=== PATIENT | male | born 1960 ===

== ENCOUNTER 2019-07-14 12:00 | Outpatient (CLI) | payer SELFPAY | END 2019-07-14 12:01 | disposition home or self-care (01) | LOC: SLEEP 07-15 12:04 | PROVIDERS: Family Provider Family Medicine; PCP Family Medicine; Visit Provider Internal Medicine | DX: G47.33 Obstructive sleep apnea (adult) (pediatric) (principal) | CPT/HCPCS: G0399 ==

== ENCOUNTER 2019-12-12 08:04 | Outpatient (CLI) | payer SELFPAY ==
--- NOTE | 2019-12-12 08:12 | CT_ITS ---
WS: [id number] CTA THORACIC TECHNIQUE: Contrast enhanced CTA of the thoracic aorta with coronal and sagittal reformatted images a nd maximum intensity projection (MIP) images. CLINICAL INFORMATION: THORACIC AORTIC ANEURYSM COMPARISON: CTA June 10, 2019 DLP: 2420.[address] scans at [facility] use at least one of these dose optimization techniques: automat ed exposure control; mA and/or kV adjustment per patient size (includes targeted exams where dose is matched to clinical indication); or iterative reconstruction. FINDINGS: Stable slightly ectatic ascending thoracic aorta measuring 4.3 x 4.0 CM unchanged. Normal aortic arch . Descending thoracic aorta is normal. Celiac and SMA origins are normal. Lungs are well aerated. No acute pulmonary infiltrates. No suspicious pulmonary parenchymal abnormali ties. No mediastinal or hilar lymphadenopathy. Coronary calcification. Fatty atrophy of the pancreas. No axillary lymphadenopathy. No mediastinal or hilar lymphadenopathy. Adrenal glands are normal. Fatty atrophy of the pancreas. Partially visualized left renal cyst. Small esophageal hiatal hernia. Schmorl's nodes in the mid thoracic spine. CT/CT angio chest [id number] IMPRESSION: 1. Ascending thoracic aorta is unchanged with mild ectasia measuring 4.3 x 3.9 CM. 2. Aortic arch and descending thoracic aorta are normal. 3. Lungs are well aerated. 4. No mediastinal or hilar lymphadenopathy. No axillary lymphadenopathy.
[2019-12-12] MEDS: iohexol 350 mg/mL 100 mL Btl IV (08:37)
== END 2019-12-12 08:05 | disposition home or self-care (01) ==
LOC: RAD 08:08
PROVIDERS: Family Provider Family Medicine; PCP Family Medicine; Visit Provider Internal Medicine
DX: I71.2 Thoracic aortic aneurysm, without rupture (principal)
CPT/HCPCS: 71275

== ENCOUNTER 2020-09-17 15:54 | Outpatient (CLI) | payer MEDICAID, SELFPAY ==
--- NOTE | 2020-09-17 16:01 | MR_ITS ---
WS: [id number] MRI LUMBAR SPINE NONCONTRAST TECHNIQUE: Sagittal T1, T2 and STIR imaging. Axial T1 and T2 imaging. CLINICAL INFORMATION: BACK PAIN WITH RADICULOPATHY COMPARISON: None. FINDINGS: Mild lumbar curve. No acute compression. Left subarticular disc extrusion L4-5 with slight inferior m igration of disc material. L1-L2: Normal. L2-L3: Mild annular bulging. Mild facet arthropathy. Mild right and no significant left foraminal campbell rowing. Spinal canal is patent. L3-L4: Mild annular bulging. Small left foraminal protrusion with mild left foraminal narrowing. Slig ht contact of the exiting left L3 nerve root. Mild facet arthropathy. L4-L5: Small left pericentral disc extrusion with slight inferior migration of disc material. Impinge ment on the traversing left L5 nerve root in the subarticular recess. Moderate facet arthropathy. Mil d central canal stenosis. Moderate right and mild left foraminal narrowing. L5-S1: Disc osteophyte complex with endplate ridging. Moderate facet arthropathy. Moderate left and m ild right foraminal narrowing. Moderate facet arthropathy. Mild thoracic kyphosis on the body shop technician imaging. Schmorl's nodes in the mid thoracic spine. MR/MR lumbar spine wo con* [id number] IMPRESSION: 1. Mild lumbar curve. No acute compression. 2. Slight anterolisthesis L5 on S1 with chronic bilateral pars defects. 3. Left pericentral disc extrusion L4-5 with slight inferior migration of disc material. This impinges the traversing left L5 nerve root in the subarticular recess. Recommend correlation with left L5 nerve root symptoms. Mild central ca nal stenosis at this level. 4. Moderate right L4-5 and left L5-S1 foraminal narrowing. 5. Small left foraminal protrusion L3-4 with mild left foraminal narrowing and slight contact of the exiting left L3 nerve root. 6. Moderate facet arthropathy L4-L5 and L5-S1.
== END 2020-09-17 15:55 | disposition home or self-care (01) ==
LOC: RADWPI 15:59
PROVIDERS: PCP Family Medicine; Visit Provider Family Medicine
DX: M54.16 Radiculopathy, lumbar region (principal); M47.816 Spondylosis without myelopathy or radiculopathy, lumbar region; M47.817 Spondylosis without myelopathy or radiculopathy, lumbosacral region; M51.26 Other intervertebral disc displacement, lumbar region
CPT/HCPCS: 72148

== ENCOUNTER 2020-10-18 14:34 | Outpatient (RCR) | payer MEDICAID, SELFPAY | END 2020-11-02 23:59 | disposition home or self-care (01) | LOC: SPT 14:34 | PROVIDERS: PCP Family Medicine; Referring Provider Family Medicine; Visit Provider Family Medicine | DX: M54.16 Radiculopathy, lumbar region (principal); M54.9 Dorsalgia, unspecified; G89.29 Other chronic pain | CPT/HCPCS: 97110; 97161 ==

== ENCOUNTER 2020-11-03 06:00 | Outpatient (RCR) | payer MEDICAID, SELFPAY | END 2020-12-03 23:59 | disposition home or self-care (01) | LOC: SPT 06:00 | PROVIDERS: PCP Family Medicine; Referring Provider Family Medicine; Visit Provider Family Medicine | DX: M54.16 Radiculopathy, lumbar region (principal); M54.9 Dorsalgia, unspecified; G89.29 Other chronic pain | CPT/HCPCS: 97110 ==

== ENCOUNTER 2020-12-04 06:00 | Outpatient (RCR) | payer MEDICAID, SELFPAY | END 2021-01-02 23:59 | disposition home or self-care (01) | LOC: SPT 06:00 | PROVIDERS: PCP Family Medicine; Referring Provider Family Medicine; Visit Provider Family Medicine | DX: M54.16 Radiculopathy, lumbar region (principal); M54.9 Dorsalgia, unspecified; G89.29 Other chronic pain | CPT/HCPCS: 97110 ==

== ENCOUNTER 2021-01-03 06:00 | Outpatient (RCR) | payer MEDICAID, SELFPAY | END 2021-02-02 23:59 | disposition home or self-care (01) | LOC: SPT 06:00 | PROVIDERS: PCP Family Medicine; Referring Provider Family Medicine; Visit Provider Family Medicine | DX: M54.16 Radiculopathy, lumbar region (principal); M54.5 Low back pain; G89.29 Other chronic pain | CPT/HCPCS: 97110 ==

== ENCOUNTER 2021-02-10 08:49 | Emergency (ER) | payer MEDICAID, SELFPAY ==
--- NOTE | 2021-02-10 08:52 | ED_ITS ---
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 Patient tells me he initially began having symptoms 6 days ago. He is complaining of weakness, headache, shortness of breath, decreased appetite, and body aches. He tested positive for COVID on 02/05 at [facility]. His here with similar symptoms. Son states he has a history of HTN. MD complaint: known COVID positive Prior covid testing: yes, results known Prior testing date: 02/05/21 COVID 19 common symptoms: positive fever(s) (had on first few days but none since), non-productive cough, dyspnea, fatigue, body aches and headache(s); negative chills, throat pain, nasal congestion, nausea, vomiting or diarrhea COVID 19 other sytmptoms: negative chest pain Onset (ago): day(s) Severity: moderate Pertinent comorbid conditions: hypertension Treatment prior to arrival: none COVID Results: No Data to Display Review of Systems Const: Reports: fever(s) (had on first few days but none since), body aches and fatigue; Denies: chills ENMT: Denies: throat pain, odynophagia, nasal discharge, nasal congestion or s inus pain Card: Denies: chest pain, palpitations, irregular heart rhythm, edema, lightheadedness, syncope or pre-syncope Resp: Reports: dyspnea and non-productive cough; Denies: wheezing, hemoptysis or chest congestion GI: Denies: abdominal pain, nausea, vomiting or diarrhea Musc: Reports: other (diffuse body aches); Denies: neck pain, back pain, extremity pain or joint pain Skin/Breast: Denies: rash Neuro: Reports: headache(s) and other (generalized weakness/malaise); Denies: numbness in extremities, sensory changes or difficulty walking PFS ED PFS: Family History (Updated 07/13/19 @ 13:44 by Alissa Kaufman LPN) Other CAD (coronary artery disease) Physical Exam Const: COMMON NORMALS: no acute distress, patient oriented x3, no limitations and alert GENERAL APPEARANCE: cooperative NUTRITIONAL APPEARANCE: overweight ORIENTATION/CONSCIOUSNESS: Yes awake, Yes oriented to person, Yes oriented to place and Yes oriented to time HENMT: COMMON NORMALS: normocephalic and atraumatic HEAD & SCALP: normocephalic and atraumatic Resp: COMMON NORMALS: normal respiratory effort and clear to auscultation bilaterally AUSCULTATION: clear to auscultation bilaterally Cardio: COMMON NORMALS: regular rate and regular rhythm RATE: regular rate RHYTHM: regular rhythm Neuro: HAL COMA SCALE: document GCS findings Hersey coma scale eye opening: Spontaneous Hersey coma scale verbal response: Orientated Hal coma scale motor response: Obey commands Hersey coma scale total score: 15 COMMON NORMALS: patient oriented x3 SENSORIUM/ORIENTATION: Yes alert, Yes oriented to person, Yes oriented to place and Yes oriented to time Skin: COMMON NORMALS: no rashes or lesions noted GENERAL SKIN EXAM: no rashes or lesions noted Course Vital Signs: Vital signs: Vital Signs Temperature 99 F 02/10/21 09:46 Pulse Rate 84 02/10/21 09:09 Respiratory Rate 24 H 02/10/21 09:46 Blood Pressure 135/90 02/10/21 09:09 Pulse Oximetry 88 L 02/10/21 09:48 MDM - COVID MDM Narrative: Medical decision making narrative: Patient is a very nice gentleman here with symptoms related to his COVID-19 infection. He tested positive at [facility] on 02/05. He is on day 7 of symptoms. Patient upon arrival is in no acute distress. He does appear, however, like he doesn't feel well. He is not tachycardic or febrile. Patient was initially triaged by RN/myself. Patient was satting at 94% at rest on RA. During his home O2 evaluation by RT howrever he was satting at 88%. He quickly suresh to 94% with 2L qualifying him for home O2. CXR does show bilateral pneumonia. He certainly has risk factors for disease progression but does not qualify for [facility] based on oxygen requirement. At this time patient does not warrant emergent hospitalization. He was given strict instructions to return to ED if symptoms worsen. We will have CM set him up with a telehealth COVID re-check visit so someone can re-assess in 24-48 hours. Imaging Data: CXR: Radiologist's impression: [address] [address] XRay Report Signed Patient: Federico Hua Unit #: [id number] : 1960 Age/Sex: 60 / M ADM Date: 02/10/21 Loc: ER Room/Bed: Attending Dr: Ordering Provider/Ordering MD: Christine Still Date of Service: 02/10/21 Procedure(s): XR chest 1V portable [id number] Accession Number(s): [id number] Report Number: [id number] PROCEDURE INFORMATION: Exam: XR Chest Exam date and time: 02/10/2021 9:09 AM Age: 60 years old Clinical indication: Shortness of breath; Additional info: Covid TECHNIQUE: Imaging protocol: XR of the chest. Views: 1 view. COMPARISON: CR Chest 1 [place] [id number] 06/09/2019 8:14 PM FINDINGS: Lungs: There are ill-defined scattered bilateral pulmonary hazy opacities. Pleural spaces: Unremarkable. No pleural effusion. No pneumothorax. Heart/Mediastinum: Unremarkable. No cardiomegaly. Bones/joints: Unremarkable. XR/XR chest 1V portable [id number] IMPRESSION: Ill-defined bilateral pulmonary hazy opacities. Findings raise concern for pneumonia. Consider CT scan of the thorax for further evaluation as clinically warranted. Dictated By: Taya Doe MD Signed By: Taya Doe MD Signed Date/Time: 02/10/21 1206 DD/ 1204 COVID Results: No Data to Display Monoclonal Antibody - ED Inclusion/Exclusion Criteria age >/= 12 years, weight >/= 40kg /88lbs, symptom onset less than 10 days ago and + direct Sars-Cov-2 test less than 7-10 days ago obesity (BMI >25 or 85%til for age) and cardiovascular disease or htn not requiring hospitalization and no increase oxygen requirement (if chronically on oxygen) Plan for treatment Does not meet criteria (DO NOT GIVE) Discharge Plan Discharge Patient Disposition: Home Clinical Impression: Pneumonia due to COVID-19 virus Condition: Stable Prescriptions: New dexamethasone 6 mg tablet 6 mg PO DAILY Qty: 6 RF: 0 No Action ibuprofen 600 mg tablet 600 mg PO Q6H PRNRF: 0 aspirin 81 mg tablet,delayed release (DR/EC) 81 mg PO DAILY RF: 0 rosuvastatin [Crestor] 40 mg tablet 40 mg PO DAILY RF: 0 lisinopril-hydrochlorothiazide 20-12.5 mg tablet 1 tab PO BID RF: 0 clonidine HCl [Catapres] 0.1 mg tablet 0.1 mg PO BID RF: 0 carvedilol 6.25 mg tablet 6.25 mg PO BID RF: 0 isosorbide mononitrate 30 mg tablet extended release 24 hr 30 mg PO QAM RF: 0 pantoprazole 40 mg tablet,delayed release (DR/EC) 40 mg PO QAM RF: 0 Discharge Orders: Discharge ED (Routine); Ordered 02/10/21 Ordered By: Christine Still Other Ambulatory Orders: DME: Oxygen (Order) Location: None Selected Ordered By: Christine Still Referrals: Juan Diego Gaona MD [Primary Care Provider] - Activity Restrictions/Additional Instructions: As we discussed you did not qualify for the monoclonal antibody infusion given the fact that you were requiring oxygen. Your vital signs are stable at this time. Your chest x-ray does show pneumonia. This is secondary to the COVID-19 virus. Antibiotics are not indicated at this time. You need to continue to watch symptoms closely and return to the emergency department for severe shortness of breath or difficulty breathing. I will try to have case management set you up with a telehealth visit in the next 1 to 2 days so somebody can reevaluate you. Coding Level of Care Code ED [employer] F[employer] for [place] Exam Detailed
[2021-02-10 09:09] VITALS: BP 135/90; PULSE 84; RESP 18; TEMP 37.2; O2SAT 95; BMI 36.9
--- NOTE | 2021-02-10 09:09 | XRR_ITS ---
PROCEDURE INFORMATION: Exam: XR Chest Exam date and time: 02/10/2021 9:09 AM Age: 60 years old Clinical indication: Shortness of breath; Additional info: Covid TECHNIQUE: Imaging protocol: XR of the chest. Views: 1 view. COMPARISON: CR Chest 1 [place] [id number] 06/09/2019 8:14 PM FINDINGS: Lungs: There are ill-defined scattered bilateral pulmonary hazy opacities. Pleural spaces: Unremarkable. No pleural effusion. No pneumothorax. Heart/Mediastinum: Unremarkable. No cardiomegaly. Bones/joints: Unremarkable. XR/XR chest 1V portable [id number] IMPRESSION: Ill-defined bilateral pulmonary hazy opacities. Findings raise concern for pneumonia. Consider CT scan of the thorax for further evaluation as clinically warranted.
[2021-02-10 09:44] VITALS: O2SAT 88; O2SAT 94
[2021-02-10 09:46] VITALS: RESP 24; TEMP 37.2; O2SAT 88
[2021-02-10 09:48] VITALS: O2SAT 88
--- NOTE | 2021-02-11 14:21 | DCPLANNER ---
HOME called housing case manager asking housing case manager to pre certify patients oxygen for patient with medicaid. scientific affairs manager called Medicaid, spoke with Latanya, gave patients information, and it was approved with medicaid for patient to have oxygen. scientific affairs manager called HOME and let them know that they could print off the approval for patients oxygen. scientific affairs manager also had message to schedule a tele health visit for patient with primary care physician. scientific affairs manager called [facility], where patient sees Dr. Gaona. scientific affairs manager gave clinic patients information, a follow up appointment was scheduled for Friday, February 12, 2021 at 1:[address] Gaona. scientific affairs manager called patients daughter and gave the daughter the appointment information.
--- NOTE | 2021-02-22 14:30 | DCPLANNER ---
Patient had a follow up appointment scheduled for 02.12.21 with [facility] - patient did attend appointment.
== END 2021-02-10 11:21 | disposition home or self-care (01) ==
PROVIDERS: Emergency Provider Physician Assistant; PCP Family Medicine
DX: U07.1 COVID-19 (principal); J12.82 Pneumonia due to coronavirus disease 2019; Z79.82 Long term (current) use of aspirin
CPT/HCPCS: 71045; 99283

== ENCOUNTER 2021-02-14 10:50 | Inpatient (IN) | payer MEDICAID, SELFPAY ==
[2021-02-14] VITALS (25 sets, daily range): BP systolic 92–151; BP diastolic 60–92; PULSE 86–101; RESP 18–23; TEMP 37.3; O2SAT 68–91; BMI 33.2
--- NOTE | 2021-02-14 | XRR_ITS ---
PROCEDURE INFORMATION: Exam: XR Chest Exam date and time: 02/14/2021 12:00 AM Age: 60 years old Clinical indication: Shortness of breath; Additional info: Hypoxia, intubated TECHNIQUE: Imaging protocol: XR of the chest. Views: 1 view. COMPARISON: CR XR chest 1V portable [id number] 02/14/2021 12:44 PM FINDINGS: Tubes, catheters and devices: Intubation with tip 5.7 cm above the riley. Right IJ central line with tip over the mid SVC. Gastric tube with tip in the mid stomach. Lungs: Dense consolidation in the peripheral inferior right upper lobe. Patchy dense ground-glass and airspace opacities in both lung bases. These findings are not significantly changed, allowing for positioning differences. Pleural spaces: Unremarkable. No pleural effusion. No pneumothorax. Heart/Mediastinum: Unremarkable. No cardiomegaly. Bones/joints: Unremarkable. XR/XR chest 1V portable [id number] IMPRESSION: 1. Stable multilobar pneumonia and/or ARDS.
[2021-02-14] MEDS: succinylcholine 20 mg/mL SDV 10mL 100 MG IVP (10:53)
[2021-02-14] MEDS: vecuronium 10 mg SDV IVP ×2 (11:00→11:43)
[2021-02-14] MEDS: propofol 10 mg/mL SDV 20 mL 100 MG IVP ×3 (11:01→11:47)
--- NOTE | 2021-02-14 11:08 | ECG_ITS ---
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1960 Requested By: Lexa Mart Order Number: [id number] Reading MD: SERGIO MAYES Measurements Intervals Lamar Rate: 107 P: 5 CA: 156 QRS: 55 QRSD: 96 T: -75 QT: 350 QTc: 468 Interpretive Statements SINUS TACHYCARDIA ST DEVIATION AND MODERATE T-WAVE ABNORMALITY, CONSIDER ANTEROLATERAL ISCHEMIA [-0.1+ mV T WAVE IN V3-V6] ST DEVIATION AND MODERATE T-WAVE ABNORMALITY, CONSIDER INFERIOR ISCHEMIA [-0.1+ mV T WAVE IN II/aVF] Compared to ECG 06/10/2019 02:13:34 Sinus rhythm no longer present T-wave abnormality still present Possible ischemia still present Electronically Signed On 02-14-2021 21:22:55 CDT by SERGIO MAYES [id number] f
--- NOTE | 2021-02-14 11:08 | XR_ITS ---
WS: [id number] Portable AP upright chest, 02/14/2021 Clinical Data: dyspnea/cough Comparison: Portable chest, 02/10/2021. Findings: There are diffuse bilateral pulmonary opacities which have increased compared to the prior x-ray. The heart remains at the upper limits of normal. There is an endotracheal tube above the melvin a and a nasogastric tube which probably ends in the stomach. Monitor leads are on the chest wall. XR/XR chest 1V portable [id number] Impression: 1. Increase in diffuse bilateral pulmonary opacities consistent with pneumonia. 2. Satisfactory position of endotracheal tube and nasogastric tube.
--- NOTE | 2021-02-14 11:29 | W.ED.COVID ---
HPI - COVID General: Chief Complaint: ER Hold Stated Complaint: respiratory distress/covid + Time Seen by Provider: 02/14/21 11:02 History of Present Illness: HPI Narrative: 60-year-old male with known positive for Covid.His was admitted yesterday. He was seen on February 10. He had tested positive at [facility] on 3. According to the records today would be day 10 of symptoms. Was evaluated on February 10 for possible monoclonal antibody infusion but did not qualify due to his oxygen need. EMS contacted us for med control prior to arrival he was in acute respiratory distress and rapidly decompensating. Upon arrival here he was emergently intubated. History is entirely from his previous records. MD complaint: known COVID positive Prior testing date: 02/05/21 COVID 19 common symptoms: positive fever(s), chills, cough, non-productive cough, dyspnea, fatigue and body aches COVID 19 other sytmptoms: positive requiring more oxygen, respiratory distress, cyanosis, lethargy and confusion Onset (ago): day(s) (10) Severity: severe Pertinent comorbid conditions: obesity Treatment prior to arrival: steroids and oxygen COVID Results: No Data to Display Review of Systems Const: Reports: fever(s), chills, body aches and fatigue Resp: Reports: dyspnea and non-productive cough Neuro: Reports: confusion [facility] ED PFSH: Medical History (Updated 02/18/21 @ 06:32 by Lexa Roman DO) Acute renal failure CAD (coronary artery disease) Nonobstructive per angiogram June 2019 Chronic headaches Diabetes mellitus Dyslipidemia Hypertension Family History Other CAD (coronary artery disease) Social History Smoking and tobacco status: never smoked Alcohol intake: never Physical Exam HENMT: COMMON NORMALS: normocephalic and atraumatic HEAD & SCALP: normocephalic and atraumatic Resp: EFFORT & INSPECTION: Yes abnormal respiratory pattern, Yes respiratory distress, Yes decreased respiratory effort, Yes labored, Yes grunting and Yes audible wheezes AUSCULTATION: crackles, rhonchi and wheezes Cardio: COMMON NORMALS: regular rhythm and No murmurs present (Cardio) RATE: tachycardic RHYTHM: regular rhythm GI: COMMON NORMALS: Soft to palpation and No hepatosplenomegaly present AUSCULTATION: Yes normoactive bowel sounds PALPATION: Yes Soft to palpation, No Tenderness to palpation present (GI), No Guarding due to palpation present (GI) and Yes No hepatosplenomegaly present Extremity: COMMON NORMALS: normal to inspection, capillary refill normal, no clubbing, cyanosis or edema, no calf tenderness and no pedal edema Skin: COMMON NORMALS: no rashes or lesions noted GENERAL SKIN EXAM: no rashes or lesions noted Procedures Intubation Time out performed: Yes sedative: Etomidate paralytic: Succinylcholine Laryngoscope: fiber optic video scope Assist Device Used: fiber optic device ET Tube Size: 8.5 Tube Secured Depth (cm): 22 Tube Secured Location: teeth Tube Placement Confirmation: visualized tube passing through cords, equal breath sounds bilaterally, no breath sounds over epigastrium and confirmation by capnometry Patient Tolerated Procedure: well Intubation Complications: none Course Vital Signs: Vital signs: Vital Signs Temperature 98.6 F 02/18/21 04:00 Pulse Rate 87 02/18/21 06:00 Respiratory Rate 24 H 02/18/21 06:16 Blood Pressure 143/75 02/18/21 06:00 Pulse Oximetry 95 02/18/21 06:16 MDM - COVID MDM Narrative: Medical decision making narrative: Patient presented in acute respiratory failure and was intubated by RSI on arrival. Reviewed labs and chest x-ray which shows extensive Covid pneumonitis. His first positive test was February 05. Discussed with hospitalist orders written patient admitted to the ICU he is currently stable on the ventilator. Lab Data: Labs: Lab Results 02/14/21 02/14/21 02/14/21 Range/Units 10:55 10:55 10:55 WBC (4.0-10.0) 10^3/ uL RBC (4.1-5.3) 10^6/u L Hgb (11.7-16.6) g/dL Hct (42.0-52.0) % MCV (80-94) fL MCH (28.0-34.0) pg MCHC (30.0-36.0) g/dL RDW (12.1-15.1) % Plt Count (130-400) 10^3/c mm MPV (7.4-10.4) fL Neut % (Auto) % Lymph % (Auto) % [place] % (Auto) % Eos % (Auto) % Baso % (Auto) % Neut # (Auto) (1.8-7.7) 10^3/u L Lymph # (Auto) (0.8-4.8) 10^3/u L [place] # (Auto) (0.2-0.9) 10^3/u L Eos # (Auto) (0.0-0.8) 10^3/u L Baso # (Auto) (0.0-0.1) 10^3/u L Nucleated RBC % (a uto) % Nucleated RBCs # /100WBC D-Dimer 1.64 H (0-0.59) ug/mIFE U Specimen Type Sample Site ABG pH (7.35-7.45) ABG pCO2 (35-45) mmHg ABG pO2 (80.0-100.0) mmH g ABG HCO3 (22-26) mmol/L ABG O2 Saturation ABG Base Excess (-2.0-2.0) mmol/ L Artemio Test A-a O2 Gradient (5-10) mmHg Hematocrit (42-52) % Hgb O2 Saturation (95-100) % Carboxyhemoglobin (0.4-20.1) %THgb Methemoglobin (0.4-1.5) % Total Hemoglobin (14-18) g/dL Ionized Calcium (1.1-1.4) mmol/L O2 Delivery Device FiO2 % Tidal Volume PEEP cmH20 Disbursement Clerk ID Sodium 130 L (136-145) mmol/L Potassium 4.2 (3.5-5.1) mmol/L Chloride 94 L (98-107) mmol/L Carbon Dioxide 22 (22-29) mmol/L Anion Gap 18.2 (5-19) BUN 20 (6-20) mg/dL Creatinine 0.9 (0.7-1.2) mg/dL GFR Calculation 86.7 L (90-130) mL/min Glucose 282 H (65-115) mg/dL Calculated Osmolal ity 283 L (285-295) mOsm/k g Lactic Acid (0.5-2.2) mmol/L Calcium 7.7 L (8.5-10.5) mg/dL Total Bilirubin 0.6 (0.15-1.2) mg/dL AST 88 H (0-40) U/L ALT 58 H (0-41) U/L Alkaline Phosphata se 68 (40-130) IU/L Troponin T Baselin e (0-15) ng/L Troponin T 120 Min [place] (0-15) ng/L Delta Troponin T (0-10) ABS# C-Reactive Protein 80.3 H (0.0-4.9) mg/L NT-Pro-B Natriuret Pep (0-125) pg/mL Total Protein 6.5 L (6.6-8.7) g/dL Albumin 3.6 (3.5-5.2) g/dL Globulin 2.9 (1.3-4.6) g/dL Interleukin 6 2895.00 H (<5.00) pg/mL Procalcitonin 1.02 H (0-0.5) ng/mL 02/14/21 02/14/21 02/14/21 Range/Units 10:55 10:55 10:55 WBC 13.4 H (4.0-10.0) 10^3/ uL RBC 6.04 H (4.1-5.3) 10^6/u L Hgb 17.3 H (11.7-16.6) g/dL Hct 52.4 H (42.0-52.0) % MCV 86.8 (80-94) fL MCH 28.6 (28.0-34.0) pg MCHC 33.0 (30.0-36.0) g/dL RDW 13.2 (12.1-15.1) % Plt Count 165 (130-400) 10^3/c mm MPV 10.3 (7.4-10.4) fL Neut % (Auto) 91.2 % Lymph % (Auto) 4.8 % [place] % (Auto) 3.2 % Eos % (Auto) 0.0 % Baso % (Auto) 0.1 % Neut # (Auto) 12.18 H (1.8-7.7) 10^3/u L Lymph # (Auto) 0.6 L (0.8-4.8) 10^3/u L [place] # (Auto) 0.4 (0.2-0.9) 10^3/u L Eos # (Auto) 0.0 (0.0-0.8) 10^3/u L Baso # (Auto) 0.0 (0.0-0.1) 10^3/u L Nucleated RBC % (a uto) 0 % Nucleated RBCs # 0.0 /100WBC D-Dimer (0-0.59) ug/mIFE U Specimen Type Sample Site ABG pH (7.35-7.45) ABG pCO2 (35-45) mmHg ABG pO2 (80.0-100.0) mmH g ABG HCO3 (22-26) mmol/L ABG O2 Saturation ABG Base Excess (-2.0-2.0) mmol/ L Artemio Test A-a O2 Gradient (5-10) mmHg Hematocrit (42-52) % Hgb O2 Saturation (95-100) % Carboxyhemoglobin (0.4-20.1) %THgb Methemoglobin (0.4-1.5) % Total Hemoglobin (14-18) g/dL Ionized Calcium (1.1-1.4) mmol/L O2 Delivery Device FiO2 % Tidal Volume PEEP cmH20 Disbursement Clerk ID Sodium (136-145) mmol/L Potassium (3.5-5.1) mmol/L Chloride (98-107) mmol/L Carbon Dioxide (22-29) mmol/L Anion Gap (5-19) BUN (6-20) mg/dL Creatinine (0.7-1.2) mg/dL GFR Calculation (90-130) mL/min Glucose (65-115) mg/dL Calculated Osmolal ity (285-295) mOsm/k g Lactic Acid 3.8 H (0.5-2.2) mmol/L Calcium (8.5-10.5) mg/dL Total Bilirubin (0.15-1.2) mg/dL AST (0-40) U/L ALT (0-41) U/L Alkaline Phosphata se (40-130) IU/L Troponin T Baselin e 18 H (0-15) ng/L Troponin T 120 Min [place] (0-15) ng/L Delta Troponin T (0-10) ABS# C-Reactive Protein (0.0-4.9) mg/L NT-Pro-B Natriuret Pep (0-125) pg/mL Total Protein (6.6-8.7) g/dL Albumin (3.5-5.2) g/dL Globulin (1.3-4.6) g/dL Interleukin 6 (<5.00) pg/mL Procalcitonin (0-0.5) ng/mL 02/14/21 02/14/21 02/14/21 Range/Units 11:49 12:55 12:55 WBC (4.0-10.0) 10^3/ uL RBC (4.1-5.3) 10^6/u L Hgb (11.7-16.6) g/dL Hct (42.0-52.0) % MCV (80-94) fL MCH (28.0-34.0) pg MCHC (30.0-36.0) g/dL RDW (12.1-15.1) % Plt Count (130-400) 10^3/c mm MPV (7.4-10.4) fL Neut % (Auto) % Lymph % (Auto) % [place] % (Auto) % Eos % (Auto) % Baso % (Auto) % Neut # (Auto) (1.8-7.7) 10^3/u L Lymph # (Auto) (0.8-4.8) 10^3/u L [place] # (Auto) (0.2-0.9) 10^3/u L Eos # (Auto) (0.0-0.8) 10^3/u L Baso # (Auto) (0.0-0.1) 10^3/u L Nucleated RBC % (a uto) % Nucleated RBCs # /100WBC D-Dimer (0-0.59) ug/mIFE U Specimen Type Arterial Sample Site Brachial, right ABG pH 7.32 L (7.35-7.45) ABG pCO2 44.8 (35-45) mmHg ABG pO2 46.0 L (80.0-100.0) mmH g ABG HCO3 22.9 (22-26) mmol/L ABG O2 Saturation 78.6 ABG Base Excess -3.5 L (-2.0-2.0) mmol/ L Artemio Test N/a A-a O2 Gradient 79.7 H (5-10) mmHg Hematocrit 52.7 H (42-52) % Hgb O2 Saturation 77.7 L (95-100) % Carboxyhemoglobin 0.7 (0.4-20.1) %THgb Methemoglobin 0.4 (0.4-1.5) % Total Hemoglobin 17.2 (14-18) g/dL Ionized Calcium 1.1 (1.1-1.4) mmol/L O2 Delivery Device Vent FiO2 100.0 % Tidal Volume 0.50 PEEP 12.0 cmH20 Disbursement Clerk ID Ed Sodium 131.0 (136-145) mmol/L Potassium 3.8 (3.5-5.1) mmol/L Chloride (98-107) mmol/L Carbon Dioxide (22-29) mmol/L Anion Gap (5-19) BUN (6-20) mg/dL Creatinine (0.7-1.2) mg/dL GFR Calculation (90-130) mL/min Glucose 294.0 H (65-115) mg/dL Calculated Osmolal ity (285-295) mOsm/k g Lactic Acid (0.5-2.2) mmol/L Calcium (8.5-10.5) mg/dL Total Bilirubin (0.15-1.2) mg/dL AST (0-40) U/L ALT (0-41) U/L Alkaline Phosphata se (40-130) IU/L Troponin T Baselin e (0-15) ng/L Troponin T 120 Min [place] 27.90 H (0-15) ng/L Delta Troponin T 9.90 (0-10) ABS# C-Reactive Protein (0.0-4.9) mg/L NT-Pro-B Natriuret Pep 1942 H (0-125) pg/mL Total Protein (6.6-8.7) g/dL Albumin (3.5-5.2) g/dL Globulin (1.3-4.6) g/dL Interleukin 6 (<5.00) pg/mL Procalcitonin (0-0.5) ng/mL 02/14/21 Range/Units 12:55 WBC (4.0-10.0) 10^3/ uL RBC (4.1-5.3) 10^6/u L Hgb (11.7-16.6) g/dL Hct (42.0-52.0) % MCV (80-94) fL MCH (28.0-34.0) pg MCHC (30.0-36.0) g/dL RDW (12.1-15.1) % Plt Count 181 (130-400) 10^3/c mm MPV (7.4-10.4) fL Neut % (Auto) % Lymph % (Auto) % [place] % (Auto) % Eos % (Auto) % Baso % (Auto) % Neut # (Auto) (1.8-7.7) 10^3/u L Lymph # (Auto) (0.8-4.8) 10^3/u L [place] # (Auto) (0.2-0.9) 10^3/u L Eos # (Auto) (0.0-0.8) 10^3/u L Baso # (Auto) (0.0-0.1) 10^3/u L Nucleated RBC % (a uto) % Nucleated RBCs # /100WBC D-Dimer (0-0.59) ug/mIFE U Specimen Type Sample Site ABG pH (7.35-7.45) ABG pCO2 (35-45) mmHg ABG pO2 (80.0-100.0) mmH g ABG HCO3 (22-26) mmol/L ABG O2 Saturation ABG Base Excess (-2.0-2.0) mmol/ L Artemio Test A-a O2 Gradient (5-10) mmHg Hematocrit (42-52) % Hgb O2 Saturation (95-100) % Carboxyhemoglobin (0.4-20.1) %THgb Methemoglobin (0.4-1.5) % Total Hemoglobin (14-18) g/dL Ionized Calcium (1.1-1.4) mmol/L O2 Delivery Device FiO2 % Tidal Volume PEEP cmH20 Disbursement Clerk ID Sodium (136-145) mmol/L Potassium (3.5-5.1) mmol/L Chloride (98-107) mmol/L Carbon Dioxide (22-29) mmol/L Anion Gap (5-19) BUN (6-20) mg/dL Creatinine (0.7-1.2) mg/dL GFR Calculation (90-130) mL/min Glucose (65-115) mg/dL Calculated Osmolal ity (285-295) mOsm/k g Lactic Acid (0.5-2.2) mmol/L Calcium (8.5-10.5) mg/dL Total Bilirubin (0.15-1.2) mg/dL AST (0-40) U/L ALT (0-41) U/L Alkaline Phosphata se (40-130) IU/L Troponin T Baselin e (0-15) ng/L Troponin T 120 Min [place] (0-15) ng/L Delta Troponin T (0-10) ABS# C-Reactive Protein (0.0-4.9) mg/L NT-Pro-B Natriuret Pep (0-125) pg/mL Total Protein (6.6-8.7) g/dL Albumin (3.5-5.2) g/dL Globulin (1.3-4.6) g/dL Interleukin 6 (<5.00) pg/mL Procalcitonin (0-0.5) ng/mL COVID Results: No Data to Display Critical Care Time Critical Care Time: Critical Care Time: Yes Total Critical Care Time: 20 Attestation: This case had a high probability of a clinically significant, sudden, or life threatening deterioration of this patient's condition which required my full and direct attention, intervention and personal management. Discharge Plan Discharge Patient Disposition: Admitted As Inpatient Admit Provider: Talib Olvera Clinical Impression: Pneumonia due to COVID-19 virus, Hypotension, CAD (coronary artery disease), Acute and chronic respiratory failure with hypoxia, ARDS (adult respiratory distress syndrome), Diabetes mellitus Condition: Stable Coding Level of Care Code ED Bending Roll Hand for g Fwd Exam Detailed
[2021-02-14 11:36] LABS: Basophils % 0.1 %; Hematocrit 52.4 % (42.0-52.0); Hemoglobin 17.3 g/dL (11.7-16.6); Lymphocytes # 0.6 10^3/uL (0.8-4.8); Lymphocytes % 4.8 %; Mean Corpuscular Hemoglobin 28.6 pg (28.0-34.0); Mean Corpuscular Volume 86.8 fL (80-94); Mean Platelet Volume 10.3 fL (7.4-10.4); Monocytes # 0.4 10^3/uL (0.2-0.9); Monocytes % 3.2 %; Neutrophils # 12.18 10^3/uL (1.8-7.7); Neutrophils % 91.2 %; Nucleated Red Blood Cells % 0 %; Platelet Count 165 10^3/cmm (130-400); Red Blood Count 6.04 10^6/uL (4.1-5.3); Red Cell Distribution Width 13.2 % (12.1-15.1); White Blood Count 13.4 10^3/uL (4.0-10.0)
[2021-02-14 11:43] LABS: D Dimer 1.64 ug/mIFEU (0-0.59)
[2021-02-14 11:49] LABS: Troponin(5th) Baseline 18 ng/L (0-15)
[2021-02-14 11:52] LABS: Alanine Aminotransferase 58 U/L (0-41); Albumin Level 3.6 g/dL (3.5-5.2); Alkaline Phosphatase 68 IU/L (40-130); Blood Urea Nitrogen 20 mg/dL (6-20); C Reactive Protein 80.3 mg/L (0.0-4.9); Calcium 7.7 mg/dL (8.5-10.5); Carbon Dioxide 22 mmol/L (22-29); Chloride 94 mmol/L (98-107); Globulin 2.9 g/dL (1.3-4.6); Glomerular Filtration Rate 86.7 mL/min (90-130); Glucose 282 mg/dL (65-115); Osmolality Calculated 283 mOsm/kg (285-295); Sodium 130 mmol/L (136-145); Total Bilirubin 0.6 mg/dL (0.15-1.2); Total Protein 6.5 g/dL (6.6-8.7)
[2021-02-14 11:55] LABS: Lactic Sepsis W/Reflex 3.8 mmol/L (0.5-2.2)
[2021-02-14 11:57] LABS: Procalcitonin 1.02 ng/mL (0-0.5)
[2021-02-14 12:04] LABS: Anion Gap 18.2 (5-19); Aspartate Amino Transferase 88 U/L (0-40); Potassium 4.2 mmol/L (3.5-5.1)
[2021-02-14] MEDS: remdesivir 200 MG in sodium chloride 0.9% (100 ml) 100 ML 100 MG IV (12:10)
--- NOTE | 2021-02-14 12:41 | XR_ITS ---
WS: [id number] Portable AP supine chest, 02/14/2021, 1244 hours Clinical Data: central line Comparison: Portable chest, 02/14/2021, 1126 hours Findings: A right internal jugular venous catheter has been inserted and it ends in the superior vena cava. No pneumothorax is seen. The patchy bilateral pulmonary opacities and the endotracheal tube an d nasogastric tube remain unchanged XR/XR chest 1V portable 50011 Impression: Insertion of right internal jugular venous catheter.
--- NOTE | 2021-02-14 12:48 | PM.HP ---
Providers/Chief Complaint Primary Care Provider: Juan Diego Gaona MD Chief Complaint: RESPIRATORY DISTRESS History of Present Illness Federico Hua is a 60 year old male presenting to the emergency department with shortness of breath. Symptoms were so severe he was intubated upon arrival. He was seen in the emergency department February 10. He tested positive on February 05. is ill with Covid symptoms as well. From what I understand he had fever. He did not qualify for monoclonal antibody. I have seen him shortly after the emergency department physician did. He is currently sedated on Versed and fentanyl. His oxygen saturation is 84% on 100% FiO2 with a tidal volume of 500 and PEEP of 12. I have ordered paralysis, and proning. I have written for 40 mg of Lasix. Dexamethasone 6 mg IV. IV antibiotics consisting of vancomycin and Zosyn. Multiple other orders and evaluations undergoing. Review of Systems General: Reports: ROS unobtainable due to endotracheal tube Medications/Allergies Home Medications Medication Instructions Recorded Confirmed Last Taken Type aspirin 81 mg tablet,delayed 81 mg PO DAILY tab 07/13/19 02/14/21 Unknown History release clonidine HCl 0.1 mg tablet 0.1 mg PO BID 07/13/19 02/14/21 Unknown History ibuprofen 600 mg tablet 600 mg PO Q6H PRN 07/13/19 02/14/21 Unknown History isosorbide mononitrate 30 mg 30 mg PO QAM 07/13/19 02/14/21 Unknown History tablet,extended release 24 hr lisinopril 20 1 tab PO BID 07/13/19 02/14/21 Unknown History mg-hydrochlorothiazide 12.5 mg tablet pantoprazole 40 mg tablet,delayed 40 mg PO QAM 07/13/19 02/14/21 Unknown History release dexamethasone 6 mg PO DAILY #6 tab 02/10/21 02/14/21 Unknown Rx diltiazem HCl [Diltia XT] 180 mg PO DAILY 02/14/21 02/14/21 02/13/21 History fluoxetine 20 mg PO DAILY 02/14/21 02/14/21 02/13/21 History metformin See Rx Instructions .ROUTE .COMPLEX 02/14/21 02/14/21 Unknown History Allergies Allergy/AdvReac Type Severity Reaction Status Date / Time No Known Allergies Allergy Unverified 07/13/19 13:31 PFSH Acute PFSH: Medical History (Updated 02/14/21 @ 17:34 by Talib Olvera MD) CAD (coronary artery disease) Nonobstructive per angiogram June 2019 Chronic headaches Diabetes mellitus Dyslipidemia Hypertension Family History Other CAD (coronary artery disease) Social History (Updated 02/14/21 @ 12:59 by Talib Olvera MD) Smoking and tobacco status: never smoked Alcohol intake: never Supplemental PFS Information: No significant surgical history Vitals/I&O/Wt Last Vital Signs Pulse 101 H 02/14/21 11:00 Resp 23 H 02/14/21 11:17 BP 151/79 02/14/21 11:00 Pulse Ox 68 L 02/14/21 11:00 Weight last 48 hrs Weight 102.058 kg Physical Exam Narrative: EXAM NARRATIVE: General exam Pleasant male, sedated on the ventilator HEENT: Atraumatic and normocephalic. Pupils equally round. Oropharynx demonstrates endotracheal tube and orogastric tube Neck is supple no lymphadenopathy or thyromegaly Cardiovascular regular rate and rhythm without murmur Lungs coarse breath sounds bilaterally Abdomen is soft obese positive bowel sounds. No obvious organomegaly demonstrates [place] Extremities no cyanosis clubbing or edema, cap refill brisk Skin no rash Data : 02/14/21 12:55 02/14/21 10:55 Micro: Microbiology 02/14/21 10:55 Blood Culture - Preliminary Blood SPECIMEN COLLECTED Other data: ABG after patient was intubated demonstrates a pH of 7.317, PCO2 45, PO2 46 on 100% FiO2. I believe the PEEP was 10 at this time with a tidal volume of 500. Chest x-ray demonstrates severe bilateral infiltrates, to position okay per my read. EKG demonstrates sinus tachycardia, normal axis, flipped T waves V3 through 6 as well as inferiorly. Procalcitonin is 1.02 Initial troponin XVIII with repeat pending CRP eighty Lactic acid 3.8 Calcium 7.7 AST and ALT eighty-eight and fifty-eight Total bili 0.6 Alk phos sixty-eight A&P Assessment and plan (1) Pneumonia due to COVID-19 virus: Severe COVID-19 pneumonia, first testing + February 05 Intubated in the emergency department, requiring a significant amount of PEEP and an FiO2 of 100%. We will sedate with fentanyl and propofol Continuous neuromuscular blockade with Nimbex, and will try to prone Critical care consultation Remdesivir given in the emergency department Dexamethasone initiated Empiric vancomycin and Zosyn secondary to possibility of bacterial pneumonia. Procalcitonin was high. Check MRSA PCR as well as bacterial antigen panel. Check Legionella as well. Dimer is significantly elevated and with elevated troponin I have placed on a heparin drip. Status: Acute (2) Acute and chronic respiratory failure with hypoxia: See above Status: Acute (3) ARDS (adult respiratory distress syndrome): Status: Acute (4) CAD (coronary artery disease): Continue aspirin Heparin drip Elevation in troponin noted may be type II elevation but positive delta is noted. Check echocardiogram Status: Acute (5) Hypertension: May have hypotension on medication for sedation. Hold antihypertensives. Norepinephrine as needed. Status: Acute (6) Diabetes mellitus: Sliding scale insulin Status: Acute Additional A&P Information Full code Lovenox for DVT prophylaxis Attestations Medical Necessity Statement*: Will need greater than 2 midnights secondary to respiratory failure requiring mechanical ventilation. Critical Care Time: The high probability of a clinically significant, sudden or life threatening deterioration of the patient's [pulm] system(s) required my full and direct attention, intervention and personal management. The critical care time is as shown. This time is in addition to time spent performing any reported procedures but includes the following: [x] Data and vital sign review and interpretation [x] Patient assessment, examination and intervention [x] Documentation [x] Medication orders and management Critical Care Time (min): 65 Coding Level of Care Code Acute Clinical Trials Data Coordinator for [facility]in Tse Diagnoses Pneumonia due to COVID-19 virus U07.1; J12.82 Acute and chronic respiratory failure with hypoxia J96.21 ARDS (adult respiratory distress syndrome) J80 CAD (coronary artery disease) I25.10 Hypertension I10 Diabetes mellitus E11.9
[2021-02-14] MEDS: propofol 1,000 MG/100 ML INJ 3.06 MG IV (12:50)
--- NOTE | 2021-02-14 12:55 | W.ED.SOB ---
HPI - SOB/Dyspnea General: Chief Complaint: ER Hold Stated Complaint: respiratory distress/covid + Time Seen by Provider: 02/14/21 11:02 PFSH ED PFSH: Family History Other CAD (coronary artery disease) Procedures Central Line Placement Right IJ: Time Out Performed: Yes Patient Placed on Monitor/Pulse Ox: Yes MD Prep: mask, gown and gloves Central Line Prep: Chlorhexidine scrub Local Anesthetic: lidocaine 1% Ultrasound Used for Placement: Yes Central Line Lumen Inserted: triple Post Procedure: sutured in place, good blood return and all ports aspirated, flushed, capped Post Procedure X-Ray: tip of catheter in good position and no pneumothorax seen Patient Tolerated Procedure: well Complications: none Course Vital Signs: Vital signs: Vital Signs Pulse Rate 101 H 02/14/21 11:00 Respiratory Rate 23 H 02/14/21 11:17 Blood Pressure 151/79 02/14/21 11:00 Pulse Oximetry 68 L 02/14/21 11:00 MDM - SOB/Dyspnea Lab Data: Labs: Lab Results 02/14/21 02/14/21 02/14/21 Range/Units 10:55 10:55 10:55 WBC 13.4 H (4.0-10.0) 10^3/ uL RBC 6.04 H (4.1-5.3) 10^6/u L Hgb 17.3 H (11.7-16.6) g/dL Hct 52.4 H (42.0-52.0) % MCV 86.8 (80-94) fL MCH 28.6 (28.0-34.0) pg MCHC 33.0 (30.0-36.0) g/dL RDW 13.2 (12.1-15.1) % Plt Count 165 (130-400) 10^3/c mm MPV 10.3 (7.4-10.4) fL Neut % (Auto) 91.2 % Lymph % (Auto) 4.8 % [place] % (Auto) 3.2 % Eos % (Auto) 0.0 % Baso % (Auto) 0.1 % Neut # (Auto) 12.18 H (1.8-7.7) 10^3/u L Lymph # (Auto) 0.6 L (0.8-4.8) 10^3/u L [place] # (Auto) 0.4 (0.2-0.9) 10^3/u L Eos # (Auto) 0.0 (0.0-0.8) 10^3/u L Baso # (Auto) 0.0 (0.0-0.1) 10^3/u L Nucleated RBC % (a uto) 0 % Nucleated RBCs # 0.0 /100WBC D-Dimer 1.64 H (0-0.59) ug/mIFE U Sodium 130 L (136-145) mmol/L Potassium 4.2 (3.5-5.1) mmol/L Chloride 94 L (98-107) mmol/L Carbon Dioxide 22 (22-29) mmol/L Anion Gap 18.2 (5-19) BUN 20 (6-20) mg/dL Creatinine 0.9 (0.7-1.2) mg/dL GFR Calculation 86.7 L (90-130) mL/min Glucose 282 H (65-115) mg/dL Calculated Osmolal ity 283 L (285-295) mOsm/k g Lactic Acid (0.5-2.2) mmol/L Calcium 7.7 L (8.5-10.5) mg/dL Total Bilirubin 0.6 (0.15-1.2) mg/dL AST 88 H (0-40) U/L ALT 58 H (0-41) U/L Alkaline Phosphata se 68 (40-130) IU/L Troponin T Baselin e (0-15) ng/L C-Reactive Protein 80.3 H (0.0-4.9) mg/L Total Protein 6.5 L (6.6-8.7) g/dL Albumin 3.6 (3.5-5.2) g/dL Globulin 2.9 (1.3-4.6) g/dL Procalcitonin 1.02 H (0-0.5) ng/mL 02/14/21 02/14/21 Range/Units 10:55 10:55 WBC (4.0-10.0) 10^3/ uL RBC (4.1-5.3) 10^6/u L Hgb (11.7-16.6) g/dL Hct (42.0-52.0) % MCV (80-94) fL MCH (28.0-34.0) pg MCHC (30.0-36.0) g/dL RDW (12.1-15.1) % Plt Count (130-400) 10^3/c mm MPV (7.4-10.4) fL Neut % (Auto) % Lymph % (Auto) % [place] % (Auto) % Eos % (Auto) % Baso % (Auto) % Neut # (Auto) (1.8-7.7) 10^3/u L Lymph # (Auto) (0.8-4.8) 10^3/u L [place] # (Auto) (0.2-0.9) 10^3/u L Eos # (Auto) (0.0-0.8) 10^3/u L Baso # (Auto) (0.0-0.1) 10^3/u L Nucleated RBC % (a uto) % Nucleated RBCs # /100WBC D-Dimer (0-0.59) ug/mIFE U Sodium (136-145) mmol/L Potassium (3.5-5.1) mmol/L Chloride (98-107) mmol/L Carbon Dioxide (22-29) mmol/L Anion Gap (5-19) BUN (6-20) mg/dL Creatinine (0.7-1.2) mg/dL GFR Calculation (90-130) mL/min Glucose (65-115) mg/dL Calculated Osmolal ity (285-295) mOsm/k g Lactic Acid 3.8 H (0.5-2.2) mmol/L Calcium (8.5-10.5) mg/dL Total Bilirubin (0.15-1.2) mg/dL AST (0-40) U/L ALT (0-41) U/L Alkaline Phosphata se (40-130) IU/L Troponin T Baselin e 18 H (0-15) ng/L C-Reactive Protein (0.0-4.9) mg/L Total Protein (6.6-8.7) g/dL Albumin (3.5-5.2) g/dL Globulin (1.3-4.6) g/dL Procalcitonin (0-0.5) ng/mL Discharge Plan Discharge Prescriptions: No Action ibuprofen 600 mg tablet 600 mg PO Q6H PRN (Reason: Pain) RF: 0 aspirin 81 mg tablet,delayed release (DR/EC) 81 mg PO DAILY RF: 0 lisinopril-hydrochlorothiazide 20-12.5 mg tablet 1 tab PO BID RF: 0 clonidine HCl [Catapres] 0.1 mg tablet 0.1 mg PO BID RF: 0 isosorbide mononitrate 30 mg tablet extended release 24 hr 30 mg PO QAM RF: 0 pantoprazole 40 mg tablet,delayed release (DR/EC) 40 mg PO QAM RF: 0 dexamethasone 6 mg tablet 6 mg PO DAILY Qty: 6 RF: 0 metformin 500 mg Tablet See Rx Instructions .ROUTE .COMPLEX RF: 0 fluoxetine 20 mg tablet 20 mg PO DAILY RF: 0 Diltia XT 180 mg Capsule,Ext.Rel 24h Degradable 180 mg PO DAILY RF: 0 Coding Level of Care Code ED Clinical Services Manager for [facility]se
--- NOTE | 2021-02-14 13:08 | ECG_ITS ---
[facility] Test Date: 2021-02-14 Pat Name: Federico Hua Department: Room: Gender: Male Knot Tier: : 1960 Requested By: Lexa Mart Order Number: [id number] Reading MD: ESRGIO MAYES Measurements Intervals Elsie Rate: 85 P: 23 MN: 122 QRS: 82 QRSD: 100 T: 238 QT: 374 QTc: 445 Interpretive Statements SINUS RHYTHM ST DEVIATION AND MARKED T-WAVE ABNORMALITY, CONSIDER ANTEROLATERAL ISCHEMIA [-0.5+ mV T WAVE IN I/aVL/V3-V6] ST DEVIATION AND MODERATE T-WAVE ABNORMALITY, CONSIDER INFERIOR ISCHEMIA [-0.1+ mV T WAVE IN II/aVF] Compared to ECG 02/14/2021 11:12:48 Sinus tachycardia no longer present T-wave abnormality still present Possible ischemia still present Electronically Signed On 02-14-2021 21:24:47 CDT by SERGIO MAYES [email or web address]
[2021-02-14 13:16] LABS: Platelet Count 181 10^3/cmm (130-400)
[2021-02-14 13:20] LABS: Reflex Lactate Order REFLEX LACTIC ORDERD
[2021-02-14] MEDS: cisatracurium 100 MG in sodium chloride 0.9% 50 ML IV (14:11)
[2021-02-14] MEDS: piperacillin-tazobactam 3.375 GM in sodium chloride 0.9% (plus) 50 ML IV ×2 (14:21→23:41)
[2021-02-14] MEDS: FUROsemide 10 mg/mL SDV 4mL 40 MG IVP ×2 (14:30→20:20)
[2021-02-14] MEDS: famotidine 20 mg/2 mL INJ IVP ×2 (14:35→23:48)
[2021-02-14] MEDS: dexamethasone 10 mg/mL INJ 6 MG IVP (14:35)
--- NOTE | 2021-02-14 14:38 | PC.NURSE ---
TOF checked at this time and still 4/4. Paralytic increased.
[2021-02-14 14:48] LABS: NT Pro B Type Natriuretic Pept 1942 pg/mL (0-125)
--- NOTE | 2021-02-14 15:25 | PC.NURSE ---
tof 10/07,
--- NOTE | 2021-02-14 15:52 | PC.NURSE ---
TOF checked at this time 10/07. Paralytic increased.
[2021-02-14] MEDS: D5-NS 0.45% + KCL 20 mEq 20 MEQ/1,000 ML BAG 100 MEQ IV (16:01)
--- NOTE | 2021-02-14 16:58 | PC.NURSE ---
verbal order to hold maitenance fluids per Dr Thakkar.
--- NOTE | 2021-02-14 17:08 | ECG_ITS ---
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 Measurements Intervals [place] Rate: 104 P: 56 HI: 140 QRS: 71 QRSD: 106 T: -14 QT: 348 QTc: 458 Interpretive Statements SINUS TACHYCARDIA ST DEVIATION AND MODERATE T-WAVE ABNORMALITY, CONSIDER ANTEROLATERAL ISCHEMIA [-0.1+ mV T WAVE IN V3-V6] Compared to ECG 02/14/2021 13:44:12 Sinus rhythm no longer present T-wave abnormality still present Possible ischemia still present Electronically Signed On 02-19-2021 16:44:19 CDT by Georgia Rojas M.D. [id number]
--- NOTE | 2021-02-14 17:17 | PC.NURSE ---
TOF tested at this time. Paralytic decreased.
[2021-02-14] MEDS: heparin 5,000 unit/mL INJ 1 mL IV (18:33)
[2021-02-14] MEDS: heparin drip 25,000 UNIT/500 ML PREMIX 28.58 UNIT IV (18:49)
[2021-02-14] MEDS: propofol 1,000 MG/100 ML INJ 15.31 MG IV (19:15)
[2021-02-14 19:45] LABS: Lactic Acid level (Lactate) 3.4 mmol/L (0.5-2.2)
[2021-02-14 20:42] LABS: Glucose Point of Care 339 mg/dL (70-110)
--- NOTE | 2021-02-14 22:24 | PC.NURSE ---
Addendum entered by Karen Ennis RN 02/15/21 06:36: TIME: BIS: TOF: 1999 30 4 2200 28 2/4 0000 28 24 0200 55 44 0400 22 3 0600 26 3 Addendum entered by Karen Ennis RN 02/15/21 01:44: Heparin documentation was not sent with patient to ICU. Original Note: Shift Note Frequent safety and comfort rounds continue. Orders and/or nursing care completed as indicated. Patient monitored for response to intervention and treatment(s). Education provided includes none at this time due to being intubated and no family present. Patient and/or medical service representative, no response at this time due to being intubated/no family present. Proned and reverse trendelenburg patient at 2215, pt tolerated well with increase in oxygen, BP required increase of vasopressor support. Will continue to monitor.
--- NOTE | 2021-02-14 22:30 | PC.NURSE ---
Transfer Note Patient transferred to ICU from ED via bed at 1915. Handoff received from ED nurse. Patient oriented to environment and equipment. Covering service notified. Orders reviewed and will continue to monitor. Family and/or key account representative notified.
--- NOTE | 2021-02-14 22:49 | PC.NURSE ---
2200: TOF: 4/4; BIS 30
[2021-02-14] MEDS: vancomycin 1,500 MG/300 ML PIGGYBACK 200 MG IV (22:57)
--- NOTE | 2021-02-14 23:50 | PM.CONSULT ---
Providers/Reason For Consult Consulting Physician/Specialty*: Andrew Roger MD/Pulmonary Critical Care Reason for Consult*: Acute hypoxic respiratory failure secondary to COVID-19 pneumonia Attending Physician: Talib Olvera MD Primary Care Provider: Juan Diego Gaona MD History of Present Illness History of Present Illness Federico Hua is a 60 year old male with past medical history of hypertension, diabetes, CAD presented to ER with shortness of breath and was intubated upon arrival and transferred to ICU. Patient tested positive for COVID-19 on 02/05/2021. is also ill with Covid symptoms as well. Critical care consulted for acute hypoxic respiratory failure secondary to ARDS due to COVID-19 pneumonia Patient was sedated and intubated on mechanical ventilator Saturating 85 to 86% on 100% FiO2 on ventilator Decision was made to paralyze and prone tonight Review of Systems General: Reports: ROS unobtainable due to endotracheal tube, ROS unobtainable due to medical condition and ROS unobtainable due to mental status Meds/Allergies Home Medications and Allergies Home Medications Medication Instructions Recorded Confirmed Last Taken Type aspirin 81 mg tablet,delayed 81 mg PO DAILY tab 07/13/19 02/14/21 Unknown History release clonidine HCl 0.1 mg tablet 0.1 mg PO BID 07/13/19 02/14/21 Unknown History ibuprofen 600 mg tablet 600 mg PO Q6H PRN 07/13/19 02/14/21 Unknown History isosorbide mononitrate 30 mg 30 mg PO QAM 07/13/19 02/14/21 Unknown History tablet,extended release 24 hr lisinopril 20 1 tab PO BID 07/13/19 02/14/21 Unknown History mg-hydrochlorothiazide 12.5 mg tablet pantoprazole 40 mg tablet,delayed 40 mg PO QAM 07/13/19 02/14/21 Unknown History release dexamethasone 6 mg PO DAILY #6 tab 02/10/21 02/14/21 Unknown Rx diltiazem HCl [Diltia XT] 180 mg PO DAILY 02/14/21 02/14/21 02/13/21 History fluoxetine 20 mg PO DAILY 02/14/21 02/14/21 02/13/21 History metformin See Rx Instructions .ROUTE .COMPLEX 02/14/21 02/14/21 Unknown History Allergies Allergy/AdvReac Type Severity Reaction Status Date / Time No Known Allergies Allergy Unverified 07/13/19 13:31 Current Medications Current Medications Generic Name Dose Route Start Last Admin Trade Name Freq PRN Reason Stop Dose Admin Famotidine 20 mg 02/14/21 12:30 02/14/21 23:48 Famotidine 20 Mg/2 Ml Inj IVP 20 mg Q12H MOSHE Administration Heparin Sodium (Beef Lung) 0 unit 02/14/21 12:24 02/14/21 18:33 Heparin 5,000 Unit/Ml Inj 1 Ml IV 5,000 unit PRN PRN Administration Heparin weight-base protocol Protocol Fentanyl 1,000 mcg/ Sodium 100 mls @ 0 mls/hr 02/14/21 11:00 02/14/21 21:50 Chloride IV 100 mcg/hr .Q0M MOSHE 10 mls/hr Administration Protocol Per Protocol Propofol 1,000 mg in 100 mls @ 0 mls/hr 02/14/21 11:45 02/14/21 19:15 Diprivan IV 25 mcg/kg/min .Q0M MOSHE 15.31 mls/hr Administration Protocol Per Protocol Cisatracurium Besylate 100 mg/ 100 mls @ 0 mls/hr 02/14/21 12:30 02/14/21 17:17 Sodium Chloride IV 1 mcg/kg/min .Q0M MOSHE 6.12 mls/hr Titration Protocol Per Protocol Heparin Sodium/Sodium Chloride 25,000 unit in 500 mls @ 0 mls/hr 02/14/21 12:30 02/14/21 18:49 Heparin Drip IV 14 unit/kg/hr .Q0M MOSHE 28.58 mls/hr Administration Protocol Per Protocol Piperacillin Sod/Tazobactam 50 mls @ 12.5 mls/hr 02/14/21 13:30 02/14/21 23:41 Sod 3.375 gm/ Sodium Chloride IV 12.5 mls/hr Q8H MOSHE Administration Vancomycin/PEG/NADA/Lysine/Water 1,500 mg in 300 mls @ 200 mls/hr 02/14/21 18:00 02/14/21 22:57 Vancocin IV 200 mls/hr Q8H MOSHE Administration Norepinephrine Bitartrate 4 mg 254 mls @ 0 mls/hr 02/14/21 15:28 02/14/21 18:32 / Dextrose IV 10 mcg/min .Q0M MOSHE 38.1 mls/hr Titration Protocol Per Protocol Insulin Aspart 0 unit 02/14/21 19:12 02/14/21 23:43 Insulin Aspart 100 Unit/1 Ml SUBCUT Not Given WM&BEDTIME MOSHE Protocol PFSH Acute PFSH: Medical History CAD (coronary artery disease) Nonobstructive per angiogram June 2019 Chronic headaches Diabetes mellitus Dyslipidemia Hypertension Family History Other CAD (coronary artery disease) Social History Smoking and tobacco status: never smoked Alcohol intake: never Vitals/I&O/Wt Last Vital Signs Temp 99.2 F 02/14/21 19:00 Pulse 96 02/14/21 22:45 Resp 18 02/14/21 22:00 BP 106/65 02/14/21 22:45 Pulse Ox 89 L 02/14/21 22:45 02/14/21 02/14/21 02/15/21 14:59 22:59 06:59 Intake Total 106.578 / 106.578 375.496 / 482.074 Balance 106.578 / 106.578 375.496 / 482.074 Weight last 48 hrs Weight 225 lb Physical Exam Narrative: EXAM NARRATIVE: PHYSICAL EXAM: General: lying in bed, sedated and intubated. HEENT:NCAT, PERRLA, EOMI Neck: Supple Lungs: Bilateral diffuse coarse crackles Heart: s1/s2, RRR Abd: Distended obese abdomen, NT, ND, BS + Normoactive Extremities: No edema PRE BILLING SPECIALIST: sedated and limited PRE BILLING SPECIALIST exam possible. SKIN: no rash LDA: # CVC: Right IJ 09/14/2020 Urinary Catheter Management^: Mckinnon: Cath Placed During This Visit: yes Urinary Catheter Date of Insertion: 02/14/21 Urinary Catheter Time of Insertion: 11:05 Data Labs: Other Labs: Laboratory Results WBC 32.4 10^3/uL (4.0 -10.0) H* 02/15/21 06:26 RBC 5.89 10^6/uL (4.1 -5.3) H 02/15/21 06:26 Hgb 17.1 g/dL (11.7-1 6.6) H 02/15/21 06:26 Hct 53.0 % (42.0-52.0 ) H 02/15/21 06:26 MCV 90.0 fL (80-94) 02/15/21 06:26 MCH 29.0 pg (28.0-34. 0) 02/15/21 06:26 MCHC 32.3 g/dL (30.0-3 6.0) 02/15/21 06:26 RDW 14.0 % (12.1-15.1 ) 02/15/21 06:26 Plt Count 204 10^3/cmm (130 -400) 02/15/21 06:26 MPV 10.7 fL (7.4-10.4 ) H 02/15/21 06:26 Neut % (Auto) 86.9 % 02/15/21 06:26 Lymph % (Auto) 2.8 % 02/15/21 06:26 [place] % (Auto) 1.5 % 02/15/21 06:26 Eos % (Auto) 0.6 % 02/15/21 06:26 Baso % (Auto) 0.1 % 02/15/21 06:26 Neut # (Auto) 28.16 10^3/uL (1. 8-7.7) H 02/15/21 06:26 Lymph # (Auto) 0.9 10^3/uL (0.8- 4.8) 02/15/21 06:26 [place] # (Auto) 0.5 10^3/uL (0.2- 0.9) 02/15/21 06:26 Eos # (Auto) 0.2 10^3/uL (0.0- 0.8) 02/15/21 06:26 Baso # (Auto) 0.0 10^3/uL (0.0- 0.1) 02/15/21 06:26 Nucleated RBC % (a uto) 0 % 02/15/21 06:26 Nucleated RBCs # 0.0 /100WBC 02/15/21 06:26 APTT Cancelled 02/15/21 21:12 D-Dimer 4.06 ug/mIFEU (0- 0.59) H 02/15/21 06:26 Specimen Type Arterial 02/15/21 13:50 Sample Site Radial, left 02/15/21 13:50 ABG pH 7.18 (7.35-7.45) L* 02/15/21 13:50 ABG pCO2 49.4 mmHg (35-45) H 02/15/21 13:50 ABG pO2 76.8 mmHg (80.0-1 00.0) L 02/15/21 13:50 ABG HCO3 18.6 mmol/L (22-2 6) L 02/15/21 13:50 ABG O2 Saturation 94.4 02/15/21 13:50 ABG Base Excess -10.0 mmol/L (-2. 0-2.0) L 02/15/21 13:50 Artemio Test Pos 02/15/21 13:50 A-a O2 Gradient 56.6 mmHg (5-10) H 02/15/21 13:50 Hematocrit 54.4 % (42-52) H 02/15/21 13:50 Hgb O2 Saturation 93.0 % (95-100) L 02/15/21 13:50 Carboxyhemoglobin 0.5 %THgb (0.4-20 .1) 02/15/21 13:50 Methemoglobin 0.9 % (0.4-1.5) 02/15/21 13:50 Total Hemoglobin 17.7 g/dL (14-18) 02/15/21 13:50 Sodium 127.0 mmol/L (131 -143) L 02/15/21 13:50 Potassium 4.9 mmol/L (3.5-5 .0) 02/15/21 13:50 Glucose 309.0 mg/dL (70-1 15) H 02/15/21 13:50 Ionized Calcium 0.9 mmol/L (1.1-1 .4) L 02/15/21 13:50 O2 Delivery Device Vent 02/15/21 13:50 FiO2 80.0 % 02/15/21 13:50 Tidal Volume 0.50 02/15/21 13:50 PEEP 14.0 cmH20 02/15/21 13:50 Automotive Electrician ID Gd 02/15/21 13:50 Sodium 125 mmol/L (136-1 45) L 02/15/21 17:00 Potassium 5.3 mmol/L (3.5-5 .1) H 02/15/21 17:00 Chloride 87 mmol/L (98-107 ) L 02/15/21 17:00 Carbon Dioxide 16 mmol/L (22-29) L 02/15/21 17:00 Anion Gap 27.3 (5-19) H 02/15/21 17:00 BUN 46 mg/dL (6-20) H 02/15/21 17:00 Creatinine 4.4 mg/dL (0.7-1. 2) H 02/15/21 17:00 GFR Calculation 13.9 mL/min (90-1 30) L 02/15/21 17:00 Glucose 257 mg/dL (65-115 ) H 02/15/21 17:00 POC Glucose 243 mg/dL (70-110 ) H 02/15/21 17:28 Calculated Osmolal ity 281 mOsm/kg (285- 295) L 02/15/21 17:00 Lactic Acid 3.8 mmol/L (0.5-2 .2) H 02/14/21 10:55 Lactic Acid (Sepsi s) 3.4 mmol/L (0.5-2 .2) H 02/14/21 18:37 Calcium 7.3 mg/dL (8.5-10 .5) L 02/15/21 17:00 Magnesium 2.2 mg/dL (1.7-2. 3) 02/15/21 06:26 Total Bilirubin 0.6 mg/dL (0.15-1 .2) 02/15/21 06:26 AST 524 U/L (0-40) H 02/15/21 06:26 ALT 212 U/L (0-41) H 02/15/21 06:26 Alkaline Phosphata se 61 IU/L (40-130) 02/15/21 06:26 Creatine Kinase 55641 U/L (39-308 ) H* 02/15/21 06:26 Troponin T Baselin e 18 ng/L (0-15) H 02/14/21 10:55 Troponin T 120 Min julien 27.90 ng/L (0-15) H 02/14/21 12:55 Delta Troponin T 9.90 ABS# (0-10) 02/14/21 12:55 Troponin T Hi Sens 6Hr 49.40 ng/L (0-15) H 02/14/21 16:30 Troponin T Hi Sens 6Hr Delta 31.40 ng/L (0-12) H* 02/14/21 16:30 C-Reactive Protein 372.9 mg/L (0.0-4 .9) H 02/15/21 06:26 NT-Pro-B Natriuret Pep 1942 pg/mL (0-125 ) H 02/14/21 12:55 Total Protein 6.6 g/dL (6.6-8.7 ) 02/15/21 06:26 Albumin 2.7 g/dL (3.5-5.2 ) L 02/15/21 06:26 Globulin 3.9 g/dL (1.3-4.6 ) 02/15/21 06:26 Procalcitonin 1.02 ng/mL (0-0.5 ) H 02/14/21 10:55 Urine Color Yellow (Yellow) 02/15/21 12:00 Urine Appearance Cloudy (CLEAR) 02/15/21 12:00 Urine pH 5 (5-7) 02/15/21 12:00 Ur Specific Gravit y 1.015 (1.005-1.0 30) 02/15/21 12:00 Urine Protein 2+ (Negative) H 02/15/21 12:00 Urine Glucose (UA) Trace (Normal) H 02/15/21 12:00 Urine Ketones Negative (Negati ve) 02/15/21 12:00 Urine Blood 3+ (Negative) H 02/15/21 12:00 Urine Nitrate Negative (Negati ve) 02/15/21 12:00 Urine Bilirubin Neg (Negative) 02/15/21 12:00 Urine Urobilinogen Norm mg/dL (Negat lambert) 02/15/21 12:00 Ur Leukocyte Kina ase Negative (Negati ve) 02/15/21 12:00 Urine RBC 10-15 /hpf (0-2) H 02/15/21 12:00 Urine WBC 5-10 /hpf (0-5) H 02/15/21 12:00 Ur Squamous Epith Cells 0-4 /hpf (0-5) H 02/15/21 12:00 Calcium Oxalate Cr ystal 0-4 /hpf H 02/15/21 12:00 Amorphous Sediment Not Reportable 02/15/21 12:00 Urine Bacteria 2+ /hpf (NONE) H 02/15/21 12:00 Urine Sperm 3+ /hpf 02/15/21 12:00 Ur Random Sodium 120 mmol/L 02/15/21 12:00 Urine Creatinine 32 mg/dL (39-259) L 02/15/21 12:00 Serum Ketones Negative (Negati ve) 02/15/21 10:45 Impressions Chest X-Ray 02/15/21 07:00 IMPRESSION: 1. Multilobar pneumonia, improved in the lung bases. ADDENDUM: 02/15/211924 Findings were discussed with Dr. Roger at 02/15/2021 7:22 PM CDT. Micro: Micro: Microbiology 02/14/21 12:55 Blood Culture - Pr eliminary Blood SPECIMEN COLLE EV 02/14/21 10:55 Blood Culture - Pr eliminary Blood SPECIMEN [facility] A&P Assessment and plan (1) Acute and chronic respiratory failure with hypoxia: Status: Acute (2) CAD (coronary artery disease): Status: Acute Qualifiers: Coronary Disease-Associated Artery/Lesion type: [place] artery [place] vs. transplanted heart: [place] heart Associated angina: unspecified whether angina present Qualified Code(s): I25.10 - Atherosclerotic heart disease of [place] coronary artery without angina pectoris (3) ARDS (adult respiratory distress syndrome): Status: Acute (4) Diabetes mellitus: Status: Acute Qualifiers: Diabetes mellitus type: type 2 Diabetes mellitus manager intermediate insulin use: unspecified manager intermediate insulin use status Diabetes mellitus complication status: with other specified complication Qualified Code(s): E11.69 - Type 2 diabetes mellitus with other specified complication (5) Hypertension: Status: Acute Qualifiers: Hypertension type: unspecified Qualified Code(s): I10 - Essential (primary) hypertension (6) Pneumonia due to COVID-19 virus: Status: Acute (7) Hypotension: Status: Acute Qualifiers: Hypotension type: hypotension due to drug Qualified Code(s): I95.2 - Hypotension due to drugs #Acute hypoxic respiratory failure secondary to ARDS due to COVID-19 pneumonia #Diabetes #ARDS #Hypertension -Tested positive on 02/05/2021 -Intubated on arrival in the ED -Sedated and connected to mechanical ventilator saturating 85% on 100% FiO2 -Plan is to paralyze in prone tonight -We'll adjust ventilator settings depending on ABG and saturations on the monitor -Chest x-ray demonstrated severe bilateral infiltrates -Procalcitonin 1.02; -CRP 80; cultures pending -Started on 5-day protocol remdesivir and dexamethasone 6 mg daily -Empiric Zosyn and vancomycin for possibility of bacterial pneumonia -MRSA PCR and bacterial antigen panel, Legionella antigen -Significantly elevated D-dimer and elevated troponin I-placed on heparin drip -Continue aspirin for underlying CAD -Currently requiring Levophed to keep maps above 65 -Insulin scale coverage for diabetes -DVT prophylaxis: Already on heparin -GI prophylaxis: PPI -Fluoxetine 20 mg daily -Full code -Prognosis: Poor -Family updated Discussed with hospitalist, RN, RT covering the case Coding Level of Care Code Acute Power System Operator for [facility] Fwd Diagnoses Acute and chronic respiratory failure with hypoxia J96.21 CAD (coronary artery disease) I25.10 Coronary Disease-Associated Artery/Lesion type: [place] artery [place] vs. transplanted heart: [place] heart Associated angina: unspecified whether angina present ARDS (adult respiratory distress syndrome) J80 Diabetes mellitus E11.69 Diabetes mellitus type: type 2 Diabetes mellitus manager intermediate insulin use: unspecified manager intermediate insulin use status Diabetes mellitus complication status: with other specified complication Hypertension I10 Hypertension type: unspecified Pneumonia due to COVID-19 virus U07.1; J12.82 Hypotension I95.2 Hypotension type: hypotension due to drug
[2021-02-15] VITALS (105 sets, daily range): BP systolic 79–128; BP diastolic 56–81; PULSE 75–108; RESP 18–42; TEMP 35–37.6; O2SAT 80–95
--- NOTE | 2021-02-15 00:54 | PC.NURSE ---
0000: TOF 2/4; BIS: 28
[2021-02-15] MEDS: cisatracurium 100 MG in sodium chloride 0.9% 50 ML 6.12 MG IV (01:09)
[2021-02-15] MEDS: propofol 1,000 MG/100 ML INJ 3.06 MG IV (02:22)
[2021-02-15 03:48] LABS: Partial Thromboplastin Time 99.6 SECONDS (23.9-36.7)
[2021-02-15] MEDS: piperacillin-tazobactam 3.375 GM in sodium chloride 0.9% (plus) 50 ML IV ×3 (05:27→22:55)
[2021-02-15 05:39] LABS: Arterial Blood Gas Hematocrit 56.2 % (42-52); Base Excess ABG -8.9 mmol/L (-2.0-2.0); Blood Gas Allen Test Pos; Blood Gas Operator Identificat JB; Blood Gas Sample Site Radial, right; Blood Gas Sample Type Arterial; HCO3 ABG 21.3 mmol/L (22-26); Oxygen Device VENT
[2021-02-15 05:42] LABS: ABG PCO2 61.6 mmHg (35-45); ABG PH Result 7.15 (7.35-7.45)
[2021-02-15 05:45] LABS: ABG PCO2 44.8 mmHg (35-45); ABG PH Result 7.32 (7.35-7.45); Alveolar-Arterial Oxygen Gradi 79.7 mmHg (5-10); Arterial Blood Gas Hematocrit 52.7 % (42-52); Base Excess ABG -3.5 mmol/L (-2.0-2.0); Blood Gas Operator Identificat ED; Blood Gas Sample Site Brachial, right; Blood Gas Sample Type Arterial; Carboxyhemoglobin 0.7 %THgb (0.4-20.1); HCO3 ABG 22.9 mmol/L (22-26); HGB O2 Sat 77.7 % (95-100); Ionized Calcium Level - ABG 1.1 mmol/L (1.1-1.4); Methemoglobin 0.4 % (0.4-1.5); Oxygen Device VENT; Oxygen Saturation ABG 78.6; Potassium Level - ABG 3.8 mmol/L (3.5-5.0); Total Hemoglobin 17.2 g/dL (14-18)
[2021-02-15] MEDS: vancomycin 1,500 MG/300 ML PIGGYBACK 200 MG IV (06:16)
[2021-02-15 06:39] LABS: Basophils % 0.1 %; Eosinophils # 0.2 10^3/uL (0.0-0.8); Eosinophils % 0.6 %; Hemoglobin 17.1 g/dL (11.7-16.6); Lymphocytes # 0.9 10^3/uL (0.8-4.8); Lymphocytes % 2.8 %; Mean Corpuscular HGB Conc 32.3 g/dL (30.0-36.0); Mean Platelet Volume 10.7 fL (7.4-10.4); Monocytes # 0.5 10^3/uL (0.2-0.9); Monocytes % 1.5 %; Neutrophils # 28.16 10^3/uL (1.8-7.7); Neutrophils % 86.9 %; Nucleated Red Blood Cells % 0 %; Platelet Count 204 10^3/cmm (130-400); Red Blood Count 5.89 10^6/uL (4.1-5.3)
--- NOTE | 2021-02-15 07:00 | XRR_ITS ---
PROCEDURE INFORMATION: Exam: XR Chest Exam date and time: 02/15/2021 7:00 AM Age: 60 years old Clinical indication: Condition or disease; Lung condition and disease; Respiratory failure; Status not specified; Additional info: Resp failure TECHNIQUE: Imaging protocol: XR of the chest. Views: 1 view. COMPARISON: CR XR chest 1V portable [id number] 02/14/2021 6:18 PM FINDINGS: Tubes, catheters and devices: Intubation with tip 6.6 cm above the riley. Right IJ central line with tip over the proximal SVC. Left IJ central line with tip over the mid SVC. Gastric tube with tip in the proximal stomach. Lungs: Stable dense consolidation in the right upper lobe. Improved ground-glass opacities in both lung bases. Pleural spaces: Unremarkable. No pleural effusion. No pneumothorax. Heart/Mediastinum: Unremarkable. No cardiomegaly. Bones/joints: Unremarkable. XR/XR chest 1V portable [id number] IMPRESSION: 1. Multilobar pneumonia, improved in the lung bases.
[2021-02-15 07:05] LABS: D Dimer 4.06 ug/mIFEU (0-0.59)
[2021-02-15 07:08] LABS: Alanine Aminotransferase 212 U/L (0-41); Albumin Level 2.7 g/dL (3.5-5.2); Alkaline Phosphatase 61 IU/L (40-130); Blood Urea Nitrogen 39 mg/dL (6-20); Calcium 6.8 mg/dL (8.5-10.5); Carbon Dioxide 18 mmol/L (22-29); Chloride 91 mmol/L (98-107); Globulin 3.9 g/dL (1.3-4.6); Glucose 355 mg/dL (65-115); Magnesium 2.2 mg/dL (1.7-2.3); Osmolality Calculated 284 mOsm/kg (285-295); Sodium 125 mmol/L (136-145); Total Bilirubin 0.6 mg/dL (0.15-1.2); Total Protein 6.6 g/dL (6.6-8.7)
[2021-02-15 07:17] LABS: Aspartate Amino Transferase 524 U/L (0-40)
[2021-02-15 07:26] LABS: Slide Review Slide Review Perform
[2021-02-15 07:28] LABS: C Reactive Protein 372.9 mg/L (0.0-4.9)
[2021-02-15 07:29] LABS: White Blood Count 32.4 10^3/uL (4.0-10.0)
[2021-02-15 07:31] LABS: Glucose Point of Care 399 mg/dL (70-110)
[2021-02-15 07:31] LABS: Glucose Point of Care 333 mg/dL (70-110)
[2021-02-15 07:48] LABS: Glucose Point of Care 364 mg/dL (70-110)
--- NOTE | 2021-02-15 07:50 | ECG_ITS ---
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: : 1960 Requested By: Talib Fernández Order Number: [id number] Reading MD: SERGIO MAYES Measurements Intervals [place] Rate: 80 P: 46 WV: 141 QRS: 66 QRSD: 96 T: -88 QT: 397 QTc: 459 Interpretive Statements SINUS RHYTHM LOW QRS VOLTAGE IN PRECORDIAL LEADS [QRS DEFLECTION < 1.0 mV IN CHEST LEADS] POSSIBLE RIGHT VENTRICULAR CONDUCTION DELAY [RSR (QR) IN V1/V2] ANTEROSEPTAL MYOCARDIAL INFARCTION [40+ ms Q WAVE IN V1-V4], PROBABLY OLD MODERATE T-WAVE ABNORMALITY, CONSIDER INFERIOR ISCHEMIA [-0.1+ mV T WAVE IN II/aVF] Compared to ECG 02/14/2021 17:21:41 Low QRS voltage now present Myocardial infarct finding now present Sinus tachycardia no longer present T-wave abnormality still present Possible ischemia still present Electronically Signed On 02-15-2021 19:28:14 CDT by SERGIO MAYES [email or web address]
[2021-02-15] MEDS: dextrose 50% syringe 50 mL IVP ×2 (08:22→11:32)
[2021-02-15] MEDS: insulin regular-human 10 UNIT in SYRINGE 1 EACH IVP ×2 (08:24→11:32)
[2021-02-15] MEDS: propofol 1,000 MG/100 ML INJ 24.49 MG IV ×2 (08:54→15:34)
--- NOTE | 2021-02-15 11:08 | PM.PN ---
Subjective Subjective: Interval history: Federico was able to be from last night, and this did drive his oxygen level up somewhat. He is currently paralyzed, and sedated on the ventilator. Medications: Reviewed: Yes Vitals/I&O/Wt Last Vital Signs Temp 98.5 F 02/15/21 08:00 Pulse 87 02/15/21 09:15 Resp 22 H 02/15/21 09:24 BP 96/67 02/15/21 09:15 Pulse Ox 92 02/15/21 09:24 02/14/21 02/15/21 02/15/21 22:59 06:59 14:59 Intake Total 405.349 / 511.927 667.239 / 1179.166 164.999 / 164.999 Balance 405.349 / 511.927 667.239 / 1179.166 164.999 / 164.999 Weight last 48 hrs Weight 120.656 kg Weight 102.058 kg Physical Exam Narrative: EXAM NARRATIVE: General exam: Proned and sedated Neck is supple no lymphadenopathy or thyromegaly Cardiovascular regular rate and rhythm without murmur Lungs coarse breath sounds bilaterally Abdomen is soft obese positive bowel sounds. No obvious organomegaly demonstrates Mckinnon Extremities no cyanosis clubbing or edema, cap refill brisk Skin no rash Urinary Catheter Management^: Mckinnon: Cath Placed During This Visit: yes Reason for Continuing Indwelling Catheter: Accurate Measurement of Urinary Output in Critically Ill Patients Urinary Catheter Date of Insertion: 02/14/21 Urinary Catheter Time of Insertion: 11:05 Data : 02/15/21 06:26 02/15/21 06:26 Micro: Microbiology 02/14/21 11:45 Gram Stain - Final Sputum - Endotracheal Tube Aspirate 02/14/21 10:55 Blood Culture - Preliminary Blood 02/14/21 12:55 Blood Culture - Preliminary Blood A&P Assessment and plan (1) Pneumonia due to COVID-19 virus: Severe COVID-19 pneumonia, first testing + February 05 Intubated in the emergency department, requiring a significant amount of PEEP and an FiO2 of 100%. Currently continuous neuromuscular blockade with Nimbex. Sedation with fentanyl and propofol Appreciate critical care consultation Continue dexamethasone. Remdesivir discontinued secondary to acute kidney injury. Will discuss with pulmonary critical care whether this should continue. Continue vancomycin and Zosyn secondary to possibility of bacterial pneumonia. Procalcitonin was high. Awaiting MRSA PCR as well as bacterial antigen panel. Check Legionella as well. Blood cultures 2/4 gram-positive cocci Dimer is significantly elevated and with elevated troponin I have placed on a heparin drip. This will be continued. Status: Acute (2) Acute and chronic respiratory failure with hypoxia: See above Status: Acute (3) ARDS (adult respiratory distress syndrome): Status: Acute (4) CAD (coronary artery disease): Continue aspirin Continue Heparin drip Elevation in troponin noted may be type II elevation but positive delta is noted. Echocardiogram to be done Status: Acute (5) Hypertension: May have hypotension on medication for sedation. Hold antihypertensives. Norepinephrine as needed. Status: Acute (6) Diabetes mellitus: Sliding scale insulin Status: Acute Additional A&P Information Acute kidney injury, oliguric. Associate with hyperkalemia. May need dialysis. Nephrology consulted. EKG demonstrates no QRS duration prolongation. Insulin and glucose x1 given. Calcium gluconate on hold as no EKG QRS duration prolongation. Rhabdomyolysis. CK markedly elevated. Nephrology consult will be obtained. Full code Heparin drip will suffice for DVT prophylaxis Pepcid for GI prophylaxis Attestations Medical Necessity Statement*: Needs continued hospital stay for respiratory failure requiring mechanical ventilation. Critical Care Time: Critical Care Time (min): 32 Other Attestations: The high probability of a clinically significant, sudden or life threatening deterioration of the patient's [pulmonary, cardiac, infectious disease] system(s) required my full and direct attention, intervention and personal management. The critical care time is as shown. 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
[2021-02-15 11:10] LABS: ABG PCO2 52.2 mmHg (35-45); Arterial Blood Gas Hematocrit 53.5 % (42-52); Base Excess ABG -9.9 mmol/L (-2.0-2.0); Blood Gas Allen Test Pos; Blood Gas Sample Type Arterial; Carboxyhemoglobin 0.4 %THgb (0.4-20.1); HCO3 ABG 19.2 mmol/L (22-26); HGB O2 Sat 90.5 % (95-100); Ionized Calcium Level - ABG 0.9 mmol/L (1.1-1.4); Methemoglobin 0.7 % (0.4-1.5); Oxygen Saturation ABG 91.5; PO2 ABG 65.1 mmHg (80.0-100.0); Potassium Level - ABG 4.9 mmol/L (3.5-5.0); Total Hemoglobin 17.5 g/dL (14-18)
[2021-02-15 11:13] LABS: Alveolar-Arterial Oxygen Gradi 57.9 mmHg (5-10); Blood Gas Operator Identificat ED; Blood Gas Sample Site Radial, left; Oxygen Device VENT
[2021-02-15 11:14] LABS: ABG PH Result 7.17 (7.35-7.45)
[2021-02-15 11:15] LABS: Partial Thromboplastin Time 120.8 SECONDS (23.9-36.7)
--- NOTE | 2021-02-15 11:15 | P.CONIM_ITS ---
Providers/Reason For Consult Consulting Physician/Specialty*: Pascale Ba DO, telenephrology Reason for Consult*: Acute kidney injury Attending Physician: Talib Olvera MD Primary Care Provider: Juan Diego Gaona MD History of Present Illness History of Present Illness Federico Hua is a 60 year old male with COVID pneumonia, VDRF, rhabdomyolysis Review of Systems General: Reports: ROS unobtainable due to endotracheal tube and ROS unobtainable due to medical condition Meds/Allergies Home Medications and Allergies Home Medications Medication Instructions Recorded Confirmed Last Taken Type aspirin 81 mg tablet,delayed 81 mg PO DAILY tab 07/13/19 02/14/21 Unknown History release clonidine HCl 0.1 mg tablet 0.1 mg PO BID 07/13/19 02/14/21 Unknown History ibuprofen 600 mg tablet 600 mg PO Q6H PRN 07/13/19 02/14/21 Unknown History isosorbide mononitrate 30 mg 30 mg PO QAM 07/13/19 02/14/21 Unknown History tablet,extended release 24 hr lisinopril 20 1 tab PO BID 07/13/19 02/14/21 Unknown History mg-hydrochlorothiazide 12.5 mg tablet pantoprazole 40 mg tablet,delayed 40 mg PO QAM 07/13/19 02/14/21 Unknown History release dexamethasone 6 mg PO DAILY #6 tab 02/10/21 02/14/21 Unknown Rx diltiazem HCl [Diltia XT] 180 mg PO DAILY 02/14/21 02/14/21 02/13/21 History fluoxetine 20 mg PO DAILY 02/14/21 02/14/21 02/13/21 History metformin See Rx Instructions .ROUTE .COMPLEX 02/14/21 02/14/21 Unknown History Allergies Allergy/AdvReac Type Severity Reaction Status Date / Time No Known Allergies Allergy Unverified 07/13/19 13:31 Current Medications Current Medications Generic Name Dose Route Start Last Admin Trade Name Freq PRN Reason Stop Dose Admin Aspirin 81 mg 02/15/21 09:00 02/15/21 07:30 Aspirin 81 Mg Ec Tablet PO Not Given DAILY MOSHE Famotidine 20 mg 02/14/21 12:30 02/14/21 23:48 Famotidine 20 Mg/2 Ml Inj IVP 20 mg Q12H MOSHE Administration Fluoxetine HCl 20 mg 02/15/21 09:00 02/15/21 07:31 Fluoxetine 20 Mg Capsule PO Not Given DAILY MOSHE Heparin Sodium (Beef Lung) 0 unit 02/14/21 12:24 02/14/21 18:33 Heparin 5,000 Unit/Ml Inj 1 Ml IV 5,000 unit PRN PRN Administration Heparin weight-base protocol Protocol Fentanyl 1,000 mcg/ Sodium 100 mls @ 0 mls/hr 02/14/21 11:00 02/15/21 08:22 Chloride IV 100 mcg/hr .Q0M MOSHE 10 mls/hr Administration Protocol Per Protocol Propofol 1,000 mg in 100 mls @ 0 mls/hr 02/14/21 11:45 02/15/21 08:54 Diprivan IV 40 mcg/kg/min .Q0M MOSHE 24.49 mls/hr Administration Protocol Per Protocol Cisatracurium Besylate 100 mg/ 100 mls @ 0 mls/hr 02/14/21 12:30 02/15/21 01:09 Sodium Chloride IV 1 mcg/kg/min .Q0M MOSHE 6.12 mls/hr Administration Protocol Per Protocol Heparin Sodium/Sodium Chloride 25,000 unit in 500 mls @ 0 mls/hr 02/14/21 12:30 02/15/21 04:30 Heparin Drip IV 10.53 unit/kg/hr .Q0M MOSHE 21.5 mls/hr Titration Protocol Per Protocol Piperacillin Sod/Tazobactam 50 mls @ 12.5 mls/hr 02/14/21 13:30 02/15/21 05:27 Sod 3.375 gm/ Sodium Chloride IV 12.5 mls/hr Q8H MOSHE Administration Norepinephrine Bitartrate 4 mg 254 mls @ 0 mls/hr 02/14/21 15:28 02/15/21 04:45 / Dextrose IV 5 mcg/min .Q0M MOSHE 19.05 mls/hr Titration Protocol Per Protocol Midazolam HCl 100 mg/ Sodium 100 mls @ 0 mls/hr 02/15/21 00:15 02/15/21 05:09 Chloride IV 4 mg/hr .Q0M MOSHE 4 mls/hr Titration Protocol Per Protocol Vancomycin/PEG/NADA/Lysine/Water 1,500 mg in 300 mls @ 200 mls/hr 02/15/21 07:00 02/15/21 06:16 Vancocin IV 200 mls/hr Q8H MOSHE Administration Insulin Aspart 0 unit 02/14/21 19:12 02/15/21 08:21 Insulin Aspart 100 Unit/1 Ml SUBCUT 12 unit WM&BEDTIME MOSHE Administration Protocol PFSH Acute PFSH: Medical History CAD (coronary artery disease) Nonobstructive per angiogram June 2019 Chronic headaches Diabetes mellitus Dyslipidemia Hypertension Family History Other CAD (coronary artery disease) Social History Smoking and tobacco status: never smoked Alcohol intake: never Vitals/I&O/Wt Last Vital Signs Temp 98.5 F 02/15/21 08:00 Pulse 87 02/15/21 09:15 Resp 22 H 02/15/21 09:24 BP 96/67 02/15/21 09:15 Pulse Ox 92 02/15/21 09:24 02/14/21 02/15/21 02/15/21 22:59 06:59 14:59 Intake Total 405.349 / 511.927 667.239 / 1179.166 164.999 / 164.999 Balance 405.349 / 511.927 667.239 / 1179.166 164.999 / 164.999 Weight last 48 hrs Weight 120.656 kg Weight 102.058 kg Physical Exam Narrative: EXAM NARRATIVE: in prone position, intubated Resp: AUSCULTATION: crackles Extremity: GENERAL: No edema Urinary Catheter Management^: Mckinnon: Cath Placed During This Visit: yes Reason for Continuing Indwelling Catheter: Accurate Measurement of Urinary Output in Critically Ill Patients Urinary Catheter Date of Insertion: 02/14/21 Urinary Catheter Time of Insertion: 11:05 Data Micro: Micro: Microbiology 02/14/21 11:45 Gram Stain - Final Sputum - Endotrac heal Tube Aspirate 02/14/21 10:55 Blood Culture - Pr eliminary Blood 02/14/21 12:55 Blood Culture - Pr eliminary Blood Imaging^: CXR: Radiologist's impression: Findings: A right internal jugular venous catheter has been inserted and it ends in the superior vena cava. No pneumothorax is seen. The patchy bilateral pulmonary opacities and the endotracheal tube and nasogastric tube remain unchanged ABG^: ABG Interpretation 1: 7.17/52/65 80% FIO2, + 14 peep A&P Additional A&P Information 1. Acute anuric kidney injury: rhabdomyolysis, ischemic ATN, COVID, was on ACEi as outpatient 2. Metabolic acidosis: lactic, metformin, JACINTO, also respiratory acidosis 3. Hyperkalemia, hyperglycemia, most recent K on ABG 4.9 4. Hyponatremia 5. Shock liver Recommend: IV insulin, urinalysis, urine Na and Cr, fluid bolus, bladder scan when turned supine. Discussed with Dr Roger. He may require dialysis. Dr Roger will place dialysis catheter if no improvement later today. Will try regular dialysis due to need for intermittent prone positioning. If does not tolerate, can change to CVVHD. Consult Attestations Medical Necessity Statement: see above Time Spent in Patient Care: Greater than 35 minutes Coding Level of Care Code Acute Solar Installation Supervisor for Chapin Tse
[2021-02-15] MEDS: famotidine 20 mg/2 mL INJ IVP (12:37)
[2021-02-15 12:52] LABS: Ketone (Acetest) Serum Negative (Negative)
[2021-02-15 12:56] LABS: Glucose Point of Care 345 mg/dL (70-110)
[2021-02-15 13:11] LABS: Creatinine Urine, Random 32 mg/dL (39-259); Urine Random Sodium 120 mmol/L
--- NOTE | 2021-02-15 13:27 | PC.NURSE ---
Nurse paused Heparin per Dr Datar order. possible dialysis port procedure in the near future.
[2021-02-15 13:32] LABS: Bilirubin Urine Neg (Negative); Blood Urine 3+ (Negative); Glucose Urine UA Trace (Normal); Ketones Urine Negative (Negative); Leukocyte Esterase Urine Negative (Negative); Nitrate Urine Negative (Negative); Protein Urine 2+ (Negative); Specific Gravity, Urine 1.015 (1.005-1.030); Urine Appearance Cloudy (CLEAR); Urine Color Yellow (Yellow); Urobilinogen Urine Norm (Negative); pH Urine 5 (5-7)
[2021-02-15 13:33] LABS: Calcium Oxalate Crystals Urine 0-4 /hpf
[2021-02-15 13:34] LABS: Bacteria Urine 2+ /hpf; Squamous Epithelial Cell Urine 0-4 /hpf (0-5)
[2021-02-15 13:35] LABS: Add Urine Culture? Yes; Sperm Urine 3+ /hpf
[2021-02-15] MEDS: sodium chloride 0.9% 500 ML 150 ML IV (13:50)
[2021-02-15 14:06] LABS: ABG PCO2 49.4 mmHg (35-45); Alveolar-Arterial Oxygen Gradi 56.6 mmHg (5-10); Arterial Blood Gas Hematocrit 54.4 % (42-52); Blood Gas Allen Test Pos; Blood Gas Operator Identificat GD; Blood Gas Sample Site Radial, left; Blood Gas Sample Type Arterial; Carboxyhemoglobin 0.5 %THgb (0.4-20.1); HCO3 ABG 18.6 mmol/L (22-26); Ionized Calcium Level - ABG 0.9 mmol/L (1.1-1.4); Methemoglobin 0.9 % (0.4-1.5); Oxygen Device VENT; Oxygen Saturation ABG 94.4; PO2 ABG 76.8 mmHg (80.0-100.0); Potassium Level - ABG 4.9 mmol/L (3.5-5.0); Total Hemoglobin 17.7 g/dL (14-18)
[2021-02-15 14:07] LABS: ABG PH Result 7.18 (7.35-7.45)
[2021-02-15] MEDS: norepinephrine 8 MG in dextrose 5 % 500 ML 30.48 MG IV (15:37)
[2021-02-15] MEDS: sodium bicarbonate 150 MEQ in dextrose 5% 1,000 ML 100 MEQ IV (15:39)
--- NOTE | 2021-02-15 17:20 | P.PN_ITS ---
Vitals/I&O/Wt Last Vital Signs Temp 98.3 F 02/15/21 12:30 Pulse 84 02/15/21 14:00 Resp 26 H 02/15/21 14:00 BP 89/65 02/15/21 14:00 Pulse Ox 91 02/15/21 14:00 02/15/21 02/15/21 02/15/21 06:59 14:59 22:59 Intake Total 667.239 / 1179.166 496.574 / 496.574 50 / 546.574 Balance 667.239 / 1179.166 496.574 / 496.574 50 / 546.574 Weight last 48 hrs Weight 120.656 kg Weight 102.058 kg Physical Exam Urinary Catheter Management^: Mckinnon: Cath Placed During This Visit: yes Reason for Continuing Indwelling Catheter: Accurate Measurement of Urinary Output in Critically Ill Patients Urinary Catheter Date of Insertion: 02/14/21 Urinary Catheter Time of Insertion: 11:05 Data : 02/15/21 06:26 02/15/21 06:26 Micro: Microbiology 02/14/21 11:45 Gram Stain - Final Sputum - Endotracheal Tube Aspirate 02/14/21 10:55 Blood Culture - Preliminary Blood 02/14/21 12:55 Blood Culture - Preliminary Blood A&P Additional A&P Information remains anuric, bladder scan no urine Dr Datar placed left IJ HD catheter BP 107/75, on levophed 2 mcg/min BMP pending will proceed with HD - 3h, 1 L UF if BP tolerates, 2K bath reassess dialysis needs AM 8 Attestations Medical Necessity Statement*: see above Coding Level of Care Code Acute Principal Statistical Programmer for Chapin Tse
[2021-02-15 17:31] LABS: Glucose Point of Care 243 mg/dL (70-110)
[2021-02-15 17:50] LABS: Partial Thromboplastin Time 39.8 SECONDS (23.9-36.7)
[2021-02-15] MEDS: dexamethasone 10 mg/mL INJ 6 MG IVP (18:05)
[2021-02-15 18:13] LABS: Blood Urea Nitrogen 46 mg/dL (6-20); Calcium 7.3 mg/dL (8.5-10.5); Carbon Dioxide 16 mmol/L (22-29); Chloride 87 mmol/L (98-107); Glomerular Filtration Rate 13.9 mL/min (90-130); Glucose 257 mg/dL (65-115); Osmolality Calculated 281 mOsm/kg (285-295); Sodium 125 mmol/L (136-145)
[2021-02-15 18:15] LABS: Anion Gap 27.3 (5-19); Potassium 5.3 mmol/L (3.5-5.1)
--- NOTE | 2021-02-15 18:40 | PC.NURSE ---
Addendum entered by Gaston Rivas RN 02/15/21 21:19: patients daughter, Mariluz, notified of need for 2nd dialysis cath placement. phone consent received by myself and Dr. Roger. Time out performed nimbex restarted right dialysis cath placed dialysis resumed Original Note: procedure note Dr. Roger at bedside
[2021-02-15] MEDS: norepinephrine 8 MG in dextrose 5 % 500 ML 15.24 MG IV (18:41)
--- NOTE | 2021-02-15 19:42 | PC.NURSE ---
Nurse received consent from patient's daughter, Mariluz for placement of a hemodialysis catheter. Nurse asissted Dr anne with hemodialysis catheter placement to the right IJ. procedure was uneventful.
--- NOTE | 2021-02-15 19:44 | PC.NURSE ---
Hemodialysis catheter was confirmed via Xray, but it is not properly pulling and flushing for hemodialysis even afte repositioning the patient. Nurse alerted Dr anne. Dr post came in to place a new femoral catheter. received a second consent.
[2021-02-15] MEDS: cisatracurium 100 MG in sodium chloride 0.9% 50 ML IV (19:45)
--- NOTE | 2021-02-15 19:46 | PC.NURSE ---
Shift Note Frequent safety and comfort rounds continue. Orders and/or nursing care completed as indicated. Patient monitored for response to intervention and treatment. During shift patient was placed supine at 1430. He has completed 1 session of proning and needs to be proned again at 630am. A hemodialysis catheter was placed, but it did not draw and flush properly. A new catheter is being placed as nurse is writing this note.
--- NOTE | 2021-02-15 19:56 | PC.NURSE ---
TO4/BIS: 02/15/2021 1000 1200 4 1400 08/31 1600 0 1800 - discontinued
--- NOTE | 2021-02-15 20:40 | P.PN_ITS ---
Subjective Subjective: Interval history: -Patient seen multiple times today -He was changed to supine position at around 2:30 PM -Still requiring 100% FiO2 and saturating 85% -Renal functions worsening and significantly elevated white count -Chest x-ray showed stable dense consolidation right upper lobe bibasilar groundglass opacities improved -Labs and imaging reviewed -Nephrology consulted for acute kidney injury resulting in hyperkalemia Medications: Reviewed: Yes Vitals/I&O/Wt Last Vital Signs Temp 97.7 F 02/15/21 17:00 Pulse 88 02/15/21 19:30 Resp 26 H 02/15/21 18:04 BP 120/72 02/15/21 19:30 Pulse Ox 87 L 02/15/21 19:30 02/15/21 02/15/21 02/15/21 06:59 14:59 22:59 Intake Total 667.239 / 1179.166 512.907 / 512.907 813.572 / 1326.479 Balance 667.239 / 1179.166 512.907 / 512.907 813.572 / 1326.479 Weight last 48 hrs Weight 266 lb Weight 225 lb Physical Exam Narrative: EXAM NARRATIVE: PHYSICAL EXAM: General: lying in bed, sedated and intubated. HEENT:NCAT, PERRLA, EOMI Neck: Supple Lungs: Bilateral diffuse coarse crackles Heart: s1/s2, RRR Abd: soft, NT, ND, BS + Normoactive Extremities: No edema HOME SECURITY ALARM INSTALLER: sedated and limited HOME SECURITY ALARM INSTALLER exam possible. SKIN: no rash LDA: # CVC: Right IJ CVC 02/14/2021 # HD Cath : Right femoral HD catheter 02/15/2021 # Mckinnon: 02/14/2021 Urinary Catheter Management^: Mckinnon: Cath Placed During This Visit: yes Reason for Continuing Indwelling Catheter: Accurate Measurement of Urinary Output in Critically Ill Patients Urinary Catheter Date of Insertion: 02/14/21 Urinary Catheter Time of Insertion: 11:05 Data : 02/15/21 06:26 02/15/21 17:00 Other Labs: Laboratory Results WBC 32.4 10^3/uL (4.0-10.0) H* 02/15/21 06:26 RBC 5.89 10^6/uL (4.1-5.3) H 02/15/21 06:26 Hgb 17.1 g/dL (11.7-16.6) H 02/15/21 06:26 Hct 53.0 % (42.0-52.0) H 02/15/21 06:26 MCV 90.0 fL (80-94) 02/15/21 06:26 MCH 29.0 pg (28.0-34.0) 02/15/21 06:26 MCHC 32.3 g/dL (30.0-36.0) 02/15/21 06:26 RDW 14.0 % (12.1-15.1) 02/15/21 06:26 Plt Count 204 10^3/cmm (130-400) 02/15/21 06:26 MPV 10.7 fL (7.4-10.4) H 02/15/21 06:26 Neut % (Auto) 86.9 % 02/15/21 06:26 Lymph % (Auto) 2.8 % 02/15/21 06:26 [place] % (Auto) 1.5 % 02/15/21 06:26 Eos % (Auto) 0.6 % 02/15/21 06:26 Baso % (Auto) 0.1 % 02/15/21 06:26 Neut # (Auto) 28.16 10^3/uL (1.8-7.7) H 02/15/21 06:26 Lymph # (Auto) 0.9 10^3/uL (0.8-4.8) 02/15/21 06:26 [place] # (Auto) 0.5 10^3/uL (0.2-0.9) 02/15/21 06:26 Eos # (Auto) 0.2 10^3/uL (0.0-0.8) 02/15/21 06:26 Baso # (Auto) 0.0 10^3/uL (0.0-0.1) 02/15/21 06:26 Nucleated RBC % (auto) 0 % 02/15/21 06:26 Nucleated RBCs # 0.0 /100WBC 02/15/21 06:26 APTT Cancelled 02/15/21 21:12 D-Dimer 4.06 ug/mIFEU (0-0.59) H 02/15/21 06:26 Specimen Type Arterial 02/15/21 13:50 Sample Site Radial, left 02/15/21 13:50 ABG pH 7.18 (7.35-7.45) L* 02/15/21 13:50 ABG pCO2 49.4 mmHg (35-45) H 02/15/21 13:50 ABG pO2 76.8 mmHg (80.0-100.0) L 02/15/21 13:50 ABG HCO3 18.6 mmol/L (22-26) L 02/15/21 13:50 ABG O2 Saturation 94.4 02/15/21 13:50 ABG Base Excess -10.0 mmol/L (-2.0-2.0) L 02/15/21 13:50 Artemio Test Pos 02/15/21 13:50 A-a O2 Gradient 56.6 mmHg (5-10) H 02/15/21 13:50 Hematocrit 54.4 % (42-52) H 02/15/21 13:50 Hgb O2 Saturation 93.0 % (95-100) L 02/15/21 13:50 Carboxyhemoglobin 0.5 %THgb (0.4-20.1) 02/15/21 13:50 Methemoglobin 0.9 % (0.4-1.5) 02/15/21 13:50 Total Hemoglobin 17.7 g/dL (14-18) 02/15/21 13:50 Sodium 127.0 mmol/L (131-143) L 02/15/21 13:50 Potassium 4.9 mmol/L (3.5-5.0) 02/15/21 13:50 Glucose 309.0 mg/dL (70-115) H 02/15/21 13:50 Ionized Calcium 0.9 mmol/L (1.1-1.4) L 02/15/21 13:50 O2 Delivery Device Vent 02/15/21 13:50 FiO2 80.0 % 02/15/21 13:50 Tidal Volume 0.50 02/15/21 13:50 PEEP 14.0 cmH20 02/15/21 13:50 Clinical Nutritionist ID Gd 02/15/21 13:50 Sodium 125 mmol/L (136-145) L 02/15/21 17:00 Potassium 5.3 mmol/L (3.5-5.1) H 02/15/21 17:00 Chloride 87 mmol/L (98-107) L 02/15/21 17:00 Carbon Dioxide 16 mmol/L (22-29) L 02/15/21 17:00 Anion Gap 27.3 (5-19) H 02/15/21 17:00 BUN 46 mg/dL (6-20) H 02/15/21 17:00 Creatinine 4.4 mg/dL (0.7-1.2) H 02/15/21 17:00 GFR Calculation 13.9 mL/min (90-130) L 02/15/21 17:00 Glucose 257 mg/dL (65-115) H 02/15/21 17:00 POC Glucose 209 mg/dL (70-110) H 02/15/21 22:15 Calculated Osmolality 281 mOsm/kg (285-295) L 02/15/21 17:00 Lactic Acid 3.8 mmol/L (0.5-2.2) H 02/14/21 10:55 Lactic Acid (Sepsis) 3.4 mmol/L (0.5-2.2) H 02/14/21 18:37 Calcium 7.3 mg/dL (8.5-10.5) L 02/15/21 17:00 Magnesium 2.2 mg/dL (1.7-2.3) 02/15/21 06:26 Total Bilirubin 0.6 mg/dL (0.15-1.2) 02/15/21 06:26 AST 524 U/L (0-40) H 02/15/21 06:26 ALT 212 U/L (0-41) H 02/15/21 06:26 Alkaline Phosphatase 61 IU/L (40-130) 02/15/21 06:26 Creatine Kinase 51866 U/L (39-308) H* 02/15/21 06:26 Troponin T Baseline 18 ng/L (0-15) H 02/14/21 10:55 Troponin T 120 Minute 27.90 ng/L (0-15) H 02/14/21 12:55 Delta Troponin T 9.90 ABS# (0-10) 02/14/21 12:55 Troponin T Hi Sens 6Hr 49.40 ng/L (0-15) H 02/14/21 16:30 Troponin T Hi Sens 6Hr Delta 31.40 ng/L (0-12) H* 02/14/21 16:30 C-Reactive Protein 372.9 mg/L (0.0-4.9) H 02/15/21 06:26 NT-Pro-B Natriuret Pep 1942 pg/mL (0-125) H 02/14/21 12:55 Total Protein 6.6 g/dL (6.6-8.7) 02/15/21 06:26 Albumin 2.7 g/dL (3.5-5.2) L 02/15/21 06:26 Globulin 3.9 g/dL (1.3-4.6) 02/15/21 06:26 Procalcitonin 1.02 ng/mL (0-0.5) H 02/14/21 10:55 Urine Color Yellow (Yellow) 02/15/21 12:00 Urine Appearance Cloudy (CLEAR) 02/15/21 12:00 Urine pH 5 (5-7) 02/15/21 12:00 Ur Specific [place] 1.015 (1.005-1.030) 02/15/21 12:00 Urine Protein 2+ (Negative) H 02/15/21 12:00 Urine Glucose (UA) Trace (Normal) H 02/15/21 12:00 Urine Ketones Negative (Negative) 02/15/21 12:00 Urine Blood 3+ (Negative) H 02/15/21 12:00 Urine Nitrate Negative (Negative) 02/15/21 12:00 Urine Bilirubin Neg (Negative) 02/15/21 12:00 Urine Urobilinogen Norm mg/dL (Negative) 02/15/21 12:00 Ur Leukocyte Esterase Negative (Negative) 02/15/21 12:00 Urine RBC 10-15 /hpf (0-2) H 02/15/21 12:00 Urine WBC 5-10 /hpf (0-5) H 02/15/21 12:00 Ur Squamous Epith Cells 0-4 /hpf (0-5) H 02/15/21 12:00 Calcium Oxalate Crystal 0-4 /hpf H 02/15/21 12:00 Amorphous Sediment Not Reportable 02/15/21 12:00 Urine Bacteria 2+ /hpf (NONE) H 02/15/21 12:00 Urine Sperm 3+ /hpf 02/15/21 12:00 Ur Random Sodium 120 mmol/L 02/15/21 12:00 Urine Creatinine 32 mg/dL (39-259) L 02/15/21 12:00 Serum Ketones Negative (Negative) 02/15/21 10:45 Impressions Chest X-Ray 02/15/21 07:00 IMPRESSION: 1. Multilobar pneumonia, improved in the lung bases. ADDENDUM: 02/15/211924 Findings were discussed with Dr. Roger at 02/15/2021 7:22 PM CDT. Micro: Microbiology 02/14/21 10:55 Blood Culture - Preliminary Blood 02/14/21 12:55 Blood Culture - Preliminary Blood 02/14/21 11:45 Gram Stain - Final Sputum - Endotracheal Tube Aspirate A&P Assessment and plan (1) Acute and chronic respiratory failure with hypoxia: Status: Acute (2) CAD (coronary artery disease): Status: Acute Qualifiers: Coronary Disease-Associated Artery/Lesion type: [place] artery [place] vs. transplanted heart: [place] heart Associated angina: unspecified whether angina present Qualified Code(s): I25.10 - Atherosclerotic heart disease of [place] coronary artery without angina pectoris (3) ARDS (adult respiratory distress syndrome): Status: Acute (4) Diabetes mellitus: Status: Acute Qualifiers: Diabetes mellitus type: type 2 Diabetes mellitus assisted insulin use: unspecified superintendent marine oil terminal insulin use status Diabetes mellitus complication status: with other specified complication Qualified Code(s): E11.69 - Type 2 diabetes mellitus with other specified complication (5) Hypertension: Status: Acute Qualifiers: Hypertension type: unspecified Qualified Code(s): I10 - Essential (primary) hypertension (6) Pneumonia due to COVID-19 virus: Status: Acute (7) Hypotension: Status: Acute Qualifiers: Hypotension type: hypotension due to drug Qualified Code(s): I95.2 - Hypotension due to drugs (8) JACINTO (acute kidney injury): Status: Acute (9) Pneumonia: Status: Acute (10) Hyperkalemia: Status: Acute (11) Metabolic acidosis: Status: Acute #Acute hypoxic respiratory failure secondary to ARDS due to COVID-19 pneumonia #Diabetes #ARDS #Hypertension #JACINTO-due to prerenal leading to possible ATN #Right upper lobe pneumonia -Tested positive on 02/05/2021; -Intubated on arrival in the ED 02/14/2021 -Sedated and connected to mechanical ventilator ; performed 1 session - Saturating 85% on 100% FiO2; -Plan is to paralyze in prone tonight for possible hemodialysis -ABG suggestive of metabolic acidosis -We'll adjust ventilator settings depending on ABG and saturations on the monitor -Chest x-ray demonstrated severe bilateral infiltrates on admission but improved bibasilar groundglass opacities with stable right upper lobe opacity -Procalcitonin 1.02; -CRP 80; blood and sputum cultures pending -Started on 5-day protocol remdesivir and dexamethasone 6 mg daily -Empiric Zosyn and vancomycin for possibility of bacterial pneumonia -MRSA PCR and bacterial antigen panel, Legionella antigen -Significantly elevated D-dimer and elevated troponin I-placed on heparin drip -Continue aspirin for underlying CAD -Currently requiring Levophed to keep maps above 65 -Insulin scale coverage for diabetes -Metabolic acidosis and hyperkalemia-likely secondary to JACINTO -Received dextrose plus insulin ; 500 mL bolus; pH acidotic-started on bicarb drip -Nephrology recommended hemodialysis/CRRT today -DVT prophylaxis: Already on heparin -GI prophylaxis: PPI -Fluoxetine 20 mg daily -Full code -Prognosis: Poor -Family updated Discussed with hospitalist, RN, RT covering the case Attestations Medical Necessity Statement*: Acute hypoxic respiratory failure secondary to ARDS due to COVID-19 pneumonia requiring mechanical ventilation with high FiO2, septic shock leading to prerenal JACINTO/ATN likely requires hemodialysis -overall needs close monitoring for multiorgan failure Time Spent in Patient Care: Greater than 35 minutes (>than 50% of time spent in counselling and/or direct pt care on unit) . Critical Care Time: The high probability of a clinically significant, sudden or life threatening deterioration of the patient's [respiratory, renal, endocrine] system(s) required my full and direct attention, intervention and personal management. The critical care time is as shown. This time is in addition to time spent performing any reported procedures but includes the following: [x] Data and vital sign review and interpretation [x] Patient assessment, examination and intervention [x] Documentation [x] Medication orders and management Critical Care Time (min): 95 Coding Level of Care Code Established Pt Acute Robot Operator for g Fwd Patient Type Established History Comprehensive Exam Comprehensive Medical Decision Making High Complexity Diagnoses Acute and chronic respiratory failure with hypoxia J96.21 CAD (coronary artery disease) I25.10 Coronary Disease-Associated Artery/Lesion type: [place] artery [place] vs. transplanted heart: [place] heart Associated angina: unspecified whether angina present ARDS (adult respiratory distress syndrome) J80 Diabetes mellitus E11.69 Diabetes mellitus type: type 2 Diabetes mellitus assisted insulin use: unspecified superintendent marine oil terminal insulin use status Diabetes mellitus complication status: with other specified complication Hypertension I10 Hypertension type: unspecified Pneumonia due to COVID-19 virus U07.1; J12.82 Hypotension I95.2 Hypotension type: hypotension due to drug JACINTO (acute kidney injury) N17.9 Pneumonia J18.9 Hyperkalemia E87.5 Metabolic acidosis E87.2 Time Spent (min) 95
--- NOTE | 2021-02-15 20:40 | P.PCN_ITS ---
Procedure/Consent Time out: Time Out Performed: Yes Consent: Consent for Procedure: Consent obtained from other (indicate) (Daughter), Risks & Benefits reviewed and Agrees to proceed with procedure Procedure Narrative: Procedure: Temporary hemodialysis catheter Time: 1600 Indication: Renal failure requiring hemodialysis/CRRT based on renal recommendations Metal Wire Coating Operator(s): Andrew Roger MD Consent: Signed and placed in chart Site: Left internal jugular vein Anesthesia: 5 cc 1% lidocaine without epinephrine Description: Area prepped with chlorhexidine and draped in a sterile manner. 1% lidocaine given for local anesthesia. Catheter inserted using Seldinger technique. All ports rhiannon blood and were flushed with normal saline. Ultrasound guidance used: Yes Placement confirmed by: Ultrasound, chest x-ray Complications: None Acute Procedures Epistaxis Control: Time out performed: Yes
--- NOTE | 2021-02-15 20:40 | PM.ACPR ---
Procedure/Consent Time out: Time Out Performed: Yes Consent: Consent for Procedure: Consent obtained from other (indicate) (daughter), Risks & Benefits reviewed and Agrees to proceed with procedure Procedure Narrative: Procedure: Right femoral hemodialysis catheter Time: 1999 Indication: Renal failure requiring hemodialysis/CRRT based on renal recommendations; As patient has a right internal jugular and central venous line for running drips off pressors, multiple sedation and paralytic medications -Earlier today left internal jugular hemodialysis catheter was placed with the intention to do CRRT while continuing to do proning sessions for ARDS. Although left internal jugular HD catheter was placed with no complication and confirmed placement with tip in SVC on chest x-ray, when hooked to CRRT machine-could not generate necessary pressures despite adjusting position of the neck. Explained the same to the next of kin and to consent to place right femoral hemodialysis catheter Secondary School Teacher(s): Andrew Roger MD Consent: Signed and placed in chart Site: Right femoral vein Anesthesia: 5 cc 1% lidocaine without epinephrine Description: Area prepped with chlorhexidine and draped in a sterile manner. 1% lidocaine given for local anesthesia. Catheter inserted using Seldinger technique. All ports rhiannon blood and were flushed with normal saline. Ultrasound guidance used: Yes Placement confirmed by: Ultrasound, Complications: None Acute Procedures Epistaxis Control: Time out performed: Yes
[2021-02-15] MEDS: propofol 1,000 MG/100 ML INJ 21.43 MG IV (21:23)
--- NOTE | 2021-02-15 22:30 | PC.NURSE ---
Notified hospitalist personal lines advisor of elevated PTT result. Received order to redraw at 2AM.
--- NOTE | 2021-02-15 22:36 | PC.NURSE ---
Spoke with Dr. Ba regarding dialysis treatment. Received orders to draw Ddimer and fibrinogen for possible DIC. Will notify hospitalist.
[2021-02-15 22:51] LABS: Glucose Point of Care 209 mg/dL (70-110)
[2021-02-15 23:08] LABS: Fibrinogen 789 mg/dL (174-498)
[2021-02-15 23:17] LABS: D Dimer 9.26 ug/mIFEU (0-0.59)
[2021-02-15] MEDS: insulin glargine 100 units/1 mL 10 UNIT SUBCUT (23:17)
[2021-02-15 23:27] LABS: Partial Thromboplastin Time 194.1 SECONDS (23.9-36.7)
[2021-02-15 23:57] LABS: Hepatitis B Surface AB 3.5 (11.5-1000); Hepatitis B Surface Antigen Non-Reactive (Nonreactive); Hepatitis C Virus Antibody Non-Reactive (Nonreactive)
[2021-02-16] VITALS (104 sets, daily range): BP systolic 82–143; BP diastolic 49–80; PULSE 75–94; RESP 22–24; TEMP 36.6–37.5; O2SAT 81–97
--- NOTE | 2021-02-16 00:38 | PC.HD ---
Left IJ catheter arterial port would not draw but flushed adequately, and venous port rhiannon sluggishly. Attempted to run with lines reversed but AP high in spite of flushing and repositioning pt. Dr Roger attempted to withdraw the cath slightly but pressures increased even more so blood returned and machine recirculated while Dr. Roger inserted a new right femoral catheter. Femoral cath ports rhiannon and flushed well and pressures acceptable initially but ROPE CUTTER quickly started increasing as dialyzer was clotting. Blood again returned and machine restrung. Treatment again started but ROPE CUTTER again increasing quickly. Heparin 2000 units given pre-dialyzer per orders with brief decrease in ROPE CUTTER but again increased. Dr. Ba notified, additional 2000 units of heparin given, and dialyzer flushed repeatedly with resulting very brief decrease in ROPE CUTTER but it continued to increase quickly even at reduced BFR. (Of note, during this time 4 peripheral venipunctures done by ICU and Lab staff to collect repeat PTT with minimal blood collected and no bleeding to site when needle removed. The IJ catheter was also removed with only a small spot of blood shed.) Although PTT result was high, blood looked very dark and thick. Dr Ba was kept informed of treatment issues and treatment was completed with large amount of saline intake and reduced BFR throughout treatment.
[2021-02-16] MEDS: famotidine 20 mg/2 mL INJ IVP ×2 (01:23→13:39)
[2021-02-16 02:27] LABS: Hematocrit 47.6 % (42.0-52.0); Hemoglobin 15.6 g/dL (11.7-16.6); Lymphocytes % 3.2 %; Mean Corpuscular HGB Conc 32.8 g/dL (30.0-36.0); Mean Corpuscular Volume 88.5 fl (80-94); Mean Platelet Volume 10.7 fL (7.4-10.4); Monocytes # 0.8 10^3/uL (0.2-0.9); Monocytes % 2.5 %; Neutrophils # 28.49 10^3/uL (1.8-7.7); Neutrophils % 87.7 %; Nucleated Red Blood Cells % 0 %; Platelet Count 206 10^3/cmm (130-400); Red Blood Count 5.38 10^6/uL (4.1-5.3); Red Cell Distribution Width 14.5 % (12.1-15.1)
[2021-02-16 02:47] LABS: Alanine Aminotransferase 249 U/L (0-41); Albumin Level 2.5 g/dL (3.5-5.2); Alkaline Phosphatase 70 IU/L (40-130); Anion Gap 21.8 (5-19); Aspartate Amino Transferase 431 U/L (0-40); Blood Urea Nitrogen 36 mg/dL (6-20); Calcium 7.2 mg/dL (8.5-10.5); Carbon Dioxide 23 mmol/L (22-29); Chloride 90 mmol/L (98-107); Creatinine Clr Calc Pharmacy 25.3833; Globulin 3.6 g/dL (1.3-4.6); Glomerular Filtration Rate 15.1 mL/min (90-130); Glucose 260 mg/dL (65-115); Osmolality Calculated 287 mOsm/kg (285-295); Partial Thromboplastin Time 109.9 SECONDS (23.9-36.7); Phosphorus 7.3 mg/dL (2.5-4.5); Potassium 4.8 mmol/L (3.5-5.1); Sodium 130 mmol/L (136-145); Total Bilirubin 0.8 mg/dL (0.15-1.2); Total Protein 6.1 g/dL (6.6-8.7)
[2021-02-16 03:01] LABS: Slide Review Slide Review Perform
[2021-02-16 03:03] LABS: White Blood Count 32.5 10^3/uL (4.0-10.0)
[2021-02-16] MEDS: heparin drip 25,000 UNIT/500 ML PREMIX 6.6 UNIT IV (03:07)
[2021-02-16] MEDS: piperacillin-tazobactam 3.375 GM in sodium chloride 0.9% (plus) 50 ML IV ×3 (04:42→20:20)
[2021-02-16 04:58] LABS: ABG PCO2 56.8 mmHg (35-45); ABG PH Result 7.22 (7.35-7.45); Base Excess ABG -5.6 mmol/L (-2.0-2.0); Blood Gas Allen Test Pos; Blood Gas Operator Identificat JB; Blood Gas Sample Site Radial, right; Blood Gas Sample Type Arterial; Blood Gas Tidal Volume 0.45; HCO3 ABG 23.1 mmol/L (22-26); Oxygen Device VENT
[2021-02-16] MEDS: propofol 1,000 MG/100 ML INJ 30.62 MG IV ×4 (04:58→12:57)
[2021-02-16] MEDS: sodium bicarbonate 150 MEQ in dextrose 5% 1,000 ML 100 MEQ IV (05:37)
--- NOTE | 2021-02-16 06:37 | PC.NURSE ---
Spoke with Dr anne regarding patients plan of care. Received orders to with hold proning therapy until discussion with nephrology regarding dialysis.
--- NOTE | 2021-02-16 06:40 | PC.NURSE ---
Shift Note Frequent safety and comfort rounds continue. Orders and nursing care completed as indicated. Patient monitored for response to intervention and treatments. Education provided including disease process and vent management. Patients daughter verbalized understanding. Will continue to monitor.
--- NOTE | 2021-02-16 07:00 | XRR_ITS ---
PROCEDURE INFORMATION: Exam: XR Chest Exam date and time: 02/16/2021 7:00 AM Age: 60 years old Clinical indication: Shortness of breath; Patient HX: F/u covid pneumonia. Intubated. ; Additional info: Resp failure TECHNIQUE: Imaging protocol: XR of the chest. Views: 1 view. COMPARISON: CR XR chest 1V portable [id number] 02/15/2021 4:43 PM FINDINGS: Tubes, catheters and devices: An endotracheal tube, nasogastric tube and central venous catheter projects in satisfactory position. Lungs: Prominent bilateral pulmonary infiltrates are present which are worsening in the lung bases when compared to previous study. Pleural spaces: Unremarkable. No pleural effusion. No pneumothorax. Heart/Mediastinum: Unremarkable. No cardiomegaly. Bones/joints: Unremarkable. XR/XR chest 1V portable [id number] IMPRESSION: 1. Satisfactory position of the ET tube, NG tube and central venous catheter. 2. Worsening bilateral pulmonary infiltrates.
[2021-02-16] MEDS: cisatracurium 100 MG in sodium chloride 0.9% 50 ML 7.35 MG IV (08:01)
[2021-02-16] MEDS: norepinephrine 8 MG in dextrose 5 % 500 ML 30.48 MG IV (08:44)
--- NOTE | 2021-02-16 09:00 | USCV_ITS ---
Federico Hua Age: 60 Gender: M : 1960 Exam Date: 02/16/2021 10:59 Ordering Phys: Talib Olvera MD Technologist: Wendi Kimball Exam Location: [facility] – [place] Indication: Elevated troponin BP: 98 / 76 HR: 76 Rhythm: Sinus Technical Quality: Technically difficult study MEASUREMENTS (Male / Female) Normal Values 2D ECHO LV Diastolic Diameter PLAX 4.0 cm 4.2 - 5.9 / 3.9 - 5.3 cm LV Systolic Diameter PLAX 2.8 cm LV Chamber Size 3.5 cm IVS Diastolic Thickness 1.9 cm 0.6 - 1.0 / 0.6 - 0.9 cm IVS Systolic Thickness 1.8 cm LVPW Diastolic Thickness 1.4 cm 0.6 - 1.0 / 0.6 - 0.9 cm LVPW Systolic Thickness 1.8 cm RV Chamber Size 2.8 cm LVOT Diameter 2.2 cm LV Ejection Fraction 2D Teich 58.6 % LA Diameter 4.2 cm LA Width 2.2 cm LA Height 5.6 cm Aorta at Sinotubular Diameter 2.4 cm M-MODE LV Diastolic Diameter MM 4.6 cm 4.2 - 5.9 / 3.9 - 5.3 cm LV Systolic Diameter MM 2.5 cm LV Ejection Fraction MM Teich 78.3 % IVS Diastolic Thickness MM 1.9 cm 0.6 - 1.0 / 0.6 - 0.9 cm IVS Systolic Thickness MM 2.5 cm LVPW Diastolic Thickness MM 1.8 cm 0.6 - 1.0 / 0.6 - 0.9 cm LVPW Systolic Thickness MM 2.3 cm RV Diastolic Diameter MM 1.0 cm Aortic Annulus Diameter 3.0 cm LA Ao Ratio MM 1.8 MV E Point Septal Separation 0.6 cm DOPPLER AV Peak Velocity 145.0 cm/s LVOT Peak Velocity 99.0 cm/s AV Area Cont Eq vti 2.3 cm squared AV Area Cont Eq pk 2.5 cm squared MV Area PHT 3.2 cm squared Mitral E to A Ratio 1.3 MV E' Velocity 32.5 cm/s Mitral E to MV E' Ratio 9.7 Mitral E to LV E' Lateral Ratio 9.1 Mitral E to LV E' Septal Ratio 10.4 TR Peak Velocity 217.0 cm/s TR Peak Gradient 18.8 mmHg TV Peak E Velocity 37.0 cm/s Right Atrial Pressure 15.0 mmHg Pulmonary Artery Systolic Pressu 33.8 mmHg PV Peak Velocity 91.0 cm/s RV Acceleration Time 0.1 s RV Ejection Time 0.2 s RV AcT/ET 0.5 FINDINGS Left Ventricle Normal left ventricular size and systolic function, EF 60%.no regional wall motion abnormalities. Right Ventricle The right ventricle is normal in size and function. Right Atrium The right atrium is normal in size. Left Atrium Mildly increased left atrial size. Mitral Valve No gross abnormalities noted Aortic Valve The aortic leaflets could not be visualized well Tricuspid Valve Trace tricuspid valve regurgitation. Estimated pulmonary artery peak systolic pressure 34 mmHg Pulmonic Valve Pulmonic valve not well visualized. Pericardium Trivial pericardial effusion. Aorta Normal ascending aorta dimension. CONCLUSIONS Normal left ventricular size and systolic function, EF 60% (visual ) no regional wall motion abnormalities. Mildly increased left atrial size. Trace tricuspid valve regurgitation. Estimated pulmonary artery peak systolic pressure 34 mmHg. There is no pericardial effusion. There are no intracardiac masses. There are no prior echocardiogram studies to compare. Dr Rito Edmond MD FACC (Electronically Signed) Final Date: 16 February 2021 15:21 S
--- NOTE | 2021-02-16 09:26 | PM.PN ---
Subjective Subjective: Interval history: Issues with dialysis yesterday related to access - left IJ catheter inadequate flow, femoral catheter frequent clotting. Received 3 h HD at low blood flow. Medications: Reviewed: Yes Vitals/I&O/Wt Last Vital Signs Temp 99.5 F 02/16/21 03:00 Pulse 82 02/16/21 06:00 Resp 24 H 02/16/21 09:09 BP 98/76 02/16/21 06:00 Pulse Ox 88 L 02/16/21 09:09 on 8 mcg levophed 02/15/21 02/16/21 02/16/21 22:59 06:59 14:59 Intake Total 1041.423 / 6245.690 1359.288 / 4319.618 282.191 / 282.191 Output Total 1201 / 1201 Balance 1041.423 / 7821.691 5801.288 / 3118.618 282.191 / 282.191 Weight last 48 hrs Weight 124.001 kg Weight 122.4 kg Weight 120.656 kg Weight 102.058 kg Physical Exam Urinary Catheter Management^: Mckinnon: Cath Placed During This Visit: yes Reason for Continuing Indwelling Catheter: Accurate Measurement of Urinary Output in Critically Ill Patients Urinary Catheter Date of Insertion: 02/14/21 Urinary Catheter Time of Insertion: 11:05 Data : 02/16/21 02:13 02/16/21 02:13 Other Labs: D-dimer 9.26, FBG 789 CK 26,475 Ca 7.2, sabi 7.3, alb 2.5, bernardo Ca 8.4 urine sodium 120 Micro: Microbiology 02/14/21 10:55 Blood Culture - Preliminary Blood 02/14/21 12:55 Blood Culture - Preliminary Blood 02/14/21 11:45 Gram Stain - Final Sputum - Endotracheal Tube Aspirate 4/4 BC + GPC in chains CXR: Radiologist's impression: Lungs: Prominent bilateral pulmonary infiltrates are present which are worsening in the lung bases when compared to previous study. Pleural spaces: Unremarkable. No pleural effusion. No pneumothorax. Heart/Mediastinum: Unremarkable. No cardiomegaly. ABG Interpretation 1: 7.22/56.8/57 on 100%, 16 PEEP A&P Additional A&P Information 1. Acute anuric kidney injury: rhabdomyolysis, ischemic ATN, COVID, was on ACEi as outpatient 2. Hypoxic, hypercapneic respiratory failure due to COVID pneumonia, worse on CXR 3. Sepsis: GPC bacteremia, possible DIC 4. Metabolic acidosis: lactic, metformin, JACINTO, resolved 5. Hyperkalemia, resolved 6. Hyponatremia, improved 7. Shock liver Recommend: will attempt HD again today. activase catheter if needed. 3h 1500 ml UF 132 mEq/L sodium. Plan to prone patient after HD. Check vanco level and redose as indicated. Repeat BC. Discussed with Datacinthia. Attestations Medical Necessity Statement*: see above Time Spent in Patient Care: Greater than 35 minutes Coding Level of Care Code Acute Community Relations Police Lieutenant for Chapin Tse
[2021-02-16 09:31] LABS: Partial Thromboplastin Time 44.7 SECONDS (23.9-36.7)
--- NOTE | 2021-02-16 09:55 | PM.PN ---
Subjective Subjective: Interval history: patient seen multiple times at bedside today he is proned yesterday night after an hour of HD - still requring high FIO2 plan is to reverse prone for 8 hrs and try HD/CRRT and then prone for 2nd session labs and imaging reviewed Medications: Reviewed: Yes Vitals/I&O/Wt Last Vital Signs Temp 99.5 F 02/16/21 03:00 Pulse 82 02/16/21 06:00 Resp 24 H 02/16/21 09:09 BP 98/76 02/16/21 06:00 Pulse Ox 88 L 02/16/21 09:09 02/15/21 02/16/21 02/16/21 22:59 06:59 14:59 Intake Total 1041.423 / 9216.564 7393.288 / 4319.618 282.191 / 282.191 Output Total 1201 / 1201 Balance 1041.423 / 5598.855 3562.288 / 3118.618 282.191 / 282.191 Weight last 48 hrs Weight 273 lb 6 oz Weight 269 lb 13.533 oz Weight 266 lb Weight 225 lb Physical Exam Narrative: EXAM NARRATIVE: General: lying in bed, proned sedated and intubated. HEENT:NCAT, PERRLA, EOMI Neck: Supple Lungs: Bilateral diffuse coarse crackles Heart: s1/s2, RRR Abd: soft, NT, ND, BS + Normoactive Extremities: No edema POPULATION GENETICIST: sedated and limited POPULATION GENETICIST exam possible. SKIN: no rash LDA: # CVC: Right IJ CVC 02/14/2021 # HD Cath : Right femoral HD catheter 02/15/2021 # Mckinnon: 02/14/2021 Urinary Catheter Management^: Mckinnon: Cath Placed During This Visit: yes Reason for Continuing Indwelling Catheter: Accurate Measurement of Urinary Output in Critically Ill Patients Urinary Catheter Date of Insertion: 02/14/21 Urinary Catheter Time of Insertion: 11:05 Data : 02/17/21 15:00 02/17/21 15:45 Other Labs: Laboratory Results WBC 32.5 10^3/uL (4.0-10.0) H* 02/16/21 02:13 RBC 5.38 10^6/uL (4.1-5.3) H 02/16/21 02:13 Hgb 15.6 g/dL (11.7-16.6) 02/16/21 02:13 Hct 47.6 % (42.0-52.0) 02/16/21 02:13 MCV 88.5 fl (80-94) 02/16/21 02:13 MCH 29.0 pg (28.0-34.0) 02/16/21 02:13 MCHC 32.8 g/dL (30.0-36.0) 02/16/21 02:13 RDW 14.5 % (12.1-15.1) 02/16/21 02:13 Plt Count 206 10^3/cmm (130-400) 02/16/21 02:13 MPV 10.7 fL (7.4-10.4) H 02/16/21 02:13 Neut % (Auto) 87.7 % 02/16/21 02:13 Lymph % (Auto) 3.2 % 02/16/21 02:13 [place] % (Auto) 2.5 % 02/16/21 02:13 Eos % (Auto) 0.0 % 02/16/21 02:13 Baso % (Auto) 0.0 % 02/16/21 02:13 Neut # (Auto) 28.49 10^3/uL (1.8-7.7) H 02/16/21 02:13 Lymph # (Auto) 1.0 10^3/uL (0.8-4.8) 02/16/21 02:13 [place] # (Auto) 0.8 10^3/uL (0.2-0.9) 02/16/21 02:13 Eos # (Auto) 0.0 10^3/uL (0.0-0.8) 02/16/21 02:13 Baso # (Auto) 0.0 10^3/uL (0.0-0.1) 02/16/21 02:13 Nucleated RBC % (auto) 0 % 02/16/21 02:13 Nucleated RBCs # 0.0 /100WBC 02/16/21 02:13 APTT 43.0 SECONDS (23.9-36.7) H 02/16/21 22:21 Fibrinogen 789 mg/dL (174-498) H 02/15/21 22:23 Fibrinogen Cancelled 02/15/21 22:23 D-Dimer 9.26 ug/mIFEU (0-0.59) H 02/15/21 22:23 Specimen Type Arterial 02/16/21 23:14 Sample Site Radial, left 02/16/21 23:14 ABG pH 7.21 (7.35-7.45) L 02/16/21 23:14 ABG pCO2 59.5 mmHg (35-45) H 02/16/21 23:14 ABG pO2 91.6 mmHg (80.0-100.0) 02/16/21 23:14 ABG HCO3 23.9 mmol/L (22-26) 02/16/21 23:14 ABG O2 Saturation 96.8 02/16/21 23:14 ABG Base Excess -5.0 mmol/L (-2.0-2.0) L 02/16/21 23:14 Artemio Test Pos 02/16/21 23:14 A-a O2 Gradient 72.0 mmHg (5-10) H 02/16/21 23:14 Hematocrit 44.4 % (42-52) 02/16/21 23:14 Hgb O2 Saturation 96.1 % (95-100) 02/16/21 23:14 Carboxyhemoglobin 0.2 %THgb (0.4-20.1) L 02/16/21 23:14 Methemoglobin 0.5 % (0.4-1.5) 02/16/21 23:14 Total Hemoglobin 14.5 g/dL (14-18) 02/16/21 23:14 Sodium 128.0 mmol/L (131-143) L 02/16/21 23:14 Potassium 4.7 mmol/L (3.5-5.0) 02/16/21 23:14 Glucose 269.0 mg/dL (70-115) H 02/16/21 23:14 Ionized Calcium 0.9 mmol/L (1.1-1.4) L 02/16/21 23:14 O2 Delivery Device Vent 02/16/21 23:14 FiO2 100.0 % 02/16/21 23:14 Tidal Volume 0.45 02/16/21 23:14 PEEP 16.0 cmH20 02/16/21 23:14 Force Variation Equipment Tender ID Kelvinja 02/16/21 23:14 Sodium 130 mmol/L (136-145) L 02/16/21 02:13 Potassium 4.8 mmol/L (3.5-5.1) 02/16/21 02:13 Chloride 90 mmol/L (98-107) L 02/16/21 02:13 Carbon Dioxide 23 mmol/L (22-29) 02/16/21 02:13 Anion Gap 21.8 (5-19) H 02/16/21 02:13 BUN 36 mg/dL (6-20) H 02/16/21 02:13 Creatinine 4.1 mg/dL (0.7-1.2) H 02/16/21 02:13 GFR Calculation 15.1 mL/min (90-130) L 02/16/21 02:13 Glucose 260 mg/dL (65-115) H 02/16/21 02:13 POC Glucose 258 mg/dL (70-110) H 02/16/21 20:09 Calculated Osmolality 287 mOsm/kg (285-295) 02/16/21 02:13 Lactic Acid 3.8 mmol/L (0.5-2.2) H 02/14/21 10:55 Lactic Acid (Sepsis) 3.4 mmol/L (0.5-2.2) H 02/14/21 18:37 Calcium 7.2 mg/dL (8.5-10.5) L 02/16/21 02:13 Phosphorus 7.3 mg/dL (2.5-4.5) H 02/16/21 02:13 Magnesium 2.2 mg/dL (1.7-2.3) 02/15/21 06:26 Total Bilirubin 0.8 mg/dL (0.15-1.2) 02/16/21 02:13 AST 431 U/L (0-40) H 02/16/21 02:13 ALT 249 U/L (0-41) H 02/16/21 02:13 Alkaline Phosphatase 70 IU/L (40-130) 02/16/21 02:13 Creatine Kinase 25680 U/L (39-308) H* 02/16/21 02:13 Troponin T Baseline 18 ng/L (0-15) H 02/14/21 10:55 Troponin T 120 Minute 27.90 ng/L (0-15) H 02/14/21 12:55 Delta Troponin T 9.90 ABS# (0-10) 02/14/21 12:55 Troponin T Hi Sens 6Hr 49.40 ng/L (0-15) H 02/14/21 16:30 Troponin T Hi Sens 6Hr Delta 31.40 ng/L (0-12) H* 02/14/21 16:30 C-Reactive Protein 372.9 mg/L (0.0-4.9) H 02/15/21 06:26 NT-Pro-B Natriuret Pep 1942 pg/mL (0-125) H 02/14/21 12:55 Total Protein 6.1 g/dL (6.6-8.7) L 02/16/21 02:13 Albumin 2.5 g/dL (3.5-5.2) L 02/16/21 02:13 Globulin 3.6 g/dL (1.3-4.6) 02/16/21 02:13 Procalcitonin 1.02 ng/mL (0-0.5) H 02/14/21 10:55 Urine Color Yellow (Yellow) 02/15/21 12:00 Urine Appearance Cloudy (CLEAR) 02/15/21 12:00 Urine pH 5 (5-7) 02/15/21 12:00 Ur Specific [place] 1.015 (1.005-1.030) 02/15/21 12:00 Urine Protein 2+ (Negative) H 02/15/21 12:00 Urine Glucose (UA) Trace (Normal) H 02/15/21 12:00 Urine Ketones Negative (Negative) 02/15/21 12:00 Urine Blood 3+ (Negative) H 02/15/21 12:00 Urine Nitrate Negative (Negative) 02/15/21 12:00 Urine Bilirubin Neg (Negative) 02/15/21 12:00 Urine Urobilinogen Norm mg/dL (Negative) 02/15/21 12:00 Ur Leukocyte Esterase Negative (Negative) 02/15/21 12:00 Urine RBC 10-15 /hpf (0-2) H 02/15/21 12:00 Urine WBC 5-10 /hpf (0-5) H 02/15/21 12:00 Ur Squamous Epith Cells 0-4 /hpf (0-5) H 02/15/21 12:00 Calcium Oxalate Crystal 0-4 /hpf H 02/15/21 12:00 Amorphous Sediment Not Reportable 02/15/21 12:00 Urine Bacteria 2+ /hpf (NONE) H 02/15/21 12:00 Urine Sperm 3+ /hpf 02/15/21 12:00 Ur Random Sodium 120 mmol/L 02/15/21 12:00 Urine Creatinine 32 mg/dL (39-259) L 02/15/21 12:00 Random Vancomycin 32.0 ug/mL (20.0-40.0) 02/16/21 09:57 Serum Ketones Negative (Negative) 02/15/21 10:45 Hep Bs Antigen Non-reactive (Nonreactive) 02/15/21 17:00 Hep Bs Antibody 3.5 (11.5-1000) L 02/15/21 17:00 Hepatitis C Antibody Non-reactive (Nonreactive) 02/15/21 17:00 Impressions Chest X-Ray 02/16/21 07:00 IMPRESSION: 1. Satisfactory position of the ET tube, NG tube and central venous catheter. 2. Worsening bilateral pulmonary infiltrates. Micro: Microbiology 02/14/21 10:55 Blood Culture - Preliminary Blood 02/14/21 12:55 Blood Culture - Preliminary Blood 02/14/21 11:45 Gram Stain - Final Sputum - Endotracheal Tube Aspirate A&P Assessment and plan (1) Acute and chronic respiratory failure with hypoxia: Status: Acute (2) CAD (coronary artery disease): Status: Acute Qualifiers: Coronary Disease-Associated Artery/Lesion type: [place] artery [place] vs. transplanted heart: [place] heart Associated angina: unspecified whether angina present Qualified Code(s): I25.10 - Atherosclerotic heart disease of [place] coronary artery without angina pectoris (3) ARDS (adult respiratory distress syndrome): Status: Acute (4) Diabetes mellitus: Status: Acute Qualifiers: Diabetes mellitus type: type 2 Diabetes mellitus intermediate project manager insulin use: unspecified mcfp insulin use status Diabetes mellitus complication status: with other specified complication Qualified Code(s): E11.69 - Type 2 diabetes mellitus with other specified complication (5) Hypertension: Status: Acute Qualifiers: Hypertension type: unspecified Qualified Code(s): I10 - Essential (primary) hypertension (6) Pneumonia due to COVID-19 virus: Status: Acute (7) Hypotension: Status: Acute Qualifiers: Hypotension type: hypotension due to drug Qualified Code(s): I95.2 - Hypotension due to drugs (8) JACINTO (acute kidney injury): Status: Acute (9) Pneumonia: Status: Acute (10) Hyperkalemia: Status: Acute (11) Metabolic acidosis: Status: Acute (12) Septic shock due to streptococcal infection: Status: Acute (13) Multiorgan failure: Status: Acute (14) DIC (disseminated intravascular coagulation): Status: Acute (15) Acute renal failure: Status: Acute #Acute hypoxic respiratory failure secondary to ARDS due to COVID-19 pneumonia #Diabetes #Gram-positive cocci bacteremia leading to septic shock and JACINTO requiring hemodialysis; DIC #ARDS #Hypertension #AK bacteremiaI-due to prerenal leading to possible ATN #Right upper lobe pneumonia -Tested positive on 02/05/2021; -Intubated on arrival in the ED 02/14/2021 -Sedated and connected to mechanical ventilator ; performed 1 session - Saturating 85% on 100% FiO2; proned yesterday night after an hour of HD - still requring high FIO2 - plan is to reverse prone for 8 hrs and try HD/CRRT and then prone for 2nd session -ABG suggestive of metabolic acidosis -We'll adjust ventilator settings depending on ABG and saturations on the monitor -Chest x-ray demonstrated severe bilateral infiltrates on admission but improved bibasilar groundglass opacities with stable right upper lobe opacity -Procalcitonin 1.02; -CRP 80; blood and sputum cultures pending -Started on 5-day protocol remdesivir and dexamethasone 6 mg daily -Blood cultures positive for gram-positive cocci in chains -Empiric Zosyn and vancomycin for possibility of bacterial pneumonia -MRSA PCR and bacterial antigen panel, Legionella antigen -Significantly elevated D-dimer and elevated troponin I-placed on heparin drip -Continue aspirin for underlying CAD -Currently requiring Levophed to keep maps above 65 -Insulin scale coverage for diabetes -Metabolic acidosis and hyperkalemia-likely secondary to JACINTO -Nephrology recommendations appreciated-patient is started on hemodialysis but has issues with clogging likely due to DIC -DVT prophylaxis: Already on heparin drip -GI prophylaxis: PPI -Fluoxetine 20 mg daily -Full code -Prognosis: Poor -Family updated Discussed with hospitalist, RN, RT covering the case Attestations Medical Necessity Statement*: Acute hypoxic respiratory failure secondary to ARDS due to COVID-19 pneumonia requiring mechanical ventilation with high FiO2, septic shock leading to prerenal JACINTO/ATN likely requires hemodialysis -overall needs close monitoring for multiorgan failure Time Spent in Patient Care: Greater than 35 minutes (>than 50% of time spent in counselling and/or direct pt care on unit). Critical Care Time: The high probability of a clinically significant, sudden or life threatening deterioration of the patient's [respiratory, renal, endocrine] system(s) required my full and direct attention, intervention and personal management. The critical care time is as shown. 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 transplanted heart: [place] heart Associated angina: unspecified whether angina present ARDS (adult respiratory distress syndrome) J80 Diabetes mellitus E11.69 Diabetes mellitus type: type 2 Diabetes mellitus intermediate project manager insulin use: unspecified intermediate project manager insulin use status Diabetes mellitus complication status: with other specified complication Hypertension I10 Hypertension type: unspecified Pneumonia due to COVID-19 virus U07.1; J12.82 Hypotension I95.2 Hypotension type: hypotension due to drug JACINTO (acute kidney injury) N17.9 Pneumonia J18.9 Hyperkalemia E87.5 Metabolic acidosis E87.2 Septic shock due to streptococcal infection A40.9; R65.21 Multiorgan failure DIC (disseminated intravascular coagulation) D65 Acute renal failure N17.9 Time Spent (min) 45
[2021-02-16] MEDS: aspirin 81 mg EC Tablet PO (10:22)
[2021-02-16] MEDS: fluoxetine 20 mg Capsule PO (10:22)
[2021-02-16] MEDS: heparin 5,000 unit/mL INJ 1 mL IV ×3 (10:22→22:52)
[2021-02-16 10:40] LABS: Glucose Point of Care 335 mg/dL (70-110)
[2021-02-16] MEDS: heparin, porcine 1,000 unit/mL INJ 10 mL 1000 UNIT IV (12:29)
[2021-02-16] MEDS: alteplase 1 mg/mL SDV 2 mL 2 MG INTRACATH (12:29)
--- NOTE | 2021-02-16 12:30 | PC.NURSE ---
resume writer called and spoke with Mariluz, pt daughter, updated her on pt condition and answered questions. Heparin Porcpine 1000u was administered 02/15 by dialysis nurse, Kajal Hernandez RN. Activase 4mg was administered by dialysis nurse, Elsie Wagoner RN on 02/16
--- NOTE | 2021-02-16 13:02 | PC.NURSE ---
Pt has Heparin and Lovenox for VTE
--- NOTE | 2021-02-16 13:14 | PM.PN ---
Subjective Subjective: Interval history: Patient was seen this morning, in the ICU, currently intubated, sedated, on 100% oxygen, currently on heparin drip, right femoral line in place, Vitals/I&O/Wt Last Vital Signs Temp 99.5 F 02/16/21 03:00 Pulse 82 02/16/21 06:00 Resp 24 H 02/16/21 11:53 BP 98/76 02/16/21 06:00 Pulse Ox 94 02/16/21 11:53 02/15/21 02/16/21 02/16/21 22:59 06:59 14:59 Intake Total 1041.423 / 4607.775 6139.288 / 4319.618 548.163 / 548.163 Output Total 1201 / 1201 Balance 1041.423 / 4115.538 7033.288 / 3118.618 548.163 / 548.163 Weight last 48 hrs Weight 124.001 kg Weight 122.4 kg Weight 120.656 kg Physical Exam Narrative: EXAM NARRATIVE: Currently intubated, sedated Resp: COMMON NORMALS: normal respiratory effort, No retractions and No use of accessory muscles AUSCULTATION: wheezes Cardio: COMMON NORMALS: regular rate, regular rhythm, S1 normal heart sound present and S2 normal heart sound present RATE: regular rate RHYTHM: regular rhythm HEART SOUNDS: S1 normal heart sound present and S2 normal heart sound present GI: COMMON NORMALS: Normal to inspection, nondistended, normoactive bowel sounds present Extremity: OTHER: Right femoral line in place Urinary Catheter Management^: Mckinnon: Cath Placed During This Visit: yes Reason for Continuing Indwelling Catheter: Accurate Measurement of Urinary Output in Critically Ill Patients Urinary Catheter Date of Insertion: 02/14/21 Urinary Catheter Time of Insertion: 11:05 Data : 02/16/21 02:13 02/16/21 02:13 Micro: Microbiology 02/14/21 11:45 Gram Stain - Final Sputum - Endotracheal Tube Aspirate Sputum Culture - Preliminary 02/16/21 02:30 Legionella Urinary Antigen - Final Urine Catheterized 02/16/21 02:30 Bacterial Antigens - Final Urine,Clean Catch 02/14/21 10:55 Blood Culture - Preliminary Blood 02/14/21 12:55 Blood Culture - Preliminary Blood A&P Assessment and plan (1) Pneumonia due to COVID-19 virus: Severe COVID-19 pneumonia, first testing + February 05 With acute renal failure, transaminitis, DIC, gram-positive bacteremia Agree with pulmonary critical care Currently on 100% FiO2 Plans on prone positioning today Intubated in the emergency department, requiring a significant amount of PEEP and an FiO2 of 100%. Currently continuous neuromuscular blockade with Nimbex. Sedation with fentanyl and propofol Appreciate critical care consultation Right femoral line in place Continue dexamethasone. Remdesivir discontinued secondary to acute kidney injury Plan for dialysis today Continue vancomycin and Zosyn secondary to possibility of bacterial pneumonia. Procalcitonin was high. Awaiting MRSA PCR, 4 out of 4 blood cultures positive for gram-positive cocci, sputum culture showing organisms resembling strep pneumonia, identification to follow Dimer is significantly elevated and with elevated troponin I, heparin drip I spoke to Mariluz this morning, updated her on her father's stable but critical status, she has been vaccinated against COVID-19, she would like to see her father, I have advised her that only one family member such as her self is allowed to see her father through the glass, she will have to wear full PPE, she understands that there is still a risk of [place] COVID-19 and morbidity mortality associated, discussed risks and benefits, she wishes any, all questions answered, agreed to proceed to come see her father under appropriate protocols. She has asked me for her mother to her , I have said no for now, possibly an iPad would work for now, unfortunately for her physically to see her it will difficult to coordinate, as she is on high amount of oxygen, and she has a increased risk of morbidity and mortality with movement, would recommend against it even difficult to correlate if he was comfort care, will discuss with her physician, and data warehouse developer Status: Acute (2) Acute and chronic respiratory failure with hypoxia: See above Status: Acute (3) ARDS (adult respiratory distress syndrome): Status: Acute (4) CAD (coronary artery disease): Continue aspirin Continue Heparin drip Elevation in troponin noted may be type II elevation but positive delta is noted. Echocardiogram to be done Status: Acute Qualifiers: Coronary Disease-Associated Artery/Lesion type: [place] artery [place] vs. transplanted heart: [place] heart Associated angina: unspecified whether angina present Qualified Code(s): I25.10 - Atherosclerotic heart disease of [place] coronary artery without angina pectoris (5) Hypertension: May have hypotension on medication for sedation. Hold antihypertensives. Norepinephrine as needed. Status: Acute Qualifiers: Hypertension type: unspecified Qualified Code(s): I10 - Essential (primary) hypertension (6) Diabetes mellitus: Sliding scale insulin Status: Acute Qualifiers: Diabetes mellitus type: type 2 Diabetes mellitus fuel house attendant insulin use: unspecified senior living insulin use status Diabetes mellitus complication status: with other specified complication Qualified Code(s): E11.69 - Type 2 diabetes mellitus with other specified complication (7) Gram-positive bacteremia: Status: Acute (8) DIC (disseminated intravascular coagulation): Status: Acute (9) Multiorgan failure: Status: Acute (10) Transaminitis: Status: Acute Additional A&P Information Acute kidney injury, oliguric. Associate with hyperkalemia. May need dialysis. Nephrology consulted. EKG demonstrates no QRS duration prolongation. Insulin and glucose x1 given. Calcium gluconate on hold as no EKG QRS duration prolongation. Rhabdomyolysis. CK markedly elevated. Nephrology consult will be obtained. Full code Heparin drip will suffice for DVT prophylaxis Pepcid for GI prophylaxis Attestations Medical Necessity Statement*: Patient requires hospitalization for COVID-19, Coding Level of Care Code Acute Inspection Manager for [facility] Fwd Diagnoses Pneumonia due to COVID-19 virus U07.1; J12.82 Acute and chronic respiratory failure with hypoxia J96.21 ARDS (adult respiratory distress syndrome) J80 CAD (coronary artery disease) I25.10 Coronary Disease-Associated Artery/Lesion type: [place] artery [place] vs. transplanted heart: [place] heart Associated angina: unspecified whether angina present Hypertension I10 Hypertension type: unspecified Diabetes mellitus E11.69 Diabetes mellitus type: type 2 Diabetes mellitus fuel house attendant insulin use: unspecified fuel house attendant insulin use status Diabetes mellitus complication status: with other specified complication Gram-positive bacteremia R78.81 DIC (disseminated intravascular coagulation) D65 Multiorgan failure Transaminitis R74.01
[2021-02-16 14:08] LABS: Glucose Point of Care 377 mg/dL (70-110)
[2021-02-16] MEDS: propofol 1,000 MG/100 ML INJ 24.49 MG IV ×3 (15:53→20:19)
[2021-02-16 17:38] LABS: Glucose Point of Care 249 mg/dL (70-110)
[2021-02-16] MEDS: dexamethasone 10 mg/mL INJ 6 MG IVP (17:47)
--- NOTE | 2021-02-16 19:00 | PC.NURSE ---
report received from dayshift RN- bedside assessment performed TOF / BIS 27 patient proned at this time per MD orders
[2021-02-16 20:14] LABS: Glucose Point of Care 258 mg/dL (70-110)
[2021-02-16] MEDS: insulin glargine 100 units/1 mL 10 UNIT SUBCUT (20:20)
[2021-02-16] MEDS: cisatracurium 100 MG in sodium chloride 0.9% 50 ML IV (22:43)
[2021-02-16 23:31] LABS: ABG PCO2 59.5 mmHg (35-45); ABG PH Result 7.21 (7.35-7.45); Arterial Blood Gas Hematocrit 44.4 % (42-52); Blood Gas Allen Test Pos; Blood Gas Sample Site Radial, left; Blood Gas Sample Type Arterial; Blood Gas Tidal Volume 0.45; Carboxyhemoglobin 0.2 %THgb (0.4-20.1); HCO3 ABG 23.9 mmol/L (22-26); HGB O2 Sat 96.1 % (95-100); Ionized Calcium Level - ABG 0.9 mmol/L (1.1-1.4); Methemoglobin 0.5 % (0.4-1.5); Oxygen Device VENT; Oxygen Saturation ABG 96.8; PO2 ABG 91.6 mmHg (80.0-100.0); Potassium Level - ABG 4.7 mmol/L (3.5-5.0); Total Hemoglobin 14.5 g/dL (14-18)
[2021-02-17] VITALS (106 sets, daily range): BP systolic 73–138; BP diastolic 33–77; PULSE 58–149; RESP 24–26; TEMP 36–37.3; O2SAT 84–98
[2021-02-17] MEDS: propofol 1,000 MG/100 ML INJ 24.49 MG IV ×4 (01:33→13:59)
[2021-02-17] MEDS: famotidine 20 mg/2 mL INJ IVP ×2 (01:33→13:55)
[2021-02-17] MEDS: piperacillin-tazobactam 3.375 GM in sodium chloride 0.9% (plus) 50 ML IV ×2 (04:48→16:34)
[2021-02-17 05:35] LABS: Partial Thromboplastin Time 84.1 SECONDS (23.9-36.7)
[2021-02-17 06:22] LABS: Vancomycin Random 21.6 ug/mL (20.0-40.0)
--- NOTE | 2021-02-17 06:25 | PC.NURSE ---
Shift Note Frequent safety and comfort rounds continue. Orders and nursing care completed as indicated. Patient monitored for response to intervention and treatments overnight. Education provided including vent management and proning measures. Patient continues to need reinforcment due to sedation. Will continue to monitor.
--- NOTE | 2021-02-17 06:46 | PC.NURSE ---
Spoke with ordinary seaman using IPAD. Received orders for AM labs and ABG. will procede with dialysis therapy after patient is supined today.
[2021-02-17 06:48] LABS: Basophils # 0.1 10^3/uL (0.0-0.1); Basophils % 0.5 %; Hematocrit 43.2 % (42.0-52.0); Hemoglobin 14.3 g/dL (11.7-16.6); Lymphocytes # 0.6 10^3/uL (0.8-4.8); Lymphocytes % 3.3 %; Mean Corpuscular HGB Conc 33.1 g/dL (30.0-36.0); Mean Corpuscular Hemoglobin 28.9 pg (28.0-34.0); Mean Corpuscular Volume 87.3 fl (80-94); Mean Platelet Volume 10.9 fL (7.4-10.4); Monocytes # 0.7 10^3/uL (0.2-0.9); Monocytes % 3.8 %; Neutrophils # 16.16 10^3/uL (1.8-7.7); Neutrophils % 87.9 %; Nucleated Red Blood Cells % 0 %; Platelet Count 200 10^3/cmm (130-400); Red Blood Count 4.95 10^6/uL (4.1-5.3); Red Cell Distribution Width 14.8 % (12.1-15.1); White Blood Count 18.4 10^3/uL (4.0-10.0)
[2021-02-17 06:49] LABS: ABG PCO2 54.6 mmHg (35-45); ABG PH Result 7.21 (7.35-7.45); Alveolar-Arterial Oxygen Gradi 65.4 mmHg (5-10); Base Excess ABG -6.4 mmol/L (-2.0-2.0); Blood Gas Allen Test Pos; Blood Gas Sample Site Radial, right; Blood Gas Sample Type Arterial; Blood Gas Tidal Volume 0.45; Carboxyhemoglobin 0.1 %THgb (0.4-20.1); HGB O2 Sat 97.4 % (95-100); Ionized Calcium Level - ABG 0.9 mmol/L (1.1-1.4); Methemoglobin 0.5 % (0.4-1.5); Oxygen Device VENT; Potassium Level - ABG 4.8 mmol/L (3.5-5.0); Total Hemoglobin 14.4 g/dL (14-18)
[2021-02-17 07:01] LABS: Anion Gap 26.4 (5-19); Blood Urea Nitrogen 48 mg/dL (6-20); Calcium 6.5 mg/dL (8.5-10.5); Carbon Dioxide 19 mmol/L (22-29); Chloride 86 mmol/L (98-107); Glomerular Filtration Rate 10.3 mL/min (90-130); Glucose 283 mg/dL (65-115); Osmolality Calculated 285 mOsm/kg (285-295); Potassium 5.4 mmol/L (3.5-5.1); Sodium 126 mmol/L (136-145)
--- NOTE | 2021-02-17 07:12 | P.PN_ITS ---
Subjective Subjective: Interval history: remains intubated on 95% fio2- s/p HD yesterday. currently prone and off pressers Medications: Reviewed: Yes Medication Review Details: Current Medications Acetaminophen (Acetaminophen 325 Mg Tablet) 650 mg PO Q6H PRN PRN Reason: MILD PAIN Alteplase, Recombinant (Alteplase 1 Mg/Ml Sdv 2 Ml) 2 mg INTRACATH PRN PRN PRN Reason: DIALYSIS USE ONLY Last Admin: 02/16/21 12:29 Dose: 2 mg Documented by: Aspirin (Aspirin 81 Mg Ec Tablet) 81 mg PO DAILY [facility] Last Admin: 02/16/21 10:22 Dose: 81 mg Documented by: Dexamethasone (Dexamethasone 10 Mg/Ml Inj) 6 mg IVP Q24H [facility] Last Admin: 02/16/21 17:47 Dose: 6 mg Documented by: Dextrose (Dextrose 50% Syringe 50 Ml) 25 ml IVP ONCE PRN; Protocol PRN Reason: hypoglycemia protocol Dextrose (Dextrose 50% Syringe 50 Ml) 50 ml IVP PRN PRN; Protocol PRN Reason: hypoglycemia protocol Famotidine (Famotidine 20 Mg/2 Ml Inj) 20 mg IVP Q12H [facility] Last Admin: 02/17/21 01:33 Dose: 20 mg Documented by: Fluoxetine HCl (Fluoxetine 20 Mg Capsule) 20 mg PO DAILY [facility] Last Admin: 02/16/21 10:22 Dose: 20 mg Documented by: Glucagon (Glucagon 1 Mg/Ml Inj 1 Ml) 1 mg IM ONCE PRN; Protocol PRN Reason: Adult Acute Hypoglycemia Prot. Heparin Sodium (Beef Lung) (Heparin 5,000 Unit/Ml Inj 1 Ml) 0 unit IV PRN PRN; Protocol PRN Reason: Heparin weight-base protocol Last Admin: 02/16/21 22:52 Dose: 5,000 unit Documented by: Fentanyl 1,000 mcg/ Sodium (Chloride) 100 mls @ 0 mls/hr IV .Q0M [facility]; Protocol Last Admin: 02/16/21 22:43 Dose: 100 mcg/hr, 10 mls/hr Documented by: Propofol (Diprivan) 1,000 mg in 100 mls @ 0 mls/hr IV .Q0M [facility]; Protocol Last Admin: 02/17/21 05:02 Dose: 40 mcg/kg/min, 24.49 mls/hr Documented by: Cisatracurium Besylate 100 mg/ (Sodium Chloride) 100 mls @ 0 mls/hr IV .Q0M [facility]; Protocol Last Admin: 02/16/21 22:43 Dose: 0.7 mcg/kg/min, 4.29 mls/hr Documented by: Heparin Sodium/Sodium Chloride (Heparin Drip) 25,000 unit in 500 mls @ 0 mls/hr IV .Q0M [facility]; Protocol Last Titration: 02/17/21 05:52 Dose: 6.86 unit/kg/hr, 14 mls/hr Documented by: Piperacillin Sod/Tazobactam (Sod 3.375 gm/ Sodium Chloride) 50 mls @ 12.5 mls/hr IV Q8H [facility] Last Admin: 02/17/21 04:48 Dose: 12.5 mls/hr Documented by: Norepinephrine Bitartrate 4 mg (/ Dextrose) 254 mls @ 0 mls/hr IV .Q0M [facility]; Protocol Last Titration: 02/15/21 04:45 Dose: 5 mcg/min, 19.05 mls/hr Documented by: Dextrose (D5w) 500 mls @ 100 mls/hr IV ONCE PRN; Protocol PRN Reason: Adult Acute Hypoglycemia Prot Midazolam HCl 100 mg/ Sodium (Chloride) 100 mls @ 0 mls/hr IV .Q0M [facility]; Pro tocol Last Titration: 02/16/21 11:00 Dose: 4 mg/hr, 4 mls/hr Documented by: Vancomycin/PEG/NADA/Lysine/Water (Vancocin) 1,500 mg in 300 mls @ 200 mls/hr IV Q8H [facility] Last Admin: 02/15/21 06:16 Dose: 200 mls/hr Documented by: Norepinephrine Bitartrate 8 mg (/ Dextrose) 508 mls @ 0 mls/hr IV .Q0M [facility]; Protocol Last Titration: 02/17/21 01:33 Dose: Infused Documented by: Sodium Chloride (Sodium Chloride 0.9%) 1,000 mls @ 0 mls/hr IV .Q0M PRN PRN Reason: hypotension or symptomatic Insulin Aspart (Insulin Aspart 100 Unit/1 Ml) 0 unit SUBCUT WM&BEDTIME [facility]; Protocol Last Admin: 02/16/21 20:20 Dose: 4 unit Documented by: Insulin Glargine (Insulin Glargine 100 Units/1 Ml) 10 unit SUBCUT BEDTIME [facility] Last Admin: 02/16/21 20:20 Dose: 10 unit Documented by: Ondansetron HCl (Ondansetron 2 Mg/Ml Sdv 2 Ml) 4 mg IVP Q6H PRN PRN Reason: NAUSEA AND VOMITING Vitals/I&O/Wt Last Vital Signs Temp 99 F 02/17/21 04:00 Pulse 78 02/17/21 06:15 Resp 24 H 02/17/21 06:00 BP 106/55 02/17/21 06:15 Pulse Ox 96 02/17/21 06:15 02/16/21 02/17/21 02/17/21 22:59 06:59 14:59 Intake Total 2277.188 / 2953.297 862.307 / 3815.604 Output Total 1616 / 1616 Balance 661.188 / 1337.297 862.307 / 2199.604 Weight last 48 hrs Weight 125.248 kg Weight 125.7 kg Weight 124.001 kg Weight 122.4 kg Physical Exam Narrative: EXAM NARRATIVE: prone, paralyzed, no pressers heent- nc/at lungs ronchi ext edema rt femoral dialysis catheter seen and examined w/ rN- telehealth visit Urinary Catheter Management^: Mckinnon: Cath Placed During This Visit: yes Reason for Continuing Indwelling Catheter: Accurate Measurement of Urinary Output in Critically Ill Patients Urinary Catheter Date of Insertion: 02/14/21 Urinary Catheter Time of Insertion: 11:05 Data : 02/17/21 05:00 02/16/21 02:13 Micro: Microbiology 02/16/21 15:52 Blood Culture - Preliminary Blood SPECIMEN COLLECTED 02/16/21 16:11 Blood Culture - Preliminary Blood SPECIMEN COLLECTED 02/16/21 02:30 MRSA Culture - Final Nose 02/14/21 10:55 Blood Culture - Preliminary Blood Strep species, alpha hemolytic 02/14/21 12:55 Blood Culture - Preliminary Blood Strep species, alpha hemolytic 02/14/21 11:45 Gram Stain - Final Sputum - Endotracheal Tube Aspirate Sputum Culture - Preliminary 02/16/21 02:30 Legionella Urinary Antigen - Final Urine Catheterized 02/16/21 02:30 Bacterial Antigens - Final Urine,Clean Catch A&P Additional A&P Information 1. Acute anuric kidney injury: rhabdomyolysis, ischemic ATN, COVID, was on ACEi as outpatient -repeat HD today 3. 5 hrs, 2k, 2 liter fluid removval as tolerated- pressers as needed 2. COVID-19 SARS PNa per pulm 3. leukocytosis improving 4. resp acidosis and hypoxemia- steroids, vent, HD 5. hyponatremia- improving w/ HD 6. mild lactic acidosis- repeat 7. rhabdomyolysis- ck improving w/ HD 9. Shock liver 10. dm control per medicine seen and examine dw/ WEIGHER AND CHARGER- telehealth visit time spent 30 minutes Attestations Medical Necessity Statement*: septic shock, multi-organ failure, COVID-19 Time Spent in Patient Care: 16 - 35 minutes Coding Level of Care Code Acute Licensing Officer for [facility]
[2021-02-17 07:21] LABS: Glucose Point of Care 185 mg/dL (70-110)
[2021-02-17 07:21] LABS: Glucose Point of Care 298 mg/dL (70-110)
[2021-02-17] MEDS: aspirin 81 mg EC Tablet PO (07:56)
[2021-02-17] MEDS: fluoxetine 20 mg Capsule PO (07:56)
--- NOTE | 2021-02-17 08:16 | PC.NURSE ---
Pt is on Heparin drip, VTE is covered.
--- NOTE | 2021-02-17 08:19 | XRR_ITS ---
PROCEDURE INFORMATION: Exam: XR Chest Exam date and time: 02/17/2021 8:19 AM Age: 60 years old Clinical indication: Shortness of breath; Additional info: Pneumonia TECHNIQUE: Imaging protocol: XR of the chest. Views: 1 view. Total images: 1 COMPARISON: CR (CHEST, ) 02/16/2021 5:40 AM FINDINGS: Tubes, catheters and devices: Tubes and catheters are unchanged from the prior exam. Lungs: Bilateral pulmonary opacities are again noted and appear unchanged. Pleural spaces: Unremarkable. No pleural effusion. No pneumothorax. Heart/Mediastinum: Heart size is stable when compared to the prior exam. Bones/joints: Osseous structures are unchanged from the prior exam. XR/XR chest 1V portable [id number] IMPRESSION: 1. Tubes and catheters are unchanged from the prior exam. 2. Bilateral pulmonary opacities are again noted and appear unchanged.
[2021-02-17 10:05] LABS: Thyroid Stimulating Hormone 0.38 uIU/mL (0.27-4.20)
--- NOTE | 2021-02-17 12:00 | PC.NURSE ---
When pt was being assessed. A large subq hematoma noted to left buttock. Dr. Roger notified, when he came to the floor to look at pt her requested that the Heparin be stopped at this time. Heparin was restarted at 1600 after pt went into afib, continued to clot the dialysis machine and CBC was checked.
[2021-02-17 12:20] LABS: Basophils # 0.1 10^3/uL (0.0-0.1); Basophils % 0.8 %; Hematocrit 45.1 % (42.0-52.0); Hemoglobin 14.3 g/dL (11.7-16.6); Lymphocytes # 0.8 10^3/uL (0.8-4.8); Lymphocytes % 4.4 %; Mean Corpuscular HGB Conc 31.7 g/dL (30.0-36.0); Mean Corpuscular Hemoglobin 28.7 pg (28.0-34.0); Mean Corpuscular Volume 90.6 fl (80-94); Mean Platelet Volume 10.4 fL (7.4-10.4); Monocytes # 0.7 10^3/uL (0.2-0.9); Neutrophils # 15.12 10^3/uL (1.8-7.7); Neutrophils % 87.8 %; Nucleated Red Blood Cells % 0 %; Platelet Count 191 10^3/cmm (130-400); Red Blood Count 4.98 10^6/uL (4.1-5.3); Red Cell Distribution Width 15.1 % (12.1-15.1); White Blood Count 17.2 10^3/uL (4.0-10.0)
--- NOTE | 2021-02-17 13:16 | PC.HD ---
Arrived at 11:00 to instill Alteplase into HD catheter prior to initiating treatment; however, when staff began turning patient from his prone position, a large hematoma was noted on the left buttocks. Dialysis nurse was asked to wait for the hospitalist to see the hematoma before giving Alteplase. Received call at 12:45 to proceed. Alteplase instilled at 12:55.
[2021-02-17] MEDS: alteplase 1 mg/mL SDV 2 mL 4 MG INTRACATH (13:55)
[2021-02-17] MEDS: dextrose 50% syringe 50 mL IVP (13:56)
[2021-02-17] MEDS: norepinephrine 8 MG in dextrose 5 % 500 ML 7.62 MG IV (14:00)
--- NOTE | 2021-02-17 14:00 | P.PN_ITS ---
Subjective Subjective: Interval history: Patient was seen this morning, currently is in prone positioning, on 90% FiO2, afebrile overnight, normotensive, he received dialysis yesterday, Vitals/I&O/Wt Last Vital Signs Temp 98.0 F 02/17/21 08:00 Pulse 74 02/17/21 10:00 Resp 25 H 02/17/21 12:02 BP 95/53 02/17/21 10:00 Pulse Ox 95 02/17/21 12:02 02/16/21 02/17/21 02/17/21 22:59 06:59 14:59 Intake Total 2277.188 / 2953.297 862.307 / 3815.604 396.5 / 396.5 Output Total 1616 / 1616 Balance 661.188 / 1337.297 862.307 / 2199.604 396.5 / 396.5 Weight last 48 hrs Weight 125.248 kg Weight 125.7 kg Weight 124.001 kg Weight 122.4 kg Physical Exam Narrative: EXAM NARRATIVE: Currently on prone positioning Const: COMMON NORMALS: no acute distress OTHER: Intubated, sedated Resp: COMMON NORMALS: normal respiratory effort, No retractions, No use of accessory muscles and clear to auscultation bilaterally AUSCULTATION: clear to auscultation bilaterally Cardio: COMMON NORMALS: regular rate, regular rhythm, S1 normal heart sound present and S2 normal heart sound present RATE: regular rate RHYTHM: regular rhythm HEART SOUNDS: S1 normal heart sound present and S2 normal heart sound present GI: COMMON NORMALS: Normal to inspection, nondistended, normoactive bowel sounds present and Soft to palpation PALPATION: Yes Soft to palpation Extremity: COMMON NORMALS: no pedal edema OTHER: Right femoral line in place Urinary Catheter Management^: Mckinnon: Cath Placed During This Visit: yes Reason for Continuing Indwelling Catheter: Accurate Measurement of Urinary Output in Critically Ill Patients Urinary Catheter Date of Insertion: 02/14/21 Urinary Catheter Time of Insertion: 11:05 Data : 02/17/21 12:00 02/17/21 05:00 Micro: Microbiology 02/14/21 12:55 Blood Culture - Final Blood Streptococcus pneumoniae 02/14/21 10:55 Blood Culture - Final Blood Streptococcus pneumoniae 02/14/21 11:45 Gram Stain - Final Sputum - Endotracheal Tube Aspirate Sputum Culture - Final Streptococcus pneumoniae 02/16/21 15:52 Blood Culture - Preliminary Blood SPECIMEN COLLECTED 02/16/21 16:11 Blood Culture - Preliminary Blood SPECIMEN COLLECTED 02/16/21 02:30 MRSA Culture - Final Nose 02/16/21 02:30 Legionella Urinary Antigen - Final Urine Catheterized 02/16/21 02:30 Bacterial Antigens - Final Urine,Clean Catch A&P Assessment and plan (1) Pneumonia due to COVID-19 virus: Severe COVID-19 pneumonia, first testing + February 05 With acute renal failure, transaminitis, DIC, blood cultures and sputum cultures positive for strep pneumoniae Agree with pulmonary critical care Currently on 95% FiO2 Currently in prone position, plan for dialysis today Intubated in the emergency department, requiring a significant amount of PEEP and an FiO2 of 100%. Currently continuous neuromuscular blockade with Nimbex. Sedation with fentanyl and propofol Appreciate critical care consultation Right femoral line in place Continue dexamethasone. Remdesivir discontinued secondary to acute kidney injury Currently on Zosyn for strep pneumonia bacteremia and positive sputum cultures, bacterial pneumonia. Procalcitonin was high. Awaiting MRSA PCR, vancomycin on hold Dimer is significantly elevated and with elevated troponin I, heparin drip Status: Acute (2) Acute and chronic respiratory failure with hypoxia: See above Status: Acute (3) ARDS (adult respiratory distress syndrome): Status: Acute (4) CAD (coronary artery disease): Continue aspirin Continue Heparin drip Elevation in troponin noted may be type II elevation but positive delta is noted. Echocardiogram to be done Status: Acute Qualifiers: Coronary Disease-Associated Artery/Lesion type: [place] artery [place] vs. transplanted heart: [place] Associated angina: unspecified whether angina present Qualified Code(s): I25.10 - Atherosclerotic heart disease of [place] coronary artery without angina pectoris (5) Hypertension: May have hypotension on medication for sedation. Hold antihypertensives. Norepinephrine as needed. Status: Acute Qualifiers: Hypertension type: unspecified Qualified Code(s): I10 - Essential (primary) hypertension (6) Diabetes mellitus: Sliding scale insulin Status: Acute Qualifiers: Diabetes mellitus type: type 2 Diabetes mellitus group home insulin use: unspecified group home insulin use status Diabetes mellitus complication status: with other specified complication Qualified Code(s): E11.69 - Type 2 diabetes mellitus with other specified complication (7) Gram-positive bacteremia: Status: Acute (8) DIC (disseminated intravascular coagulation): Status: Acute (9) Multiorgan failure: Status: Acute (10) Transaminitis: Status: Acute Additional A&P Information Acute kidney injury, oliguric. Underwent dialysis. Nephrology consulted. Rhabdomyolysis. CK markedly elevated. Nephrology on consult. Full code Heparin drip will suffice for DVT prophylaxis Pepcid for GI prophylaxis Attestations Medical Necessity Statement*: Patient requires hospitalization for pneumonia secondary to COVID-19, acute respiratory distress, multiorgan failure Coding Level of Care Code Acute Broiler Manager for [facility] Diagnoses Pneumonia due to COVID-19 virus U07.1; J12.82 Acute and chronic respiratory failure with hypoxia J96.21 ARDS (adult respiratory distress syndrome) J80 CAD (coronary artery disease) I25.10 Coronary Disease-Associated Artery/Lesion type: [place] artery [place] vs. transplanted heart: [place] Associated angina: unspecified whether angina present Hypertension I10 Hypertension type: unspecified Diabetes mellitus E11.69 Diabetes mellitus type: type 2 Diabetes mellitus intermediate card tender insulin use: unspecified group home insulin use status Diabetes mellitus complication status: with other specified complication Gram-positive bacteremia R78.81 DIC (disseminated intravascular coagulation) D65 Multiorgan failure Transaminitis R74.01
--- NOTE | 2021-02-17 15:05 | PC.NURSE ---
Pt HR jumped to 130-150. BP decreased, Levophed restarted. HR was checked and slowed on monitor and seen to be afib. Datar notified. New orders received.
[2021-02-17 15:10] LABS: Basophils # 0.1 10^3/uL (0.0-0.1); Basophils % 0.5 %; Hematocrit 42.8 % (42.0-52.0); Hemoglobin 14.2 g/dL (11.7-16.6); Lymphocytes # 0.7 10^3/uL (0.8-4.8); Lymphocytes % 4.2 %; Mean Corpuscular HGB Conc 33.2 g/dL (30.0-36.0); Mean Corpuscular Hemoglobin 28.8 pg (28.0-34.0); Mean Corpuscular Volume 86.8 fl (80-94); Mean Platelet Volume 10.7 fL (7.4-10.4); Monocytes # 0.5 10^3/uL (0.2-0.9); Monocytes % 3.1 %; Neutrophils # 14.35 10^3/uL (1.8-7.7); Nucleated Red Blood Cells % 0 %; Platelet Count 214 10^3/cmm (130-400); Red Blood Count 4.93 10^6/uL (4.1-5.3); Red Cell Distribution Width 14.6 % (12.1-15.1); White Blood Count 16.5 10^3/uL (4.0-10.0)
[2021-02-17 15:12] LABS: Neutrophils % 92.2 %
[2021-02-17] MEDS: heparin, porcine 1,000 unit/mL INJ 10 mL HE (15:27)
--- NOTE | 2021-02-17 15:27 | PC.NURSE ---
Activase and Heparin given by Elsie HOFFMANhead of sales and marketing nurse.
--- NOTE | 2021-02-17 15:55 | PC.NURSE ---
Dialysis stopped do t heart rate and BP. Heparin restarted and BMP sent to lab. Will call Dr. Diamond with results when they are up.
[2021-02-17 16:09] LABS: Glucose Point of Care 305 mg/dL (70-110)
[2021-02-17 16:20] LABS: Alanine Aminotransferase 217 U/L (0-41); Albumin Level 2.3 g/dL (3.5-5.2); Alkaline Phosphatase 65 IU/L (40-130); Aspartate Amino Transferase 317 U/L (0-40); Blood Urea Nitrogen 60 mg/dL (6-20); Calcium 6.3 mg/dL (8.5-10.5); Carbon Dioxide 21 mmol/L (22-29); Chloride 86 mmol/L (98-107); Globulin 3.6 g/dL (1.3-4.6); Glomerular Filtration Rate 9.9 mL/min (90-130); Glucose 331 mg/dL (65-115); Osmolality Calculated 296 mOsm/kg (285-295); Sodium 128 mmol/L (136-145); Total Bilirubin 0.5 mg/dL (0.15-1.2); Total Protein 5.9 g/dL (6.6-8.7)
[2021-02-17 16:21] LABS: Anion Gap 25.6 (5-19); Potassium 4.6 mmol/L (3.5-5.1)
[2021-02-17] MEDS: dexamethasone 10 mg/mL INJ 6 MG IVP (16:34)
[2021-02-17] MEDS: docusate sodium 10 mg/mL (5ml) Liq 100 MG PO (16:34)
--- NOTE | 2021-02-17 16:57 | PC.NURSE ---
BMP results called to Dr. Diamond. States we are ok to stop dialysis today and restart tomorrow. Elsie, dialysis nurse notified.
[2021-02-17 17:51] LABS: Glucose Point of Care 298 mg/dL (70-110)
[2021-02-17 18:03] LABS: Partial Thromboplastin Time 48.8 SECONDS (23.9-36.7)
[2021-02-17] MEDS: propofol 1,000 MG/100 ML INJ 12.25 MG IV ×2 (18:21→22:34)
--- NOTE | 2021-02-17 19:07 | PM.PN ---
Subjective Subjective: Interval history: - Seen patient at bedside today morning - Left gluteal hematoma noted-held heparin and repeated CBC - Plan is to reverse his proning for 8 hours and do CRRT/hemodialysis based on renal recommendations and plan to prone him third session tonight -Labs and imaging reviewed Medications: Reviewed: Yes Vitals/I&O/Wt Last Vital Signs Temp 97.0 F L 02/17/21 15:43 Pulse 61 02/17/21 18:00 Resp 26 H 02/17/21 18:17 BP 132/74 02/17/21 18:00 Pulse Ox 97 02/17/21 18:17 02/17/21 02/17/21 02/17/21 06:59 14:59 22:59 Intake Total 862.307 / 3815.604 475.415 / 475.415 679.046 / 1154.461 Output Total 125 / 125 Balance 862.307 / 2199.604 475.415 / 475.415 554.046 / 1029.461 Weight last 48 hrs Weight 280 lb 6.848 oz Weight 276 lb 2 oz Weight 277 lb 1.937 oz Weight 273 lb 6 oz Weight 269 lb 13.533 oz Physical Exam Narrative: EXAM NARRATIVE: General: lying in bed, proned sedated and intubated. HEENT:NCAT, PERRLA, EOMI Neck: Supple Lungs: Bilateral diffuse coarse crackles Heart: s1/s2, RRR Abd: soft, NT, ND, BS + Normoactive Extremities: No edema DRAW FRAME RUNNER: sedated and limited DRAW FRAME RUNNER exam possible. SKIN: no rash; left gluteal subcutaneous hematoma LDA: # CVC: Right cutaneous IJ CVC 02/14/2021 # HD Cath : Right femoral HD catheter 02/15/2021 # Mckinnon: 02/14/2021 Urinary Catheter Management^: Mckinnon: Cath Placed During This Visit: yes Reason for Continuing Indwelling Catheter: Accurate Measurement of Urinary Output in Critically Ill Patients Urinary Catheter Date of Insertion: 02/14/21 Urinary Catheter Time of Insertion: 11:05 Data : 02/17/21 15:00 02/17/21 15:45 Other Labs: Laboratory Results WBC 16.5 10^3/uL (4.0-10.0) H 02/17/21 15:00 RBC 4.93 10^6/uL (4.1-5.3) 02/17/21 15:00 Hgb 14.2 g/dL (11.7-16.6) 02/17/21 15:00 Hct 42.8 % (42.0-52.0) 02/17/21 15:00 MCV 86.8 fl (80-94) 02/17/21 15:00 MCH 28.8 pg (28.0-34.0) 02/17/21 15:00 MCHC 33.2 g/dL (30.0-36.0) 02/17/21 15:00 RDW 14.6 % (12.1-15.1) 02/17/21 15:00 Plt Count 214 10^3/cmm (130-400) 02/17/21 15:00 MPV 10.7 fL (7.4-10.4) H 02/17/21 15:00 Neut % (Auto) 92.2 % 02/17/21 15:00 Lymph % (Auto) 4.2 % 02/17/21 15:00 Todd % (Auto) 3.1 % 02/17/21 15:00 Eos % (Auto) 0.0 % 02/17/21 15:00 Baso % (Auto) 0.5 % 02/17/21 15:00 Neut # (Auto) 14.35 10^3/uL (1.8-7.7) H 02/17/21 15:00 Lymph # (Auto) 0.7 10^3/uL (0.8-4.8) L 02/17/21 15:00 Todd # (Auto) 0.5 10^3/uL (0.2-0.9) 02/17/21 15:00 Eos # (Auto) 0.0 10^3/uL (0.0-0.8) 02/17/21 15:00 Baso # (Auto) 0.1 10^3/uL (0.0-0.1) 02/17/21 15:00 Nucleated RBC % (auto) 0 % 02/17/21 15:00 Nucleated RBCs # 0.0 /100WBC 02/17/21 15:00 APTT 48.8 SECONDS (23.9-36.7) H 02/17/21 17:40 Fibrinogen 789 mg/dL (174-498) H 02/15/21 22:23 Fibrinogen Cancelled 02/15/21 22:23 D-Dimer 9.26 ug/mIFEU (0-0.59) H 02/15/21 22:23 Specimen Type Arterial 02/16/21 23:14 Sample Site Radial, left 02/16/21 23:14 ABG pH 7.21 (7.35-7.45) L 02/16/21 23:14 ABG pCO2 59.5 mmHg (35-45) H 02/16/21 23:14 ABG pO2 91.6 mmHg (80.0-100.0) 02/16/21 23:14 ABG HCO3 23.9 mmol/L (22-26) 02/16/21 23:14 ABG O2 Saturation 96.8 02/16/21 23:14 ABG Base Excess -5.0 mmol/L (-2.0-2.0) L 02/16/21 23:14 Artemio Test Pos 02/16/21 23:14 A-a O2 Gradient 72.0 mmHg (5-10) H 02/16/21 23:14 Hematocrit 44.4 % (42-52) 02/16/21 23:14 Hgb O2 Saturation 96.1 % (95-100) 02/16/21 23:14 Carboxyhemoglobin 0.2 %THgb (0.4-20.1) L 02/16/21 23:14 Methemoglobin 0.5 % (0.4-1.5) 02/16/21 23:14 Total Hemoglobin 14.5 g/dL (14-18) 02/16/21 23:14 Sodium 128.0 mmol/L (131-143) L 02/16/21 23:14 Potassium 4.7 mmol/L (3.5-5.0) 02/16/21 23:14 Glucose 269.0 mg/dL (70-115) H 02/16/21 23:14 Ionized Calcium 0.9 mmol/L (1.1-1.4) L 02/16/21 23:14 O2 Delivery Device Vent 02/16/21 23:14 FiO2 100.0 % 02/16/21 23:14 Tidal Volume 0.45 02/16/21 23:14 PEEP 16.0 cmH20 02/16/21 23:14 Sheet Metal Shop Helper ID Mario 02/16/21 23:14 Sodium 128 mmol/L (136-145) L 02/17/21 15:45 Potassium 4.6 mmol/L (3.5-5.1) 02/17/21 15:45 Chloride 86 mmol/L (98-107) L 02/17/21 15:45 Carbon Dioxide 21 mmol/L (22-29) L 02/17/21 15:45 Anion Gap 25.6 (5-19) H 02/17/21 15:45 BUN 60 mg/dL (6-20) H 02/17/21 15:45 Creatinine 5.9 mg/dL (0.7-1.2) H* 02/17/21 15:45 GFR Calculation 9.9 mL/min (90-130) L 02/17/21 15:45 Glucose 331 mg/dL (65-115) H 02/17/21 15:45 POC Glucose 333 mg/dL (70-110) H 02/17/21 20:49 Calculated Osmolality 296 mOsm/kg (285-295) H 02/17/21 15:45 Lactic Acid 3.8 mmol/L (0.5-2.2) H 02/14/21 10:55 Lactic Acid (Sepsis) 3.4 mmol/L (0.5-2.2) H 02/14/21 18:37 Calcium 6.3 mg/dL (8.5-10.5) L 02/17/21 15:45 Phosphorus 7.3 mg/dL (2.5-4.5) H 02/16/21 02:13 Magnesium 2.2 mg/dL (1.7-2.3) 02/15/21 06:26 Total Bilirubin 0.5 mg/dL (0.15-1.2) 02/17/21 15:45 AST 317 U/L (0-40) H 02/17/21 15:45 ALT 217 U/L (0-41) H 02/17/21 15:45 Alkaline Phosphatase 65 IU/L (40-130) 02/17/21 15:45 Creatine Kinase 10057 U/L (39-308) H* 02/16/21 02:13 Troponin T Baseline 18 ng/L (0-15) H 02/14/21 10:55 Troponin T 120 Minute 27.90 ng/L (0-15) H 02/14/21 12:55 Delta Troponin T 9.90 ABS# (0-10) 02/14/21 12:55 Troponin T Hi Sens 6Hr 49.40 ng/L (0-15) H 02/14/21 16:30 Troponin T Hi Sens 6Hr Delta 31.40 ng/L (0-12) H* 02/14/21 16:30 C-Reactive Protein 372.9 mg/L (0.0-4.9) H 02/15/21 06:26 NT-Pro-B Natriuret Pep 1942 pg/mL (0-125) H 02/14/21 12:55 Total Protein 5.9 g/dL (6.6-8.7) L 02/17/21 15:45 Albumin 2.3 g/dL (3.5-5.2) L 02/17/21 15:45 Globulin 3.6 g/dL (1.3-4.6) 02/17/21 15:45 Interleukin 6 2895.00 pg/mL (<5.00) H 02/14/21 10:55 Procalcitonin 1.02 ng/mL (0-0.5) H 02/14/21 10:55 TSH 0.38 uIU/mL (0.27-4.20) 02/17/21 05:00 Urine Color Yellow (Yellow) 02/15/21 12:00 Urine Appearance Cloudy (CLEAR) 02/15/21 12:00 Urine pH 5 (5-7) 02/15/21 12:00 Ur Specific [place] 1.015 (1.005-1.030) 02/15/21 12:00 Urine Protein 2+ (Negative) H 02/15/21 12:00 Urine Glucose (UA) Trace (Normal) H 02/15/21 12:00 Urine Ketones Negative (Negative) 02/15/21 12:00 Urine Blood 3+ (Negative) H 02/15/21 12:00 Urine Nitrate Negative (Negative) 02/15/21 12:00 Urine Bilirubin Neg (Negative) 02/15/21 12:00 Urine Urobilinogen Norm mg/dL (Negative) 02/15/21 12:00 Ur Leukocyte Esterase Negative (Negative) 02/15/21 12:00 Urine RBC 10-15 /hpf (0-2) H 02/15/21 12:00 Urine WBC 5-10 /hpf (0-5) H 02/15/21 12:00 Ur Squamous Epith Cells 0-4 /hpf (0-5) H 02/15/21 12:00 Calcium Oxalate Crystal 0-4 /hpf H 02/15/21 12:00 Amorphous Sediment Not Reportable 02/15/21 12:00 Urine Bacteria 2+ /hpf (NONE) H 02/15/21 12:00 Urine Sperm 3+ /hpf 02/15/21 12:00 Ur Random Sodium 120 mmol/L 02/15/21 12:00 Urine Creatinine 32 mg/dL (39-259) L 02/15/21 12:00 Random Vancomycin 21.6 ug/mL (20.0-40.0) 02/17/21 05:00 Serum Ketones Negative (Negative) 02/15/21 10:45 Hep Bs Antigen Non-reactive (Nonreactive) 02/15/21 17:00 Hep Bs Antibody 3.5 (11.5-1000) L 02/15/21 17:00 Hepatitis C Antibody Non-reactive (Nonreactive) 02/15/21 17:00 Impressions Chest X-Ray 02/17/21 08:19 IMPRESSION: 1. Tubes and catheters are unchanged from the prior exam. 2. Bilateral pulmonary opacities are again noted and appear unchanged. Micro: Microbiology 02/16/21 15:52 Blood Culture - Preliminary Blood NEGATIVE TO DATE 02/16/21 16:11 Blood Culture - Preliminary Blood NEGATIVE TO DATE 02/14/21 12:55 Blood Culture - Final Blood Streptococcus pneumoniae 02/14/21 10:55 Blood Culture - Final Blood Streptococcus pneumoniae 02/14/21 11:45 Gram Stain - Final Sputum - Endotracheal Tube Aspirate Sputum Culture - Final Streptococcus pneumoniae 02/16/21 02:30 MRSA Culture - Final Nose A&P Assessment and plan (1) Acute and chronic respiratory failure with hypoxia: Status: Acute (2) CAD (coronary artery disease): Status: Acute Qualifiers: Coronary Disease-Associated Artery/Lesion type: pauma artery [place] vs. transplanted heart: pauma heart Associated angina: unspecified whether angina present Qualified Code(s): I25.10 - Atherosclerotic heart disease of pauma coronary artery without angina pectoris (3) ARDS (adult respiratory distress syndrome): Status: Acute (4) Diabetes mellitus: Status: Acute Qualifiers: Diabetes mellitus type: type 2 Diabetes mellitus intermediate insulin use: unspecified intermediate insulin use status Diabetes mellitus complication status: with other specified complication Qualified Code(s): E11.69 - Type 2 diabetes mellitus with other specified complication (5) Hypertension: Status: Acute Qualifiers: Hypertension type: unspecified Qualified Code(s): I10 - Essential (primary) hypertension (6) Pneumonia due to COVID-19 virus: Status: Acute (7) Hypotension: Status: Acute Qualifiers: Hypotension type: hypotension due to drug Qualified Code(s): I95.2 - Hypotension due to drugs (8) JACINTO (acute kidney injury): Status: Acute (9) Pneumonia: Status: Acute (10) Hyperkalemia: Status: Acute (11) Metabolic acidosis: Status: Acute (12) Septic shock due to streptococcal infection: Status: Acute (13) Multiorgan failure: Status: Acute (14) DIC (disseminated intravascular coagulation): Status: Acute (15) Acute renal failure: Status: Acute #Acute hypoxic respiratory failure secondary to ARDS due to COVID-19 pneumonia #Diabetes #Gram-positive cocci bacteremia leading to septic shock and JACINTO requiring hemodialysis; DIC #ARDS #Hypertension #AK bacteremiaI-due to prerenal leading to possible ATN #Right upper lobe pneumonia -Tested positive on 02/05/2021; -Intubated on arrival in the ED 02/14/2021 -Sedated and connected to mechanical ventilator ; prone to 2 sessions and is due for third proning session tonight -CMV 470/24/15/80 percent and patient saturating 90% - plan is to reverse prone for 8 hrs and try HD/CRRT and then prone for 2nd session -ABG suggestive of combined metabolic and respiratory acidosis - Left gluteal hematoma noted-held heparin and repeated CBC - Plan is to reverse his proning for 8 hours and do CRRT/hemodialysis based on renal recommendations and plan to prone him third session tonight -Labs and imaging reviewed -We'll adjust ventilator settings depending on ABG and saturations on the monitor -Chest x-ray Bilateral pulmonary opacities are again noted and appear unchanged. -Started on 5-day protocol remdesivir and dexamethasone 6 mg daily -Procalcitonin 1.02; -CRP 80; sputum and blood cultures positive for pansensitive strep pneumonia -Currently on Zosyn and vancomycin-DC both antibiotics and start on ceftriaxone now day Xarelto particularly -MRSA PCR and bacterial antigen panel, Legionella antigen-negative -Significantly elevated D-dimer and elevated troponin I-placed on heparin drip; noted small subcutaneous hematoma left gluteal buttock-no drop in hemoglobin noted-continue heparin drip and monitor CBC -Continue aspirin for underlying CAD -A. fib RVR noted during dialysis-given amiodarone 150 bolus and started on drip-monitor LFTs -Currently requiring Levophed to keep maps above 65 -Insulin scale coverage for diabetes; lantus 10 Units hs tonight; -Metabolic acidosis and hyperkalemia-likely secondary to JACINTO -Nephrology recommendations appreciated-patient is started on hemodialysis but has issues with catheter clogging likely due to DIC -DVT prophylaxis: Already on heparin drip -GI prophylaxis: PPI -Fluoxetine 20 mg daily -Full code -Prognosis: Poor -Family updated Discussed with hospitalist, RN, RT covering the case Attestations Medical Necessity Statement*: Acute hypoxic respiratory failure secondary to ARDS due to COVID-19 pneumonia requiring mechanical ventilation with high FiO2, septic shock leading to prerenal JACINTO/ATN likely requires hemodialysis -overall needs close monitoring for multiorgan failure Time Spent in Patient Care: Greater than 35 minutes (>than 50% of time spent in counselling and/or direct pt care on unit). Critical Care Time: The high probability of a clinically significant, sudden or life threatening deterioration of the patient's [respiratory, renal, endocrine, cardiac, infectious] system(s) required my full and direct attention, intervention and personal management. The critical care time is as shown. This time is in addition to time spent performing any reported procedures but includes the following: [x] Data and vital sign review and interpretation [x] Patient assessment, examination and intervention [x] Documentation [x] Medication orders and management Critical Care Time (min): 45 Coding Level of Care Code Acute Mine Production Engineer for g Fwd Diagnoses Acute and chronic respiratory failure with hypoxia J96.21 CAD (coronary artery disease) I25.10 Coronary Disease-Associated Artery/Lesion type: pauma artery [place] vs. 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
[2021-02-17] MEDS: heparin 5,000 unit/mL INJ 1 mL IV (19:14)
--- NOTE | 2021-02-17 20:16 | PC.NUTR ---
NUTR TF RECOMMENDATIONS: Nepro with a goal rate of 55 ml/hr providing 2376 kcal (99%), 107 g PRO (75%), and 957 ml fluid (64%)(%NEEDS). Suggest starting TF at 25 ml/hr and increase by 10 ml Q6H as tolerated till goal rate is met. Suggest H2O flushes of 50 ml Q4H to approach fluid needs or per physician.
[2021-02-17] MEDS: ipratropium-albuterol 3 mL Neb INHALATION (21:08)
[2021-02-17] MEDS: insulin glargine 100 units/1 mL 10 UNIT SUBCUT (21:16)
[2021-02-17 22:27] LABS: Glucose Point of Care 333 mg/dL (70-110)
[2021-02-17] MEDS: heparin drip 25,000 UNIT/500 ML PREMIX 18 UNIT IV (22:33)
[2021-02-18] VITALS (88 sets, daily range): BP systolic 96–162; BP diastolic 50–84; PULSE 55–92; RESP 19–27; TEMP 36.3–37; O2SAT 88–97
[2021-02-18] MEDS: cefTRIAXone 1,000 MG in sodium chloride 0.9% (plus) 100 ML 200 MG IV ×3 (00:22→23:39)
[2021-02-18] MEDS: famotidine 20 mg/2 mL INJ IVP ×3 (00:23→23:39)
[2021-02-18 00:58] LABS: Partial Thromboplastin Time 42.3 SECONDS (23.9-36.7)
[2021-02-18] MEDS: cisatracurium 100 MG in sodium chloride 0.9% 50 ML IV (01:03)
[2021-02-18] MEDS: heparin 5,000 unit/mL INJ 1 mL IV ×2 (01:16→20:40)
[2021-02-18] MEDS: ipratropium-albuterol 3 mL Neb INHALATION ×4 (02:34→20:35)
--- NOTE | 2021-02-18 03:52 | PC.NURSE ---
Addendum entered by Nola Nraanjo RN 02/18/21 06:24: BIS TOF 00:30 52 4 02:00 36 4 04:00 31 4 06:00 33 4 Critical ABG results called to Dr. Mandujano by RT. Original Note: Shift Note Frequent safety and comfort rounds continue. Orders and/or nursing care completed as indicated. Patient monitored for response to intervention and treatment(s). Education provided includes prone positioning, medications with side effects, fall safety. Patient does not seem to comprehend at this time due to acute status with sedation. Respiratory therapist was messaging Dr. Roger regarding RT orders and also message per nursing request to clarify of prone positioning, nurse adequately sedated and paralyzed patient and nursing staff assisted with prone positioning at 01:45. Will continue to monitor.
--- NOTE | 2021-02-18 04:00 | XRR_ITS ---
PROCEDURE INFORMATION: Exam: XR Chest Exam date and time: 02/18/2021 4:00 AM Age: 60 years old Clinical indication: Condition or disease; Lung condition and disease; Pneumonia and respiratory distress TECHNIQUE: Imaging protocol: XR of the chest. Views: 1 view. COMPARISON: CR (CHEST, ) 02/17/2021 9:36 AM FINDINGS: Tubes, catheters and devices: Right central venous catheter tip in the superior vena cava. Nasogastric tube tip in the stomach. Lungs: Bilateral pulmonary opacities decreased since 02/17/2021. Pleural spaces: Unremarkable. No pleural effusion. No pneumothorax. Heart/Mediastinum: Unremarkable. No cardiomegaly. Bones/joints: No acute findings. XR/XR chest 1V portable [id number] IMPRESSION: Bilateral opacities consistent with edema and/or pneumonia decreased since 02/17/2021.
[2021-02-18 05:12] LABS: Arterial Blood Gas Hematocrit 50.9 % (42-52); Base Excess ABG -12.1 mmol/L (-2.0-2.0); Blood Gas Allen Test Pos; Blood Gas Sample Type Arterial; HCO3 ABG 18.4 mmol/L (22-26)
[2021-02-18 05:14] LABS: Blood Gas Sample Site Radial, left; Blood Gas Tidal Volume 0.47; Oxygen Device VENT
[2021-02-18 06:21] LABS: Basophils # 0.2 10^3/uL (0.0-0.1); Basophils % 0.7 %; Hematocrit 42.7 % (42.0-52.0); Hemoglobin 14.1 g/dL (11.7-16.6); Lymphocytes # 0.6 10^3/uL (0.8-4.8); Lymphocytes % 2.3 %; Mean Corpuscular Hemoglobin 28.7 pg (28.0-34.0); Mean Corpuscular Volume 86.8 fl (80-94); Mean Platelet Volume 10.6 fL (7.4-10.4); Monocytes # 1.3 10^3/uL (0.2-0.9); Monocytes % 4.7 %; Neutrophils # 24.18 10^3/uL (1.8-7.7); Neutrophils % 87.4 %; Nucleated Red Blood Cells % 0 %; Platelet Count 236 10^3/cmm (130-400); Red Blood Count 4.92 10^6/uL (4.1-5.3); Red Cell Distribution Width 14.8 % (12.1-15.1); White Blood Count 27.7 10^3/uL (4.0-10.0)
[2021-02-18 06:33] LABS: Alanine Aminotransferase 220 U/L (0-41); Albumin Level 2.5 g/dL (3.5-5.2); Alkaline Phosphatase 80 IU/L (40-130); Anion Gap 30.1 (5-19); Aspartate Amino Transferase 248 U/L (0-40); Calcium 6.2 mg/dL (8.5-10.5); Carbon Dioxide 17 mmol/L (22-29); Chloride 83 mmol/L (98-107); Globulin 3.5 g/dL (1.3-4.6); Glomerular Filtration Rate 9.2 mL/min (90-130); Glucose 431 mg/dL (65-115); Magnesium 2.6 mg/dL (1.7-2.3); Osmolality Calculated 303 mOsm/kg (285-295); Potassium 5.1 mmol/L (3.5-5.1); Sodium 125 mmol/L (136-145); Total Bilirubin 0.7 mg/dL (0.15-1.2)
[2021-02-18 06:41] LABS: Blood Urea Nitrogen 81 mg/dL (6-20); Phosphorus 10.7 mg/dL (2.5-4.5)
[2021-02-18 06:44] LABS: Vancomycin Random 17.8 ug/mL (20.0-40.0)
--- NOTE | 2021-02-18 07:15 | PM.PN ---
Subjective Subjective: Interval history: intubated, sedated, prone in icu on pressers Medications: Reviewed: Yes Medication Review Details: Current Medications Acetaminophen (Acetaminophen 325 Mg Tablet) 650 mg PO Q6H PRN PRN Reason: MILD PAIN Albuterol/Ipratropium (Ipratropium-Albuterol 3 Ml Neb) 3 ml INHALATION Q6H.RESPIRATORY [facility] Last Admin: 02/18/21 02:34 Dose: 3 ml Documented by: Alteplase, Recombinant (Alteplase 1 Mg/Ml Sdv 2 Ml) 2 mg INTRACATH PRN PRN PRN Reason: DIALYSIS USE ONLY Last Admin: 02/16/21 12:29 Dose: 2 mg Documented by: Aspirin (Aspirin 81 Mg Ec Tablet) 81 mg PO DAILY [facility] Last Admin: 02/17/21 07:56 Dose: 81 mg Documented by: Dexamethasone (Dexamethasone 10 Mg/Ml Inj) 6 mg IVP Q24H [facility] Last Admin: 02/17/21 16:34 Dose: 6 mg Documented by: Dextrose (Dextrose 50% Syringe 50 Ml) 25 ml IVP ONCE PRN; Protocol PRN Reason: hypoglycemia protocol Dextrose (Dextrose 50% Syringe 50 Ml) 50 ml IVP PRN PRN; Protocol PRN Reason: hypoglycemia protocol Docusate Sodium (Docusate Sodium 10 Mg/Ml (5ml) Liq) 100 mg PO DAILY [facility] Last Admin: 02/17/21 16:34 Dose: 100 mg Documented by: Famotidine (Famotidine 20 Mg/2 Ml Inj) 20 mg IVP Q12H [facility] Last Admin: 02/18/21 00:23 Dose: 20 mg Documented by: Fluoxetine HCl (Fluoxetine 20 Mg Capsule) 20 mg PO DAILY [facility] Last Admin: 02/17/21 07:56 Dose: 20 mg Documented by: Glucagon (Glucagon 1 Mg/Ml Inj 1 Ml) 1 mg IM ONCE PRN; Protocol PRN Reason: Adult Acute Hypoglycemia Prot. Heparin Sodium (Beef Lung) (Heparin 5,000 Unit/Ml Inj 1 Ml) 0 unit IV PRN PRN; Protocol PRN Reason: Heparin weight-base protocol Last Admin: 02/18/21 01:16 Dose: 4,800 unit Documented by: Fentanyl 1,000 mcg/ Sodium (Chloride) 100 mls @ 0 mls/hr IV .Q0M [facility]; Protocol Last Admin: 02/18/21 05:51 Dose: 75 mcg/hr, 7.5 mls/hr Documented by: Propofol (Diprivan) 1,000 mg in 100 mls @ 0 mls/hr IV .Q0M MOSHE; Protocol Last Titration: 02/18/21 03:30 Dose: 10 mcg/kg/min, 6.12 mls/hr Documented by: Cisatracurium Besylate 100 mg/ (Sodium Chloride) 100 mls @ 0 mls/hr IV .Q0M MOSHE; Protocol Last Titration: 02/18/21 01:25 Dose: 0.7 mcg/kg/min, 4.29 mls/hr Documented by: Heparin Sodium/Sodium Chloride (Heparin Drip) 25,000 unit in 500 mls @ 0 mls/hr IV .Q0M MOSHE; Protocol Last Titration: 02/18/21 01:16 Dose: 11.27 unit/kg/hr, 23 mls/hr Documented by: Norepinephrine Bitartrate 4 mg (/ Dextrose) 254 mls @ 0 mls/hr IV .Q0M MOSHE; Protocol Last Titration: 02/15/21 16:26 Dose: Infused Documented by: Dextrose (D5w) 500 mls @ 100 mls/hr IV ONCE PRN; Protocol PRN Reason: Adult Acute Hypoglycemia Prot Midazolam HCl 100 mg/ Sodium (Chloride) 100 mls @ 0 mls/hr IV .Q0M MOSHE; Protocol Last Titration: 02/18/21 04:00 Dose: 2 mg/hr, 2 mls/hr Documented by: Norepinephrine Bitartrate 8 mg (/ Dextrose) 508 mls @ 0 mls/hr IV .Q0M MOSHE; Protocol Last Titration: 02/18/21 05:11 Dose: 6 mcg/min, 22.86 mls/hr Documented by: Sodium Chloride (Sodium Chloride 0.9%) 1,000 mls @ 0 mls/hr IV .Q0M PRN PRN Reason: hypotension or symptomatic Albumin Human (Albumin) 12.5 gm in 50 mls @ 60 mls/hr IV PRN PRN PRN Reason: Hypotension and/or symptomatic Amiodarone HCl 900 mg/Dextrose/ IV Miscellaneous Supplies 518 mls @ 0 mls/hr IV .Q0M MOSHE; Protocol Last Titration: 02/17/21 22:59 Dose: 0.5 mg/min, 17.27 mls/hr Documented by: Ceftriaxone Sodium 1,000 mg/ (Sodium Chloride) 100 mls @ 200 mls/hr IV Q12H MOSHE; Protocol Last Infusion: 02/18/21 00:57 Dose: Infused Documented by: Insulin Aspart (Insulin Aspart 100 Unit/1 Ml) 0 unit SUBCUT WM&BEDTIME MOSHE; Protocol Last Admin: 02/17/21 21:16 Dose: 10 unit Documented by: Insulin Glargine (Insulin Glargine 100 Units/1 Ml) 25 unit SUBCUT BEDTIME MOSHE Insulin Glargine (Insulin Glargine 100 Units/1 Ml) 10 unit SUBCUT ONCE ONE Stop: 02/18/21 09:01 Ondansetron HCl (Ondansetron 2 Mg/Ml Sdv 2 Ml) 4 mg IVP Q6H PRN PRN Reason: NAUSEA AND VOMITING Senna/Docusate Sodium (Sennosides-Docusate Tablet) 1 tab PO DAILY MOSHE Vitals/I&O/Wt Last Vital Signs Temp 98.6 F 02/18/21 04:00 Pulse 87 02/18/21 06:00 Resp 24 H 02/18/21 06:16 BP 143/75 02/18/21 06:00 Pulse Ox 95 02/18/21 06:16 02/17/21 02/18/21 02/18/21 22:59 06:59 14:59 Intake Total 1290.179 / 1815.594 739.500 / 2555.094 Output Total 125 / 125 Balance 1165.179 / 1690.594 739.500 / 2430.094 Weight last 48 hrs Weight 123.15 kg Weight 127.2 kg Weight 125.248 kg Weight 125.7 kg Physical Exam Narrative: EXAM NARRATIVE: prone,levo @ 6, vent tv 490, rr 24, peep 15, fio2=70% heent- nc/at lungs ronchi- poor air movement b/l heart reg ext edema rt femoral dialysis catheter seen and examined w/ rN- telehealth visit Urinary Catheter Management^: Mckinnon: Cath Placed During This Visit: yes Reason for Continuing Indwelling Catheter: Accurate Measurement of Urinary Output in Critically Ill Patients Urinary Catheter Date of Insertion: 02/14/21 Urinary Catheter Time of Insertion: 11:05 Data : 02/18/21 05:54 02/18/21 05:54 Micro: Microbiology 02/16/21 15:52 Blood Culture - Preliminary Blood NEGATIVE TO DATE 02/16/21 16:11 Blood Culture - Preliminary Blood NEGATIVE TO DATE 02/14/21 12:55 Blood Culture - Final Blood Streptococcus pneumoniae 02/14/21 10:55 Blood Culture - Final Blood Streptococcus pneumoniae 02/14/21 11:45 Gram Stain - Final Sputum - Endotracheal Tube Aspirate Sputum Culture - Final Streptococcus pneumoniae A&P Additional A&P Information 1. Acute anuric kidney injury: rhabdomyolysis, ischemic ATN, COVID, was on ACEi as outpatient - was not able to tolerate HD yesterday- developed a fib w/ hypotension and RVR -currently in NSR on 1 presser and good BP -will attempt repeat HD today 4 hrs, 2k, 2 liter fluid removal as tolerated- pressers as needed -if fails IHD, then attempt CRRT 2. COVID-19 SARS PNa per pulm 3. leukocytosis from covid -19 and strep pneumoniae bacteremia -keep vanco level under 20 4. resp acidosis - steroids, vent, HD 5. hyponatremia- from pna, covid-19 and jacinto- monitor w/ HD 6. mild lactic acidosis- repeat 7. rhabdomyolysis- monitor ck w/ HD 9. Shock liver 10. dm control per medicine 11. hyperphosphatemia from JACINTO and rhabdomyolysis seen and examined w/ BUSINESS SUPPORT ADMINISTRATOR- telehealth visit prognosis is guarded time spent 30 minutes Attestations Medical Necessity Statement*: covid-19 , strep bacteremia, jacinto, vdrf, multi-organ failure Time Spent in Patient Care: 16 - 35 minutes (>than 50% of time spent in counselling and/or direct pt care on unit). Coding Level of Care Code Acute Prop Drawer for Chapin Tse
[2021-02-18 07:20] LABS: Thyroid Stimulating Hormone 0.39 uIU/mL (0.27-4.20)
--- NOTE | 2021-02-18 07:41 | PC.NURSE ---
Supine 0730 x6 staff members, no complications.
[2021-02-18] MEDS: propofol 1,000 MG/100 ML INJ 6.12 MG IV (08:02)
[2021-02-18 08:12] LABS: Glucose Point of Care 399 mg/dL (70-110)
[2021-02-18 08:27] LABS: Lactate (Lactic Acid level) 2.1 mmol/L (0.5-2.2); Partial Thromboplastin Time 75.6 SECONDS (23.9-36.7)
[2021-02-18] MEDS: alteplase 1 mg/mL SDV 2 mL 4 MG INTRACATH (08:37)
--- NOTE | 2021-02-18 08:54 | PC.CHAP ---
Pastoral Care Encounter/Spiritual Assessment Type of Contact [] Declined bottling supervisor visit [] Patient/Family/Request visit [] Outpatient visit [] Follow-up visit [] Physician referral [] Code/Alert [x] Routine visit [] Staff referral [] Actively dying [] Patient sleeping [] Family support [] [] Out of room [] Palliative care [] [] Receiving care in room [] Pre-surgical visit [] Trauma [] Long length of stay [x] ICU visit [x] Other: vent Relational/Emotional Strength [] Patient feels connected with others/family/visitors/staff [] Distress [] Loneliness/isolation [] Abandonment Spirituality of Patient [] Person of Lillian [] Attends Latter Day of their [place]illian [] Believes in Prayer [] Reads Bible or Alevism materials [] There are Spiritual issues to be addressed Instructional Support Assistant Interventions [x] Prayer [] Active listening [] Non-anxious presence [] Spiritual/emotional support [] Crisis/trauma care [] Spiritual counseling [] Bereavement support [] Provided bereavement packet [] Provided Bible/devotional materials [] Provided toy/stuffed animal, coloring book to patient or family member [] Provided Communion [] Anointing/[place] [] Salvation [x] Completed spiritual assessment [] Other: Impact on Illness or Injury [] Angry [] Fearful [] Anxious [] Often cries [] Exhaustion [] Unable to work [] Unable to attend hindu [] Unable to walk/stand [] Unable to read [] Unable to drive [] Unable to eat/drink [] Unable to sleep [] Unable to be with family [] Patient intubated [] Other: Summary Time spent with patient
[2021-02-18 09:04] LABS: Creatine Phosphokinase 13368 U/L (39-308)
[2021-02-18] MEDS: sennosides-docusate Tablet 1 TAB PO (09:22)
[2021-02-18] MEDS: aspirin 81 mg EC Tablet PO (09:22)
[2021-02-18] MEDS: fluoxetine 20 mg Capsule PO (09:22)
[2021-02-18] MEDS: insulin glargine 100 units/1 mL 10 UNIT SUBCUT (09:26)
[2021-02-18] MEDS: docusate sodium 10 mg/mL (5ml) Liq 100 MG PO (09:26)
[2021-02-18] MEDS: water for injection-sterile 20 ML 10 ML (09:39)
[2021-02-18] MEDS: heparin, porcine 1,000 unit/mL INJ 10 mL HE (09:39)
--- NOTE | 2021-02-18 10:21 | PC.NURSE ---
BIS removed, nimbex has been off, no plan for 4th proning session.
[2021-02-18 10:39] LABS: INR 1.06 (0.8-1.2)
[2021-02-18 10:40] LABS: Fibrinogen 529 mg/dL (174-498)
[2021-02-18] MEDS: norepinephrine 8 MG in dextrose 5 % 500 ML 22.86 MG IV (10:42)
[2021-02-18 10:43] LABS: D Dimer 3.67 ug/mIFEU (0-0.59)
[2021-02-18 10:47] LABS: Partial Thromboplastin Time 76.4 SECONDS (23.9-36.7)
[2021-02-18 11:37] LABS: Glucose Point of Care 381 mg/dL (70-110)
--- NOTE | 2021-02-18 11:53 | P.PN_ITS ---
Subjective Subjective: Interval history: Isauro is sedated on the ventilator. Dialysis is attempting to dialyze, but having some issues with flow of the catheter. Medications: Reviewed: Yes Vitals/I&O/Wt Last Vital Signs Temp 98.6 F 02/18/21 04:00 Pulse 65 02/18/21 10:00 Resp 24 H 02/18/21 10:00 BP 113/62 02/18/21 10:00 Pulse Ox 95 02/18/21 10:00 02/17/21 02/18/21 02/18/21 22:59 06:59 14:59 Intake Total 1290.179 / 1815.594 739.500 / 2555.094 330.702 / 330.702 Output Total 125 / 125 Balance 1165.179 / 1690.594 739.500 / 2430.094 330.702 / 330.702 Weight last 48 hrs Weight 123.15 kg Weight 127.2 kg Weight 125.248 kg Weight 125.7 kg Physical Exam Narrative: EXAM NARRATIVE: General exam: Sedated, supine. Dialysis being attempted currently. Neck is supple no lymphadenopathy or thyromegaly Cardiovascular regular rate and rhythm without murmur Lungs coarse breath sounds bilaterally Abdomen is soft obese positive bowel sounds. No obvious organomegaly demonstrates Mckinnon Extremities no cyanosis clubbing or edema, cap refill brisk From my understanding there is a hematoma on the buttocks. Urinary Catheter Management^: Mckinnon: Cath Placed During This Visit: yes Reason for Continuing Indwelling Catheter: Accurate Measurement of Urinary Output in Critically Ill Patients Urinary Catheter Date of Insertion: 02/14/21 Urinary Catheter Time of Insertion: 11:05 Data : 02/18/21 05:54 02/18/21 05:54 Micro: Microbiology 02/16/21 15:52 Blood Culture - Preliminary Blood NEGATIVE TO DATE 02/16/21 16:11 Blood Culture - Preliminary Blood NEGATIVE TO DATE 02/14/21 12:55 Blood Culture - Final Blood Streptococcus pneumoniae 02/14/21 10:55 Blood Culture - Final Blood Streptococcus pneumoniae 02/14/21 11:45 Gram Stain - Final Sputum - Endotracheal Tube Aspirate Sputum Culture - Final Streptococcus pneumoniae A&P Assessment and plan (1) Pneumonia due to COVID-19 virus: Severe COVID-19 pneumonia, first testing + February 05 Intubated in the emergency department, requiring a significant amount of PEEP and an FiO2 of 100%. Has had several sessions of proning, with improvement of oxygenation. Proning is not needed currently, and secondary to dialysis needs attempts will be made to try to keep him supine. As proning is not needed neuromuscular blockade has been discontinued. Appreciate critical care consultation Continue dexamethasone. Initially placed on vancomycin and Zosyn secondary to concern for bacterial infection. Cultures have grown strep pneumonia and IV antibiotics have been changed to ceftriaxone 1 g IV every 12 hours. D-dimer was also significantly elevated and patient is still on heparin drip. Dimer has decreased significantly. Continue pulmonary toilet MRSA PCR, bacterial antigens, Legionella antigen negative. Status: Acute (2) Acute and chronic respiratory failure with hypoxia: See above Status: Acute (3) ARDS (adult respiratory distress syndrome): Status: Acute (4) CAD (coronary artery disease): Continue aspirin Continue Heparin drip Elevation in troponin noted may be type II elevation but positive delta is noted. Echocardiogram demonstrated preserved ejection fraction, no severe valvular abnormalities, no regional wall motion abnormalities. Status: Acute (5) Hypertension: May have hypotension on medication for sedation. Hold antihypertensives. Norepinephrine as needed. Status: Acute Qualifiers: Hypertension type: unspecified Qualified Code(s): I10 - Essential (primary) hypertension (6) Diabetes mellitus: Sliding scale insulin Lantus has been added. He received a neck extra dose this morning. Could consider insulin drip if becomes hard to control. Status: Acute Additional A&P Information Strep pneumonia bacteremia. Requiring norepinephrine for pressure support. Change to ceftriaxone. Repeat blood cultures were ordered, and negative to date. Atrial fibrillation with rapid ventricular rate, occurring with dialysis night of February 17. Placed on amiodarone drip. Can likely be transitioned to oral if no recurrence of arrhythmia by tomorrow. Acute kidney injury, oliguric. Associate with hyperkalemia initially. Has significant metabolic acidosis currently. Nephrology attempting dialysis but does have poor flow of dialysis catheter. Appreciate nephrology consultation Rhabdomyolysis. CK improving Left gluteal hematoma. With elevated CK could consider possibility of fall at home. Will obtain AP pelvis Full code Heparin drip will suffice for DVT prophylaxis Pepcid for GI prophylaxis Attestations Medical Necessity Statement*: Needs continued hospital stay secondary to COVID-19 pneumonia and strep pneumonia bacteremia requiring mechanical ventilation. Critical Care Time: The high probability of a clinically significant, sudden or life threatening deterioration of the patient's [renal, pulmonary, infectious disease] system(s) required my full and direct attention, intervention and personal management. The critical care time is as shown. This time is in addition to time spent performing any reported procedures but includes the following: [x] Data and vital sign review and interpretation [x] Patient assessment, examination and intervention [x] Documentation [x] Medication orders and management Critical Care Time (min): 38 Coding Level of Care Code Acute Extruding Press Adjuster for [facility] Fwd Diagnoses Pneumonia due to COVID-19 virus U07.1; J12.82 Acute and chronic respiratory failure with hypoxia J96.21 ARDS (adult respiratory distress syndrome) J80 CAD (coronary artery disease) I25.10 Hypertension I10 Hypertension type: unspecified Diabetes mellitus E11.9
--- NOTE | 2021-02-18 12:06 | XRR_ITS ---
PROCEDURE INFORMATION: Exam: XR Pelvis Exam date and time: 02/18/2021 12:06 PM Age: 60 years old Clinical indication: Other: Hematoma, ; additional info: Hematoma, possible fall TECHNIQUE: Imaging protocol: XR pelvis. Views: 1 or 2 view. COMPARISON: MR lumbar spine wo con* [id number] 09/17/2020 4:20 PM FINDINGS: Tubes, catheters and devices: Catheter overlies the right groin/right lower pelvis. Bones/joints: Unremarkable. No acute fracture. Soft tissues: Unremarkable. XR/XR pelvis 1-2V* [id number] IMPRESSION: No acute findings.
--- NOTE | 2021-02-18 15:25 | PC.HD ---
Dialysis treatment was written for 4 hours; however, throughout treatment venous pressures on dialysis machine were at the top limit, requiring dialysis nurse to lower blood flow rate from the prescribed 350 mL/min to 250. After 3.5 hours, venous pressures suresh to unacceptable levels (over 300). [employer] Food Machine Tender was contacted, and treatment was terminated approximately 30 minutes early. 1600 net fluid removal (Goal was 2000). Patient tolerated treatment.
[2021-02-18 17:31] LABS: Partial Thromboplastin Time 115.5 SECONDS (23.9-36.7)
[2021-02-18 18:05] LABS: Glucose Point of Care 354 mg/dL (70-110)
[2021-02-18] MEDS: amiodarone 200 mg Tablet PO (18:32)
[2021-02-18] MEDS: dexamethasone 10 mg/mL INJ 6 MG IVP (18:32)
[2021-02-18 20:24] LABS: Partial Thromboplastin Time 47.3 SECONDS (23.9-36.7)
[2021-02-18] MEDS: insulin glargine 100 units/1 mL 25 UNIT SUBCUT (21:11)
[2021-02-18] MEDS: heparin drip 25,000 UNIT/500 ML PREMIX 16 UNIT IV (21:11)
[2021-02-18 21:20] LABS: Glucose Point of Care 328 mg/dL (70-110)
--- NOTE | 2021-02-18 23:18 | PM.PN ---
Subjective Subjective: Interval history: -Patient seen at bedside today -Clinically unchanged -Gradual decreasing requirements of pressors -Attempted to dialyze and success to some extent due to issues with flow catheter -Labs and imaging reviewed Medications: Reviewed: Yes Vitals/I&O/Wt Last Vital Signs Temp 98.1 F 02/18/21 20:00 Pulse 75 02/18/21 20:45 Resp 24 H 02/18/21 20:37 BP 120/67 02/18/21 20:45 Pulse Ox 94 02/18/21 20:45 02/18/21 02/18/21 02/19/21 14:59 22:59 06:59 Intake Total 609.903 / 254.986 8711.414 / 1857.317 Output Total 2205 / 2205 Balance 609.903 / 609.903 -957.586 / -347.683 Weight last 48 hrs Weight 270 lb 1.06 oz Weight 271 lb 8 oz Weight 280 lb 6.848 oz Weight 276 lb 2 oz Physical Exam Narrative: EXAM NARRATIVE: General: lying in bed, proned sedated and intubated. HEENT:NCAT, PERRLA, EOMI Neck: Supple Lungs: Bilateral diffuse coarse crackles Heart: s1/s2, RRR Abd: soft, NT, ND, BS + Normoactive Extremities: No edema FEDERAL MEDIATOR: sedated and limited FEDERAL MEDIATOR exam possible. SKIN: no rash; left gluteal subcutaneous hematoma LDA: # CVC: Right cutaneous IJ CVC 02/14/2021 # HD Cath : Right femoral HD catheter 02/15/2021 # Mckinnon: 02/14/2021 Urinary Catheter Management^: Mckinnon: Cath Placed During This Visit: yes Reason for Continuing Indwelling Catheter: Accurate Measurement of Urinary Output in Critically Ill Patients Urinary Catheter Date of Insertion: 02/14/21 Urinary Catheter Time of Insertion: 11:05 Data : 02/20/21 15:30 02/20/21 15:30 Other Labs: Laboratory Results WBC 27.7 10^3/uL (4.0-10.0) H 02/18/21 05:54 RBC 4.92 10^6/uL (4.1-5.3) 02/18/21 05:54 Hgb 14.1 g/dL (11.7-16.6) 02/18/21 05:54 Hct 42.7 % (42.0-52.0) 02/18/21 05:54 MCV 86.8 fl (80-94) 02/18/21 05:54 MCH 28.7 pg (28.0-34.0) 02/18/21 05:54 MCHC 33.0 g/dL (30.0-36.0) 02/18/21 05:54 RDW 14.8 % (12.1-15.1) 02/18/21 05:54 Plt Count 236 10^3/cmm (130-400) 02/18/21 05:54 MPV 10.6 fL (7.4-10.4) H 02/18/21 05:54 Neut % (Auto) 87.4 % 02/18/21 05:54 Lymph % (Auto) 2.3 % 02/18/21 05:54 Dickson % (Auto) 4.7 % 02/18/21 05:54 Eos % (Auto) 0.0 % 02/18/21 05:54 Baso % (Auto) 0.7 % 02/18/21 05:54 Neut # (Auto) 24.18 10^3/uL (1.8-7.7) H 02/18/21 05:54 Lymph # (Auto) 0.6 10^3/uL (0.8-4.8) L 02/18/21 05:54 Dickson # (Auto) 1.3 10^3/uL (0.2-0.9) H 02/18/21 05:54 Eos # (Auto) 0.0 10^3/uL (0.0-0.8) 02/18/21 05:54 Baso # (Auto) 0.2 10^3/uL (0.0-0.1) H 02/18/21 05:54 Nucleated RBC % (auto) 0 % 02/18/21 05:54 Nucleated RBCs # 0.0 /100WBC 02/18/21 05:54 PT 14.10 SECONDS (12.1-14.9) 02/18/21 10:00 INR 1.06 (0.8-1.2) 02/18/21 10:00 APTT 47.3 SECONDS (23.9-36.7) H D 02/18/21 19:57 Fibrinogen 529 mg/dL (174-498) H 02/18/21 10:00 Fibrin Degrad Products Pos, >=40 ug/mL (NEG) H 02/18/21 10:00 D-Dimer 3.67 ug/mIFEU (0-0.59) H 02/18/21 10:00 Specimen Type Arterial 02/18/21 05:00 Sample Site Radial, left 02/18/21 05:00 ABG pH 7.10 (7.35-7.45) L* 02/18/21 05:00 ABG pCO2 59.0 mmHg (35-45) H 02/18/21 05:00 ABG pO2 137.0 mmHg (80.0-100.0) H 02/18/21 05:00 ABG HCO3 18.4 mmol/L (22-26) L 02/18/21 05:00 ABG O2 Saturation 98.0 02/17/21 06:45 ABG Base Excess -12.1 mmol/L (-2.0-2.0) L 02/18/21 05:00 Artemio Test Pos 02/18/21 05:00 A-a O2 Gradient 65.4 mmHg (5-10) H 02/17/21 06:45 Hematocrit 50.9 % (42-52) 02/18/21 05:00 Hgb O2 Saturation 97.4 % (95-100) 02/17/21 06:45 Carboxyhemoglobin 0.1 %THgb (0.4-20.1) L 02/17/21 06:45 Methemoglobin 0.5 % (0.4-1.5) 02/17/21 06:45 Total Hemoglobin 14.4 g/dL (14-18) 02/17/21 06:45 Sodium 126.0 mmol/L (131-143) L 02/17/21 06:45 Potassium 4.8 mmol/L (3.5-5.0) 02/17/21 06:45 Glucose 287.0 mg/dL (70-115) H 02/17/21 06:45 Ionized Calcium 0.9 mmol/L (1.1-1.4) L 02/17/21 06:45 O2 Delivery Device Vent 02/18/21 05:00 FiO2 80.0 % 02/18/21 05:00 Tidal Volume 0.47 02/18/21 05:00 PEEP 15.0 cmH20 02/18/21 05:00 Technical Training Instructor ID Mario 02/18/21 05:00 Sodium 125 mmol/L (136-145) L 02/18/21 05:54 Potassium 5.1 mmol/L (3.5-5.1) 02/18/21 05:54 Chloride 83 mmol/L (98-107) L 02/18/21 05:54 Carbon Dioxide 17 mmol/L (22-29) L 02/18/21 05:54 Anion Gap 30.1 (5-19) H 02/18/21 05:54 BUN 81 mg/dL (6-20) H 02/18/21 05:54 Creatinine 6.3 mg/dL (0.7-1.2) H* 02/18/21 05:54 GFR Calculation 9.2 mL/min (90-130) L 02/18/21 05:54 Glucose 431 mg/dL (65-115) H 02/18/21 05:54 POC Glucose 328 mg/dL (70-110) H 02/18/21 21:04 Calculated Osmolality 303 mOsm/kg (285-295) H 02/18/21 05:54 Lactic Acid 3.8 mmol/L (0.5-2.2) H 02/14/21 10:55 Lactic Acid (Sepsis) 3.4 mmol/L (0.5-2.2) H 02/14/21 18:37 Lactate 2.1 mmol/L (0.5-2.2) 02/18/21 07:52 Calcium 6.2 mg/dL (8.5-10.5) L 02/18/21 05:54 Phosphorus 10.7 mg/dL (2.5-4.5) H* 02/18/21 05:54 Magnesium 2.6 mg/dL (1.7-2.3) H 02/18/21 05:54 Total Bilirubin 0.7 mg/dL (0.15-1.2) 02/18/21 05:54 AST 248 U/L (0-40) H 02/18/21 05:54 ALT 220 U/L (0-41) H 02/18/21 05:54 Alkaline Phosphatase 80 IU/L (40-130) 02/18/21 05:54 Creatine Kinase 51614 U/L (39-308) H* 02/18/21 07:52 Troponin T Baseline 18 ng/L (0-15) H 02/14/21 10:55 Troponin T 120 Minute 27.90 ng/L (0-15) H 02/14/21 12:55 Delta Troponin T 9.90 ABS# (0-10) 02/14/21 12:55 Troponin T Hi Sens 6Hr 49.40 ng/L (0-15) H 02/14/21 16:30 Troponin T Hi Sens 6Hr Delta 31.40 ng/L (0-12) H* 02/14/21 16:30 C-Reactive Protein 372.9 mg/L (0.0-4.9) H 02/15/21 06:26 NT-Pro-B Natriuret Pep 1942 pg/mL (0-125) H 02/14/21 12:55 Total Protein 6.0 g/dL (6.6-8.7) L 02/18/21 05:54 Albumin 2.5 g/dL (3.5-5.2) L 02/18/21 05:54 Globulin 3.5 g/dL (1.3-4.6) 02/18/21 05:54 Interleukin 6 2895.00 pg/mL (<5.00) H 02/14/21 10:55 Procalcitonin 1.02 ng/mL (0-0.5) H 02/14/21 10:55 TSH 0.39 uIU/mL (0.27-4.20) 02/18/21 05:54 Urine Color Yellow (Yellow) 02/15/21 12:00 Urine Appearance Cloudy (CLEAR) 02/15/21 12:00 Urine pH 5 (5-7) 02/15/21 12:00 Ur Specific [place] 1.015 (1.005-1.030) 02/15/21 12:00 Urine Protein 2+ (Negative) H 02/15/21 12:00 Urine Glucose (UA) Trace (Normal) H 02/15/21 12:00 Urine Ketones Negative (Negative) 02/15/21 12:00 Urine Blood 3+ (Negative) H 02/15/21 12:00 Urine Nitrate Negative (Negative) 02/15/21 12:00 Urine Bilirubin Neg (Negative) 02/15/21 12:00 Urine Urobilinogen Norm mg/dL (Negative) 02/15/21 12:00 Ur Leukocyte Esterase Negative (Negative) 02/15/21 12:00 Urine RBC 10-15 /hpf (0-2) H 02/15/21 12:00 Urine WBC 5-10 /hpf (0-5) H 02/15/21 12:00 Ur Squamous Epith Cells 0-4 /hpf (0-5) H 02/15/21 12:00 Calcium Oxalate Crystal 0-4 /hpf H 02/15/21 12:00 Amorphous Sediment Not Reportable 02/15/21 12:00 Urine Bacteria 2+ /hpf (NONE) H 02/15/21 12:00 Urine Sperm 3+ /hpf 02/15/21 12:00 Ur Random Sodium 120 mmol/L 02/15/21 12:00 Urine Creatinine 32 mg/dL (39-259) L 02/15/21 12:00 Random Vancomycin 17.8 ug/mL (20.0-40.0) L 02/18/21 05:54 Serum Ketones Negative (Negative) 02/15/21 10:45 Hep Bs Antigen Non-reactive (Nonreactive) 02/15/21 17:00 Hep Bs Antibody 3.5 (11.5-1000) L 02/15/21 17:00 Hepatitis C Antibody Non-reactive (Nonreactive) 02/15/21 17:00 Impressions Chest X-Ray 02/18/21 04:00 IMPRESSION: Bilateral opacities consistent with edema and/or pneumonia decreased since 02/17/2021. Pelvis X-Ray 02/18/21 12:06 IMPRESSION: No acute findings. A&P Assessment and plan (1) Acute and chronic respiratory failure with hypoxia: Status: Acute (2) CAD (coronary artery disease): Status: Acute (3) ARDS (adult respiratory distress syndrome): Status: Acute (4) Diabetes mellitus: Status: Acute (5) Hypertension: Status: Acute Qualifiers: Hypertension type: unspecified Qualified Code(s): I10 - Essential (primary) hypertension (6) Pneumonia due to COVID-19 virus: Status: Acute (7) Hypotension: Status: Acute (8) JACINTO (acute kidney injury): Status: Acute (9) Pneumonia: Status: Acute (10) Hyperkalemia: Status: Acute (11) Metabolic acidosis: Status: Acute (12) Septic shock due to streptococcal infection: Status: Acute (13) Multiorgan failure: Status: Acute (14) DIC (disseminated intravascular coagulation): Status: Acute (15) Acute renal failure: Status: Acute #Acute hypoxic respiratory failure secondary to ARDS due to COVID-19 pneumonia #Diabetes #Gram-positive cocci bacteremia leading to septic shock and JACINTO requiring hemodialysis; DIC #ARDS #Hypertension #AK bacteremiaI-due to prerenal leading to possible ATN #Right upper lobe pneumonia -Tested positive on 02/05/2021; -Intubated on arrival in the ED 02/14/2021 -Sedated and connected to mechanical ventilator ; prone to 2 sessions and due for third proning session -7.1 0/59/137/18 on CMV 470/15/80 percent-metabolic acidosis likely secondary to renal failure -Plan is to continue HD/CRRT - Left gluteal hematoma-did not worsen -Chest x-ray Bilateral pulmonary opacities are again noted and appear unchanged. -on 5-day protocol remdesivir and dexamethasone 6 mg daily -Procalcitonin 1.02; -CRP 80; sputum and blood cultures positive for pansensitive strep pneumonia - on ceftriaxone 1 g daily started 02/17/2021 -MRSA PCR and bacterial antigen panel, Legionella antigen-negative -Significantly elevated D-dimer and elevated troponin I-placed on heparin drip; noted small subcutaneous hematoma left gluteal buttock-no drop in hemoglobin noted-continue heparin drip and monitor CBC -Continue aspirin for underlying CAD -A. fib RVR noted during dialysis-on amiodarone drip -Overall patient LFTs are improving since his admission -Currently requiring Levophed to keep maps above 65 -Insulin scale coverage for diabetes; lantus 10 Units hs tonight; -Metabolic acidosis and hyperkalemia-likely secondary to JACINTO -Nephrology recommendations appreciated-patient is started on hemodialysis but has issues with catheter clogging likely due to DIC -DVT prophylaxis: Already on heparin drip -GI prophylaxis: PPI -Fluoxetine 20 mg daily -Full code -Prognosis: Poor -Family updated Discussed with hospitalist, RN, RT covering the case Attestations Medical Necessity Statement*: Acute hypoxic respiratory failure secondary to ARDS due to COVID-19 pneumonia requiring mechanical ventilation with high FiO2, septic shock leading to prerenal JACINTO/ATN likely requires hemodialysis -overall needs close monitoring for multiorgan failure Time Spent in Patient Care: Greater than 35 minutes (>than 50% of time spent in counselling and/or direct pt care on unit). Critical Care Time: The high probability of a clinically significant, sudden or life threatening deterioration of the patient's [respiratory, renal, endocrine, cardiac, infectious] system(s) required my full and direct attention, intervention and personal management. The critical care time is as shown. This time is in addition to time spent performing any reported procedures but includes the following: [x] Data and vital sign review and interpretation [x] Patient assessment, examination and intervention [x] Documentation [x] Medication orders and management Critical Care Time (min): 45 Coding Level of Care Code Established Pt Acute Family Service Counselor for [facility] Patient Type Established History Comprehensive Exam Comprehensive Medical Decision Making High Complexity Diagnoses Acute and chronic respiratory failure with hypoxia J96.21 CAD (coronary artery disease) I25.10 ARDS (adult respiratory distress syndrome) J80 Diabetes mellitus E11.9 Hypertension I10 Hypertension type: unspecified Pneumonia due to COVID-19 virus U07.1; J12.82 Hypotension I95.9 JACINTO (acute kidney injury) N17.9 Pneumonia J18.9 Hyperkalemia E87.5 Metabolic acidosis E87.2 Septic shock due to streptococcal infection A40.9; R65.21 Multiorgan failure DIC (disseminated intravascular coagulation) D65 Acute renal failure N17.9 Time Spent (min) 45
[2021-02-19] VITALS (133 sets, daily range): BP systolic 88–147; BP diastolic 54–78; PULSE 79–99; RESP 24–26; TEMP 36.7–37.3; O2SAT 83–96
[2021-02-19] MEDS: propofol 1,000 MG/100 ML INJ 6.12 MG IV ×3 (00:45→20:33)
[2021-02-19] MEDS: ipratropium-albuterol 3 mL Neb INHALATION ×4 (02:37→21:13)
[2021-02-19 03:06] LABS: Basophils # 0.2 10^3/uL (0.0-0.1); Basophils % 0.8 %; Hematocrit 38.5 % (42.0-52.0); Hemoglobin 12.6 g/dL (11.7-16.6); Lymphocytes # 0.5 10^3/uL (0.8-4.8); Lymphocytes % 2.3 %; Mean Corpuscular HGB Conc 32.7 g/dL (30.0-36.0); Mean Corpuscular Hemoglobin 28.7 pg (28.0-34.0); Mean Corpuscular Volume 87.7 fl (80-94); Mean Platelet Volume 10.4 fL (7.4-10.4); Monocytes % 4.4 %; Neutrophils # 19.34 10^3/uL (1.8-7.7); Neutrophils % 85.7 %; Nucleated Red Blood Cells % 0.2 %; Platelet Count 307 10^3/cmm (130-400); Red Blood Count 4.39 10^6/uL (4.1-5.3); Red Cell Distribution Width 15.1 % (12.1-15.1); White Blood Count 22.6 10^3/uL (4.0-10.0)
[2021-02-19 03:15] LABS: Partial Thromboplastin Time 41.2 SECONDS (23.9-36.7)
[2021-02-19 03:22] LABS: Lactate (Lactic Acid level) 2.3 mmol/L (0.5-2.2); Vancomycin Random 16.9 ug/mL (20.0-40.0)
[2021-02-19 03:23] LABS: Alanine Aminotransferase 192 U/L (0-41); Albumin Level 2.4 g/dL (3.5-5.2); Alkaline Phosphatase 71 IU/L (40-130); Anion Gap 24.7 (5-19); Aspartate Amino Transferase 182 U/L (0-40); Blood Urea Nitrogen 74 mg/dL (6-20); Calcium 6.3 mg/dL (8.5-10.5); Carbon Dioxide 20 mmol/L (22-29); Chloride 89 mmol/L (98-107); Globulin 3.6 g/dL (1.3-4.6); Glomerular Filtration Rate 8.7 mL/min (90-130); Glucose 289 mg/dL (65-115); Magnesium 2.6 mg/dL (1.7-2.3); Osmolality Calculated 300 mOsm/kg (285-295); Potassium 4.7 mmol/L (3.5-5.1); Sodium 129 mmol/L (136-145); Total Bilirubin 0.5 mg/dL (0.15-1.2)
[2021-02-19 03:35] LABS: Phosphorus 7.7 mg/dL (2.5-4.5)
[2021-02-19 03:37] LABS: Creatine Phosphokinase 8764 U/L (39-308)
[2021-02-19 03:42] LABS: Slide Review Slide Review Perform
[2021-02-19] MEDS: heparin 5,000 unit/mL INJ 1 mL IV ×2 (04:23→23:42)
--- NOTE | 2021-02-19 04:32 | PC.NURSE ---
Addendum entered by Nola Naranjo RN 02/19/21 06:38: Approx 05:15 patient started to decline again with SpOx 82%. Dr Piper at bedside. [facility] Vent changes made, restarted Nimbex gtt, SpOx 88%. Also called Dr. Diamond, notified of decline, plan is for dialysis this morning. BIS TOF 05:30 34 4 05:45 33 4 06:00 38 4 Original Note: Shift Note Frequent safety and comfort rounds continue. Orders and/or nursing care completed as indicated. Patient monitored for response to intervention and treatment(s). Education provided includes[]. Patient and/or correspondence representative [[email or web address]]. Patient sedated and mechanically ventilated. Prone positioning sessions completed 02/18 without orders to further prone at this time. Patient developed tachypneic, asynchronous breathing, SpOx dropped to 82% which required an increase in sedation. Patient also required repositioning to his left side with HOB at <25 degrees, after all of the above interventions patient's SpOx improved to >90%. Critical labs called to Dr. Piper with no new orders at this time. Will continue to monitor.
[2021-02-19] MEDS: propofol 1,000 MG/100 ML INJ 30.62 MG IV ×2 (04:53→08:44)
[2021-02-19 05:02] LABS: ABG PCO2 44.9 mmHg (35-45); ABG PH Result 7.27 (7.35-7.45); Arterial Blood Gas Hematocrit 39.9 % (42-52); Base Excess ABG -6.5 mmol/L (-2.0-2.0); Blood Gas Allen Test Pos; Blood Gas Operator Identificat HARKR; Blood Gas Sample Site Radial, right; Blood Gas Sample Type Arterial; Blood Gas Tidal Volume 0.49; Fractionated Inspired Oxygen 0.8 %; HCO3 ABG 20.4 mmol/L (22-26); Oxygen Device VENT; PO2 ABG 58.9 mmHg (80.0-100.0)
[2021-02-19] MEDS: cisatracurium 100 MG in sodium chloride 0.9% 50 ML IV (05:15)
--- NOTE | 2021-02-19 05:49 | P.PNCC_ITS ---
Critical Care Event Note Critical Care Event The high probability of a clinically significant, sudden or life threatening deterioration of the patient's respiratorysystem(s) required my full and direct attention, intervention and personal management. The critical care time is as shown. This time is in addition to time spent performing any reported procedures but includes the following: [x] Data and vital sign review and interpretation [x] Patient assessment, examination and intervention [x] Documentation [x] Medication orders and management Patient with intermittent worsening of oxygen saturations through the night. For a while able to get improvement with adjustments in ventilator settings or position but no longer. Currently on CMV TV 490, rate 24, Peep 14, FIO2 100% with sats in low 80s. 7.27/45/58/20. Added nimbix back also without improvement. CXR this am with significant increase in bilateral opacities, right greater than left. Not making urine. Tolerated some HD yesterday with 1100 pulled volume. Remains positive > 9L for stay Have reached out to nephrology and dialysis nurse getting called in to start CRRT as soon as possible. Sats on current settings ranging 82-85%. Critical Care Time Critical Care Time: Code activated: No Critical Care Time (min): 45 Coding Level of Care Code Acute Rehab Nursing Tech for [facility]in Tse
--- NOTE | 2021-02-19 06:33 | PM.PN ---
Subjective Subjective: Interval history: intubated, sedated in ICU Medications: Reviewed: Yes Medication Review Details: Current Medications Acetaminophen (Acetaminophen 325 Mg Tablet) 650 mg PO Q6H PRN PRN Reason: MILD PAIN Albuterol/Ipratropium (Ipratropium-Albuterol 3 Ml Neb) 3 ml IN[address] Q6H.RES[address]ORY [facility] Last Admin: 02/19/21 02:37 Dose: 3 ml Documented by: Alteplase, Recombinant (Alteplase 1 Mg/Ml Sdv 2 Ml) 2 mg INTRACATH PRN PRN PRN Reason: DIALYSIS USE ONLY Last Admin: 02/16/21 12:29 Dose: 2 mg Documented by: Amiodarone HCl (Amiodarone 200 Mg Tablet) [address] [facility] Last Admin: 02/18/21 18:32 Dose: 200 mg Documented by: Aspirin (Aspirin 81 Mg Ec Tablet) [address] [facility] Last Admin: 02/18/21 09:22 Dose: 81 mg Documented by: Dexamethasone (Dexamethasone 10 Mg/Ml Inj) [address] [facility] Last Admin: 02/18/21 18:32 Dose: 6 mg Documented by: Dextrose (Dextrose 50% Syringe 50 Ml) 25 ml IVP ONCE PRN; Protocol PRN Reason: hypoglycemia protocol Dextrose (Dextrose 50% Syringe 50 Ml) 50 ml IVP PRN PRN; Protocol PRN Reason: hypoglycemia protocol Docusate Sodium (Docusate Sodium 10 Mg/Ml (5ml) Liq) [address] [facility] Last Admin: 02/18/21 09:26 Dose: 100 mg Documented by: Famotidine (Famotidine 20 Mg/2 Ml Inj) [address] [facility] Last Admin: 02/18/21 23:39 Dose: 20 mg Documented by: Fluoxetine HCl (Fluoxetine 20 Mg Capsule) [address] [facility] Last Admin: 02/18/21 09:22 Dose: 20 mg Documented by: Glucagon (Glucagon 1 Mg/Ml Inj 1 Ml) 1 mg IM ONCE PRN; Protocol PRN Reason: Adult Acute Hypoglycemia Prot. Heparin Sodium (Beef Lung) (Heparin 5,000 Unit/Ml Inj 1 Ml) 0 unit IV PRN PRN; Protocol PRN Reason: Heparin weight-base protocol Last Admin: 02/19/21 04:23 Dose: 4,800 unit Documented by: Fentanyl 1,000 mcg/ Sodium (Chloride) 100 mls @ 0 mls/hr IV .Q0M [facility]; Protocol Last Admin: 02/19/21 01:07 Dose: 75 mcg/hr, 7.5 mls/hr Documented by: Propofol (Diprivan) 1,000 mg in 100 mls @ 0 mls/hr IV .Q0M [facility]; Protocol Last Admin: 02/19/21 04:53 Dose: 50 mcg/kg/min, 30.62 mls/hr Documented by: Heparin Sodium/Sodium Chloride (Heparin Drip) 25,000 unit in 500 mls @ 0 mls/hr IV .Q0M [facility]; Protocol Last Titration: 02/19/21 04:25 Dose: 10.29 unit/kg/hr, 21 mls/hr Documented by: Norepinephrine Bitartrate 4 mg (/ Dextrose) 254 mls @ 0 mls/hr IV .Q0M [facility]; Protocol Last Titration: 02/15/21 16:26 Dose: Infused Documented by: Dextrose (D5w) 500 mls @ 100 mls/hr IV ONCE PRN; Protocol PRN Reason: Adult Acute Hypoglycemia Prot Midazolam HCl 100 mg/ Sodium (Chloride) 100 mls @ 0 mls/hr IV .Q0M [facility]; Protocol Last Admin: 02/19/21 01:07 Dose: 4 mg/hr, 4 mls/hr Documented by: Norepinephrine Bitartrate 8 mg (/ Dextrose) 508 mls @ 0 mls/hr IV .Q0M [facility]; Protocol Last Titration: 02/19/21 01:30 Dose: 4 mcg/min, 15.24 mls/hr Documented by: Sodium Chloride (Sodium Chloride 0.9%) 1,000 mls @ 0 mls/hr IV .Q0M PRN PRN Reason: hypotension or symptomatic Albumin Human (Albumin) 12.5 gm in 50 mls @ 60 mls/hr IV PRN PRN PRN Reason: Hypotension and/or symptomatic Amiodarone HCl 900 mg/Dextrose/ IV Miscellaneous Supplies 518 mls @ 0 mls/hr IV .Q0M [facility]; Protocol Last Titration: 02/18/21 19:19 Dose: Infused Documented by: Ceftriaxone Sodium 1,000 mg/ (Sodium Chloride) 100 mls @ 200 mls/hr IV Q12H [facility]; Protocol Last Infusion: 02/19/21 00:59 Dose: Infused Documented by: Albumin Human (Albumin) 12.5 gm in 50 mls @ 60 mls/hr IV PRN PRN PRN Reason: Hypotension and/or symptomatic Cisatracurium Besylate 100 mg/ (Sodium Chloride) 100 mls @ 0 mls/hr IV .Q0M [facility]; Protocol Insulin Aspart (Insulin Aspart 100 Unit/1 Ml) 0 unit SUBCUT WM&BEDTIME [facility]; Protocol Last Admin: 02/18/21 21:11 Dose: 10 unit Documented by: Insulin Glargine (Insulin Glargine 100 Units/1 Ml) 25 unit SUBCUT BEDTIME [facility] Last Admin: 02/18/21 21:11 Dose: 25 unit Documented by: Ondansetron HCl (Ondansetron 2 Mg/Ml Sdv 2 Ml) 4 mg IVP Q6H PRN PRN Reason: NAUSEA AND VOMITING Senna/Docusate Sodium (Sennosides-Docusate Tablet) 1 tab PO DAILY [facility] Last Admin: 02/18/21 09:22 Dose: 1 tab Documented by: Vitals/I&O/Wt Last Vital Signs Temp 98.4 F 02/19/21 04:00 Pulse 87 02/19/21 06:00 Resp 25 H 02/19/21 04:14 BP 134/71 02/19/21 04:15 Pulse Ox 95 02/19/21 04:15 02/18/21 02/18/21 02/19/21 14:59 22:59 06:59 Intake Total 609.903 / 583.401 9289.414 / 1857.317 629.102 / 2486.419 Output Total 2205 / 2205 Balance 609.903 / 609.903 -957.586 / -347.683 629.102 / 281.419 Weight last 48 hrs Weight 122.5 kg Weight 123.15 kg Weight 127.2 kg Physical Exam Narrative: EXAM NARRATIVE: supine,levo @ 2, vent tv 490, rr 24, peep 14, iht7=424% heent- nc/at lungs ronchi- poor air movement b/l heart reg ext edema increased rt femoral dialysis catheter neuro - sedated seen and examined w/ rN- telehealth visit Urinary Catheter Management^: Mckinnon: Cath Placed During This Visit: yes Reason for Continuing Indwelling Catheter: Accurate Measurement of Urinary Output in Critically Ill Patients Urinary Catheter Date of Insertion: 02/14/21 Urinary Catheter Time of Insertion: 11:05 Data : 02/19/21 02:47 02/19/21 02:47 A&P Additional A&P Information 1. Acute anuric kidney injury: rhabdomyolysis, ischemic ATN, COVID, was on ACEi as outpatient - s/p HD yesterday- remains in NSR -as sob- attempt SUF for 4 hrs- remove 500- 1000 ml/ hr, pressers as needed -if fails IHD, then attempt CRRT 2. COVID-19 SARS PNa per pulm 3. leukocytosis from covid -19 and strep pneumoniae bacteremia -keep vanco level under 20 4. resp acidosis - steroids, vent, HD -improving -hypoxemia- monitor w/ hd 5. hyponatremia- from pna, covid-19 and jacinto- monitor w/ HD- improving 6. rhabdo myolysis- improving w/ HD 7. Shock liver -improving 8. dm control per medicine 9. hyperphosphatemia from JACINTO and rhabdomyolysis -improving seen and examined w/ EQUIPMENT APPLICATION SPECIALIST- telehealth visit - discussed w/ rN and Dr. Duron prognosis is guarded time spent 30 minutes Attestations Medical Necessity Statement*: septic shock, hypoxemia, jacinto, VDRF, COVID-19 Time Spent in Patient Care: 16 - 35 minutes Coding Level of Care Code Acute Associate Director Finance for [employer]in Tse
--- NOTE | 2021-02-19 07:00 | XRR_ITS ---
PROCEDURE INFORMATION: Exam: XR Chest Exam date and time: 02/19/2021 7:00 AM Age: 60 years old Clinical indication: Shortness of breath; Patient HX: Worsening hypoxia. Covid+. Intubated. ; Additional info: Follow up resp failure TECHNIQUE: Imaging protocol: XR of the chest. Views: 1 view. Total images: 1 COMPARISON: CR XR chest 1V portable [id number] 02/18/2021 2:05 PM FINDINGS: Tubes, catheters and devices: An endotracheal tube is present, terminating above the riley by 5 cm. Tubes and catheters are otherwise unchanged from the prior exam. Lungs: Bilateral pulmonary opacities are again noted and have shown interval worsening from the prior exam. Pleural spaces: Unremarkable. No pleural effusion. No pneumothorax. Heart/Mediastinum: Heart size is stable when compared to the prior exam. Bones/joints: Osseous structures are unchanged from the prior exam. XR/XR chest 1V portable [id number] IMPRESSION: 1. An endotracheal tube is present, terminating above the riley by 5 cm. Tubes and catheters are otherwise unchanged from the prior exam. 2. Bilateral pulmonary opacities are again noted and have shown interval worsening from the prior exam.
[2021-02-19 08:06] LABS: Glucose Point of Care 268 mg/dL (70-110)
[2021-02-19] MEDS: alteplase 1 mg/mL SDV 2 mL 4 MG INTRACATH (08:20)
[2021-02-19] MEDS: amiodarone 200 mg Tablet PO ×2 (08:44→18:14)
[2021-02-19] MEDS: sennosides-docusate Tablet 1 TAB PO (08:44)
[2021-02-19] MEDS: aspirin 81 mg EC Tablet PO (08:44)
[2021-02-19] MEDS: fluoxetine 20 mg Capsule PO (08:44)
[2021-02-19] MEDS: docusate sodium 10 mg/mL (5ml) Liq 100 MG PO (08:57)
--- NOTE | 2021-02-19 09:41 | PC.CHAP ---
Pastoral Care Encounter/Spiritual Assessment Type of Contact [] Declined picking table worker visit [] Patient/Family/Request visit [] Outpatient visit [] Follow-up visit [] Physician referral [] Code/Alert [x] Routine visit [] Staff referral [] Actively dying [] Patient sleeping [] Family support [] [] Out of room [] Palliative care [] [x] Receiving care in room [] Pre-surgical visit [] Trauma [] Long length of stay [x] ICU visit [x] Other: vent... Relational/Emotional Strength [] Patient feels connected with others/family/visitors/staff [] Distress [] Loneliness/isolation [] Abandonment Spirituality of Patient [] Person of Lillian [] Attends Hindu of their Lillian [] Believes in Prayer [] Reads Bible or Mandaeism materials [] There are Spiritual issues to be addressed Senior Writer Interventions [x] Prayer [] Active listening [] Non-anxious presence [] Spiritual/emotional support [] Crisis/trauma care [] Spiritual counseling [] Bereavement support [] Provided bereavement packet [] Provided Bible/devotional materials [] Provided toy/stuffed animal, coloring book to patient or family member [] Provided Communion [] Anointing/[place] [] Salvation [x] Completed spiritual assessment [] Other: Impact on Illness or Injury [] Angry [] Fearful [] Anxious [] Often cries [] Exhaustion [] Unable to work [] Unable to attend islam [] Unable to walk/stand [] Unable to read [] Unable to drive [] Unable to eat/drink [] Unable to sleep [] Unable to be with family [] Patient intubated [] Other: Summary Time spent with patient
[2021-02-19 11:16] LABS: Ketone (Acetest) Serum Negative (Negative)
[2021-02-19 11:38] LABS: Partial Thromboplastin Time 61.3 SECONDS (23.9-36.7)
[2021-02-19 12:04] LABS: Glucose Point of Care 238 mg/dL (70-110)
[2021-02-19] MEDS: cefTRIAXone 1,000 MG in sodium chloride 0.9% (plus) 100 ML 200 MG IV ×2 (12:19→23:41)
[2021-02-19] MEDS: famotidine 20 mg/2 mL INJ IVP ×2 (12:19→23:42)
--- NOTE | 2021-02-19 13:01 | P.PN_ITS ---
Subjective Subjective: Interval history: Federico is sedated on the ventilator. He is currently undergoing dialysis. They are planning to remove several liters. Medications: Reviewed: Yes Vitals/I&O/Wt Last Vital Signs Temp 98.4 F 02/19/21 04:00 Pulse 82 02/19/21 12:30 Resp 24 H 02/19/21 12:30 BP 93/57 02/19/21 12:30 Pulse Ox 93 02/19/21 12:30 02/18/21 02/19/21 02/19/21 22:59 06:59 14:59 Intake Total 1247.414 / 1857.317 630.390 / 2487.707 159.037 / 159.037 Output Total 2205 / 2205 Balance -957.586 / -347.683 630.390 / 282.707 159.037 / 159.037 Weight last 48 hrs Weight 127.63 kg Weight 122.5 kg Weight 123.15 kg Weight 127.2 kg Physical Exam Narrative: EXAM NARRATIVE: General exam: Sedated, supine. Dialysis being performed at this time. Neck is supple no lymphadenopathy or thyromegaly Cardiovascular regular rate and rhythm without murmur Lungs coarse breath sounds bilaterally Abdomen is soft obese positive bowel sounds. No obvious organomegaly demonstrates Mckinnon. No significant urine output Extremities no cyanosis clubbing or edema, cap refill brisk Urinary Catheter Management^: Mckinnon: Cath Placed During This Visit: yes Reason for Continuing Indwelling Catheter: Accurate Measurement of Urinary Output in Critically Ill Patients Urinary Catheter Date of Insertion: 02/14/21 Urinary Catheter Time of Insertion: 11:05 Data : 02/19/21 02:47 02/19/21 02:47 Other data: X-ray of pelvis yesterday demonstrated no fracture. ABG demonstrated pH of 7.27, PCO2 of 45, PO2 of 58 Liver function tests are improving CK improving Chest x-ray tubes okay Repeat blood cultures negative to date. A&P Assessment and plan (1) Pneumonia due to COVID-19 virus: TodaySevere COVID-19 pneumonia, first testing + February 05 Intubated in the emergency department, requiring a significant amount of PEEP and an FiO2 of 100%. Has had several sessions of proning, with improvement of oxygenation. Appreciate critical care consultation Continue dexamethasone. Initially placed on vancomycin and Zosyn secondary to concern for bacterial infection. Cultures have grown strep pneumonia and IV antibiotics have been changed to ceftriaxone 1 g IV every 12 hours. D-dimer was also significantly elevated and patient is still on heparin drip. Dimer has decreased significantly. Continue pulmonary toilet MRSA PCR, bacterial antigens, Legionella antigen negative. Nimbex drip was reinitiated, to promote ventilation and oxygenation. Status: Acute (2) Acute and chronic respiratory failure with hypoxia: See above Status: Acute (3) ARDS (adult respiratory distress syndrome): Status: Acute (4) CAD (coronary artery disease): Continue aspirin Continue Heparin drip Elevation in troponin noted may be type II elevation but positive delta is noted. Echocardiogram demonstrated preserved ejection fraction, no severe valvular abnormalities, no regional wall motion abnormalities. Status: Acute (5) Hypertension: Antihypertensives held. Norepinephrine as needed. Status: Acute Qualifiers: Hypertension type: unspecified Qualified Code(s): I10 - Essential (primary) hypertension (6) Diabetes mellitus: Sliding scale insulin Continue long-acting insulin Status: Acute Additional A&P Information Strep pneumonia bacteremia. Requiring norepinephrine for pressure support. Change to ceftriaxone. Repeat blood cultures were ordered, and negative to d ate. Atrial fibrillation with rapid ventricular rate, occurring with dialysis night of February 17. Placed on amiodarone drip. Now transition to p.o. Acute kidney injury, oliguric. Associate with hyperkalemia initially. Dialysis again today with fluid removal. Appreciate nephrology consultation. Rhabdomyolysis. CK improved Left gluteal hematoma. With elevated CK could consider possibility of fall at home. AP pelvis shows no fracture Full code Heparin drip will suffice for DVT prophylaxis Pepcid for GI prophylaxis Attestations Medical Necessity Statement*: Needs continued hospitalization for IV antibiotics secondary to bacteremia, and treatment of COVID-19 pneumonia requiring mechanical ventilation. Critical Care Time: Critical Care Time (min): 35 Other Attestations: The high probability of a clinically significant, sudden or life threatening deterioration of the patient's [pulmonary, infectious disease, renal] system(s) required my full and direct attention, intervention and personal management. The critical care time is as shown. This time is in addition to time spent performing any reported procedures but includes the following: [x] Data and vital sign review and interpretation [x] Patient assessment, examination and intervention [x] Documentation [x] Medication orders and management Coding Level of Care Code Acute Retail Wireless Sales Representative for Chg Fwd Diagnoses Pneumonia due to COVID-19 virus U07.1; J12.82 Acute and chronic respiratory failure with hypoxia J96.21 ARDS (adult respiratory distress syndrome) J80 CAD (coronary artery disease) I25.10 Hypertension I10 Hypertension type: unspecified Diabetes mellitus E11.9
--- NOTE | 2021-02-19 13:17 | PC.NURSE ---
Dialyzed 3,000 ml off complete at 1315
[2021-02-19] MEDS: heparin, porcine 1,000 unit/mL INJ 10 mL HE (13:21)
--- NOTE | 2021-02-19 13:48 | PC.NURSE ---
Tube feeding residual >250, TF held.
[2021-02-19] MEDS: propofol 1,000 MG/100 ML INJ 24.49 MG IV (13:59)
[2021-02-19 17:03] LABS: Legionella Antibody <1:256 TITER
[2021-02-19] MEDS: cisatracurium 100 MG in sodium chloride 0.9% 50 ML 9.56 MG IV (17:06)
[2021-02-19 17:26] LABS: Partial Thromboplastin Time 55.8 SECONDS (23.9-36.7)
[2021-02-19 18:01] LABS: Glucose Point of Care 241 mg/dL (70-110)
[2021-02-19] MEDS: dexamethasone 10 mg/mL INJ 6 MG IVP (18:14)
[2021-02-19 19:52] LABS: Glucose Point of Care 257 mg/dL (70-110)
[2021-02-19] MEDS: insulin glargine 100 units/1 mL 35 UNIT SUBCUT (20:32)
[2021-02-19] MEDS: heparin drip 25,000 UNIT/500 ML PREMIX 21 UNIT IV (20:34)
--- NOTE | 2021-02-19 23:17 | PM.PN ---
Subjective Subjective: Interval history: -Patient seen at bedside today -Tolerated hemodialysis well and removed about 2 L fluid -Labs and imaging reviewed Medications: Reviewed: Yes Vitals/I&O/Wt Last Vital Signs Temp 98.2 F 02/19/21 19:45 Pulse 98 02/19/21 22:50 Resp 23 H 02/19/21 21:19 BP 128/65 02/19/21 22:50 Pulse Ox 94 02/19/21 22:50 02/19/21 02/19/21 02/20/21 14:59 22:59 06:59 Intake Total 445.910 / 201.456 2002.727 / 1543.637 Output Total 3000 / 3000 Balance 445.910 / 445.910 -1902.273 / -1456.363 Weight last 48 hrs Weight 277 lb 12.519 oz Weight 281 lb 6 oz Weight 270 lb 1.06 oz Weight 271 lb 8 oz Physical Exam Narrative: EXAM NARRATIVE: General: lying in bed, proned sedated and intubated. HEENT:NCAT, PERRLA, EOMI Neck: Supple Lungs: Bilateral diffuse coarse crackles Heart: s1/s2, RRR Abd: soft, NT, ND, BS + Normoactive Extremities: No edema BIBLICAL LANGUAGES PROFESSOR: sedated and limited BIBLICAL LANGUAGES PROFESSOR exam possible. SKIN: no rash; left gluteal subcutaneous hematoma LDA: # CVC: Right cutaneous IJ CVC 02/14/2021 # HD Cath : Right femoral HD catheter 02/15/2021 # Mckinnon: 02/14/2021 Urinary Catheter Management^: Mckinnon: Cath Placed During This Visit: yes Reason for Continuing Indwelling Catheter: Accurate Measurement of Urinary Output in Critically Ill Patients Urinary Catheter Date of Insertion: 02/14/21 Urinary Catheter Time of Insertion: 11:05 Data : 02/20/21 15:30 02/20/21 15:30 Other Labs: Laboratory Results WBC 22.6 10^3/uL (4.0-10.0) H 02/19/21 02:47 RBC 4.39 10^6/uL (4.1-5.3) 02/19/21 02:47 Hgb 12.6 g/dL (11.7-16.6) 02/19/21 02:47 Hct 38.5 % (42.0-52.0) L 02/19/21 02:47 MCV 87.7 fl (80-94) 02/19/21 02:47 MCH 28.7 pg (28.0-34.0) 02/19/21 02:47 MCHC 32.7 g/dL (30.0-36.0) 02/19/21 02:47 RDW 15.1 % (12.1-15.1) 02/19/21 02:47 Plt Count 307 10^3/cmm (130-400) D 02/19/21 02:47 MPV 10.4 fL (7.4-10.4) 02/19/21 02:47 Neut % (Auto) 85.7 % 02/19/21 02:47 Lymph % (Auto) 2.3 % 02/19/21 02:47 Thomas % (Auto) 4.4 % 02/19/21 02:47 Eos % (Auto) 0.0 % 02/19/21 02:47 Baso % (Auto) 0.8 % 02/19/21 02:47 Neut # (Auto) 19.34 10^3/uL (1.8-7.7) H 02/19/21 02:47 Lymph # (Auto) 0.5 10^3/uL (0.8-4.8) L 02/19/21 02:47 Thomas # (Auto) 1.0 10^3/uL (0.2-0.9) H 02/19/21 02:47 Eos # (Auto) 0.0 10^3/uL (0.0-0.8) 02/19/21 02:47 Baso # (Auto) 0.2 10^3/uL (0.0-0.1) H 02/19/21 02:47 Nucleated RBC % (auto) 0.2 % 02/19/21 02:47 Nucleated RBCs # 0.0 /100WBC 02/19/21 02:47 PT 14.10 SECONDS (12.1-14.9) 02/18/21 10:00 INR 1.06 (0.8-1.2) 02/18/21 10:00 APTT 55.8 SECONDS (23.9-36.7) H 02/19/21 16:36 Fibrinogen 529 mg/dL (174-498) H 02/18/21 10:00 Fibrin Degrad Products Pos, >=40 ug/mL (NEG) H 02/18/21 10:00 D-Dimer 3.67 ug/mIFEU (0-0.59) H 02/18/21 10:00 Specimen Type Arterial 02/19/21 04:51 Sample Site Radial, right 02/19/21 04:51 ABG pH 7.27 (7.35-7.45) L 02/19/21 04:51 ABG pCO2 44.9 mmHg (35-45) 02/19/21 04:51 ABG pO2 58.9 mmHg (80.0-100.0) L 02/19/21 04:51 ABG HCO3 20.4 mmol/L (22-26) L 02/19/21 04:51 ABG O2 Saturation 98.0 02/17/21 06:45 ABG Base Excess -6.5 mmol/L (-2.0-2.0) L 02/19/21 04:51 Artemio Test Pos 02/19/21 04:51 A-a O2 Gradient 65.4 mmHg (5-10) H 02/17/21 06:45 Hematocrit 39.9 % (42-52) L 02/19/21 04:51 Hgb O2 Saturation 97.4 % (95-100) 02/17/21 06:45 Carboxyhemoglobin 0.1 %THgb (0.4-20.1) L 02/17/21 06:45 Methemoglobin 0.5 % (0.4-1.5) 02/17/21 06:45 Total Hemoglobin 14.4 g/dL (14-18) 02/17/21 06:45 Sodium 126.0 mmol/L (131-143) L 02/17/21 06:45 Potassium 4.8 mmol/L (3.5-5.0) 02/17/21 06:45 Glucose 287.0 mg/dL (70-115) H 02/17/21 06:45 Ionized Calcium 0.9 mmol/L (1.1-1.4) L 02/17/21 06:45 O2 Delivery Device Vent 02/19/21 04:51 Mechanical Rate 24.0 02/19/21 04:51 FiO2 0.8 % 02/19/21 04:51 Tidal Volume 0.49 02/19/21 04:51 PEEP 14.0 cmH20 02/19/21 04:51 Research Programmer ID [email or web address] 02/19/21 04:51 Sodium 129 mmol/L (136-145) L 02/19/21 02:47 Potassium 4.7 mmol/L (3.5-5.1) 02/19/21 02:47 Chloride 89 mmol/L (98-107) L 02/19/21 02:47 Carbon Dioxide 20 mmol/L (22-29) L 02/19/21 02:47 Anion Gap 24.7 (5-19) H 02/19/21 02:47 BUN 74 mg/dL (6-20) H 02/19/21 02:47 Creatinine 6.6 mg/dL (0.7-1.2) H* 02/19/21 02:47 GFR Calculation 8.7 mL/min (90-130) L 02/19/21 02:47 Glucose 289 mg/dL (65-115) H 02/19/21 02:47 POC Glucose 257 mg/dL (70-110) H 02/19/21 19:26 Calculated Osmolality 300 mOsm/kg (285-295) H 02/19/21 02:47 Lactic Acid 3.8 mmol/L (0.5-2.2) H 02/14/21 10:55 Lactic Acid (Sepsis) 3.4 mmol/L (0.5-2.2) H 02/14/21 18:37 Lactate 2.3 mmol/L (0.5-2.2) H 02/19/21 02:47 Calcium 6.3 mg/dL (8.5-10.5) L 02/19/21 02:47 Phosphorus 7.7 mg/dL (2.5-4.5) H* D 02/19/21 02:47 Magnesium 2.6 mg/dL (1.7-2.3) H 02/19/21 02:47 Total Bilirubin 0.5 mg/dL (0.15-1.2) 02/19/21 02:47 AST 182 U/L (0-40) H 02/19/21 02:47 ALT 192 U/L (0-41) H 02/19/21 02:47 Alkaline Phosphatase 71 IU/L (40-130) 02/19/21 02:47 Creatine Kinase 8764 U/L (39-308) H* 02/19/21 02:47 Troponin T Baseline 18 ng/L (0-15) H 02/14/21 10:55 Troponin T 120 Minute 27.90 ng/L (0-15) H 02/14/21 12:55 Delta Troponin T 9.90 ABS# (0-10) 02/14/21 12:55 Troponin T Hi Sens 6Hr 49.40 ng/L (0-15) H 02/14/21 16:30 Troponin T Hi Sens 6Hr Delta 31.40 ng/L (0-12) H* 02/14/21 16:30 C-Reactive Protein 372.9 mg/L (0.0-4.9) H 02/15/21 06:26 NT-Pro-B Natriuret Pep 1942 pg/mL (0-125) H 02/14/21 12:55 Total Protein 6.0 g/dL (6.6-8.7) L 02/19/21 02:47 Albumin 2.4 g/dL (3.5-5.2) L 02/19/21 02:47 Globulin 3.6 g/dL (1.3-4.6) 02/19/21 02:47 Interleukin 6 2895.00 pg/mL (<5.00) H 02/14/21 10:55 Procalcitonin 1.02 ng/mL (0-0.5) H 02/14/21 10:55 TSH 0.39 uIU/mL (0.27-4.20) 02/18/21 05:54 Urine Color Yellow (Yellow) 02/15/21 12:00 Urine Appearance Cloudy (CLEAR) 02/15/21 12:00 Urine pH 5 (5-7) 02/15/21 12:00 Ur Specific [place] 1.015 (1.005-1.030) 02/15/21 12:00 Urine Protein 2+ (Negative) H 02/15/21 12:00 Urine Glucose (UA) Trace (Normal) H 02/15/21 12:00 Urine Ketones Negative (Negative) 02/15/21 12:00 Urine Blood 3+ (Negative) H 02/15/21 12:00 Urine Nitrate Negative (Negative) 02/15/21 12:00 Urine Bilirubin Neg (Negative) 02/15/21 12:00 Urine Urobilinogen Norm mg/dL (Negative) 02/15/21 12:00 Ur Leukocyte Esterase Negative (Negative) 02/15/21 12:00 Urine RBC 10-15 /hpf (0-2) H 02/15/21 12:00 Urine WBC 5-10 /hpf (0-5) H 02/15/21 12:00 Ur Squamous Epith Cells 0-4 /hpf (0-5) H 02/15/21 12:00 Calcium Oxalate Crystal 0-4 /hpf H 02/15/21 12:00 Amorphous Sediment Not Reportable 02/15/21 12:00 Urine Bacteria 2+ /hpf (NONE) H 02/15/21 12:00 Urine Sperm 3+ /hpf 02/15/21 12:00 Ur Random Sodium 120 mmol/L 02/15/21 12:00 Urine Creatinine 32 mg/dL (39-259) L 02/15/21 12:00 Random Vancomycin 16.9 ug/mL (20.0-40.0) L 02/19/21 02:47 Serum Ketones Negative (Negative) 02/19/21 10:23 Hep Bs Antigen Non-reactive (Nonreactive) 02/15/21 17:00 Hep Bs Antibody 3.5 (11.5-1000) L 02/15/21 17:00 Hepatitis C Antibody Non-reactive (Nonreactive) 02/15/21 17:00 Legionella Antibody <1:256 TITER 02/14/21 18:37 Impressions Pelvis X-Ray 02/18/21 12:06 IMPRESSION: No acute findings. Chest X-Ray 02/19/21 07:00 IMPRESSION: 1. An endotracheal tube is present, terminating above the riley by 5 cm. Tubes and catheters are otherwise unchanged from the prior exam. 2. Bilateral pulmonary opacities are again noted and have shown interval worsening from the prior exam. Micro: Microbiology 02/18/21 18:10 Gram Stain - Final Sputum - Endotracheal Tube Aspirate A&P Assessment and plan (1) Acute and chronic respiratory failure with hypoxia: Status: Acute (2) CAD (coronary artery disease): Status: Acute (3) ARDS (adult respiratory distress syndrome): Status: Acute (4) Diabetes mellitus: Status: Acute (5) Hypertension: Status: Acute Qualifiers: Hypertension type: unspecified Qualified Code(s): I10 - Essential (primary) hypertension (6) Pneumonia due to COVID-19 virus: Status: Acute (7) Hypotension: Status: Acute (8) JACINTO (acute kidney injury): Status: Acute (9) Pneumonia: Status: Acute (10) Hyperkalemia: Status: Acute (11) Metabolic acidosis: Status: Acute (12) Septic shock due to streptococcal infection: Status: Acute (13) Multiorgan failure: Status: Acute (14) DIC (disseminated intravascular coagulation): Status: Acute (15) Acute renal failure: Status: Acute #Acute hypoxic respiratory failure secondary to ARDS due to COVID-19 pneumonia #Diabetes #Streptococcus pneumonia bacteremia leading to septic shock and JACINTO requiring hemodialysis; DIC-septic shock resolved #ARDS #Hypertension #JACINTO-due to prerenal leading to possible ATN #Right upper lobe pneumonia -Tested positive on 02/05/2021; -Intubated on arrival in the ED 02/14/2021 -Sedated and connected to mechanical ventilator ; prone to 2 sessions and due for third proning session - 7.2 744/58/20 on CMV 490/14/24/80%-metabolic acidosis likely secondary to renal failure -Tolerated hemodialysis well and able to take over 2 L fluid - Left gluteal hematoma-did not worsen -Chest x-ray Bilateral pulmonary opacities are again noted and appear unchanged. -on 5-day protocol remdesivir and dexamethasone 6 mg daily -Procalcitonin 1.02; -CRP 80; sputum and blood cultures positive for pansensitive strep pneumonia - on ceftriaxone 1 g daily started 02/17/2021 -MRSA PCR and bacterial antigen panel, Legionella antigen-negative -Significantly elevated D-dimer and elevated troponin I-placed on heparin drip; noted small subcutaneous hematoma left gluteal buttock-no drop in hemoglobin noted-continue heparin drip and monitor CBC -Continue aspirin for underlying CAD -A. fib RVR noted during dialysis-on amiodarone drip -Overall patient LFTs are improving since his admission -Currently requiring Levophed to keep maps above 65 -Insulin scale coverage for diabetes; Lantus increased to 35 twice daily -Metabolic acidosis and hyperkalemia-likely secondary to JACINTO -CK-improving -Nephrology recommendations appreciated -DVT prophylaxis: Already on heparin drip -GI prophylaxis: PPI -Fluoxetine 20 mg daily -Full code -Prognosis: Poor -Family updated Discussed with hospitalist, RN, RT covering the case Attestations Medical Necessity Statement*: Acute hypoxic respiratory failure secondary to ARDS due to COVID-19 pneumonia requiring mechanical ventilation with high FiO2, septic shock leading to prerenal JACINTO/ATN likely requires hemodialysis -overall needs close monitoring for multiorgan failure Time Spent in Patient Care: Greater than 35 minutes (>than 50% of time spent in counselling and/or direct pt care on unit). Critical Care Time: The high probability of a clinically significant, sudden or life threatening deterioration of the patient's [respiratory, renal, endocrine, cardiac, infectious] system(s) required my full and direct attention, intervention and personal management. The critical care time is as shown. This time is in addition to time spent performing any reported procedures but includes the following: [x] Data and vital sign review and interpretation [x] Patient assessment, examination and intervention [x] Documentation [x] Medication orders and management Critical Care Time (min): 45 Coding Level of Care Code Established Pt Acute Grey Washer for Chg Fwd Patient Type Established History Comprehensive Exam Comprehensive Medical Decision Making High Complexity Diagnoses Acute and chronic respiratory failure with hypoxia J96.21 CAD (coronary artery disease) I25.10 ARDS (adult respiratory distress syndrome) J80 Diabetes mellitus E11.9 Hypertension I10 Hypertension type: unspecified Pneumonia due to COVID-19 virus U07.1; J12.82 Hypotension I95.9 JACINTO (acute kidney injury) N17.9 Pneumonia J18.9 Hyperkalemia E87.5 Metabolic acidosis E87.2 Septic shock due to streptococcal infection A40.9; R65.21 Multiorgan failure DIC (disseminated intravascular coagulation) D65 Acute renal failure N17.9 Time Spent (min) 45
[2021-02-19 23:26] LABS: Partial Thromboplastin Time 43.1 SECONDS (23.9-36.7)
[2021-02-20] VITALS (102 sets, daily range): BP systolic 52–152; BP diastolic 35–81; PULSE 94–123; RESP 24–26; TEMP 36.8–37.6; O2SAT 83–95
[2021-02-20] MEDS: ipratropium-albuterol 3 mL Neb INHALATION ×4 (02:51→20:53)
[2021-02-20] MEDS: cisatracurium 100 MG in sodium chloride 0.9% 50 ML 7.35 MG IV (04:36)
--- NOTE | 2021-02-20 05:18 | PC.NURSE ---
Addendum entered by Nola Naranjo RN 02/20/21 06:27: Critical ABG results reported to Dr. Piper. BIS TOF 20:00 33 4 22:00 36 4 00:00 41 4 02:00 43 4 04:00 52 4 06:00 41 4 Original Note: Shift Note Frequent safety and comfort rounds continue. Orders and/or nursing care completed as indicated. Patient monitored for response to intervention and treatment(s). Education provided includes labs, medications, vital signs, dialysis. DaughterMariluz, patients sales representative church furniture, verbalized understanding of education and updates on status. Gtts per protocol. Mckinnon patient with no urine output. Mechanical vent managed by RT. Patient oxygenating well with SpOx >90%. Nimbex gtt titrated with BIS and TOF per protocol. Blood pressures within limits and levophed remained on hold. Tolerating tube feedings as ordered with residuals <50 mL. Will continue to monitor.
[2021-02-20 05:33] LABS: ABG PCO2 48.7 mmHg (35-45); Arterial Blood Gas Hematocrit 38.6 % (42-52); Base Excess ABG -12.1 mmol/L (-2.0-2.0); Blood Gas Allen Test Pos; Blood Gas Operator Identificat JB; Blood Gas Sample Site Radial, right; Blood Gas Sample Type Arterial; HCO3 ABG 16.7 mmol/L (22-26); Oxygen Device VENT; PO2 ABG 77.5 mmHg (80.0-100.0)
[2021-02-20 05:34] LABS: Blood Gas Tidal Volume 0.49
[2021-02-20 05:36] LABS: ABG PH Result 7.14 (7.35-7.45)
[2021-02-20 06:03] LABS: Hematocrit 39.9 % (42.0-52.0); Hemoglobin 12.6 g/dL (11.7-16.6); Mean Corpuscular HGB Conc 31.6 g/dL (30.0-36.0); Mean Corpuscular Hemoglobin 28.4 pg (28.0-34.0); Mean Corpuscular Volume 90.1 fl (80-94); Mean Platelet Volume 10.5 fL (7.4-10.4); Platelet Count 333 10^3/cmm (130-400); Red Blood Count 4.43 10^6/uL (4.1-5.3); Red Cell Distribution Width 16.1 % (12.1-15.1); White Blood Count 26.5 10^3/uL (4.0-10.0)
[2021-02-20 06:24] LABS: Alanine Aminotransferase 178 U/L (0-41); Albumin Level 2.5 g/dL (3.5-5.2); Alkaline Phosphatase 82 IU/L (40-130); Anion Gap 30.9 (5-19); Aspartate Amino Transferase 152 U/L (0-40); Carbon Dioxide 16 mmol/L (22-29); Chloride 86 mmol/L (98-107); Globulin 3.9 g/dL (1.3-4.6); Glomerular Filtration Rate 6.7 mL/min (90-130); Glucose 282 mg/dL (65-115); Lactate (Lactic Acid level) 1.7 mmol/L (0.5-2.2); Magnesium 3.2 mg/dL (1.7-2.3); Osmolality Calculated 307 mOsm/kg (285-295); Potassium 5.9 mmol/L (3.5-5.1); Sodium 127 mmol/L (136-145); Total Bilirubin 0.6 mg/dL (0.15-1.2); Total Protein 6.4 g/dL (6.6-8.7)
[2021-02-20 06:27] LABS: Partial Thromboplastin Time 60.7 SECONDS (23.9-36.7)
[2021-02-20 06:28] LABS: Vancomycin Random 14.6 ug/mL (20.0-40.0)
[2021-02-20 06:30] LABS: Blood Urea Nitrogen 104 mg/dL (6-20); Phosphorus 12.4 mg/dL (2.5-4.5)
[2021-02-20 06:42] LABS: Slide Review Slide Review Perform
[2021-02-20 06:45] LABS: Absolute Segmented Neutrophil 21.7 10/cmm (1.6-7.1); Band Neutrophils Absolute 1.6 10^3/cmm (0.0-1.2); Lymphocytes 3 %; Lymphocytes Absolute 1.3 10^3/cmm (1.2-3.4); Segmented Neutrophils 82 %; Total Cells Counted 100 (0-100)
[2021-02-20 06:46] LABS: Absolute Neutrophil 23.3 10^3/cmm (1.4-6.5); Eosinophils 0 %; Platelet Estimate Normal (Normal)
[2021-02-20 06:52] LABS: Creatine Phosphokinase 5975 U/L (39-308)
--- NOTE | 2021-02-20 07:00 | XR_ITS ---
WS: [id number] Portable AP semiupright chest, 02/20/2021 Clinical Data: follow up pneumonia Comparison: Portable chest, 02/19/2021 Findings: The right internal jugular venous catheter, nasogastric tube and endotracheal tube remain i n good position. Bilateral patchy pulmonary opacities remain the same. The heart is at the upper limi ts of normal. Monitor leads are on the chest wall. XR/XR chest 1V portable [id number] Impression: 1. No change in bilateral patchy pulmonary opacities. 2. No change in multiple tubes.
--- NOTE | 2021-02-20 07:31 | P.PN_ITS ---
Subjective Subjective: Interval history: sedated, paralyzed, vent, no pressers Medications: Reviewed: Yes Medication Review Details: Current Medications Acetaminophen (Acetaminophen 325 Mg Tablet) 650 mg PO Q6H PRN PRN Reason: MILD PAIN Albuterol/Ipratropium (Ipratropium-Albuterol 3 Ml Neb) 3 ml INHALATION Q6H.[facility] Last Admin: 02/20/21 02:51 Dose: 3 ml Documented by: Alteplase, Recombinant (Alteplase 1 Mg/Ml Sdv 2 Ml) 2 mg INTRACATH PRN PRN PRN Reason: DIALYSIS USE ONLY Last Admin: 02/16/21 12:29 Dose: 2 mg Documented by: Alteplase, Recombinant (Alteplase 1 Mg/Ml Sdv 2 Ml) 4 mg INTRACATH PRN PRN PRN Reason: DIALYSIS USE ONLY Last Admin: 02/19/21 08:20 Dose: 4 mg Documented by: Alteplase, Recombinant (Alteplase 1 Mg/Ml Sdv 2 Ml) 4 mg INTRACATH PRN PRN PRN Reason: DIALYSIS USE ONLY Amiodarone HCl (Amiodarone 200 Mg Tablet) 200 mg PO BID [facility] Last Admin: 02/19/21 18:14 Dose: 200 mg Documented by: Aspirin (Aspirin 81 Mg Ec Tablet) 81 mg PO DAILY [facility] Last Admin: 02/19/21 08:44 Dose: 81 mg Documented by: Dexamethasone (Dexamethasone 10 Mg/Ml Inj) 6 mg IVP Q24H [facility] Last Admin: 02/19/21 18:14 Dose: 6 mg Documented by: Dextrose (Dextrose 50% Syringe 50 Ml) 25 ml IVP ONCE PRN; Protocol PRN Reason: hypoglycemia protocol Dextrose (Dextrose 50% Syringe 50 Ml) 50 ml IVP PRN PRN; Protocol PRN Reason: hypoglycemia protocol Docusate Sodium (Docusate Sodium 10 Mg/Ml (5ml) Liq) 100 mg PO DAILY [facility] Last Admin: 02/19/21 08:57 Dose: 100 mg Documented by: Famotidine (Famotidine 20 Mg/2 Ml Inj) 20 mg IVP Q12H [facility] Last Admin: 02/19/21 23:42 Dose: 20 mg Documented by: Fluoxetine HCl (Fluoxetine 20 Mg Capsule) 20 mg PO DAILY [facility] Last Admin: 02/19/21 08:44 Dose: 20 mg Documented by: Glucagon (Glucagon 1 Mg/Ml Inj 1 Ml) 1 mg IM ONCE PRN; Protocol PRN Reason: Adult Acute Hypoglycemia Prot. Heparin Sodium (Beef Lung) (Heparin 5,000 Unit/Ml Inj 1 Ml) 0 unit IV PRN PRN; Protocol PRN Reason: Heparin weight-base protocol Last Admin: 02/19/21 23:42 Dose: 4,800 unit Documented by: Fentanyl 1,000 mcg/ Sodium (Chloride) 100 mls @ 0 mls/hr IV .Q0M [facility]; Protocol Last Titration: 02/20/21 05:30 Dose: 25 mcg/hr, 2.5 mls/hr Documented by: Propofol (Diprivan) 1,000 mg in 100 mls @ 0 mls/hr IV .Q0M [facility]; Protocol Last Admin: 02/19/21 20:33 Dose: 10 mcg/kg/min, 6.12 mls/hr Documented by: Heparin Sodium/Sodium Chloride (Heparin Drip) 25,000 unit in 500 mls @ 0 mls/hr IV .Q0M [facility]; Protocol Last Titration: 02/19/21 23:43 Dose: 12.74 unit/kg/hr, 26 mls/hr Documented by: Norepinephrine Bitartrate 4 mg (/ Dextrose) 254 mls @ 0 mls/hr IV .Q0M [facility]; Protocol Last Titration: 02/15/21 16:26 Dose: Infused Documented by: Dextrose (D5w) 500 mls @ 100 mls/hr IV ONCE PRN; Protocol PRN Reason: Adult Acute Hypoglycemia Prot Midazolam HCl 100 mg/ Sodium (Chloride) 100 mls @ 0 mls/hr IV .Q0M [facility]; Protocol Last Titration: 02/20/21 06:25 Dose: 3 mg/hr, 3 mls/hr Documented by: Norepinephrine Bitartrate 8 mg (/ Dextrose) 508 mls @ 0 mls/hr IV .Q0M [facility]; Protocol Last Titration: 02/19/21 16:43 Dose: 0 mcg/min, 0 mls/hr Documented by: Ceftriaxone Sodium 1,000 mg/ (Sodium Chloride) 100 mls @ 200 mls/hr IV Q12H [facility]; Protocol Last Infusion: 02/20/21 01:02 Dose: Infused Documented by: Cisatracurium Besylate 100 mg/ (Sodium Chloride) 100 mls @ 0 mls/hr IV .Q0M [facility]; Protocol Last Admin: 02/20/21 04:36 Dose: 1 mcg/kg/min, 7.35 mls/hr Documented by: Albumin Human (Albumin) 12.5 gm in 50 mls @ 60 mls/hr IV PRN PRN PRN Reason: Hypotension and/or symptomatic Albumin Human (Albumin) 12.5 gm in 50 mls @ 60 mls/hr IV PRN PRN PRN Reason: Hypotension and/or symptomatic Insulin Aspart (Insulin Aspart 100 Unit/1 Ml) 0 unit SUBCUT WM&BEDTIME [facility]; Protocol Last Admin: 02/19/21 20:32 Dose: 6 unit Documented by: Insulin Glargine (Insulin Glargine 100 Units/1 Ml) 25 unit SUBCUT BID [facility] Ondansetron HCl (Ondansetron 2 Mg/Ml Sdv 2 Ml) 4 mg IVP Q6H PRN PRN Reason: NAUSEA AND VOMITING Senna/Docusate Sodium (Sennosides-Docusate Tablet) 1 tab PO DAILY [facility] Last Admin: 02/19/21 08:44 Dose: 1 tab Documented by: Vitals/I&O/Wt Last Vital Signs Temp 98.2 F 02/20/21 04:00 Pulse 101 H 02/20/21 06:00 Resp 24 H 02/20/21 06:06 BP 123/60 02/20/21 06:00 Pulse Ox 93 02/20/21 06:06 02/19/21 02/20/21 02/20/21 22:59 06:59 14:59 Intake Total 1097.727 / 1543.637 254.050 / 1797.687 Output Total 3000 / 3000 Balance -1902.273 / -1456.363 254.050 / -1202.313 Weight last 48 hrs Weight 126.643 kg Weight 126 kg Weight 127.63 kg Weight 122.5 kg Physical Exam Narrative: EXAM NARRATIVE: supine, vent tv 490, rr 24, peep 14, fio2=90% heent- nc/at lungs ronchi- poor air movement b/l heart reg ext edema b/l rt femoral dialysis catheter neuro - sedated seen and examined w/ rN- telehealth visit Urinary Catheter Management^: Mckinnon: Cath Placed During This Visit: yes Reason for Continuing Indwelling Catheter: Accurate Measurement of Urinary Output in Critically Ill Patients Urinary Catheter Date of Insertion: 02/14/21 Urinary Catheter Time of Insertion: 11:05 Data : 02/20/21 05:45 02/20/21 05:45 Micro: Microbiology 02/18/21 18:10 Gram Stain - Final Sputum - Endotracheal Tube Aspirate A&P Additional A&P Information 1. Acute anuric kidney injury: rhabdomyolysis, ischemic ATN, COVID, was on ACEi as outpatient - s/p HD yesterday- remains in NSR -hyperkalemic, resp and metabolic acidosis- repeat HD now for 4 hrs- remove 2500 m, 2k bath pressers as needed -if fails IHD, then attempt CRRT 2. COVID-19 SARS PNa per pulm 3. leukocytosis from covid -19 and strep pneumoniae bacteremia -keep vanco level under 20 4. resp acidosis - steroids, vent, HD -hypoxemia- monitor w/ hd 5. hyponatremia- from pna, covid-19 and jacinto- monitor w/ HD- improving 6. rhabdomyolysis- improving w/ HD 7. Shock liver -improving 8. dm control per medicine 9. hyperphosphatemia from JACINTO and rhabdomyolysis -monito w/ daily dialysis seen and examined w/ STORAGE SPECIALIST- telehealth visit - discussed w/ rN prognosis is guarded time spent >30 minutes Attestations Medical Necessity Statement*: multi-organ failure in ICU Time Spent in Patient Care: 16 - 35 minutes Coding Level of Care Code Acute Educational Assistant for Chapin Tse
--- NOTE | 2021-02-20 07:45 | PC.NURSE ---
Per am shift report. Pt's TOF has been 4/4. Pt has been vent compliant.
--- NOTE | 2021-02-20 07:50 | PC.NURSE ---
TOF 4/4. BIS 52. Pt vent compliant.
[2021-02-20 09:06] LABS: Glucose Point of Care 238 mg/dL (70-110)
[2021-02-20] MEDS: docusate sodium 10 mg/mL (5ml) Liq 100 MG PO (09:16)
[2021-02-20] MEDS: insulin glargine 100 units/1 mL 25 UNIT SUBCUT ×2 (09:17→18:04)
[2021-02-20] MEDS: amiodarone 200 mg Tablet PO ×2 (09:17→18:04)
[2021-02-20] MEDS: aspirin 81 mg EC Tablet PO (09:17)
[2021-02-20] MEDS: fluoxetine 20 mg Capsule PO (09:17)
[2021-02-20] MEDS: sevelamer 800 mg Tablet 1600 MG PO ×3 (09:19→21:35)
[2021-02-20] MEDS: sennosides-docusate Tablet 1 TAB PO (09:19)
[2021-02-20 11:23] LABS: Glucose Point of Care 199 mg/dL (70-110)
[2021-02-20] MEDS: alteplase 1 mg/mL SDV 2 mL 2 MG INTRACATH (11:34)
[2021-02-20] MEDS: heparin, porcine 1,000 unit/mL INJ 10 mL HE (11:34)
--- NOTE | 2021-02-20 11:41 | PC.NURSE ---
Levophed gtt restarted due to hypotension during dialysis.
--- NOTE | 2021-02-20 12:00 | PC.NURSE ---
Tube feeding off. OG flushed and clamped. Pt needing to be supine for dialysis cath to flow properly.
--- NOTE | 2021-02-20 12:20 | PM.PN ---
Subjective Subjective: Interval history: Federico is sedated, on the ventilator. Currently receiving dialysis. Medications: Reviewed: Yes Vitals/I&O/Wt Last Vital Signs Temp 98.2 F 02/20/21 04:00 Pulse 104 H 02/20/21 09:50 Resp 26 H 02/20/21 12:03 BP 123/60 02/20/21 06:00 Pulse Ox 86 L 02/20/21 12:03 02/19/21 02/20/21 02/20/21 22:59 06:59 14:59 Intake Total 1097.727 / 1543.637 410.917 / 1954.554 Output Total 3000 / 3000 Balance -1902.273 / -1456.363 410.917 / -1045.446 Weight last 48 hrs Weight 126.643 kg Weight 126 kg Weight 127.63 kg Weight 122.5 kg Physical Exam Narrative: EXAM NARRATIVE: General exam: Sedated, supine. Dialysis being performed at this time. Neck is supple no lymphadenopathy or thyromegaly Cardiovascular regular rate and rhythm without murmur Lungs coarse breath sounds bilaterally Abdomen is soft obese positive bowel sounds. No obvious organomegaly demonstrates Mckinnon. No significant urine output Extremities no cyanosis clubbing or edema, cap refill brisk Urinary Catheter Management^: Cmkinnon: Cath Placed During This Visit: yes Reason for Continuing Indwelling Catheter: Accurate Measurement of Urinary Output in Critically Ill Patients Urinary Catheter Date of Insertion: 02/14/21 Urinary Catheter Time of Insertion: 11:05 Data : 02/20/21 05:45 02/20/21 05:45 Micro: Microbiology 02/18/21 18:10 Gram Stain - Final Sputum - Endotracheal Tube Aspirate A&P Assessment and plan (1) Pneumonia due to COVID-19 virus: Severe COVID-19 pneumonia, first testing + February 05 Intubated in the emergency department, requiring a significant amount of PEEP and an FiO2 of 100%. Has had several sessions of proning, with improvement of oxygenation. Appreciate critical care consultation Continue dexamethasone. Initially placed on vancomycin and Zosyn secondary to concern for bacterial infection. Cultures have grown strep pneumonia and IV antibiotics have been changed to ceftriaxone 1 g IV every 12 hours. D-dimer was also significantly elevated and patient is still on heparin drip. Dimer has decreased significantly. Continue pulmonary toilet MRSA PCR, bacterial antigens, Legionella antigen negative. Nimbex drip was reinitiated, to promote ventilation and oxygenation. Consideration of another proning session today depending upon oxygenation. ABG today demonstrated pH of 7.14, PCO2 49, PO2 77 Status: Acute (2) Acute and chronic respiratory failure with hypoxia: See above Status: Acute (3) ARDS (adult respiratory distress syndrome): Status: Acute (4) CAD (coronary artery disease): Continue aspirin Continue Heparin drip Elevation in troponin noted may be type II elevation but positive delta is noted. Echocardiogram demonstrated preserved ejection fraction, no severe valvular abnormalities, no regional wall motion abnormalities. Status: Acute (5) Hypertension: Antihypertensives held. Norepinephrine as needed. He has been able to taper off of norepinephrine in the last 24 hours. Status: Acute Qualifiers: Hypertension type: unspecified Qualified Code(s): I10 - Essential (primary) hypertension (6) Diabetes mellitus: Sliding scale insulin Continue long-acting insulin Status: Acute Additional A&P Information Strep pneumonia bacteremia. Requiring norepinephrine for pressure support. Change to ceftriaxone. Repeat blood cultures were ordered, and negative to date. Atrial fibrillation with rapid ventricular rate, occurring with dialysis night of February 17. Placed on amiodarone drip. He was transitioned to p.o. at 200 mg twice daily Acute kidney injury, oliguric. Associate with hyperkalemia initially. Dialysis again today. Dialysis was successful yesterday and removing greater than 2 L. Appreciate nephrology consultation. Rhabdomyolysis. CK improved Left gluteal hematoma. With elevated CK could consider possibility of fall at home. AP pelvis shows no fracture Full code Heparin drip will suffice for DVT prophylaxis Pepcid for GI prophylaxis Attestations Medical Necessity Statement*: Needs continued hospitalization for supportive care with mechanical ventilation secondary to severe COVID-19 pneumonia. Critical Care Time: Critical Care Time (min): 30 Other Attestations: The high probability of a clinically significant, sudden or life threatening deterioration of the patient's [pulmonary, renal] system(s) required my full and direct attention, intervention and personal management. The critical care time is as shown. This time is in addition to time spent performing any reported procedures but includes the following: [x] Data and vital sign review and interpretation [x] Patient assessment, examination and intervention [x] Documentation [x] Medication orders and management Coding Level of Care Code Acute Electronic Test Technician for Chg Fwd Diagnoses Pneumonia due to COVID-19 virus U07.1; J12.82 Acute and chronic respiratory failure with hypoxia J96.21 ARDS (adult respiratory distress syndrome) J80 CAD (coronary artery disease) I25.10 Hypertension I10 Hypertension type: unspecified Diabetes mellitus E11.9
--- NOTE | 2021-02-20 12:52 | PC.NURSE ---
Rocephin and Famotidine held until dialysis completed.
[2021-02-20] MEDS: propofol 1,000 MG/100 ML INJ 6.12 MG IV (13:48)
--- NOTE | 2021-02-20 14:20 | PC.NURSE ---
Dialysis completed. Rocephin and Pepcide admin. TOF 4/4. BIS 79. Fentanyl and Propofol increased to obtain appropriate sedation for paralytic. Levophed stopped.
--- NOTE | 2021-02-20 14:26 | PC.RESP ---
RT Shift Note Frequent safety and respiratory rounds continue. Orders completed as indicated. Patient monitored pre and post treatments throughout shift. Patient [Did.] tolerate treatments appropriately. Condition [DidNotChange]. Patient and/or district representative educated on respiratory treatment and medications. Patient and/or district representative [unable to comprehend]. Will continue to monitor patient progress.
[2021-02-20] MEDS: cefTRIAXone 1,000 MG in sodium chloride 0.9% (plus) 100 ML 200 MG IV ×2 (14:30→22:50)
[2021-02-20] MEDS: famotidine 20 mg/2 mL INJ IVP ×2 (14:30→22:51)
--- NOTE | 2021-02-20 14:30 | PC.NURSE ---
Datar notified of tube feeding stopped during dialysis. To remain off as pt is to prone after labs and ABG done.
[2021-02-20 15:49] LABS: Alveolar-Arterial Oxygen Gradi 73.4 mmHg (5-10); Arterial Blood Gas Hematocrit 43.2 % (42-52); Base Excess ABG -7.5 mmol/L (-2.0-2.0); Blood Gas Allen Test Pos; Blood Gas Operator Identificat MT; Blood Gas Sample Site Radial, right; Blood Gas Sample Type Arterial; Blood Gas Tidal Volume 0.49; Carboxyhemoglobin 0.6 %THgb (0.4-20.1); HGB O2 Sat 92.1 % (95-100); Oxygen Device VENT; Oxygen Saturation ABG 93.6; PO2 ABG 77.2 mmHg (80.0-100.0); Total Hemoglobin 14.1 g/dL (14-18)
[2021-02-20 15:51] LABS: ABG PCO2 61.4 mmHg (35-45); ABG PH Result 7.16 (7.35-7.45)
[2021-02-20 16:03] LABS: Basophils % 0.1 %; Hematocrit 41.6 % (42.0-52.0); Hemoglobin 13.4 g/dL (11.7-16.6); Lymphocytes # 0.9 10^3/uL (0.8-4.8); Lymphocytes % 3.1 %; Mean Corpuscular HGB Conc 32.2 g/dL (30.0-36.0); Mean Corpuscular Hemoglobin 28.9 pg (28.0-34.0); Mean Corpuscular Volume 89.7 fl (80-94); Mean Platelet Volume 10.7 fL (7.4-10.4); Monocytes # 0.8 10^3/uL (0.2-0.9); Monocytes % 2.7 %; Neutrophils # 22.61 10^3/uL (1.8-7.7); Neutrophils % 79.5 %; Nucleated Red Blood Cells # 0.2 /100WBC; Nucleated Red Blood Cells % 0.7 %; Platelet Count 362 10^3/cmm (130-400); Positive C 1; Positive M 1; Red Blood Count 4.64 10^6/uL (4.1-5.3); Red Cell Distribution Width 16.1 % (12.1-15.1); White Blood Count 28.5 10^3/uL (4.0-10.0)
[2021-02-20 16:04] LABS: Alanine Aminotransferase 183 U/L (0-41); Albumin Level 2.7 g/dL (3.5-5.2); Alkaline Phosphatase 99 IU/L (40-130); Aspartate Amino Transferase 125 U/L (0-40); Blood Urea Nitrogen 63 mg/dL (6-20); Calcium 7.3 mg/dL (8.5-10.5); Carbon Dioxide 20 mmol/L (22-29); Chloride 90 mmol/L (98-107); Globulin 4.3 g/dL (1.3-4.6); Glomerular Filtration Rate 10.1 mL/min (90-130); Glucose 171 mg/dL (65-115); Magnesium 2.7 mg/dL (1.7-2.3); Osmolality Calculated 296 mOsm/kg (285-295); Sodium 132 mmol/L (136-145); Total Bilirubin 0.8 mg/dL (0.15-1.2)
--- NOTE | 2021-02-20 16:05 | PC.NURSE ---
Addendum entered by Lidia Bronson RN 02/20/21 19:54: Very slight pale mottling noted on pt's abdomen and legs prior to proning. Original Note: Pt proned. He them went hypotensive, Levophed restarted. Sedation meds adjusted, see MAR.
[2021-02-20] MEDS: sodium bicarbonate 150 MEQ in dextrose 5% 1,000 ML 75 MEQ IV (16:27)
[2021-02-20 16:42] LABS: Partial Thromboplastin Time 57.3 SECONDS (23.9-36.7)
[2021-02-20 17:18] LABS: Ketone (Acetest) Serum Negative (Negative)
[2021-02-20 17:27] LABS: Lactate (Lactic Acid level) 2.7 mmol/L (0.5-2.2)
--- NOTE | 2021-02-20 17:30 | PC.NURSE ---
TOF 3/4. Done on left side of head.
[2021-02-20 17:52] LABS: Glucose Point of Care 181 mg/dL (70-110)
[2021-02-20] MEDS: dexamethasone 10 mg/mL INJ 6 MG IVP (18:03)
[2021-02-20] MEDS: heparin drip 25,000 UNIT/500 ML PREMIX 26 UNIT IV (18:05)
[2021-02-20] MEDS: cisatracurium 100 MG in sodium chloride 0.9% 50 ML 8.09 MG IV (18:06)
--- NOTE | 2021-02-20 19:44 | P.PN_ITS ---
Subjective Subjective: Interval history: -Patient seen at bedside multiple times today -Tolerated hemodialysis and were able to take close to 3 L fluid -Required low-dose pressor -Changed IV and amiodarone drip to p.o. amiodarone -Labs and imaging reviewed Medications: Reviewed: Yes Vitals/I&O/Wt Last Vital Signs Temp 99.6 F 02/20/21 18:00 Pulse 116 H 02/20/21 19:00 Resp 26 H 02/20/21 19:00 BP 101/60 02/20/21 19:00 Pulse Ox 94 02/20/21 19:00 02/20/21 02/20/21 02/20/21 06:59 14:59 22:59 Intake Total 410.917 / 1954.554 162.916 / 162.916 939.019 / 1101.935 Output Total 2900 / 2900 Balance 410.917 / -1045.446 162.916 / 162.916 -1960.981 / -1798.065 Weight last 48 hrs Weight 271 lb 13.279 oz Weight 279 lb 3.2 oz Weight 277 lb 12.519 oz Weight 281 lb 6 oz Physical Exam Narrative: EXAM NARRATIVE: General: lying in bed, proned sedated and intubated. 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 SKIN: no rash; left gluteal subcutaneous hematoma LDA: # CVC: Right cutaneous IJ CVC 02/14/2021 # HD Cath : Right femoral HD catheter 02/15/2021 # Mckinnon: 02/14/2021 Urinary Catheter Management^: Mckinnon: Cath Placed During This Visit: yes Reason for Continuing Indwelling Catheter: Accurate Measurement of Urinary Output in Critically Ill Patients Urinary Catheter Date of Insertion: 02/14/21 Urinary Catheter Time of Insertion: 11:05 Data : 02/20/21 15:30 02/20/21 15:30 Other Labs: Laboratory Results WBC 28.5 10^3/uL (4.0-10.0) H 02/20/21 15:30 RBC 4.64 10^6/uL (4.1-5.3) 02/20/21 15:30 Hgb 13.4 g/dL (11.7-16.6) 02/20/21 15:30 Hct 41.6 % (42.0-52.0) L 02/20/21 15:30 MCV 89.7 fl (80-94) 02/20/21 15:30 MCH 28.9 pg (28.0-34.0) 02/20/21 15:30 MCHC 32.2 g/dL (30.0-36.0) 02/20/21 15:30 RDW 16.1 % (12.1-15.1) H 02/20/21 15:30 Plt Count 362 10^3/cmm (130-400) 02/20/21 15: MPV 10.7 fL (7.4-10.4) H 02/20/21 15:30 Neut % (Auto) 79.5 % 02/20/21 15:30 Lymph % (Auto) 3.1 % 02/20/21 15:30 [place] % (Auto) 2.7 % 02/20/21 15:30 Eos % (Auto) 0.0 % 02/20/21 15:30 Baso % (Auto) 0.1 % 02/20/21 15:30 Neut # (Auto) 22.61 10^3/uL (1.8-7.7) H 02/20/21 15:30 Lymph # (Auto) 0.9 10^3/uL (0.8-4.8) 02/20/21 15:30 [place] # (Auto) 0.8 10^3/uL (0.2-0.9) 02/20/21 15:30 Eos # (Auto) 0.0 10^3/uL (0.0-0.8) 02/20/21 15:30 Baso # (Auto) 0.0 10^3/uL (0.0-0.1) 02/20/21 15:30 Nucleated RBC % (auto) 0.7 % 02/20/21 15:30 Total Counted 100 (0-100) 02/20/21 05:45 Atypical Lymphs % 2.0 % (0-5) 02/20/21 05:45 Absolute Neutrophils 23.3 10^3/cmm (1.4-6.5) H 02/20/21 05:45 Segmented Neutrophils 82 % 02/20/21 05:45 Abs Segm Neuts (Man) 21.7 10/cmm (1.6-7.1) H 02/20/21 05:45 Band Neutrophils 6.0 % 02/20/21 05:45 Abs Band Neuts (Man) 1.6 10^3/cmm (0.0-1.2) H 02/20/21 05:45 Absolute Lymphocytes 1.3 10^3/cmm (1.2-3.4) 02/20/21 05:45 Lymphocytes (Manual) 3 % 02/20/21 05:45 Monocytes (Manual) 0.0 % 02/20/21 05:45 Absolute Monocytes 0.0 10^3/cmm (0.1-0.6) L 02/20/21 05:45 Eosinophils (Manual) 0 % 02/20/21 05:45 Absolute Eosinophils 0.0 10^3/cmm (0.0-0.7) 02/20/21 05:45 Basophils (Manual) 0.0 % 02/20/21 05:45 Absolute Basophils 0.0 10^3/cmm (0.0-0.2) 02/20/21 05:45 Metamyelocytes 6.0 % 02/20/21 05:45 Myelocytes 1.0 % 02/20/21 05:45 Nucleated RBCs # 0.2 /100WBC 02/20/21 15:30 Platelet Estimate Normal (Normal) 02/20/21 05:45 PT 14.10 SECONDS (12.1-14.9) 02/18/21 10:00 INR 1.06 (0.8-1.2) 02/18/21 10:00 APTT 57.3 SECONDS (23.9-36.7) H 02/20/21 15:30 Fibrinogen 529 mg/dL (174-498) H 02/18/21 10:00 Fibrin Degrad Products Pos, >=40 ug/mL (NEG) H 02/18/21 10:00 D-Dimer 3.67 ug/mIFEU (0-0.59) H 02/18/21 10:00 Specimen Type Arterial 02/20/21 15:35 Sample Site Radial, right 02/20/21 15:35 ABG pH 7.16 (7.35-7.45) L* 02/20/21 15:35 ABG pCO2 61.4 mmHg (35-45) H* 02/20/21 15:35 ABG pO2 77.2 mmHg (80.0-100.0) L 02/20/21 15:35 ABG HCO3 22.0 mmol/L (22-26) 02/20/21 15:35 ABG O2 Saturation 93.6 02/20/21 15:35 ABG Base Excess -7.5 mmol/L (-2.0-2.0) L 02/20/21 15:35 Artemio Test Pos 02/20/21 15:35 A-a O2 Gradient 73.4 mmHg (5-10) H 02/20/21 15:35 Hematocrit 43.2 % (42-52) 02/20/21 15:35 Hgb O2 Saturation 92.1 % (95-100) L 02/20/21 15:35 Carboxyhemoglobin 0.6 %THgb (0.4-20.1) 02/20/21 15:35 Methemoglobin 1.0 % (0.4-1.5) 02/20/21 15:35 Total Hemoglobin 14.1 g/dL (14-18) 02/20/21 15:35 Sodium 136.0 mmol/L (131-143) 02/20/21 15:35 Potassium 5.0 mmol/L (3.5-5.0) 02/20/21 15:35 Glucose 181.0 mg/dL (70-115) H 02/20/21 15:35 Ionized Calcium 1.0 mmol/L (1.1-1.4) L 02/20/21 15:35 O2 Delivery Device Vent 02/20/21 15:35 Mechanical Rate 24.0 02/19/21 04:51 FiO2 100.0 % 02/20/21 15:35 Tidal Volume 0.49 02/20/21 15:35 PEEP 14.0 cmH20 02/20/21 15:35 Acid Treater ID Mt 02/20/21 15:35 Sodium 132 mmol/L (136-145) L 02/20/21 15:30 Potassium 5.0 mmol/L (3.5-5.1) 02/20/21 15:30 Chloride 90 mmol/L (98-107) L 02/20/21 15:30 Carbon Dioxide 20 mmol/L (22-29) L 02/20/21 15:30 Anion Gap 27.0 (5-19) H 02/20/21 15:30 BUN 63 mg/dL (6-20) H 02/20/21 15:30 Creatinine 5.8 mg/dL (0.7-1.2) H* 02/20/21 15:30 GFR Calculation 10.1 mL/min (90-130) L 02/20/21 15:30 Glucose 171 mg/dL (65-115) H 02/20/21 15:30 POC Glucose 181 mg/dL (70-110) H 02/20/21 17:49 Calculated Osmolality 296 mOsm/kg (285-295) H 02/20/21 15:30 Lactic Acid 3.8 mmol/L (0.5-2.2) H 02/14/21 10:55 Lactic Acid (Sepsis) 3.4 mmol/L (0.5-2.2) H 02/14/21 18:37 Lactate 2.7 mmol/L (0.5-2.2) H 02/20/21 16:30 Calcium 7.3 mg/dL (8.5-10.5) L 02/20/21 15:30 Phosphorus 12.4 mg/dL (2.5-4.5) H* 02/20/21 05:45 Magnesium 2.7 mg/dL (1.7-2.3) H 02/20/21 15:30 Total Bilirubin 0.8 mg/dL (0.15-1.2) 02/20/21 15:30 AST 125 U/L (0-40) H 02/20/21 15:30 ALT 183 U/L (0-41) H 02/20/21 15:30 Alkaline Phosphatase 99 IU/L (40-130) 02/20/21 15:30 Creatine Kinase 5975 U/L (39-308) H* 02/20/21 05:45 Troponin T Baseline 18 ng/L (0-15) H 02/14/21 10:55 Troponin T 120 Minute 27.90 ng/L (0-15) H 02/14/21 12:55 Delta Troponin T 9.90 ABS# (0-10) 02/14/21 12:55 Troponin T Hi Sens 6Hr 49.40 ng/L (0-15) H 02/14/21 16:30 Troponin T Hi Sens 6Hr Delta 31.40 ng/L (0-12) H* 02/14/21 16:30 C-Reactive Protein 372.9 mg/L (0.0-4.9) H 02/15/21 06:26 NT-Pro-B Natriuret Pep 1942 pg/mL (0-125) H 02/14/21 12:55 Total Protein 7.0 g/dL (6.6-8.7) 02/20/21 15:30 Albumin 2.7 g/dL (3.5-5.2) L 02/20/21 15:30 Globulin 4.3 g/dL (1.3-4.6) 02/20/21 15:30 Interleukin 6 2895.00 pg/mL (<5.00) H 02/14/21 10:55 Procalcitonin 1.02 ng/mL (0-0.5) H 02/14/21 10:55 TSH 0.39 uIU/mL (0.27-4.20) 02/18/21 05:54 Urine Color Yellow (Yellow) 02/15/21 12:00 Urine Appearance Cloudy (CLEAR) 02/15/21 12:00 Urine pH 5 (5-7) 02/15/21 12:00 Ur Specific [place] 1.015 (1.005-1.030) 02/15/21 12:00 Urine Protein 2+ (Negative) H 02/15/21 12:00 Urine Glucose (UA) Trace (Normal) H 02/15/21 12:00 Urine Ketones Negative (Negative) 02/15/21 12:00 Urine Blood 3+ (Negative) H 02/15/21 12:00 Urine Nitrate Negative (Negative) 02/15/21 12:00 Urine Bilirubin Neg (Negative) 02/15/21 12:00 Urine Urobilinogen Norm mg/dL (Negative) 02/15/21 12:00 Ur Leukocyte Esterase Negative (Negative) 02/15/21 12:00 Urine RBC 10-15 /hpf (0-2) H 02/15/21 12:00 Urine WBC 5-10 /hpf (0-5) H 02/15/21 12:00 Ur Squamous Epith Cells 0-4 /hpf (0-5) H 02/15/21 12:00 Calcium Oxalate Crystal 0-4 /hpf H 02/15/21 12:00 Amorphous Sediment Not Reportable 02/15/21 12:00 Urine Bacteria 2+ /hpf (NONE) H 02/15/21 12:00 Urine Sperm 3+ /hpf 02/15/21 12:00 Ur Random Sodium 120 mmol/L 02/15/21 12:00 Urine Creatinine 32 mg/dL (39-259) L 02/15/21 12:00 Random Vancomycin 14.6 ug/mL (20.0-40.0) L 02/20/21 05:45 Serum Ketones Negative (Negative) 02/20/21 16:30 Hep Bs Antigen Non-reactive (Nonreactive) 02/15/21 17:00 Hep Bs Antibody 3.5 (11.5-1000) L 02/15/21 17:00 Hepatitis C Antibody Non-reactive (Nonreactive) 02/15/21 17:00 Legionella Antibody <1:256 TITER 02/14/21 18:37 Impressions Pelvis X-Ray 02/18/21 12:06 IMPRESSION: No acute findings. Chest X-Ray 02/20/21 07:00 Impression: 1. No change in bilateral patchy pulmonary opacities. 2. No change in multiple tubes. Micro: Microbiology 02/18/21 18:10 Gram Stain - Final Sputum - Endotracheal Tube Aspirate Sputum Culture - Preliminary Gram Negative Rods Yeast A&P Assessment and plan (1) Acute and chronic respiratory failure with hypoxia: Status: Acute (2) CAD (coronary artery disease): Status: Acute (3) ARDS (adult respiratory distress syndrome): Status: Acute (4) Diabetes mellitus: Status: Acute (5) Hypertension: Status: Acute Qualifiers: Hypertension type: unspecified Qualified Code(s): I10 - Essential (primary) hypertension (6) Pneumonia due to COVID-19 virus: Status: Acute (7) Hypotension: Status: Acute (8) JACINTO (acute kidney injury): Status: Acute (9) Pneumonia: Status: Acute (10) Hyperkalemia: Status: Acute (11) Metabolic acidosis: Status: Acute (12) Septic shock due to streptococcal infection: Status: Acute (13) Multiorgan failure: Status: Acute (14) DIC (disseminated intravascular coagulation): Status: Acute (15) Acute renal failure: Status: Acute #Acute hypoxic respiratory failure secondary to ARDS due to COVID-19 pneumonia #Diabetes #Streptococcus pneumonia bacteremia leading to septic shock and JACINTO requiring hemodialysis; DIC-septic shock resolved #ARDS #Hypertension #JACINTO-due to prerenal leading to possible ATN #Right upper lobe pneumonia -Tested positive on 02/05/2021; -Intubated on arrival in the ED 02/14/2021 -Sedated and connected to mechanical ventilator ; prone to 2 sessions and due for third proning session after hemodialysis today -7.1 6/61/77/22/93% on CMV 490/100/14/24-increase rate to 26 and decrease high time to 1 and repeat ABG; also will give bicarb -Tolerated hemodialysis well and able to take over 3 L fluid -Chemistry postdialysis showed anion gap metabolic acidosis-secondary to renal failure with electrolytes potassium 5 and sodium 132 and corrected calcium 8.7 -Also patient lactic acid is high 2.7 - Left gluteal hematoma-did not worsen -Chest x-ray Bilateral pulmonary opacities are again noted and appear unchanged. -on 5-day protocol remdesivir and dexamethasone 6 mg daily -Procalcitonin 1.02; -CRP 80; sputum and blood cultures positive for pansensitive strep pneumonia - on ceftriaxone 1 g daily started 02/17/2021 -MRSA PCR and bacterial antigen panel, Legionella antigen-negative -Significantly elevated D-dimer and elevated troponin I-placed on heparin drip; noted small subcutaneous hematoma left gluteal buttock-no drop in hemoglobin noted-continue heparin drip and monitor CBC -Continue aspirin for underlying CAD -A. fib RVR noted during dialysis-on p.o. amiodarone -Overall patient LFTs are improving since his admission -Currently requiring Levophed to keep maps above 65 -Insulin scale coverage for diabetes; Lantus increased to 25 twice daily -Metabolic acidosis and hyperkalemia-likely secondary to JACINTO -CK-improving -Nephrology recommendations appreciated -DVT prophylaxis: Already on heparin drip -GI prophylaxis: PPI -Fluoxetine 20 mg daily -Full code -Prognosis: Poor -Family updated Discussed with hospitalist, RN, RT covering the case Attestations Medical Necessity Statement*: Acute hypoxic respiratory failure secondary to ARDS due to COVID-19 pneumonia requiring mechanical ventilation with high FiO2, septic shock leading to prerenal JACINTO/ATN likely requires hemodialysis -overall needs close monitoring for multiorgan failure Time Spent in Patient Care: Greater than 35 minutes (>than 50% of time spent in counselling and/or direct pt care on unit) . Critical Care Time: The high probability of a clinically significant, sudden or life threatening deterioration of the patient's [respiratory, renal, endocrine, cardiac, infectious] system(s) required my full and direct attention, intervention and personal management. The critical care time is as shown. 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 Patient Type Established History Comprehensive Exam Comprehensive Medical Decision Making High Complexity Diagnoses Acute and chronic respiratory failure with hypoxia J96.21 CAD (coronary artery disease) I25.10 ARDS (adult respiratory distress syndrome) J80 Diabetes mellitus E11.9 Hypertension I10 Hypertension type: unspecified Pneumonia due to COVID-19 virus U07.1; J12.82 Hypotension I95.9 JACINTO (acute kidney injury) N17.9 Pneumonia J18.9 Hyperkalemia E87.5 Metabolic acidosis E87.2 Septic shock due to streptococcal infection A40.9; R65.21 Multiorgan failure DIC (disseminated intravascular coagulation) D65 Acute renal failure N17.9 Time Spent (min) 75
--- NOTE | 2021-02-20 19:52 | PC.NURSE ---
Shift Note Frequent safety and comfort rounds continue. Orders and/or nursing care completed as indicated. Patient monitored for response to intervention and treatment(s). Education provided includes dialysis today, proning after, metabolic acidosis and bicarb IV fluid. Patient paralyzed and sedated unable to comprehend at this time. Will continue to monitor.
[2021-02-20 20:09] LABS: Glucose Point of Care 181 mg/dL (70-110)
--- NOTE | 2021-02-20 20:09 | PC.NURSE ---
bedside assessment completed. gastric contents noted to be in patients mouth. OG connected to LIS with return of 500CC. Datar notified
[2021-02-21] VITALS (107 sets, daily range): BP systolic 81–134; BP diastolic 51–95; PULSE 93–163; RESP 28–29; TEMP 36.6–37.2; O2SAT 88–98
[2021-02-21 02:51] LABS: Glucose Point of Care 219 mg/dL (70-110)
--- NOTE | 2021-02-21 03:00 | PC.NURSE ---
Spoke with Dr. Piper regarding Bicarb push. notified of normalized bicarb levels with bicarb gtt running. received orders to non admin bicarb push
[2021-02-21] MEDS: ipratropium-albuterol 3 mL Neb INHALATION ×3 (03:09→20:15)
[2021-02-21] MEDS: propofol 1,000 MG/100 ML INJ 6.12 MG IV (04:00)
[2021-02-21 04:53] LABS: ABG PCO2 61.1 mmHg (35-45); ABG PH Result 7.18 (7.35-7.45)
[2021-02-21 04:54] LABS: Base Excess ABG -6.3 mmol/L (-2.0-2.0); Blood Gas Allen Test POS; Oxygen Device VENT
[2021-02-21 04:55] LABS: Arterial Blood Gas Hematocrit 43.5 % (42-52); Blood Gas Sample Type ARTERIAL
[2021-02-21 05:28] LABS: Basophils % 0.1 %; Hematocrit 35.5 % (42.0-52.0); Hemoglobin 11.4 g/dL (11.7-16.6); Lymphocytes # 0.4 10^3/uL (0.8-4.8); Lymphocytes % 1.8 %; Mean Corpuscular HGB Conc 32.1 g/dL (30.0-36.0); Mean Corpuscular Hemoglobin 28.9 pg (28.0-34.0); Mean Corpuscular Volume 89.9 fl (80-94); Mean Platelet Volume 10.9 fL (7.4-10.4); Monocytes # 0.7 10^3/uL (0.2-0.9); Monocytes % 3.1 %; Neutrophils # 18.02 10^3/uL (1.8-7.7); Neutrophils % 77.3 %; Nucleated Red Blood Cells # 0.1 /100WBC; Nucleated Red Blood Cells % 0.3 %; Platelet Count 391 10^3/cmm (130-400); Red Blood Count 3.95 10^6/uL (4.1-5.3); White Blood Count 23.3 10^3/uL (4.0-10.0)
[2021-02-21] MEDS: cisatracurium 100 MG in sodium chloride 0.9% 50 ML 8.09 MG IV (05:29)
[2021-02-21 05:41] LABS: Lactate (Lactic Acid level) 1.8 mmol/L (0.5-2.2)
[2021-02-21 05:43] LABS: ABG PCO2 53.2 mmHg (35-45); ABG PH Result 7.24 (7.35-7.45); Arterial Blood Gas Hematocrit 35.4 % (42-52); Base Excess ABG -4.9 mmol/L (-2.0-2.0); Blood Gas Allen Test Pos; Blood Gas Sample Site Radial, right; Blood Gas Sample Type Arterial; HCO3 ABG 22.8 mmol/L (22-26); Oxygen Device VENT
[2021-02-21 05:43] LABS: Alanine Aminotransferase 141 U/L (0-41); Albumin Level 2.4 g/dL (3.5-5.2); Alkaline Phosphatase 88 IU/L (40-130); Anion Gap 28.5 (5-19); Aspartate Amino Transferase 97 U/L (0-40); Calcium 6.4 mg/dL (8.5-10.5); Carbon Dioxide 21 mmol/L (22-29); Chloride 87 mmol/L (98-107); Globulin 3.6 g/dL (1.3-4.6); Glomerular Filtration Rate 7.6 mL/min (90-130); Glucose 240 mg/dL (65-115); Magnesium 2.8 mg/dL (1.7-2.3); Osmolality Calculated 309 mOsm/kg (285-295); Potassium 5.5 mmol/L (3.5-5.1); Sodium 131 mmol/L (136-145); Total Bilirubin 0.6 mg/dL (0.15-1.2)
[2021-02-21 06:01] LABS: Blood Urea Nitrogen 93 mg/dL (6-20)
[2021-02-21 06:02] LABS: Phosphorus 9.5 mg/dL (2.5-4.5)
[2021-02-21 06:03] LABS: Partial Thromboplastin Time 47.5 SECONDS (23.9-36.7)
[2021-02-21 06:05] LABS: Creatine Phosphokinase 3969 U/L (39-308)
[2021-02-21 06:26] LABS: Slide Review Slide Review Perform
--- NOTE | 2021-02-21 06:49 | PC.NURSE ---
spoke with billing coordinator this AM. discussed plan of care, labs, and progress. received orders to initiate CRRT and stop bicarb gtt
[2021-02-21] MEDS: heparin 5,000 unit/mL INJ 1 mL IV ×2 (06:56→23:41)
--- NOTE | 2021-02-21 07:25 | PM.PN ---
Subjective Subjective: Interval history: seen and examined. remains intubated, sedated, paralyzed in ICU. Medications: Reviewed: Yes Medication Review Details: Current Medications Acetaminophen (Acetaminophen 325 Mg Tablet) 650 mg PO Q6H PRN PRN Reason: MILD PAIN Albuterol/Ipratropium (Ipratropium-Albuterol 3 Ml Neb) 3 ml INHALATION Q6H.RESPIRATORY [facility] Last Admin: 02/21/21 03:09 Dose: 3 ml Documented by: Alteplase, Recombinant (Alteplase 1 Mg/Ml Sdv 2 Ml) 4 mg INTRACATH PRN PRN PRN Reason: DIALYSIS USE ONLY Last Admin: 02/19/21 08:20 Dose: 4 mg Documented by: Alteplase, Recombinant (Alteplase 1 Mg/Ml Sdv 2 Ml) 4 mg INTRACATH PRN PRN PRN Reason: DIALYSIS USE ONLY Alteplase, Recombinant (Alteplase 1 Mg/Ml Sdv 2 Ml) 0 mg INTRACATH Q2H PRN; Protocol PRN Reason: Poor Catheter Flow/ Clotted Catheter Amiodarone HCl (Amiodarone 200 Mg Tablet) 200 mg PO BID [facility] Last Admin: 02/20/21 18:04 Dose: 200 mg Documented by: Aspirin (Aspirin 81 Mg Ec Tablet) 81 mg PO DAILY [facility] Last Admin: 02/20/21 09:17 Dose: 81 mg Documented by: Dexamethasone (Dexamethasone 10 Mg/Ml Inj) 6 mg IVP Q24H [facility] Last Admin: 02/20/21 18:03 Dose: 6 mg Documented by: Dextrose (Dextrose 50% Syringe 50 Ml) 25 ml IVP ONCE PRN; Protocol PRN Reason: hypoglycemia protocol Dextrose (Dextrose 50% Syringe 50 Ml) 50 ml IVP PRN PRN; Protocol PRN Reason: hypoglycemia protocol Docusate Sodium (Docusate Sodium 10 Mg/Ml (5ml) Liq) 100 mg PO DAILY [facility] Last Admin: 02/20/21 09:16 Dose: 100 mg Documented by: Famotidine (Famotidine 20 Mg/2 Ml Inj) 20 mg IVP Q12H [facility] Last Admin: 02/20/21 22:51 Dose: 20 mg Documented by: Fluoxetine HCl (Fluoxetine 20 Mg Capsule) 20 mg PO DAILY [facility] Last Admin: 02/20/21 09:17 Dose: 20 mg Documented by: Glucagon (Glucagon 1 Mg/Ml Inj 1 Ml) 1 mg IM ONCE PRN; Protocol PRN Reason: Adult Acute Hypoglycemia Prot. Heparin Sodium (Beef Lung) (Heparin 5,000 Unit/Ml Inj 1 Ml) 0 unit IV PRN PRN; Protocol PRN Reason: Heparin weight-base protocol Last Admin: 02/21/21 06:56 Dose: 2,400 unit Documented by: Heparin Sodium (Beef Lung) (Heparin Lock Flush 500 Unit/5 Ml Syringe) 500 unit IV PRN PRN PRN Reason: At CRRT disconnect Fentanyl 1,000 mcg/ Sodium (Chloride) 100 mls @ 0 mls/hr IV .Q0M [facility]; Protocol Last Titration: 02/20/21 21:40 Dose: 50 mcg/hr, 5 mls/hr Documented by: Propofol (Diprivan) 1,000 mg in 100 mls @ 0 mls/hr IV .Q0M [facility]; Protocol Last Admin: 02/21/21 04:00 Dose: 10 mcg/kg/min, 6.12 mls/hr Documented by: Heparin Sodium/Sodium Chloride (Heparin Drip) 25,000 unit in 500 mls @ 0 mls/hr IV .Q0M [facility]; Protocol Last Titration: 02/21/21 06:53 Dose: 13.72 unit/kg/hr, 28 mls/hr Documented by: Norepinephrine Bitartrate 4 mg (/ Dextrose) 254 mls @ 0 mls/hr IV .Q0M [facility]; Protocol Last Titration: 02/15/21 16:26 Dose: Infused Documented by: Dextrose (D5w) 500 mls @ 100 mls/hr IV ONCE PRN; Protocol PRN Reason: Adult Acute Hypoglycemia Prot Midazolam HCl 100 mg/ Sodium (Chloride) 100 mls @ 0 mls/hr IV .Q0M [facility]; Protocol Last Titration: 02/20/21 16:32 Dose: 3 mg/hr, 3 mls/hr Documented by: Norepinephrine Bitartrate 8 mg (/ Dextrose) 508 mls @ 0 mls/hr IV .Q0M [facility]; Protocol Last Titration: 02/20/21 16:27 Dose: 3 mcg/min, 11.43 mls/hr Documented by: Ceftriaxone Sodium 1,000 mg/ (Sodium Chloride) 100 mls @ 200 mls/hr IV Q12H [facility]; Protocol Last Admin: 02/20/21 22:50 Dose: 200 mls/hr Documented by: Cisatracurium Besylate 100 mg/ (Sodium Chloride) 100 mls @ 0 mls/hr IV .Q0M [facility]; Protocol Last Admin: 02/21/21 05:29 Dose: 1.1 mcg/kg/min, 8.09 mls/hr Documented by: Albumin Human (Albumin) 12.5 gm in 50 mls @ 60 mls/hr IV PRN PRN PRN Reason: Hypotension and/or symptomatic Insulin Aspart (Insulin Aspart 100 Unit/1 Ml) 0 unit SUBCUT WM&BEDTIME [facility]; Protocol Last Admin: 02/20/21 21:36 Dose: 2 unit Documented by: Insulin Glargine (Insulin Glargine 100 Units/1 Ml) 25 unit SUBCUT BID [facility] Last Admin: 02/20/21 18:04 Dose: 25 unit Documented by: Ondansetron HCl (Ondansetron 2 Mg/Ml Sdv 2 Ml) 4 mg IVP Q6H PRN PRN Reason: NAUSEA AND VOMITING Senna/Docusate Sodium (Sennosides-Docusate Tablet) 1 tab PO DAILY [facility] Last Admin: 02/20/21 09:19 Dose: 1 tab Documented by: Sevelamer Carbonate (Sevelamer 800 Mg Tablet) 1,600 mg PO TID [facility] Last Admin: 02/20/21 21:35 Dose: 1,600 mg Documented by: Sodium Chloride (Sodium Chloride 0.9% 1,000 Ml Bag) 1,000 - 7,000 ml CRRT PRN PRN PRN Reason: For priming CRRT Machine Vitals/I&O/Wt Last Vital Signs Temp 98.2 F 02/20/21 20:00 Pulse 98 02/21/21 06:00 Resp 29 H 02/21/21 06:24 BP 88/54 02/21/21 06:00 Pulse Ox 96 02/21/21 06:24 02/20/21 02/21/21 02/21/21 22:59 06:59 14:59 Intake Total 959.552 / 1122.468 494.783 / 1617.251 Output Total 2900 / 2900 Balance -1940.448 / -1777.532 494.783 / -1282.749 Weight last 48 hrs Weight 123.405 kg Weight 123.3 kg Weight 126.643 kg Weight 126 kg Physical Exam Narrative: EXAM NARRATIVE: pronee, vent tv 500, rr 28, peep 16, fio2=90%, off pressers heent- nc/at lungs ronchi- poor air movement b/l heart -spurts of irreg beats ext edema b/l rt femoral dialysis catheter neuro - sedated seen and examined w/ rN- telehealth visit Urinary Catheter Management^: Mckinnon: Cath Placed During This Visit: yes Reason for Continuing Indwelling Catheter: Accurate Measurement of Urinary Output in Critically Ill Patients Urinary Catheter Date of Insertion: 02/14/21 Urinary Catheter Time of Insertion: 11:05 Data : 02/21/21 04:05 02/21/21 04:05 Micro: Microbiology 02/18/21 18:10 Gram Stain - Final Sputum - Endotracheal Tube Aspirate Sputum Culture - Preliminary Gram Negative Rods Yeast A&P Additional A&P Information 1. Acute anuric kidney injury: rhabdomyolysis, ischemic ATN, COVID, was on ACEi as outpatient - s/p HD last 2 days -hyperkalemic, resp and mild metabolic acidosis- As he is hypotensive and having occ tachycardia- will attempt CRRT- QB 200, replacement fluids and dialysate @ 1500, 2k bath -he is on heparin 2. COVID-19 SARS PNa per pulm 3. leukocytosis from covid -19 and strep pneumoniae bacteremia -keep vanco level under 20 4. resp acidosis - steroids, vent, HD -hypoxemia- monitor w/ hd 5. hyponatremia- from pna, covid-19 and jacinto- monitor w/ HD- improving 6. rhabdomyolysis- improving w/ HD 7. Shock liver -improving 8. dm control per medicine 9. hyperphosphatemia from JACINTO and rhabdomyolysis -monito w/ daily dialysis seen and examined w/ CERTIFIED ADDICTION COUNSELOR- telehealth visit - discussed w/ rN prognosis is guarded time spent >30 minutes Attestations Medical Necessity Statement*: septic shock, multi-organ failure, VDRF, on CRRT Time Spent in Patient Care: 16 - 35 minutes Coding Level of Care Code Acute Pie Filling Mixer for [facility]
--- NOTE | 2021-02-21 07:44 | PC.NURSE ---
Shift Note Frequent safety and comfort rounds continue. Orders and nursing care completed as indicated. Patient monitored for response to intervention and treatments. Education provided including ventilator management. Patient requires reinforcement due to sedation. Will continue to monitor.
--- NOTE | 2021-02-21 08:00 | XR_ITS ---
WS: [id number] Portable AP supine chest, 02/21/2021 Clinical Data: follow up resp failure Comparison: Portable chest, 02/20/2021 Findings: The endotracheal tube, nasogastric tube and right internal jugular venous catheter remain i n good position. The patchy bilateral pulmonary opacities have not changed. Monitor leads on the ches t wall. The heart size is at the upper limits of normal. XR/XR chest 1V portable [id number] Impression: 1. No change in bilateral patchy pulmonary opacities. 2. No change in multiple tubes.
[2021-02-21 08:17] LABS: Glucose Point of Care 213 mg/dL (70-110)
[2021-02-21] MEDS: insulin glargine 100 units/1 mL 25 UNIT SUBCUT (08:27)
[2021-02-21 09:33] LABS: Hematocrit 34.5 % (42.0-52.0); Hemoglobin 11.1 g/dL (11.7-16.6); Mean Corpuscular HGB Conc 32.2 g/dL (30.0-36.0); Mean Corpuscular Hemoglobin 28.5 pg (28.0-34.0); Mean Corpuscular Volume 88.7 fl (80-94); Mean Platelet Volume 10.5 fL (7.4-10.4); Platelet Count 368 10^3/cmm (130-400); Red Blood Count 3.89 10^6/uL (4.1-5.3)
[2021-02-21 09:59] LABS: Albumin Level 2.1 g/dL (3.5-5.2); Anion Gap 27.6 (5-19); Calcium 6.1 mg/dL (8.5-10.5); Carbon Dioxide 19 mmol/L (22-29); Chloride 89 mmol/L (98-107); Glomerular Filtration Rate 7.6 mL/min (90-130); Glucose 214 mg/dL (65-115); Magnesium 3.1 mg/dL (1.7-2.3); Potassium 5.6 mmol/L (3.5-5.1); Sodium 130 mmol/L (136-145)
[2021-02-21] MEDS: aspirin 81 mg EC Tablet PO (10:06)
[2021-02-21] MEDS: amiodarone 200 mg Tablet PO ×2 (10:06→17:27)
[2021-02-21] MEDS: fluconazole 100 mg Tablet OG-TUBE (10:06)
[2021-02-21] MEDS: sennosides-docusate Tablet 1 TAB PO (10:06)
[2021-02-21] MEDS: fluoxetine 20 mg Capsule PO (10:06)
[2021-02-21] MEDS: sevelamer 800 mg Tablet 1600 MG PO ×3 (10:06→20:47)
[2021-02-21 10:12] LABS: Blood Urea Nitrogen 97 mg/dL (6-20); Phosphorus 10.5 mg/dL (2.5-4.5)
[2021-02-21 10:14] LABS: Slide Review Slide Review Perform
[2021-02-21 10:15] LABS: Absolute Neutrophil 19.5 10^3/cmm (1.4-6.5); Absolute Segmented Neutrophil 17.6 10/cmm (1.6-7.1); Anisocytosis Trace; Band Neutrophils Absolute 1.9 10^3/cmm (0.0-1.2); Eosinophils 0 %; Lymphocytes 2 %; Lymphocytes Absolute 1.1 10^3/cmm (1.2-3.4); Monocytes Absolute 0.2 10^3/cmm (0.1-0.6); Platelet Estimate Normal (Normal); Segmented Neutrophils 84 %; Total Cells Counted 100 (0-100)
--- NOTE | 2021-02-21 10:38 | PM.PN ---
Subjective Subjective: Interval history: Federico is sedated on the vent. He just completed a proning session. I see a very small amount of urine in his Mckinnon. Medications: Reviewed: Yes Vitals/I&O/Wt Last Vital Signs Temp 98.2 F 02/20/21 20:00 Pulse 95 02/21/21 08:01 Resp 28 H 02/21/21 08:02 BP 88/54 02/21/21 06:00 Pulse Ox 96 02/21/21 08:02 02/20/21 02/21/21 02/21/21 22:59 06:59 14:59 Intake Total 959.552 / 1122.468 538.825 / 1661.293 Output Total 2900 / 2900 Balance -1940.448 / -1777.532 538.825 / -1238.707 Weight last 48 hrs Weight 123.405 kg Weight 123.3 kg Weight 126.643 kg Weight 126 kg Physical Exam Narrative: EXAM NARRATIVE: General exam: Sedated, supine. Dialysis being performed at this time. Neck is supple no lymphadenopathy or thyromegaly Cardiovascular regular rate and rhythm without murmur Lungs coarse breath sounds bilaterally Abdomen is soft obese positive bowel sounds. No obvious organomegaly demonstrates Mckinnon. No significant urine output Extremities no cyanosis clubbing or edema, cap refill brisk Urinary Catheter Management^: Mckinnon: Cath Placed During This Visit: yes Reason for Continuing Indwelling Catheter: Accurate Measurement of Urinary Output in Critically Ill Patients Urinary Catheter Date of Insertion: 02/14/21 Urinary Catheter Time of Insertion: 11:05 Data : 02/21/21 09:18 02/21/21 09:18 Micro: Microbiology 02/18/21 18:10 Gram Stain - Final Sputum - Endotracheal Tube Aspirate Sputum Culture - Preliminary Gram Negative Rods Yeast A&P Assessment and plan (1) Pneumonia due to COVID-19 virus: Severe COVID-19 pneumonia, first testing + February 05 Currently being sedated with propofol, fentanyl, Versed Intubated in the emergency department, requiring a significant amount of PEEP and an FiO2 of 100%. Significant amount of PEEP is continued to be required to ventilate him. He has intermittently been proned Appreciate critical care consultation Continue dexamethasone. Initially placed on vancomycin and Zosyn secondary to concern for bacterial infection. Cultures have grown strep pneumonia and IV antibiotics have been changed to ceftriaxone 1 g IV every 12 hours. Today there is some gram-negative vaughn growing and ceftriaxone will be changed to Primaxin. Yeast is also noted and fluconazole was added. D-dimer was also significantly elevated and patient is still on heparin drip. Dimer has decreased significantly. Will repeat tomorrow. Continue pulmonary toilet MRSA PCR, bacterial antigens, Legionella antigen negative. Nimbex drip was reinitiated, to promote ventilation and oxygenation. Consideration of another proning session today depending upon oxygenation. ABG today demonstrated pH of 7.2 4/53/125 1200 - in the last 24 hours, through dialysis. Status: Acute (2) Acute and chronic respiratory failure with hypoxia: See above Status: Acute (3) ARDS (adult respiratory distress syndrome): Status: Acute (4) CAD (coronary artery disease): Continue aspirin Continue Heparin drip Elevation in troponin noted may be type II elevation but positive delta is noted. Echocardiogram demonstrated preserved ejection fraction, no severe valvular abnormalities, no regional wall motion abnormalities. Status: Acute (5) Hypertension: Antihypertensives held. Norepinephrine as needed. Status: Acute Qualifiers: Hypertension type: unspecified Qualified Code(s): I10 - Essential (primary) hypertension (6) Diabetes mellitus: Sliding scale insulin Continue long-acting insulin Status: Acute Additional A&P Information Strep pneumonia bacteremia. Requiring norepinephrine for pressure support. Changed to Primaxin. Repeat blood cultures were ordered, and negative to date. Atrial fibrillation with rapid ventricular rate, occurring with dialysis night of February 17. Placed on amiodarone drip. He was transitioned to p.o. at 200 mg twice daily. Currently in sinus rhythm with frequent PACs Acute kidney injury, oliguric. Associate with hyperkalemia initially. He has received several sessions of dialysis. Today CRRT will be initiated. Appreciate nephrology consultation. Rhabdomyolysis. CK improved Left gluteal hematoma. With elevated CK could consider possibility of fall at home. AP pelvis shows no fracture GI: If proning is not expected today consider tube feeding diet. Full code Heparin drip will suffice for DVT prophylaxis Pepcid for GI prophylaxis Attestations Medical Necessity Statement*: Needs continued hospital stay secondary to severe COVID-19 pneumonia requiring mechanical ventilation. Critical Care Time: The high probability of a clinically significant, sudden or life threatening deterioration of the patient's [pulmonary, renal] system(s) required my full and direct attention, intervention and personal management. The critical care time is as shown. This time is in addition to time spent performing any reported procedures but includes the following: [x] Data and vital sign review and interpretation [x] Patient assessment, examination and intervention [x] Documentation [x] Medication orders and management Critical Care Time (min): 34 Coding Level of Care Code Acute Vegetable Grower for [facility] Fwd Diagnoses Pneumonia due to COVID-19 virus U07.1; J12.82 Acute and chronic respiratory failure with hypoxia J96.21 ARDS (adult respiratory distress syndrome) J80 CAD (coronary artery disease) I25.10 Hypertension I10 Hypertension type: unspecified Diabetes mellitus E11.9
[2021-02-21] MEDS: sodium bicarbonate 8.4% 1 mEq/mL 50mL Syr 25 MEQ IVP (11:07)
[2021-02-21] MEDS: dextrose 50% syringe 50 mL 25 ML IVP (11:07)
[2021-02-21] MEDS: insulin regular-human 10 UNIT in SYRINGE 1 EACH IVP (11:33)
[2021-02-21 11:34] LABS: Glucose Point of Care 199 mg/dL (70-110)
[2021-02-21] MEDS: PrismaSol BGK 2/3.5 - 5,000 ML BAG 5000 ML CRRT ×4 (11:47→16:51)
[2021-02-21] MEDS: PrismaSol BGK 4/2.5 - 5,000 mL Bag 5000 ML CRRT (11:49)
--- NOTE | 2021-02-21 12:35 | PC.NUTR ---
Tube feeding follow up: Unclear TF orders--written as Tube Feeding with no specification of formula, rate, flushes, etc. Appears to have received Nepro at 15 ml/hr for an unclear amount of time, but frequently held due to dialysis and proning. When safely able to provide, recommend Nepro with a goal rate of 50 ml/hr, with 80 ml H2O flushes q 4 hrs, to provide 2160 kcal, 97 g protein, 1350 ml H2O (or per MD discretion.) Suggest starting TF at 25 ml/hr and increase by 10 ml Q8H as tolerated till goal rate is met. Noted propofol providing additional 162 kcal/day at current rate. See full RD assessment for further details.
[2021-02-21 12:45] LABS: Albumin Level 2.3 g/dL (3.5-5.2); Anion Gap 26.3 (5-19); Carbon Dioxide 21 mmol/L (22-29); Chloride 87 mmol/L (98-107); Glomerular Filtration Rate 7.7 mL/min (90-130); Glucose 226 mg/dL (65-115); Magnesium 2.9 mg/dL (1.7-2.3); Potassium 5.3 mmol/L (3.5-5.1); Sodium 129 mmol/L (136-145)
[2021-02-21] MEDS: famotidine 20 mg/2 mL INJ IVP (12:48)
[2021-02-21] MEDS: heparin drip 25,000 UNIT/500 ML PREMIX 28 UNIT IV (13:26)
[2021-02-21 13:39] LABS: Blood Urea Nitrogen 100 mg/dL (6-20); Phosphorus 10.7 mg/dL (2.5-4.5)
[2021-02-21 13:54] LABS: Partial Thromboplastin Time 56.3 SECONDS (23.9-36.7)
--- NOTE | 2021-02-21 14:04 | PC.RESP ---
RT Shift Note Frequent safety and respiratory rounds continue. Orders completed as indicated. Patient monitored pre and post treatments throughout shift. Patient [Did.] tolerate treatments appropriately. Condition [.DidNotChange]. Patient and/or patient registration representative educated on respiratory treatment and medications. Patient and/or patient registration representative [UNABLE TO COMPREHEND Will continue to monitor patient progress.
[2021-02-21 17:12] LABS: Glucose Point of Care 158 mg/dL (70-110)
[2021-02-21] MEDS: dexamethasone 10 mg/mL INJ 6 MG IVP (17:27)
[2021-02-21 17:33] LABS: Basophils % 0.1 %; Eosinophils # 0.1 10^3/uL (0.0-0.8); Eosinophils % 0.5 %; Hemoglobin 11.6 g/dL (11.7-16.6); Lymphocytes # 0.6 10^3/uL (0.8-4.8); Lymphocytes % 2.8 %; Mean Corpuscular HGB Conc 33.1 g/dL (30.0-36.0); Mean Corpuscular Hemoglobin 28.6 pg (28.0-34.0); Mean Corpuscular Volume 86.2 fl (80-94); Mean Platelet Volume 10.8 fL (7.4-10.4); Monocytes # 0.3 10^3/uL (0.2-0.9); Monocytes % 1.7 %; Neutrophils # 15.76 10^3/uL (1.8-7.7); Neutrophils % 76.9 %; Nucleated Red Blood Cells # 0.1 /100WBC; Nucleated Red Blood Cells % 0.4 %; Platelet Count 377 10^3/cmm (130-400); Positive C 1; Positive M 1; Red Blood Count 4.06 10^6/uL (4.1-5.3); Red Cell Distribution Width 15.8 % (12.1-15.1); White Blood Count 20.5 10^3/uL (4.0-10.0)
--- NOTE | 2021-02-21 17:50 | PC.NURSE ---
TO4 BIS 0800 3/ 0900 91 1100 09/06 65 1200 72 1300 74 1400 47 1500 41
[2021-02-21 17:52] LABS: Alanine Aminotransferase 138 U/L (0-41); Albumin Level 2.4 g/dL (3.5-5.2); Alkaline Phosphatase 102 IU/L (40-130); Anion Gap 27.1 (5-19); Aspartate Amino Transferase 110 U/L (0-40); Calcium 6.8 mg/dL (8.5-10.5); Carbon Dioxide 21 mmol/L (22-29); Chloride 87 mmol/L (98-107); Globulin 3.8 g/dL (1.3-4.6); Glomerular Filtration Rate 8.9 mL/min (90-130); Glucose 163 mg/dL (65-115); Magnesium 2.8 mg/dL (1.7-2.3); Osmolality Calculated 303 mOsm/kg (285-295); Potassium 5.1 mmol/L (3.5-5.1); Sodium 130 mmol/L (136-145); Total Bilirubin 0.7 mg/dL (0.15-1.2); Total Protein 6.2 g/dL (6.6-8.7)
--- NOTE | 2021-02-21 17:52 | PC.NURSE ---
0935 Patient had a heart rhythm change. Dr. Roger called to bedside. Vital signs, medications, and labs reviewed. 0945 IVP Cardizem given. Amio bouls given and Amio gtt started. [address] Roger to hold CRRT until patient stabilizes. 1320 CRRT initiated [address] Roger to keep Amio gtt at 1 mg/min until patients heart rate is WNL.
[2021-02-21 18:12] LABS: Blood Urea Nitrogen 95 mg/dL (6-20)
--- NOTE | 2021-02-21 18:19 | PC.NURSE ---
[address] Diamond. Reviewed labs, medications, vitals signs, and CRRT status. Orders to keep current settings/fluids and repeat labs in 4 hours.
[2021-02-21] MEDS: insulin glargine 100 units/1 mL 28 UNIT SUBCUT (18:22)
[2021-02-21 18:46] LABS: Slide Review Slide Review Perform
[2021-02-21 21:14] LABS: Glucose Point of Care 136 mg/dL (70-110)
[2021-02-21 21:27] LABS: Hemoglobin 11.6 g/dL (11.7-16.6); Mean Corpuscular HGB Conc 33.1 g/dL (30.0-36.0); Mean Corpuscular Hemoglobin 28.7 pg (28.0-34.0); Mean Corpuscular Volume 86.6 fl (80-94); Mean Platelet Volume 10.7 fL (7.4-10.4); Platelet Count 367 10^3/cmm (130-400); Red Blood Count 4.04 10^6/uL (4.1-5.3); Red Cell Distribution Width 15.9 % (12.1-15.1); White Blood Count 22.8 10^3/uL (4.0-10.0)
[2021-02-21 21:55] LABS: Alanine Aminotransferase 139 U/L (0-41); Albumin Level 2.5 g/dL (3.5-5.2); Alkaline Phosphatase 80 IU/L (40-130); Anion Gap 22.3 (5-19); Aspartate Amino Transferase 123 U/L (0-40); Calcium 6.9 mg/dL (8.5-10.5); Carbon Dioxide 23 mmol/L (22-29); Chloride 89 mmol/L (98-107); Globulin 3.6 g/dL (1.3-4.6); Glomerular Filtration Rate 9.5 mL/min (90-130); Glucose 154 mg/dL (65-115); Magnesium 2.7 mg/dL (1.7-2.3); Osmolality Calculated 295 mOsm/kg (285-295); Phosphorus 7.5 mg/dL (2.5-4.5); Potassium 5.3 mmol/L (3.5-5.1); Sodium 129 mmol/L (136-145); Total Bilirubin 0.7 mg/dL (0.15-1.2); Total Protein 6.1 g/dL (6.6-8.7)
[2021-02-21 21:59] LABS: Blood Urea Nitrogen 81 mg/dL (6-20)
[2021-02-21 22:05] LABS: Partial Thromboplastin Time 48.9 SECONDS (23.9-36.7)
[2021-02-21 22:27] LABS: Absolute Segmented Neutrophil 16.6 10/cmm (1.6-7.1); Band Neutrophils Absolute 3.2 10^3/cmm (0.0-1.2); Lymphocytes 1 %; Segmented Neutrophils 73 %; Total Cells Counted 100 (0-100)
[2021-02-21 22:28] LABS: Monocytes Absolute 0.7 10^3/cmm (0.1-0.6)
[2021-02-21 22:29] LABS: Giant Platelets 1+; Smudge Cells Trace
[2021-02-21 22:30] LABS: Burr Cells Trace; Toxic Granulation 1+
[2021-02-21 22:31] LABS: Slide Review Slide Review Perform
--- NOTE | 2021-02-21 22:53 | P.PN_ITS ---
Subjective Subjective: Interval history: -Patient seen at bedside multiple times -Patient has been in atrial fibrillation with RVR since morning-started on amiodarone drip and given Cardizem 30 mg push -Explained the critical condition to the family and started on CRRT -Patient tolerated CRRT well with Levophed 4 -Completed proning session -Sputum cultures grew Serratia sensitive to imipenem-antibiotic changed accordingly -Labs and imaging reviewed Medications: Reviewed: Yes Vitals/I&O/Wt Last Vital Signs Temp 97.8 F 02/21/21 19:51 Pulse 128 H 02/21/21 22:30 Resp 28 H 02/21/21 20:21 BP 94/64 02/21/21 22:30 Pulse Ox 97 02/21/21 22:30 02/21/21 02/21/21 02/21/21 06:59 14:59 22:59 Intake Total 538.825 / 1661.293 436.195 / 903.648 6372.850 / 2445.045 Balance 538.825 / -1238.707 436.195 / 352.890 0881.850 / 2445.045 Weight last 48 hrs Weight 272 lb 1 oz Weight 271 lb 13.279 oz Weight 279 lb 3.2 oz Physical Exam Narrative: EXAM NARRATIVE: General: lying in bed, proned sedated and intubated. 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 SKIN: no rash; left gluteal subcutaneous hematoma LDA: # CVC: Right cutaneous IJ CVC 02/14/2021 # HD Cath : Right femoral HD catheter 02/15/2021 # Mckinnon: 02/14/2021 Urinary Catheter Management^: Mckinnon: Cath Placed During This Visit: yes Reason for Continuing Indwelling Catheter: Accurate Measurement of Urinary Output in Critically Ill Patients Urinary Catheter Date of Insertion: 02/14/21 Urinary Catheter Time of Insertion: 11:05 Data : 02/22/21 04:45 02/22/21 19:24 Other Labs: Laboratory Results WBC 22.8 10^3/uL (4.0-10.0) H 02/21/21 21:08 RBC 4.04 10^6/uL (4.1-5.3) L 02/21/21 21:08 Hgb 11.6 g/dL (11.7-16.6) L 02/21/21 21:08 Hct 35.0 % (42.0-52.0) L 02/21/21 21:08 MCV 86.6 fl (80-94) 02/21/21 21:08 MCH 28.7 pg (28.0-34.0) 02/21/21 21:08 MCHC 33.1 g/dL (30.0-36.0) 02/21/21 21:08 RDW 15.9 % (12.1-15.1) H 02/21/21 21:08 Plt Count 367 10^3/cmm (130-400) 02/21/21 21:08 MPV 10.7 fL (7.4-10.4) H 02/21/21 21:08 Neut % (Auto) 76.9 % 02/21/21 16:50 Lymph % (Auto) Not Reportable 02/21/21 21:08 Kemper % (Auto) Not Reportable 02/21/21 21:08 Eos % (Auto) 0.5 % 02/21/21 16:50 Baso % (Auto) 0.1 % 02/21/21 16:50 Neut # (Auto) 15.76 10^3/uL (1.8-7.7) H 02/21/21 16:50 Lymph # (Auto) Not Reportable 02/21/21 21:08 Kemper # (Auto) Not Reportable 02/21/21 21:08 Eos # (Auto) 0.1 10^3/uL (0.0-0.8) 02/21/21 16:50 Baso # (Auto) 0.0 10^3/uL (0.0-0.1) 02/21/21 16:50 Nucleated RBC % (auto) 0.4 % 02/21/21 16:50 Total Counted 100 (0-100) 02/21/21 21:08 Atypical Lymphs % Not Reportable 02/21/21 21:08 Absolute Neutrophils 19.5 10^3/cmm (1.4-6.5) H 02/21/21 09:18 Segmented Neutrophils 73 % 02/21/21 21:08 Abs Segm Neuts (Man) 16.6 10/cmm (1.6-7.1) H 02/21/21 21:08 Band Neutrophils 14.0 % 02/21/21 21:08 Abs Band Neuts (Man) 3.2 10^3/cmm (0.0-1.2) H 02/21/21 21:08 Absolute Lymphocytes 1.1 10^3/cmm (1.2-3.4) L 02/21/21 09:18 Lymphocytes (Manual) 1 % 02/21/21 21:08 Monocytes (Manual) 3.0 % 02/21/21 21:08 Absolute Monocytes 0.7 10^3/cmm (0.1-0.6) H 02/21/21 21:08 Eosinophils (Manual) Not Reportable 02/21/21 21:08 Absolute Eosinophils 0.0 10^3/cmm (0.0-0.7) 02/21/21 09:18 Basophils (Manual) Not Reportable 02/21/21 21:08 Absolute Basophils 0.0 10^3/cmm (0.0-0.2) 02/21/21 09:18 Metamyelocytes 3.0 % 02/21/21 21:08 Myelocytes 1.0 % 02/21/21 21:08 Nucleated RBCs 2.0 /100WBC (0-1) H 02/21/21 21:08 Nucleated RBCs # 0.1 /100WBC 02/21/21 16:50 Smudge Cells Trace 02/21/21 21:08 Toxic Granulation 1+ H 02/21/21 21:08 Platelet Estimate Not Reportable 02/21/21 21:08 Giant Platelets 1+ H 02/21/21 21:08 Anisocytosis Trace 02/21/21 09:18 Ramonita Cells Trace 02/21/21 21:08 PT 14.10 SECONDS (12.1-14.9) 02/18/21 10:00 INR 1.06 (0.8-1.2) 02/18/21 10:00 APTT 48.9 SECONDS (23.9-36.7) H 02/21/21 21:08 Fibrinogen 529 mg/dL (174-498) H 02/18/21 10:00 Fibrin Degrad Products Pos, >=40 ug/mL (NEG) H 02/18/21 10:00 D-Dimer 3.67 ug/mIFEU (0-0.59) H 02/18/21 10:00 Specimen Type Arterial 02/21/21 05:21 Sample Site Radial, right 02/21/21 05:21 ABG pH 7.24 (7.35-7.45) L 02/21/21 05:21 ABG pCO2 53.2 mmHg (35-45) H 02/21/21 05:21 ABG pO2 125.0 mmHg (80.0-100.0) H 02/21/21 05:21 ABG HCO3 22.8 mmol/L (22-26) 02/21/21 05:21 ABG O2 Saturation 93.6 02/20/21 15:35 ABG Base Excess -4.9 mmol/L (-2.0-2.0) L 02/21/21 05:21 Artemio Test Pos 02/21/21 05:21 A-a O2 Gradient 73.4 mmHg (5-10) H 02/20/21 15:35 Hematocrit 35.4 % (42-52) L 02/21/21 05:21 Hgb O2 Saturation 92.1 % (95-100) L 02/20/21 15:35 Carboxyhemoglobin 0.6 %THgb (0.4-20.1) 02/20/21 15:35 Methemoglobin 1.0 % (0.4-1.5) 02/20/21 15:35 Total Hemoglobin 14.1 g/dL (14-18) 02/20/21 15:35 Sodium 136.0 mmol/L (131-143) 02/20/21 15:35 Potassium 5.0 mmol/L (3.5-5.0) 02/20/21 15:35 Glucose 181.0 mg/dL (70-115) H 02/20/21 15:35 Ionized Calcium 1.0 mmol/L (1.1-1.4) L 02/20/21 15:35 Respiration Rate 24.0 % 02/20/21 21:10 O2 Delivery Device Vent 02/21/21 05:21 Mechanical Rate 24.0 02/19/21 04:51 FiO2 90.0 % 02/21/21 05:21 Tidal Volume 0.50 02/21/21 05:21 PEEP 16.0 cmH20 02/21/21 05:21 Telecommunications Officer ID Mario 02/21/21 05:21 Sodium 129 mmol/L (136-145) L 02/21/21 21:08 Potassium 5.3 mmol/L (3.5-5.1) H 02/21/21 21:08 Chloride 89 mmol/L (98-107) L 02/21/21 21:08 Carbon Dioxide 23 mmol/L (22-29) 02/21/21 21:08 Anion Gap 22.3 (5-19) H 02/21/21 21:08 BUN 81 mg/dL (6-20) H 02/21/21 21:08 Creatinine 6.1 mg/dL (0.7-1.2) H* 02/21/21 21:08 GFR Calculation 9.5 mL/min (90-130) L 02/21/21 21:08 Glucose 154 mg/dL (65-115) H 02/21/21 21:08 POC Glucose 136 mg/dL (70-110) H 02/21/21 20:46 Calculated Osmolality 295 mOsm/kg (285-295) 02/21/21 21:08 Lactic Acid 3.8 mmol/L (0.5-2.2) H 02/14/21 10:55 Lactic Acid (Sepsis) 3.4 mmol/L (0.5-2.2) H 02/14/21 18:37 Lactate 1.8 mmol/L (0.5-2.2) 02/21/21 04:05 Calcium 6.9 mg/dL (8.5-10.5) L 02/21/21 21:08 Phosphorus 7.5 mg/dL (2.5-4.5) H 02/21/21 21:08 Magnesium 2.7 mg/dL (1.7-2.3) H 02/21/21 21:08 Total Bilirubin 0.7 mg/dL (0.15-1.2) 02/21/21 21:08 AST 123 U/L (0-40) H 02/21/21 21:08 ALT 139 U/L (0-41) H 02/21/21 21:08 Alkaline Phosphatase 80 IU/L (40-130) 02/21/21 21:08 Creatine Kinase 3969 U/L (39-308) H* 08/19/21 04:05 Troponin T Baseline 18 ng/L (0-15) H 02/14/21 10:55 Troponin T 120 Minute 27.90 ng/L (0-15) H 02/14/21 12:55 Delta Troponin T 9.90 ABS# (0-10) 02/14/21 12:55 Troponin T Hi Sens 6Hr 49.40 ng/L (0-15) H 02/14/21 16:30 Troponin T Hi Sens 6Hr Delta 31.40 ng/L (0-12) H* 02/14/21 16:30 C-Reactive Protein 372.9 mg/L (0.0-4.9) H 02/15/21 06:26 NT-Pro-B Natriuret Pep 1942 pg/mL (0-125) H 02/14/21 12:55 Total Protein 6.1 g/dL (6.6-8.7) L 02/21/21 21:08 Albumin 2.5 g/dL (3.5-5.2) L 02/21/21 21:08 Globulin 3.6 g/dL (1.3-4.6) 02/21/21 21:08 Interleukin 6 2895.00 pg/mL (<5.00) H 02/14/21 10:55 Procalcitonin 1.02 ng/mL (0-0.5) H 02/14/21 10:55 TSH 0.39 uIU/mL (0.27-4.20) 02/18/21 05:54 Urine Color Yellow (Yellow) 02/15/21 12:00 Urine Appearance Cloudy (CLEAR) 02/15/21 12:00 Urine pH 5 (5-7) 02/15/21 12:00 Ur Specific [place] 1.015 (1.005-1.030) 02/15/21 12:00 Urine Protein 2+ (Negative) H 02/15/21 12:00 Urine Glucose (UA) Trace (Normal) H 02/15/21 12:00 Urine Ketones Negative (Negative) 02/15/21 12:00 Urine Blood 3+ (Negative) H 02/15/21 12:00 Urine Nitrate Negative (Negative) 02/15/21 12:00 Urine Bilirubin Neg (Negative) 02/15/21 12:00 Urine Urobilinogen Norm mg/dL (Negative) 02/15/21 12:00 Ur Leukocyte Esterase Negative (Negative) 02/15/21 12:00 Urine RBC 10-15 /hpf (0-2) H 02/15/21 12:00 Urine WBC 5-10 /hpf (0-5) H 02/15/21 12:00 Ur Squamous Epith Cells 0-4 /hpf (0-5) H 02/15/21 12:00 Calcium Oxalate Crystal 0-4 /hpf H 02/15/21 12:00 Amorphous Sediment Not Reportable 02/15/21 12:00 Urine Bacteria 2+ /hpf (NONE) H 02/15/21 12:00 Urine Sperm 3+ /hpf 02/15/21 12:00 Ur Random Sodium 120 mmol/L 02/15/21 12:00 Urine Creatinine 32 mg/dL (39-259) L 02/15/21 12:00 Random Vancomycin 14.6 ug/mL (20.0-40.0) L 02/20/21 05:45 Serum Ketones Negative (Negative) 02/20/21 16:30 Hep Bs Antigen Non-reactive (Nonreactive) 02/15/21 17:00 Hep Bs Antibody 3.5 (11.5-1000) L 02/15/21 17:00 Hepatitis C Antibody Non-reactive (Nonreactive) 02/15/21 17:00 Legionella Antibody <1:256 TITER 02/14/21 18:37 Impressions Pelvis X-Ray 02/18/21 12:06 IMPRESSION: No acute findings. Chest X-Ray 02/21/21 08:00 Impression: 1. No change in bilateral patchy pulmonary opacities. 2. No change in multiple tubes. Micro: Microbiology 02/16/21 16:11 Blood Culture - Final Blood NO GROWTH AFTER 5 DAYS 02/16/21 15:52 Blood Culture - Final Blood NO GROWTH AFTER 5 DAYS 02/18/21 18:10 Gram Stain - Final Sputum - Endotracheal Tube Aspirate Sputum Culture - Preliminary Serratia marcescens Yeast A&P Assessment and plan (1) Acute and chronic respiratory failure with hypoxia: Status: Acute (2) CAD (coronary artery disease): Status: Acute (3) ARDS (adult respiratory distress syndrome): Status: Acute (4) Diabetes mellitus: Status: Acute (5) Hypertension: Status: Acute Qualifiers: Hypertension type: unspecified Qualified Code(s): I10 - Essential (primary) hypertension (6) Pneumonia due to COVID-19 virus: Status: Acute (7) Hypotension: Status: Acute (8) JACINTO (acute kidney injury): Status: Acute (9) Pneumonia: Status: Acute (10) Hyperkalemia: Status: Acute (11) Metabolic acidosis: Status: Acute (12) Septic shock due to streptococcal infection: Status: Acute (13) Multiorgan failure: Status: Acute (14) DIC (disseminated intravascular coagulation): Status: Acute (15) Acute renal failure: Status: Acute (16) Atrial fibrillation with RVR: Status: Acute #Acute hypoxic respiratory failure secondary to ARDS due to COVID-19 pneumonia #Diabetes #Streptococcus pneumonia bacteremia leading to septic shock and JACINTO requiring hemodialysis; DIC-septic shock resolved #A. fib RVR-back on amiodarone drip #ARDS #Hypertension #JACINTO-due to prerenal leading to possible ATN #Right upper lobe pneumonia -Tested positive on 02/05/2021; -Intubated on arrival in the ED 02/14/2021 -Sedated and connected to mechanical ventilator ; proned 3 sessions -no significant improvement in FiO2 requirement - 7.2 4/53/1 25/90% on CMV 500/ peep 16/FiO2 90%/rate 26 -Patient in A. fib RVR-started back on amiodarone drip and given 1 dose of Cardizem 30 Mg -Tolerated CRRT - Left gluteal hematoma-did not worsen -Chest x-ray Bilateral pulmonary opacities are again noted and appear unchanged. -Completed 5-day protocol remdesivir and currently on dexamethasone 6 mg daily -Procalcitonin 1.02; -CRP 80; sputum and blood cultures positive for pansensitive strep pneumonia -- on ceftriaxone 1 g daily started 02/17/2021; but today sputum culture grew Serratia sensitive to imipenem and yeast-discontinued Rocephin and started on imipenem 02/21/2021 -MRSA PCR and bacterial antigen panel, Legionella antigen-negative -Significantly elevated D-dimer and elevated troponin I-placed on heparin drip; noted small subcutaneous hematoma left gluteal buttock-no drop in hemoglobin noted-continue heparin drip and monitor CBC -Continue aspirin for underlying CAD -Overall patient LFTs are improving since his admission -Currently requiring Levophed to keep maps above 65 -Insulin scale coverage for diabetes; Lantus increased to 28 twice daily -CK-improving -Nephrology recommendations appreciated -DVT prophylaxis: Already on heparin drip -GI prophylaxis: PPI -Fluoxetine 20 mg daily -Full code -Prognosis: Poor -Family updated Discussed with hospitalist, RN, RT covering the case Attestations Medical Necessity Statement*: Acute hypoxic respiratory failure secondary to ARDS due to COVID-19 pneumonia requiring mechanical ventilation with high FiO2, septic shock leading to prerenal JACINTO/ATN likely requires hemodialysis -overall needs close monitoring for multiorgan failure Time Spent in Patient Care: Greater than 35 minutes (>than 50% of time spent in counselling and/or direct pt care on unit) . Critical Care Time: The high probability of a clinically significant, sudden or life threatening deterioration of the patient's [respiratory, renal, endocrine, cardiac, infectious] system(s) required my full and direct attention, intervention and personal management. The critical care time is as shown. This time is in addition to time spent performing any reported procedures but includes the following: [x] Data and vital sign review and interpretation [x] Patient assessment, examination and intervention [x] Documentation [x] Medication orders and management Critical Care Time (min): 75 Coding Level of Care Code Established Pt Acute Director Instrumentation for Chg Fwd Patient Type Established History Comprehensive Exam Comprehensive Medical Decision Making High Complexity Diagnoses Acute and chronic respiratory failure with hypoxia J96.21 CAD (coronary artery disease) I25.10 ARDS (adult respiratory distress syndrome) J80 Diabetes mellitus E11.9 Hypertension I10 Hypertension type: unspecified Pneumonia due to COVID-19 virus U07.1; J12.82 Hypotension I95.9 JACINTO (acute kidney injury) N17.9 Pneumonia J18.9 Hyperkalemia E87.5 Metabolic acidosis E87.2 Septic shock due to streptococcal infection A40.9; R65.21 Multiorgan failure DIC (disseminated intravascular coagulation) D65 Acute renal failure N17.9 Atrial fibrillation with RVR I48.91 Time Spent (min) 75
[2021-02-22] VITALS (58 sets, daily range): BP systolic 83–128; BP diastolic 59–100; PULSE 64–143; RESP 24–31; TEMP 35.8–36.9; O2SAT 93–98; BMI 41.2
[2021-02-22] MEDS: famotidine 20 mg/2 mL INJ IVP ×2 (01:26→12:47)
[2021-02-22] MEDS: ipratropium-albuterol 3 mL Neb INHALATION ×3 (02:17→20:24)
[2021-02-22] MEDS: propofol 1,000 MG/100 ML INJ 9.19 MG IV (02:30)
[2021-02-22 04:44] LABS: ABG PH Result 7.28 (7.35-7.45); Arterial Blood Gas Hematocrit 49.2 % (42-52); Base Excess ABG -5.8 mmol/L (-2.0-2.0); Blood Gas Allen Test Pos; Blood Gas Operator Identificat JB; Blood Gas Sample Site Radial, right; Blood Gas Sample Type Arterial; Oxygen Device VENT; PO2 ABG 84.3 mmHg (80.0-100.0)
[2021-02-22 04:57] LABS: Basophils # 0.1 10^3/uL (0.0-0.1); Basophils % 0.2 %; Eosinophils % 0.1 %; Hematocrit 34.8 % (42.0-52.0); Hemoglobin 11.4 g/dL (11.7-16.6); Lymphocytes # 0.5 10^3/uL (0.8-4.8); Mean Corpuscular HGB Conc 32.8 g/dL (30.0-36.0); Mean Corpuscular Hemoglobin 28.7 pg (28.0-34.0); Mean Corpuscular Volume 87.7 fl (80-94); Mean Platelet Volume 10.9 fL (7.4-10.4); Monocytes # 0.5 10^3/uL (0.2-0.9); Monocytes % 2.2 %; Neutrophils # 18.39 10^3/uL (1.8-7.7); Nucleated Red Blood Cells # 0.1 /100WBC; Nucleated Red Blood Cells % 0.4 %; Platelet Count 395 10^3/cmm (130-400); Red Blood Count 3.97 10^6/uL (4.1-5.3); Red Cell Distribution Width 15.9 % (12.1-15.1); White Blood Count 24.2 10^3/uL (4.0-10.0)
[2021-02-22] MEDS: PrismaSol BGK 2/3.5 - 5,000 ML BAG 5000 ML CRRT ×15 (05:10→21:26)
[2021-02-22 05:13] LABS: Partial Thromboplastin Time 63.1 SECONDS (23.9-36.7)
[2021-02-22 05:14] LABS: D Dimer 2.91 ug/mIFEU (0-0.59)
[2021-02-22 05:21] LABS: Alanine Aminotransferase 138 U/L (0-41); Albumin Level 2.4 g/dL (3.5-5.2); Alkaline Phosphatase 89 IU/L (40-130); Anion Gap 21.6 (5-19); Aspartate Amino Transferase 99 U/L (0-40); Blood Urea Nitrogen 73 mg/dL (6-20); C Reactive Protein 229.5 mg/L (0.0-4.9); Calcium 7.6 mg/dL (8.5-10.5); Carbon Dioxide 22 mmol/L (22-29); Chloride 92 mmol/L (98-107); Globulin 4.1 g/dL (1.3-4.6); Glomerular Filtration Rate 13.2 mL/min (90-130); Glucose 164 mg/dL (65-115); Magnesium 2.5 mg/dL (1.7-2.3); Osmolality Calculated 295 mOsm/kg (285-295); Potassium 5.6 mmol/L (3.5-5.1); Sodium 130 mmol/L (136-145); Total Bilirubin 0.7 mg/dL (0.15-1.2); Total Protein 6.5 g/dL (6.6-8.7)
[2021-02-22 05:31] LABS: Phosphorus 7.9 mg/dL (2.5-4.5)
[2021-02-22 05:54] LABS: Slide Review Slide Review Perform
[2021-02-22] MEDS: heparin drip 25,000 UNIT/500 ML PREMIX 30 UNIT IV (06:31)
--- NOTE | 2021-02-22 07:00 | XR_ITS ---
WS: [id number] Portable AP semiupright chest, 02/22/2021 Clinical Data: followup resp failure Comparison: Portable chest, 02/21/2021 Findings: The bilateral patchy pulmonary opacities have cleared slightly. The heart size is normal. T he right internal jugular venous catheter, endotracheal tube and nasogastric tube remain in position. Monitor leads are on the chest wall. XR/XR chest 1V portable 24203 Impression: 1. Slight clearing of bilateral pulmonary opacities. 2. No change in multiple tubes.
--- NOTE | 2021-02-22 08:07 | PC.NURSE ---
SCD's not on at this time. Pt is on a Heparin drip, covers VTE.
--- NOTE | 2021-02-22 08:54 | PC.NURSE ---
Order noted from Dr. Olvera to start tube feed. He instructed staff to verify with before starting.
[2021-02-22 09:00] LABS: Albumin Level 2.1 g/dL (3.5-5.2); Anion Gap 16.6 (5-19); Blood Urea Nitrogen 53 mg/dL (6-20); Carbon Dioxide 24 mmol/L (22-29); Chloride 97 mmol/L (98-107); Glomerular Filtration Rate 18.7 mL/min (90-130); Glucose 141 mg/dL (65-115); Magnesium 2.2 mg/dL (1.7-2.3); Phosphorus 5.6 mg/dL (2.5-4.5); Potassium 4.6 mmol/L (3.5-5.1); Sodium 133 mmol/L (136-145)
[2021-02-22] MEDS: linezolid premix 600 MG/300 ML PREMIX 300 MG IV ×2 (09:25→20:24)
[2021-02-22] MEDS: fluoxetine 20 mg Capsule PO (09:35)
[2021-02-22] MEDS: fluconazole 100 mg Tablet OG-TUBE (09:36)
[2021-02-22] MEDS: sennosides-docusate Tablet 1 TAB PO (09:36)
[2021-02-22] MEDS: sevelamer 800 mg Tablet 1600 MG PO ×3 (09:36→20:25)
[2021-02-22] MEDS: aspirin 81 mg EC Tablet PO (09:36)
[2021-02-22] MEDS: insulin glargine 100 units/1 mL 28 UNIT SUBCUT ×2 (09:41→17:35)
[2021-02-22] MEDS: PrismaSol BGK 4/2.5 - 5,000 mL Bag 5000 ML CRRT (10:21)
[2021-02-22] MEDS: docusate sodium 10 mg/mL (5ml) Liq 100 MG PO (10:21)
--- NOTE | 2021-02-22 12:10 | PC.NURSE ---
Increased blood in preblood pump to 200ml/min per Dr. Archer request/order.
--- NOTE | 2021-02-22 12:43 | P.PN_ITS ---
Subjective Subjective: Interval history: Federico is sedated on the ventilator. Medications: Reviewed: Yes Vitals/I&O/Wt Last Vital Signs Temp 97.7 F 02/22/21 12:00 Pulse 113 H 02/22/21 12:30 Resp 31 H 02/22/21 09:18 BP 120/85 02/22/21 12:30 Pulse Ox 96 02/22/21 12:30 02/21/21 02/22/21 02/22/21 22:59 06:59 14:59 Intake Total 2007.850 / 2445.045 680.500 / 3125.545 184.214 / 184.214 Balance 2007.850 / 2445.045 680.500 / 3125.545 184.214 / 184.214 Weight last 48 hrs Weight 126.581 kg Weight 123.405 kg Weight 123.3 kg Physical Exam Narrative: EXAM NARRATIVE: General exam: Sedated, supine. Dialysis being performed at this time. Neck is supple no lymphadenopathy or thyromegaly Cardiovascular regular rate and rhythm without murmur Lungs coarse breath sounds bilaterally Abdomen is soft obese positive bowel sounds. No obvious organomegaly demonstrates Mckinnon. No significant urine output Extremities no cyanosis clubbing or edema, cap refill brisk Urinary Catheter Management^: Mckinnon: Cath Placed During This Visit: yes Reason for Continuing Indwelling Catheter: Accurate Measurement of Urinary Output in Critically Ill Patients Urinary Catheter Date of Insertion: 02/14/21 Urinary Catheter Time of Insertion: 11:05 Data : 02/22/21 04:45 02/22/21 08:16 Micro: Microbiology 02/16/21 16:11 Blood Culture - Final Blood NO GROWTH AFTER 5 DAYS 02/16/21 15:52 Blood Culture - Final Blood NO GROWTH AFTER 5 DAYS 02/18/21 18:10 Gram Stain - Final Sputum - Endotracheal Tube Aspirate Sputum Culture - Preliminary Serratia marcescens Yeast A&P Assessment and plan (1) Pneumonia due to COVID-19 virus: Severe COVID-19 pneumonia, first testing + February 05 Currently being sedated with propofol, fentanyl, Versed Intubated in the emergency department, requiring a significant amount of PEEP and an FiO2 of 100%. Significant amount of PEEP is still required to ventilate him. He has intermittently been proned. He has completed his proning sessions. Appreciate critical care consultation Continue dexamethasone. Initially placed on vancomycin and Zosyn secondary to concern for bacterial infection. Cultures have grown strep pneumonia and IV antibiotics have been changed to ceftriaxone 1 g IV every 12 hours. Today there is some gram-negative vaughn growing and ceftriaxone will be changed to Primaxin. Yeast is also noted and fluconazole was added. Ultimately Serratia grew from sputum, sensitive to Primaxin D-dimer was also significantly elevated and patient is still on heparin drip. Dimer has decreased significantly. Continue pulmonary toilet MRSA PCR, bacterial antigens, Legionella antigen negative. Nimbex drip was reinitiated, to promote ventilation and oxygenation. Possible discontinuation of this if tolerated. ABG improved and pH is 7.2 Currently undergoing CRRT Pulmonary has added linezolid to his regimen, and ordered a sputum culture today. Status: Acute (2) Acute and chronic respiratory failure with hypoxia: See above Status: Acute (3) ARDS (adult respiratory distress syndrome): Status: Acute (4) CAD (coronary artery disease): Continue aspirin Continue Heparin drip Elevation in troponin noted may be type II elevation but positive delta is noted. Echocardiogram demonstrated preserved ejection fraction, no severe valvular abnormalities, no regional wall motion abnormalities. Status: Acute (5) Hypertension: Antihypertensives held. Norepinephrine as needed. Status: Acute Qualifiers: Hypertension type: unspecified Qualified Code(s): I10 - Essential (primary) hypertension (6) Diabetes mellitus: Sliding scale insulin Continue long-acting insulin Status: Acute Additional A&P Information Strep pneumonia bacteremia. Requiring norepinephrine for pressure support. Changed to Primaxin. Repeat blood cultures were ordered, and negative to date. Atrial fibrillation with rapid ventricular rate, occurring with dialysis night of February 17. Placed on amiodarone drip. He was transitioned to p.o. at 200 mg twice daily. Atrial fibrillation with rapid ventricular rate recurred and place d back on amiodarone drip. Currently in atrial fibrillation with a rate of 115, improved Acute kidney injury, oliguric. Associate with hyperkalemia initially. He has received several sessions of dialysis. CRRT was initiated February 21. Appreciate nephrology consultation. Rhabdomyolysis. CK improved Left gluteal hematoma. With elevated CK could consider possibility of fall at home. AP pelvis shows no fracture GI:initiate tube feeds today. Will have higher caloric needs then I placed i nitially in order and this should be reviewed if he is tolerating feeds. Full code Heparin drip will suffice for DVT prophylaxis Pepcid for GI prophylaxis Attestations Medical Necessity Statement*: Needs continued hospital stay secondary to severe COVID-19 pneumonia requiring mechanical ventilation. Coding Level of Care Code Acute Manufacturer'S Representative for g Fwd Diagnoses Pneumonia due to COVID-19 virus U07.1; J12.82 Acute and chronic respiratory failure with hypoxia J96.21 ARDS (adult respiratory distress syndrome) J80 CAD (coronary artery disease) I25.10 Hypertension I10 Hypertension type: unspecified Diabetes mellitus E11.9
--- NOTE | 2021-02-22 13:33 | PC.NURSE ---
called lab to obtain PTT
--- NOTE | 2021-02-22 14:37 | PM.PN ---
Subjective Subjective: Interval history: Mr Hua remains intubated and vented, critically ill, remains on CRRT. Vent settings reviewed FiO2 70mL/min. Levophed dosing is reducing down, from 5 down to 4 mics per minute, however, he does remain tachycardic with A. fib with RVR between 110 and 128 bpm. He has been tolerating ultrafiltration to the tune of 150 mL/h. Total negative 161mL yesterday. He remains essentially anuric at this time. Vitals/I&O/Wt Last Vital Signs Temp 96.9 F L 02/22/21 13:30 Pulse 132 H 02/22/21 14:00 Resp 31 H 02/22/21 09:18 BP 110/74 02/22/21 14:00 Pulse Ox 95 02/22/21 14:00 02/21/21 02/22/21 02/22/21 22:59 06:59 14:59 Intake Total 2007.850 / 2445.045 680.500 / 3125.545 1149.680 / 1149.680 Output Total 432 / 432 Balance 2007.850 / 2445.045 680.500 / 3125.545 717.680 / 717.680 Weight last 48 hrs Weight 126.581 kg Weight 123.405 kg Weight 123.3 kg Physical Exam Narrative: EXAM NARRATIVE: Constitutional: Sedated and vented HEENT: Wet mucosa, no jvp, non icteric Lungs: Bilaterally wheeze, rales in all lung zones CVS: S1 S2, no murmurs Abdo: Soft, BS ok Ext 4: Minimal edema, peripheral perfusion with no cyanosis Neurological: Grossly non-focal Urinary Catheter Management^: Mckinnon: Cath Placed During This Visit: yes Reason for Continuing Indwelling Catheter: Accurate Measurement of Urinary Output in Critically Ill Patients Urinary Catheter Date of Insertion: 02/14/21 Urinary Catheter Time of Insertion: 11:05 Data : 02/22/21 04:45 02/22/21 08:16 Micro: Microbiology 02/22/21 13:55 Blood Culture - Preliminary Blood SPECIMEN COLLECTED 02/22/21 13:51 Blood Culture - Preliminary Blood SPECIMEN COLLECTED 02/16/21 16:11 Blood Culture - Final Blood NO GROWTH AFTER 5 DAYS 02/16/21 15:52 Blood Culture - Final Blood NO GROWTH AFTER 5 DAYS 02/18/21 18:10 Gram Stain - Final Sputum - Endotracheal Tube Aspirate Sputum Culture - Preliminary Serratia marcescens Yeast A&P Additional A&P Information 1. 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 He remains anuric, our goal is to keep him as dry as possible to give him the best chance of coming off the ventilator. CRR settings are reviewed... blood flow 200 mL/min Prefilter dialysate 1500 mL/h 2K PrismaSol Dialysate 1500 mL/h 2K PrismaSol Replacement fluid of 50 mL/h 4K PrismaSol Net UF 150 mL/h if tolerated Currently on systemic anticoagulation Continue CRRT for the time being Avoid usual nephrotoxic agents Strict I's and O's 2. Vent dependent respiratory failure Secondary to Covid pneumonitis, superimposed bacterial pneumonia Management per ICU team Continue coverage with combination antibiotic/antifungal therapy 3. Hemodynamics A. fib with RVR Tapering dose of Levophed, if he needs high doses, may need to consider Zain-Synephrine 4. Chemistry Relatively minor aberration consistent with CRRT and renal failure. We will continue to monitor closely during his CRRT therapy. Prognosis is of course guarded at this time. Juvenal Archer MD Nephrology [phone] Patient seen and examined via telemedicine, with the assistance of the bedside RN > 25 min spent in evaluation and mgmt of patient Attestations Medical Necessity Statement*: Eval for renal failure Coding Level of Care Code Acute Cocoa Powder Mixer Operator for Chapin Tse
--- NOTE | 2021-02-22 14:39 | PC.NURSE ---
HR up in 140's and maintaining. CRRT fluid removal was decreased to 100. Dr. Archer notified.
[2021-02-22 14:46] LABS: Albumin Level 2.4 g/dL (3.5-5.2); Anion Gap 20.1 (5-19); Blood Urea Nitrogen 58 mg/dL (6-20); Calcium 7.6 mg/dL (8.5-10.5); Carbon Dioxide 21 mmol/L (22-29); Chloride 94 mmol/L (98-107); Glomerular Filtration Rate 16.4 mL/min (90-130); Glucose 144 mg/dL (65-115); Magnesium 2.2 mg/dL (1.7-2.3); Phosphorus 6.3 mg/dL (2.5-4.5); Potassium 5.1 mmol/L (3.5-5.1); Sodium 130 mmol/L (136-145)
[2021-02-22 15:27] LABS: Partial Thromboplastin Time 52.7 SECONDS (23.9-36.7)
[2021-02-22] MEDS: heparin 5,000 unit/mL INJ 1 mL IV ×2 (15:52→20:22)
[2021-02-22 16:03] LABS: Glucose Point of Care 131 mg/dL (70-110)
[2021-02-22] MEDS: propofol 1,000 MG/100 ML INJ 6.12 MG IV (17:18)
[2021-02-22 17:31] LABS: Glucose Point of Care 121 mg/dL (70-110)
[2021-02-22] MEDS: dexamethasone 10 mg/mL INJ 6 MG IVP (17:34)
[2021-02-22 20:00] LABS: Partial Thromboplastin Time 44.9 SECONDS (23.9-36.7)
[2021-02-22 20:06] LABS: Albumin Level 2.4 g/dL (3.5-5.2); Blood Urea Nitrogen 56 mg/dL (6-20); Calcium 8.1 mg/dL (8.5-10.5); Carbon Dioxide 23 mmol/L (22-29); Chloride 93 mmol/L (98-107); Glomerular Filtration Rate 17.5 mL/min (90-130); Glucose 131 mg/dL (65-115); Magnesium 2.3 mg/dL (1.7-2.3); Phosphorus 5.7 mg/dL (2.5-4.5); Sodium 128 mmol/L (136-145)
--- NOTE | 2021-02-22 20:37 | PM.PN ---
Subjective Subjective: Interval history: -Patient seen at bedside multiple times -Continues to be intermittently in A. fib RVR despite being on amiodarone drip -Currently FiO2 down to 70% and no plans for more proning sessions -Tolerating CRRT with Levophed 2 -Worsening white count-broadened antibiotic coverage and added linezolid to imipenem -Labs and imaging reviewed Medications: Reviewed: Yes Vitals/I&O/Wt Last Vital Signs Temp 96.5 F L 02/22/21 18:00 Pulse 65 02/22/21 20:25 Resp 28 H 02/22/21 20:25 BP 94/80 02/22/21 19:29 Pulse Ox 98 02/22/21 20:25 02/22/21 02/22/21 02/22/21 06:59 14:59 22:59 Intake Total 680.500 / 3125.545 2463.348 / 2463.348 452.381 / 2915.729 Output Total 972 / 972 312 / 1284 Balance 680.500 / 3125.545 1491.348 / 1491.348 140.381 / 1631.729 Weight last 48 hrs Weight 279 lb 1 oz Weight 272 lb 1 oz Physical Exam Narrative: EXAM NARRATIVE: General: lying in bed, sedated and intubated. HEENT:NCAT, PERRLA, EOMI Neck: Supple Lungs: Bilateral diffuse coarse crackles Heart: s1/s2, RRR Abd: soft, NT, ND, BS + Normoactive Extremities: Improving edema MANAGER SWITCH: sedated and limited MANAGER SWITCH exam possible. SKIN: no rash; left gluteal subcutaneous hematoma LDA: # CVC: Right cutaneous IJ CVC 02/14/2021 # HD Cath : Right femoral HD catheter 02/15/2021 # Mckinnon: 02/14/2021 Urinary Catheter Management^: Mckinnon: Cath Placed During This Visit: yes Reason for Continuing Indwelling Catheter: Accurate Measurement of Urinary Output in Critically Ill Patients Urinary Catheter Date of Insertion: 02/14/21 Urinary Catheter Time of Insertion: 11:05 Data : 02/22/21 04:45 02/22/21 19:24 Other Labs: Laboratory Results WBC 24.2 10^3/uL (4.0-10.0) H 02/22/21 04:45 RBC 3.97 10^6/uL (4.1-5.3) L 02/22/21 04:45 Hgb 11.4 g/dL (11.7-16.6) L 02/22/21 04:45 Hct 34.8 % (42.0-52.0) L 02/22/21 04:45 MCV 87.7 fl (80-94) 02/22/21 04:45 MCH 28.7 pg (28.0-34.0) 02/22/21 04:45 MCHC 32.8 g/dL (30.0-36.0) 02/22/21 04:45 RDW 15.9 % (12.1-15.1) H 02/22/21 04:45 Plt Count 395 10^3/cmm (130-400) 02/22/21 04:45 MPV 10.9 fL (7.4-10.4) H 02/22/21 04:45 Neut % (Auto) 76.0 % 02/22/21 04:45 Lymph % (Auto) 2.0 % 02/22/21 04:45 [place] % (Auto) 2.2 % 02/22/21 04:45 Eos % (Auto) 0.1 % 02/22/21 04:45 Baso % (Auto) 0.2 % 02/22/21 04:45 Neut # (Auto) 18.39 10^3/uL (1.8-7.7) H 02/22/21 04:45 Lymph # (Auto) 0.5 10^3/uL (0.8-4.8) L 02/22/21 04:45 [place] # (Auto) 0.5 10^3/uL (0.2-0.9) 02/22/21 04:45 Eos # (Auto) 0.0 10^3/uL (0.0-0.8) 02/22/21 04:45 Baso # (Auto) 0.1 10^3/uL (0.0-0.1) 02/22/21 04:45 Nucleated RBC % (auto) 0.4 % 02/22/21 04:45 Total Counted 100 (0-100) 02/21/21 21:08 Atypical Lymphs % Not Reportable 02/21/21 21:08 Absolute Neutrophils 19.5 10^3/cmm (1.4-6.5) H 02/21/21 09:18 Segmented Neutrophils 73 % 02/21/21 21:08 Abs Segm Neuts (Man) 16.6 10/cmm (1.6-7.1) H 02/21/21 21:08 Band Neutrophils 14.0 % 02/21/21 21:08 Abs Band Neuts (Man) 3.2 10^3/cmm (0.0-1.2) H 02/21/21 21:08 Absolute Lymphocytes 1.1 10^3/cmm (1.2-3.4) L 02/21/21 09:18 Lymphocytes (Manual) 1 % 02/21/21 21:08 Monocytes (Manual) 3.0 % 02/21/21 21:08 Absolute Monocytes 0.7 10^3/cmm (0.1-0.6) H 02/21/21 21:08 Eosinophils (Manual) Not Reportable 02/21/21 21:08 Absolute Eosinophils 0.0 10^3/cmm (0.0-0.7) 02/21/21 09:18 Basophils (Manual) Not Reportable 02/21/21 21:08 Absolute Basophils 0.0 10^3/cmm (0.0-0.2) 02/21/21 09:18 Metamyelocytes 3.0 % 02/21/21 21:08 Myelocytes 1.0 % 02/21/21 21:08 Nucleated RBCs 2.0 /100WBC (0-1) H 02/21/21 21:08 Nucleated RBCs # 0.1 /100WBC 02/22/21 04:45 Smudge Cells Trace 02/21/21 21:08 Toxic Granulation 1+ H 02/21/21 21:08 Platelet Estimate Not Reportable 02/21/21 21:08 Giant Platelets 1+ H 02/21/21 21:08 Anisocytosis Trace 02/21/21 09:18 Ramonita Cells Trace 02/21/21 21:08 PT 14.10 SECONDS (12.1-14.9) 02/18/21 10:00 INR 1.06 (0.8-1.2) 02/18/21 10:00 APTT 44.9 SECONDS (23.9-36.7) H 02/22/21 19:24 Fibrinogen 529 mg/dL (174-498) H 02/18/21 10:00 Fibrin Degrad Products Pos, >=40 ug/mL (NEG) H 02/18/21 10:00 D-Dimer 2.91 ug/mIFEU (0-0.59) H 02/22/21 04:45 Specimen Type Arterial 02/22/21 04:30 Sample Site Radial, right 02/22/21 04:30 ABG pH 7.28 (7.35-7.45) L 02/22/21 04:30 ABG pCO2 45.0 mmHg (35-45) 02/22/21 04:30 ABG pO2 84.3 mmHg (80.0-100.0) 02/22/21 04:30 ABG HCO3 21.0 mmol/L (22-26) L 02/22/21 04:30 ABG O2 Saturation 93.6 02/20/21 15:35 ABG Base Excess -5.8 mmol/L (-2.0-2.0) L 02/22/21 04:30 Artemio Test Pos 02/22/21 04:30 A-a O2 Gradient 73.4 mmHg (5-10) H 02/20/21 15:35 Hematocrit 49.2 % (42-52) 02/22/21 04:30 Hgb O2 Saturation 92.1 % (95-100) L 02/20/21 15:35 Carboxyhemoglobin 0.6 %THgb (0.4-20.1) 02/20/21 15:35 Methemoglobin 1.0 % (0.4-1.5) 02/20/21 15:35 Total Hemoglobin 14.1 g/dL (14-18) 02/20/21 15:35 Sodium 136.0 mmol/L (131-143) 02/20/21 15:35 Potassium 5.0 mmol/L (3.5-5.0) 02/20/21 15:35 Glucose 181.0 mg/dL (70-115) H 02/20/21 15:35 Ionized Calcium 1.0 mmol/L (1.1-1.4) L 02/20/21 15:35 Respiration Rate 24.0 % 02/20/21 21:10 O2 Delivery Device Vent 02/22/21 04:30 Mechanical Rate 24.0 02/19/21 04:51 FiO2 80.0 % 02/22/21 04:30 Tidal Volume 0.50 02/22/21 04:30 PEEP 16.0 cmH20 02/22/21 04:30 Block Breaker Operator ID Jah 02/22/21 04:30 Sodium 128 mmol/L (136-145) L 02/22/21 19:24 Potassium 5.0 mmol/L (3.5-5.1) 02/22/21 19:24 Chloride 93 mmol/L (98-107) L 02/22/21 19:24 Carbon Dioxide 23 mmol/L (22-29) 02/22/21 19:24 Anion Gap 17.0 (5-19) 02/22/21 19:24 BUN 56 mg/dL (6-20) H 02/22/21 19:24 Creatinine 3.6 mg/dL (0.7-1.2) H 02/22/21 19:24 GFR Calculation 17.5 mL/min (90-130) L 02/22/21 19:24 Glucose 131 mg/dL (65-115) H 02/22/21 19:24 POC Glucose 121 mg/dL (70-110) H 02/22/21 17:27 Calculated Osmolality 295 mOsm/kg (285-295) 02/22/21 04:45 Lactic Acid 3.8 mmol/L (0.5-2.2) H 02/14/21 10:55 Lactic Acid (Sepsis) 3.4 mmol/L (0.5-2.2) H 02/14/21 18:37 Lactate 1.8 mmol/L (0.5-2.2) 02/21/21 04:05 Calcium 8.1 mg/dL (8.5-10.5) L 02/22/21 19:24 Phosphorus 5.7 mg/dL (2.5-4.5) H 02/22/21 19:24 Magnesium 2.3 mg/dL (1.7-2.3) 02/22/21 19:24 Total Bilirubin 0.7 mg/dL (0.15-1.2) 02/22/21 04:45 AST 99 U/L (0-40) H 02/22/21 04:45 ALT 138 U/L (0-41) H 02/22/21 04:45 Alkaline Phosphatase 89 IU/L (40-130) 02/22/21 04:45 Creatine Kinase 3969 U/L (39-308) H* 02/21/21 04:05 Troponin T Baseline 18 ng/L (0-15) H 02/14/21 10:55 Troponin T 120 Minute 27.90 ng/L (0-15) H 02/14/21 12:55 Delta Troponin T 9.90 ABS# (0-10) 02/14/21 12:55 Troponin T Hi Sens 6Hr 49.40 ng/L (0-15) H 02/14/21 16:30 Troponin T Hi Sens 6Hr Delta 31.40 ng/L (0-12) H* 02/14/21 16:30 C-Reactive Protein 229.5 mg/L (0.0-4.9) H 02/22/21 04:45 NT-Pro-B Natriuret Pep 1942 pg/mL (0-125) H 02/14/21 12:55 Total Protein 6.5 g/dL (6.6-8.7) L 02/22/21 04:45 Albumin 2.4 g/dL (3.5-5.2) L 02/22/21 19:24 Globulin 4.1 g/dL (1.3-4.6) 02/22/21 04:45 Interleukin 6 2895.00 pg/mL (<5.00) H 02/14/21 10:55 Procalcitonin 1.02 ng/mL (0-0.5) H 02/14/21 10:55 TSH 0.39 uIU/mL (0.27-4.20) 02/18/21 05:54 Urine Color Yellow (Yellow) 02/15/21 12:00 Urine Appearance Cloudy (CLEAR) 02/15/21 12:00 Urine pH 5 (5-7) 02/15/21 12:00 Ur Specific [place] 1.015 (1.005-1.030) 02/15/21 12:00 Urine Protein 2+ (Negative) H 02/15/21 12:00 Urine Glucose (UA) Trace (Normal) H 02/15/21 12:00 Urine Ketones Negative (Negative) 02/15/21 12:00 Urine Blood 3+ (Negative) H 02/15/21 12:00 Urine Nitrate Negative (Negative) 02/15/21 12:00 Urine Bilirubin Neg (Negative) 02/15/21 12:00 Urine Urobilinogen Norm mg/dL (Negative) 02/15/21 12:00 Ur Leukocyte Esterase Negative (Negative) 02/15/21 12:00 Urine RBC 10-15 /hpf (0-2) H 02/15/21 12:00 Urine WBC 5-10 /hpf (0-5) H 02/15/21 12:00 Ur Squamous Epith Cells 0-4 /hpf (0-5) H 02/15/21 12:00 Calcium Oxalate Crystal 0-4 /hpf H 02/15/21 12:00 Amorphous Sediment Not Reportable 02/15/21 12:00 Urine Bacteria 2+ /hpf (NONE) H 02/15/21 12:00 Urine Sperm 3+ /hpf 02/15/21 12:00 Ur Random Sodium 120 mmol/L 02/15/21 12:00 Urine Creatinine 32 mg/dL (39-259) L 02/15/21 12:00 Random Vancomycin 14.6 ug/mL (20.0-40.0) L 02/20/21 05:45 Serum Ketones Negative (Negative) 02/20/21 16:30 Hep Bs Antigen Non-reactive (Nonreactive) 02/15/21 17:00 Hep Bs Antibody 3.5 (11.5-1000) L 02/15/21 17:00 Hepatitis C Antibody Non-reactive (Nonreactive) 02/15/21 17:00 Legionella Antibody <1:256 TITER 02/14/21 18:37 Impressions Pelvis X-Ray 02/18/21 12:06 IMPRESSION: No acute findings. Chest X-Ray 02/22/21 07:00 Impression: 1. Slight clearing of bilateral pulmonary opacities. 2. No change in multiple tubes. Micro: Microbiology 02/22/21 13:55 Blood Culture - Preliminary Blood SPECIMEN COLLECTED 02/22/21 13:51 Blood Culture - Preliminary Blood SPECIMEN COLLECTED 02/16/21 16:11 Blood Culture - Final Blood NO GROWTH AFTER 5 DAYS 02/16/21 15:52 Blood Culture - Final Blood NO GROWTH AFTER 5 DAYS A&P Assessment and plan (1) Septic shock due to streptococcal infection: Status: Acute (2) Pneumonia due to COVID-19 virus: Status: Acute (3) ARDS (adult respiratory distress syndrome): Status: Acute (4) Acute and chronic respiratory failure with hypoxia: Status: Acute (5) Multiorgan failure: Status: Acute (6) Ventilator associated pneumonia: Status: Acute (7) JACINTO (acute kidney injury): Status: Acute (8) Hyperkalemia: Status: Acute (9) Metabolic acidosis: Status: Acute (10) Acute renal failure: Status: Acute Qualifiers: Acute renal failure type: unspecified Qualified Code(s): N17.9 - Acute kidney failure, unspecified (11) Atrial fibrillation with RVR: Status: Acute (12) CAD (coronary artery disease): Status: Acute Qualifiers: Coronary Disease-Associated Artery/Lesion type: torres martinez artery [place] vs. transplanted heart: torres martinez heart Associated angina: without angina Qualified Code(s): I25.10 - Atherosclerotic heart disease of torres martinez coronary artery without angina pectoris (13) Diabetes mellitus: Status: Acute Qualifiers: Diabetes mellitus type: type 2 Diabetes mellitus director long term care insulin use: unspecified fdc insulin use status Diabetes mellitus complication status: with other specified complication Qualified Code(s): E11.69 - Type 2 diabetes mellitus with other specified complication (14) Hypertension: Status: Acute Qualifiers: Hypertension type: unspecified Qualified Code(s): I10 - Essential (primary) hypertension #Acute hypoxic respiratory failure secondary to ARDS due to COVID-19 pneumonia #Diabetes #Streptococcus pneumonia bacteremia leading to septic shock and JACINTO requiring hemodialysis; DIC-septic shock resolved #A. fib RVR-back on amiodarone drip #ARDS #Hypertension #JACINTO-due to prerenal leading to possible ATN #Right upper lobe pneumonia -Tested positive on 02/05/2021; -Intubated on arrival in the ED 02/14/2021 -Sedated and connected to mechanical ventilator ; proned 3 sessions -FiO2 down to 70% - 7.2 //21 on CMV 500/16 PEEP/80% -Plan is to taper off Versed and do spontaneous awakening trial -Patient in A. fib RVR - on amiodarone drip and given 1 dose of Cardizem 30 Mg -Tolerating CRRT - Left gluteal hematoma-did not worsen -Chest x-ray Bilateral pulmonary opacities are again noted and appear unchanged. -Completed 5-day protocol remdesivir and currently on dexamethasone 6 mg daily -Procalcitonin 1.02; -CRP 80; sputum and blood cultures positive for pansensitive strep pneumonia -- on ceftriaxone 1 g daily started 02/17/2021; but today sputum culture grew Serratia sensitive to imipenem and yeast-discontinued Rocephin and started on imipenem 02/21/2021 -WBC increased to 24,000-repeated blood cultures- Linezolid -MRSA PCR and bacterial antigen panel, Legionella antigen-negative -Significantly elevated D-dimer and elevated troponin I- on heparin drip; noted small subcutaneous hematoma left gluteal buttock-no drop in hemoglobin noted-continue heparin drip and monitor CBC -Continue aspirin for underlying CAD -Overall patient LFTs are improving since his admission -Currently requiring Levophed to keep maps above 65 -Insulin scale coverage for diabetes; Lantus increased to 28 twice daily -CK-improving -Nephrology recommendations appreciated -Continues tube feed & bowel regimen Colace and senna -DVT prophylaxis: Already on heparin drip -GI prophylaxis: PPI -Fluoxetine 20 mg daily -Full code -Prognosis: Poor -Family updated Discussed with hospitalist, RN, RT covering the case Attestations Medical Necessity Statement*: Acute hypoxic respiratory failure secondary to ARDS due to COVID-19 pneumonia requiring mechanical ventilation with high FiO2, septic shock leading to prerenal JACINTO/ATN likely requires hemodialysis -overall needs close monitoring for multiorgan failure Time Spent in Patient Care: Greater than 35 minutes (>than 50% of time spent in counselling and/or direct pt care on unit). Critical Care Time: The high probability of a clinically significant, sudden or life threatening deterioration of the patient's [respiratory, renal, endocrine, cardiac, infectious] system(s) required my full and direct attention, intervention and personal management. The critical care time is as shown. 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 Established History Comprehensive Exam Comprehensive Medical Decision Making High Complexity Diagnoses Septic shock due to streptococcal infection A40.9; R65.21 Pneumonia due to COVID-19 virus U07.1; J12.82 ARDS (adult respiratory distress syndrome) J80 Acute and chronic respiratory failure with hypoxia J96.21 Multiorgan failure Ventilator associated pneumonia J95.851 JACINTO (acute kidney injury) N17.9 Hyperkalemia E87.5 Metabolic acidosis E87.2 Acute renal failure N17.9 Acute renal failure type: unspecified Atrial fibrillation with RVR I48.91 CAD (coronary artery disease) I25.10 Coronary Disease-Associated Artery/Lesion type: torres martinez artery [place] vs. transplanted heart: torres martinez heart Associated angina: without angina Diabetes mellitus E11.69 Diabetes mellitus type: type 2 Diabetes mellitus director long term care insulin use: unspecified director long term care insulin use status Diabetes mellitus complication status: with other specified complication Hypertension I10 Hypertension type: unspecified Time Spent (min) 75
[2021-02-22 20:44] LABS: Glucose Point of Care 121 mg/dL (70-110)
[2021-02-22] MEDS: heparin drip 25,000 UNIT/500 ML PREMIX 37 UNIT IV (22:51)
[2021-02-23] VITALS (58 sets, daily range): BP systolic 86–198; BP diastolic 58–119; PULSE 69–116; RESP 28–33; TEMP 36.4–37.3; O2SAT 90–97; BMI 43.0
[2021-02-23] MEDS: famotidine 20 mg/2 mL INJ IVP ×2 (00:28→12:09)
[2021-02-23 01:01] LABS: Albumin Level 2.4 g/dL (3.5-5.2); Anion Gap 17.2 (5-19); Blood Urea Nitrogen 55 mg/dL (6-20); Calcium 7.5 mg/dL (8.5-10.5); Carbon Dioxide 22 mmol/L (22-29); Chloride 94 mmol/L (98-107); Glomerular Filtration Rate 18.7 mL/min (90-130); Glucose 192 mg/dL (65-115); Magnesium 2.3 mg/dL (1.7-2.3); Phosphorus 5.3 mg/dL (2.5-4.5); Potassium 5.2 mmol/L (3.5-5.1); Sodium 128 mmol/L (136-145)
[2021-02-23 01:07] LABS: Partial Thromboplastin Time 99.7 SECONDS (23.9-36.7)
[2021-02-23] MEDS: ipratropium-albuterol 3 mL Neb INHALATION ×4 (03:07→21:22)
[2021-02-23] MEDS: PrismaSol BGK 2/3.5 - 5,000 ML BAG 5000 ML CRRT ×12 (04:30→18:50)
[2021-02-23 04:55] LABS: ABG PCO2 42.5 mmHg (35-45); ABG PH Result 7.33 (7.35-7.45); Arterial Blood Gas Hematocrit 37.9 % (42-52); Base Excess ABG -3.5 mmol/L (-2.0-2.0); Blood Gas Allen Test Pos; Blood Gas Sample Site Radial, left; Blood Gas Sample Type Arterial; HCO3 ABG 22.3 mmol/L (22-26); Oxygen Device VENT; PO2 ABG 72.3 mmHg (80.0-100.0)
[2021-02-23 05:16] LABS: Basophils % 0.1 %; Eosinophils % 0.1 %; Hematocrit 32.8 % (42.0-52.0); Hemoglobin 10.7 g/dL (11.7-16.6); Lymphocytes # 0.6 10^3/uL (0.8-4.8); Lymphocytes % 2.4 %; Mean Corpuscular HGB Conc 32.6 g/dL (30.0-36.0); Mean Corpuscular Hemoglobin 28.9 pg (28.0-34.0); Mean Corpuscular Volume 88.6 fl (80-94); Mean Platelet Volume 11.2 fL (7.4-10.4); Monocytes # 0.6 10^3/uL (0.2-0.9); Monocytes % 2.2 %; Nucleated Red Blood Cells # 0.2 /100WBC; Nucleated Red Blood Cells % 0.6 %; Platelet Count 369 10^3/cmm (130-400); Red Cell Distribution Width 15.9 % (12.1-15.1); White Blood Count 26.2 10^3/uL (4.0-10.0)
[2021-02-23 05:44] LABS: Alanine Aminotransferase 124 U/L (0-41); Albumin Level 2.3 g/dL (3.5-5.2); Alkaline Phosphatase 82 IU/L (40-130); Aspartate Amino Transferase 85 U/L (0-40); Blood Urea Nitrogen 56 mg/dL (6-20); Calcium 7.8 mg/dL (8.5-10.5); Carbon Dioxide 22 mmol/L (22-29); Chloride 95 mmol/L (98-107); Globulin 3.9 g/dL (1.3-4.6); Glomerular Filtration Rate 21.6 mL/min (90-130); Glucose 159 mg/dL (65-115); Magnesium 2.1 mg/dL (1.7-2.3); Osmolality Calculated 289 mOsm/kg (285-295); Phosphorus 5.2 mg/dL (2.5-4.5); Sodium 130 mmol/L (136-145); Total Bilirubin 0.6 mg/dL (0.15-1.2); Total Protein 6.2 g/dL (6.6-8.7)
--- NOTE | 2021-02-23 07:00 | XRR_ITS ---
PROCEDURE INFORMATION: Exam: XR Chest Exam date and time: 02/23/2021 7:00 AM Age: 60 years old Clinical indication: Patient HX: Resp failure. Covid pneumonia. TECHNIQUE: Imaging protocol: XR of the chest. Views: 1 view. COMPARISON: CR XR chest 1V portable [id number] 02/22/2021 5:44 AM FINDINGS: Tubes, catheters and devices: Support tubes and lines are in good position. Lungs: There are low lung volumes with increase in bilateral pulmonary opacities. Pleural spaces: Unremarkable. No pleural effusion. No pneumothorax. Heart/Mediastinum: Unremarkable. No cardiomegaly. Bones/joints: Unremarkable. XR/XR chest 1V portable [id number] IMPRESSION: 1. There are low lung volumes with increase in bilateral pulmonary opacities. 2. Support tubes and lines are in good position.
[2021-02-23 07:09] LABS: Anion Gap 18.2 (5-19)
[2021-02-23 07:10] LABS: Potassium 5.2 mmol/L (3.5-5.1)
[2021-02-23] MEDS: propofol 1,000 MG/100 ML INJ 12.25 MG IV (07:21)
[2021-02-23 07:28] LABS: Glucose Point of Care 131 mg/dL (70-110)
[2021-02-23] MEDS: aspirin 81 mg EC Tablet PO (08:23)
[2021-02-23] MEDS: sevelamer 800 mg Tablet 1600 MG PO ×3 (08:23→20:32)
[2021-02-23] MEDS: sennosides-docusate Tablet 1 TAB PO (08:23)
[2021-02-23] MEDS: fluconazole 100 mg Tablet OG-TUBE (08:23)
[2021-02-23] MEDS: fluoxetine 20 mg Capsule PO (08:23)
[2021-02-23] MEDS: docusate sodium 10 mg/mL (5ml) Liq 100 MG PO (08:25)
[2021-02-23] MEDS: insulin glargine 100 units/1 mL 28 UNIT SUBCUT ×2 (08:25→17:21)
[2021-02-23] MEDS: linezolid premix 600 MG/300 ML PREMIX 300 MG IV ×2 (08:26→20:32)
--- NOTE | 2021-02-23 10:08 | PC.NURSE ---
Addendum entered by Bishnu Wood RN 02/23/21 10:11: Nurse increased replacement rate from 50ml/hr to 1000mL and hour per dr havill orders. Nurse verified that effluent rate also increased by 1000mL. New target Net removal rate is -100ml/hr. Nurse increased fluid removal rate to 160ml/hr. Original Note: Nurse increased replacement rate from 50ml/hr to 1000mL and hour per dr havill orders. Nurse verified that effluent rate also increased by 1000mL.
[2021-02-23 10:22] LABS: Neutrophils % 95.2 %
--- NOTE | 2021-02-23 10:26 | P.PN_ITS ---
Subjective Subjective: Interval history: Seen and examined during CRRT. Events of the last 24 hours noted. Atrial fibrillation with RVR controlled with IV Cardizem now and IV amiodarone fusion. FiO2 remains stable at 70% with PEEP slightly improved 16. He remains anuric. He still has significant anasarca. Due to hemodynamic lability, we have been unable to significant for large volumes of him and has subsequently ended up 105 mL in positive balance. Medications: Reviewed: Yes Medication Review Details: Current Medications Acetaminophen (Acetaminophen 325 Mg Tablet) 650 mg PO Q6H PRN PRN Reason: MILD PAIN Albuterol/Ipratropium (Ipratropium-Albuterol 3 Ml Neb) 3 ml INHALATION Q6H.RESPIRATORY [facility] Last Admin: 02/21/21 03:09 Dose: 3 ml Documented by: Alteplase, Recombinant (Alteplase 1 Mg/Ml Sdv 2 Ml) 4 mg INTRACATH PRN PRN PRN Reason: DIALYSIS USE ONLY Last Admin: 02/19/21 08:20 Dose: 4 mg Documented by: Alteplase, Recombinant (Alteplase 1 Mg/Ml Sdv 2 Ml) 4 mg INTRACATH PRN PRN PRN Reason: DIALYSIS USE ONLY Alteplase, Recombinant (Alteplase 1 Mg/Ml Sdv 2 Ml) 0 mg INTRACATH Q2H PRN; Protocol PRN Reason: Poor Catheter Flow/ Clotted Catheter Amiodarone HCl (Amiodarone 200 Mg Tablet) 200 mg PO BID [facility] Last Admin: 02/20/21 18:04 Dose: 200 mg Documented by: Aspirin (Aspirin 81 Mg Ec Tablet) 81 mg PO DAILY [facility] Last Admin: 02/20/21 09:17 Dose: 81 mg Documented by: Dexamethasone (Dexamethasone 10 Mg/Ml Inj) 6 mg IVP Q24H [facility] Last Admin: 02/20/21 18:03 Dose: 6 mg Documented by: Dextrose (Dextrose 50% Syringe 50 Ml) 25 ml IVP ONCE PRN; Protocol PRN Reason: hypoglycemia protocol Dextrose (Dextrose 50% Syringe 50 Ml) 50 ml IVP PRN PRN; Protocol PRN Reason: hypoglycemia protocol Docusate Sodium (Docusate Sodium 10 Mg/Ml (5ml) Liq) 100 mg PO DAILY [facility] Last Admin: 02/20/21 09:16 Dose: 100 mg Documented by: Famotidine (Famotidine 20 Mg/2 Ml Inj) 20 mg IVP Q12H [facility] Last Admin: 02/20/21 22:51 Dose: 20 mg Documented by: Fluoxetine HCl (Fluoxetine 20 Mg Capsule) 20 mg PO DAILY [facility] Last Admin: 02/20/21 09:17 Dose: 20 mg Documented by: Glucagon (Glucagon 1 Mg/Ml Inj 1 Ml) 1 mg IM ONCE PRN; Protocol PRN Reason: Adult Acute Hypoglycemia Prot. Heparin Sodium (Beef Lung) (Heparin 5,000 Unit/Ml Inj 1 Ml) 0 unit IV PRN PRN; Protocol PRN Reason: Heparin weight-base protocol Last Admin: 02/21/21 06:56 Dose: 2,400 unit Documented by: Heparin Sodium (Beef Lung) (Heparin Lock Flush 500 Unit/5 Ml Syringe) 500 unit IV PRN PRN PRN Reason: At CRRT disconnect Fentanyl 1,000 mcg/ Sodium (Chloride) 100 mls @ 0 mls/hr IV .Q0M [facility]; Protocol Last Titration: 02/20/21 21:40 Dose: 50 mcg/hr, 5 mls/hr Documented by: Propofol (Diprivan) 1,000 mg in 100 mls @ 0 mls/hr IV .Q0M [facility]; Protocol Last Admin: 02/21/21 04:00 Dose: 10 mcg/kg/min, 6.12 mls/hr Documented by: Heparin Sodium/Sodium Chloride (Heparin Drip) 25,000 unit in 500 mls @ 0 mls/hr IV .Q0M [facility]; Protocol Last Titration: 02/21/21 06:53 Dose: 13.72 unit/kg/hr, 28 mls/hr Documented by: Norepinephrine Bitartrate 4 mg (/ Dextrose) 254 mls @ 0 mls/hr IV .Q0M [facility]; Protocol Last Titration: 02/15/21 16:26 Dose: Infused Documented by: Dextrose (D5w) 500 mls @ 100 mls/hr IV ONCE PRN; Protocol PRN Reason: Adult Acute Hypoglycemia Prot Midazolam HCl 100 mg/ Sodium (Chloride) 100 mls @ 0 mls/hr IV .Q0M [facility]; Protocol Last Titration: 02/20/21 16:32 Dose: 3 mg/hr, 3 mls/hr Documented by: Norepinephrine Bitartrate 8 mg (/ Dextrose) 508 mls @ 0 mls/hr IV .Q0M [facility]; Protocol Last Titration: 02/20/21 16:27 Dose: 3 mcg/min, 11.43 mls/hr Documented by: Ceftriaxone Sodium 1,000 mg/ (Sodium Chloride) 100 mls @ 200 mls/hr IV Q12H [facility]; Protocol Last Admin: 02/20/21 22:50 Dose: 200 mls/hr Documented by: Cisatracurium Besylate 100 mg/ (Sodium Chloride) 100 mls @ 0 mls/hr IV .Q0M [facility]; Protocol Last Admin: 02/21/21 05:29 Dose: 1.1 mcg/kg/min, 8.09 mls/hr Documented by: Albumin Human (Albumin) 12.5 gm in 50 mls @ 60 mls/hr IV PRN PRN PRN Reason: Hypotension and/or symptomatic Insulin Aspart (Insulin Aspart 100 Unit/1 Ml) 0 unit SUBCUT WM&BEDTIME [facility]; Protocol Last Admin: 02/20/21 21:36 Dose: 2 unit Documented by: Insulin Glargine (Insulin Glargine 100 Units/1 Ml) 25 unit SUBCUT BID [facility] Last Admin: 02/20/21 18:04 Dose: 25 unit Documented by: Ondansetron HCl (Ondansetron 2 Mg/Ml Sdv 2 Ml) 4 mg IVP Q6H PRN PRN Reason: NAUSEA AND VOMITING Senna/Docusate Sodium (Sennosides-Docusate Tablet) 1 tab PO DAILY [facility] Last Admin: 02/20/21 09:19 Dose: 1 tab Documented by: Sevelamer Carbonate (Sevelamer 800 Mg Tablet) 1,600 mg PO TID [facility] Last Admin: 02/20/21 21:35 Dose: 1,600 mg Documented by: Sodium Chloride (Sodium Chloride 0.9% 1,000 Ml Bag) 1,000 - 7,000 ml CRRT PRN PRN PRN Reason: For priming CRRT Machine Vitals/I&O/Wt Last Vital Signs Temp 98.4 F 02/23/21 08:00 Pulse 79 02/23/21 10:00 Resp 28 H 02/23/21 10:00 BP 112/76 02/23/21 10:00 Pulse Ox 91 02/23/21 10:00 02/22/21 02/23/21 02/23/21 22:59 06:59 14:59 Intake Total 1342.381 / 3805.729 716.224 / 4521.953 432.836 / 432.836 Output Total 312 / 1284 Balance 1030.381 / 2521.729 716.224 / 3237.953 432.836 / 432.836 Weight last 48 hrs Weight 132.052 kg Weight 126.581 kg Physical Exam Narrative: EXAM NARRATIVE: Constitutional: Sedated and vented HEENT: Wet mucosa, no jvp, non icteric Lungs: Bilaterally wheeze, rales in all lung zones CVS: S1 S2, no murmurs Abdo: Soft, BS ok Ext 4: Minimal edema, peripheral perfusion with no cyanosis Neurological: Grossly non-focal Urinary Catheter Management^: Mckinnon: Cath Placed During This Visit: yes Reason for Continuing Indwelling Catheter: Accurate Measurement of Urinary Output in Critically Ill Patients Urinary Catheter Date of Insertion: 02/14/21 Urinary Catheter Time of Insertion: 11:05 Data : 02/23/21 04:19 02/23/21 04:19 Micro: Microbiology 02/22/21 13:55 Blood Culture - Preliminary Blood SPECIMEN COLLECTED 02/22/21 13:51 Blood Culture - Preliminary Blood SPECIMEN COLLECTED A&P Additional A&P Information 1. Oligoanuric renal failure Consistent with Covid kidney, this is a multifactorial damage to the kidney whi ch includes both inflammatory cytokines, direct infiltration with the virus itself, renal hypoperfusion, etc. He remains anuric, our goal is to keep him as dry as possible to give him the best chance of coming off the ventilator. CRR settings are reviewed... blood flow 200 mL/min Prefilter dialysate 1500 mL/h 2K PrismaSol Dialysate 1500 mL/h 2K PrismaSol Replacement fluid of 50 mL/h 4K PrismaSol > increase to 1000mL/hr to improve convective clearance Net UF 0-100mL/hr as tolerated Currently on systemic anticoagulation Continue CRRT for the time being Avoid usual nephrotoxic agents Strict I's and O's Continue Q8 hr labs 2. Vent dependent respiratory failure Secondary to Covid pneumonitis, superimposed bacterial pneumonia Management per ICU team Continue coverage with combination antibiotic/antifungal therapy 3. Hemodynamics A. fib with RVR; now rate controlled with Amio infusion Off Levophed now 4. Chemistry Relatively minor aberration consistent with CRRT and renal failure. We will continue to monitor closely during his CRRT therapy. Prognosis is of course guarded at this time. Juvenal Archer MD Nephrology [phone] Patient seen and examined via telemedicine, with the assistance of the bedside RN > 25 min spent in evaluation and mgmt of patient Attestations Medical Necessity Statement*: eval for renal failure Coding Level of Care Code Acute [employer] Line[employer] for [employer]
[2021-02-23 10:45] LABS: Partial Thromboplastin Time 44.9 SECONDS (23.9-36.7)
[2021-02-23] MEDS: lactulose oral liq 20 gm/30 mL UDC 30 GM PO ×2 (10:50→17:21)
[2021-02-23] MEDS: PrismaSol BGK 4/2.5 - 5,000 mL Bag 5000 ML CRRT ×2 (12:39→17:56)
[2021-02-23 12:53] LABS: Glucose Point of Care 116 mg/dL (70-110)
[2021-02-23] MEDS: heparin 5,000 unit/mL INJ 1 mL IV (13:40)
--- NOTE | 2021-02-23 14:00 | PC.NURSE ---
No change on TOF: 10/07.
--- NOTE | 2021-02-23 14:18 | PC.RESP ---
RT Shift Note Frequent safety and respiratory rounds continue. Orders completed as indicated. Patient monitored pre and post treatments throughout shift. Patient [Did.] tolerate treatments appropriately. Condition [.DidNotChange]. Patient and/or career representative educated on respiratory treatment and medications. Patient and/or career representative [unable to comprehend]. Will continue to monitor patient progress.
[2021-02-23 15:07] LABS: Albumin Level 2.2 g/dL (3.5-5.2); Blood Urea Nitrogen 54 mg/dL (6-20); Calcium 7.8 mg/dL (8.5-10.5); Carbon Dioxide 18 mmol/L (22-29); Chloride 94 mmol/L (98-107); Glomerular Filtration Rate 20.8 mL/min (90-130); Glucose 141 mg/dL (65-115); Magnesium 2.3 mg/dL (1.7-2.3); Phosphorus 5.3 mg/dL (2.5-4.5); Sodium 130 mmol/L (136-145)
--- NOTE | 2021-02-23 15:24 | PC.NURSE ---
Nurse observed tgeminsujey, at beginning of shift patient was in normal sinus. Alerted dr datar and received orders to discontinue amiodarone.
[2021-02-23 15:39] LABS: Anion Gap 23.3 (5-19); Potassium 5.3 mmol/L (3.5-5.1)
[2021-02-23] MEDS: heparin drip 25,000 UNIT/500 ML PREMIX 35 UNIT IV (15:39)
--- NOTE | 2021-02-23 16:49 | P.PN_ITS ---
Subjective Subjective: Interval history: seen with CRRT staff Amiodarone gtt stopped, noted some bigeminy on ventilator, FiO2 70% edematous Vitals/I&O/Wt Last Vital Signs Temp 98.2 F 02/23/21 16:00 Pulse 83 02/23/21 16:00 Resp 32 H 02/23/21 16:00 BP 155/104 02/23/21 16:00 Pulse Ox 95 02/23/21 16:00 02/23/21 02/23/21 02/23/21 06:59 14:59 22:59 Intake Total 716.224 / 4521.953 1327.966 / 1327.966 2.244 / 1330.210 Balance 716.224 / 3237.953 1327.966 / 1327.966 2.244 / 1330.210 Weight last 48 hrs Weight 291 lb 2 oz Weight 279 lb 1 oz Physical Exam Const: OTHER: intubated, s Chest: COMMONS NORMALS: normal inspection of the chest Resp: OTHER: on vent Cardio: OTHER: rate controlled on monitor GI: OTHER: soft Extremity: OTHER: edema Neuro: DEBBIE COMA SCALE: other Urinary Catheter Management^: Mckinnon: Cath Placed During This Visit: yes Reason for Continuing Indwelling Catheter: Accurate Measurement of Urinary Output in Critically Ill Patients Urinary Catheter Date of Insertion: 02/14/21 Urinary Catheter Time of Insertion: 11:05 Data : 02/23/21 04:19 02/23/21 04:19 Micro: Microbiology 02/22/21 13:55 Blood Culture - Preliminary Blood NEGATIVE TO DATE 02/22/21 13:51 Blood Culture - Preliminary Blood NEGATIVE TO DATE A&P Assessment and plan (1) Ventilator associated pneumonia: Status: Acute (2) Atrial fibrillation with RVR: Status: Acute (3) Septic shock due to streptococcal infection: Status: Acute (4) Transaminitis: Status: Acute (5) Multiorgan failure: Status: Acute (6) Acute renal failure: Status: Acute Qualifiers: Acute renal failure type: unspecified Qualified Code(s): N17.9 - Acute kidney failure, unspecified (7) DIC (disseminated intravascular coagulation): Status: Acute (8) JACINTO (acute kidney injury): Status: Acute (9) Diabetes mellitus: Status: Acute Qualifiers: Diabetes mellitus type: type 2 Diabetes mellitus residential insulin use: unspecified supervisor intermediates insulin use status Diabetes mellitus complication status: with other specified complication Qualified Code(s): E11.69 - Type 2 diabetes mellitus with other specified complication (10) Hypertension: Status: Acute Qualifiers: Hypertension type: unspecified Qualified Code(s): I10 - Essential (primary) hypertension Additional A&P Information #acute hypoxic respiratory failure #Covid 19 Pneumonia #septic shock --on vent support --completed proning --continue Dexamethoasone --continue Primaxin, linezolid --continue nebs --continue fluconazole --on pressors #Acute kidney injury --on CRRT --renvela #Anasarca --receiving CRRT, with positive fluid balance #afib with RVR --off amiodarone gtt --PO Amiodarone #DM --lantus 28units , ssi DVT:heparin gtt Attestations Medical Necessity Statement*: Feder[facility] hospital stay will require greater than 2 midnights for sepsis Coding Level of Care Code Acute [place] Applier for [facility] Fwd Diagnoses Ventilator associated pneumonia J95.851 Atrial fibrillation with RVR I48.91 Septic shock due to streptococcal infection A40.9; R65.21 Transaminitis R74.01 Multiorgan failure Acute renal failure N17.9 Acute renal failure type: unspecified DIC (disseminated intravascular coagulation) D65 JACINTO (acute kidney injury) N17.9 Diabetes mellitus E11.69 Diabetes mellitus type: type 2 Diabetes mellitus supervisor intermediates insulin use: unspecified supervisor intermediates insulin use status Diabetes mellitus complication status: with other specified complication Hypertension I10 Hypertension type: unspecified
[2021-02-23] MEDS: dexamethasone 10 mg/mL INJ 6 MG IVP (17:21)
[2021-02-23] MEDS: amiodarone 200 mg Tablet PO (17:21)
[2021-02-23 17:22] LABS: Blood Urea Nitrogen 45 mg/dL (6-20); Carbon Dioxide 24 mmol/L (22-29); Chloride 95 mmol/L (98-107); Glomerular Filtration Rate 26.7 mL/min (90-130); Glucose 123 mg/dL (65-115); Osmolality Calculated 285 mOsm/kg (285-295); Sodium 131 mmol/L (136-145)
[2021-02-23 17:27] LABS: Anion Gap 16.8 (5-19); Magnesium 2.2 mg/dL (1.7-2.3); Phosphorus 3.9 mg/dL (2.5-4.5); Potassium 4.8 mmol/L (3.5-5.1)
[2021-02-23 17:38] LABS: Glucose Point of Care 111 mg/dL (70-110)
[2021-02-23 17:51] LABS: ABG PH Result 7.25 (7.35-7.45); Arterial Blood Gas Hematocrit 43.4 % (42-52); Base Excess ABG -8.5 mmol/L (-2.0-2.0); Blood Gas Allen Test Pos; Blood Gas Sample Site Radial, right; Blood Gas Sample Type Arterial; Blood Gas Tidal Volume 0.47; HCO3 ABG 18.4 mmol/L (22-26); Oxygen Device VENT
--- NOTE | 2021-02-23 18:05 | PC.NURSE ---
Addendum entered by Bishnu Wood RN 02/23/21 18:14: Shift Note Frequent safety and comfort rounds continue. Orders and/or nursing care completed as indicated. Patient monitored for response to intervention and treatment. CRRT continued today. At the end of the 12 hour shift we acheived a fluid balance of -215 mL. Currently goal is to be negative 100mL every hour. CRRT orders can be viewed in Dr polk's most recent report. Per Dr anne orders, nurse attempted to wake patient today. Sedation has been weaned off. Currently is only on fentanyl at 25mcg/hr. Propofol has been off for about 3 hours at the writing of this note and patient remains unresponsive. Tube feedings were increased today and tolerated well. Patient had a residual ranging between 50-200 ml. Tube feeding is currently at the prescribed goal rate of 30mL an hour. Lactulose was started, but no bowel movement today. Original Note: Shift Note Frequent safety and comfort rounds continue. Orders and/or nursing care completed as indicated. Patient monitored for response to intervention and treatment. CRRT continued today. At the end of the 12 hour shift we acheived a fluid balance of -215 mL. Currently goal is to be negative 100mL every hour. CRRT orders can be viewed in Dr polk's most recent report. Per Dr anne orders, nurse attempted to wake patient today. Sedation has been weaned off. Currently is only on fentanyl at 25mcg/hr. Propofol has been off for about 3 hours at the writing of this note and patient remains unresponsive. Lactulose was started, but no bowel movement today.
--- NOTE | 2021-02-23 18:36 | PC.NURSE ---
Nurse updated daughter Mariluz on pt condition and current plan of care.
--- NOTE | 2021-02-23 20:20 | PC.NURSE ---
Shift Note Frequent safety and comfort rounds continue. Orders and/or nursing care completed as indicated. Patient monitored for response to intervention and treatment (CRRT, Ventilation, anticoagulation and pain medication). Education provided includes[Family members]. Patient and/or quality audit representative [verbally understands]. Will continue to monitor. Pt is resting in bed. Respirations are even and unlabored. No s/sx of distress noted. Pt is currently intubated and on CRRT. Pt appears to be tolerating treatment well. Pt is no longer on pressors but now hypertensive with SBP 180s-200s. Pt is no longer on propofol and currently only on fentanyl for sedation. Pt has yet to wake but but does cough when turned or deep suctioned. Pt's pupils are equal and reactive to light but does not respond to stimuli. Pt is on tube feedings with 5mL of residual. Pt's abd is much more distended compared to last night. Absent bowel sounds noted in LUQ. Pt also appears to be mottled around the ankles, above the knees and across lower abd. Dr. Roger and Dr. Piper was notified of pt's current status. Was ordered to stop tube feedings and give 20mg IV hydralazine q6hr prn for SBP greater than 180 or DBP greater than 90. Pt is ordered to have a CT of the head tomorrow and will add on abd CT as well. Bed in lowest and locked position, call light within reach, x's 2 rails up. Will continue to monitor.
--- NOTE | 2021-02-23 20:21 | PC.NUTR ---
Tube feeding recommendation: Limited TF provision 02/18-02/20 (15 ml/hr at times, off at times), and no feeds 02/21. 25 ml/hr on 02/22 and 15-30 ml/hr 02/23, (currently 30 ml/hr). Tolerating well per chart. Continue to recommend goal rate of 50 ml/hr, with 80 ml H2O flushes q 4 hrs, to provide 2160 kcal, 97 g protein, 1350 ml H2O (or per MD discretion.) Increase to goal as tolerated and per MD discretion. See full RD assessments for further details.
[2021-02-23 20:23] LABS: Glucose Point of Care 128 mg/dL (70-110)
[2021-02-23] MEDS: hyDRALAzine 20 mg/mL INJ 1 mL IVP (21:01)
[2021-02-23] MEDS: metoprolol tartrate 1 mg/1 mL SDV 5 mL 2.5 MG IVP (22:10)
--- NOTE | 2021-02-23 22:10 | PM.PN ---
Subjective Subjective: Interval history: -Patient seen today morning -Today plan is to taper off sedation and do awakening trial -Still requiring FiO2 70% on mechanical ventilator -Had episodes of bigeminy on cardiac monitoring-we will stop the amiodarone and patient started having mottling on his lower extremities towards the end of the day, stopped heparin -Labs and other imaging reviewed Medications: Reviewed: Yes Vitals/I&O/Wt Last Vital Signs Temp 99.1 F 02/23/21 20:00 Pulse 108 H 02/23/21 21:22 Resp 33 H 02/23/21 21:22 BP 180/88 02/23/21 20:10 Pulse Ox 96 02/23/21 21:22 02/23/21 02/23/21 02/23/21 06:59 14:59 22:59 Intake Total 716.224 / 4521.953 1327.966 / 1327.966 512.244 / 1840.210 Balance 716.224 / 3237.953 1327.966 / 1327.966 512.244 / 1840.210 Weight last 48 hrs Weight 291 lb 2 oz Weight 279 lb 1 oz Physical Exam Narrative: EXAM NARRATIVE: General: lying in bed, sedated and intubated. HEENT:NCAT, PERRLA, EOMI Neck: Supple Lungs: Bilateral diffuse coarse crackles Heart: s1/s2, RRR Abd: soft, NT, ND, BS + Normoactive Extremities: 1+ pitting pedal edema FLOOR SPECIALIST: sedated and limited FLOOR SPECIALIST exam possible. SKIN: no rash; left gluteal subcutaneous hematoma LDA: # CVC: Right cutaneous IJ CVC 02/14/2021 # HD Cath : Right femoral HD catheter 02/15/2021 # Mckinnon: 02/14/2021 Urinary Catheter Management^: Mckinnon: Cath Placed During This Visit: yes Reason for Continuing Indwelling Catheter: Accurate Measurement of Urinary Output in Critically Ill Patients Urinary Catheter Date of Insertion: 02/14/21 Urinary Catheter Time of Insertion: 11:05 Data : 02/24/21 01:36 02/24/21 01:36 Other Labs: Laboratory Results WBC 26.2 10^3/uL (4.0-10.0) H 02/23/21 04:19 RBC 3.70 10^6/uL (4.1-5.3) L 02/23/21 04:19 Hgb 10.7 g/dL (11.7-16.6) L 02/23/21 04:19 Hct 32.8 % (42.0-52.0) L 02/23/21 04:19 MCV 88.6 fl (80-94) 02/23/21 04:19 MCH 28.9 pg (28.0-34.0) 02/23/21 04:19 MCHC 32.6 g/dL (30.0-36.0) 02/23/21 04:19 RDW 15.9 % (12.1-15.1) H 02/23/21 04:19 Plt Count 369 10^3/cmm (130-400) 02/23/21 04:19 MPV 11.2 fL (7.4-10.4) H 02/23/21 04:19 Neut % (Auto) 95.2 % 02/23/21 04:19 Lymph % (Auto) 2.4 % 02/23/21 04:19 Charles % (Auto) 2.2 % 02/23/21 04:19 Eos % (Auto) 0.1 % 02/23/21 04:19 Baso % (Auto) 0.1 % 02/23/21 04:19 Neut # (Auto) 20.50 10^3/uL (1.8-7.7) H 02/23/21 04:19 Lymph # (Auto) 0.6 10^3/uL (0.8-4.8) L 02/23/21 04:19 Charles # (Auto) 0.6 10^3/uL (0.2-0.9) 02/23/21 04:19 Eos # (Auto) 0.0 10^3/uL (0.0-0.8) 02/23/21 04:19 Baso # (Auto) 0.0 10^3/uL (0.0-0.1) 02/23/21 04:19 Nucleated RBC % (auto) 0.6 % 02/23/21 04:19 Total Counted 100 (0-100) 02/21/21 21:08 Atypical Lymphs % Not Reportable 02/21/21 21:08 Absolute Neutrophils 19.5 10^3/cmm (1.4-6.5) H 02/21/21 09:18 Segmented Neutrophils 73 % 02/21/21 21:08 Abs Segm Neuts (Man) 16.6 10/cmm (1.6-7.1) H 02/21/21 21:08 Band Neutrophils 14.0 % 02/21/21 21:08 Abs Band Neuts (Man) 3.2 10^3/cmm (0.0-1.2) H 02/21/21 21:08 Absolute Lymphocytes 1.1 10^3/cmm (1.2-3.4) L 02/21/21 09:18 Lymphocytes (Manual) 1 % 02/21/21 21:08 Monocytes (Manual) 3.0 % 02/21/21 21:08 Absolute Monocytes 0.7 10^3/cmm (0.1-0.6) H 02/21/21 21:08 Eosinophils (Manual) Not Reportable 02/21/21 21:08 Absolute Eosinophils 0.0 10^3/cmm (0.0-0.7) 02/21/21 09:18 Basophils (Manual) Not Reportable 02/21/21 21:08 Absolute Basophils 0.0 10^3/cmm (0.0-0.2) 02/21/21 09:18 Metamyelocytes 3.0 % 02/21/21 21:08 Myelocytes 1.0 % 02/21/21 21:08 Nucleated RBCs 2.0 /100WBC (0-1) H 02/21/21 21:08 Nucleated RBCs # 0.2 /100WBC 02/23/21 04:19 Smudge Cells Trace 02/21/21 21:08 Toxic Granulation 1+ H 02/21/21 21:08 Platelet Estimate Not Reportable 02/21/21 21:08 Giant Platelets 1+ H 02/21/21 21:08 Anisocytosis Trace 02/21/21 09:18 Choudrant Cells Trace 02/21/21 21:08 PT 14.10 SECONDS (12.1-14.9) 02/18/21 10:00 INR 1.06 (0.8-1.2) 02/18/21 10:00 APTT 69.0 SECONDS (23.9-36.7) H D 02/23/21 19:50 Fibrinogen 529 mg/dL (174-498) H 02/18/21 10:00 Fibrin Degrad Products Pos, >=40 ug/mL (NEG) H 02/18/21 10:00 D-Dimer 2.91 ug/mIFEU (0-0.59) H 02/22/21 04:45 Specimen Type Arterial 02/23/21 04:38 Sample Site Radial, left 02/23/21 04:38 ABG pH 7.33 (7.35-7.45) L 02/23/21 04:38 ABG pCO2 42.5 mmHg (35-45) 02/23/21 04:38 ABG pO2 72.3 mmHg (80.0-100.0) L 02/23/21 04:38 ABG HCO3 22.3 mmol/L (22-26) 02/23/21 04:38 ABG O2 Saturation 93.6 02/20/21 15:35 ABG Base Excess -3.5 mmol/L (-2.0-2.0) L 02/23/21 04:38 Artemio Test Pos 02/23/21 04:38 A-a O2 Gradient 73.4 mmHg (5-10) H 02/20/21 15:35 Hematocrit 37.9 % (42-52) L 02/23/21 04:38 Hgb O2 Saturation 92.1 % (95-100) L 02/20/21 15:35 Carboxyhemoglobin 0.6 %THgb (0.4-20.1) 02/20/21 15:35 Methemoglobin 1.0 % (0.4-1.5) 02/20/21 15:35 Total Hemoglobin 14.1 g/dL (14-18) 02/20/21 15:35 Sodium 136.0 mmol/L (131-143) 02/20/21 15:35 Potassium 5.0 mmol/L (3.5-5.0) 02/20/21 15:35 Glucose 181.0 mg/dL (70-115) H 02/20/21 15:35 Ionized Calcium 1.0 mmol/L (1.1-1.4) L 02/20/21 15:35 Respiration Rate 24.0 % 02/20/21 21:10 O2 Delivery Device Vent 02/23/21 04:38 Mechanical Rate 24.0 02/19/21 04:51 FiO2 70.0 % 02/23/21 04:38 Tidal Volume 0.50 02/23/21 04:38 PEEP 16.0 cmH20 02/23/21 04:38 Health Administration Teacher ID [email or web address] 02/23/21 04:38 Sodium 131 mmol/L (136-145) L 02/23/21 16:40 Potassium 4.8 mmol/L (3.5-5.1) 02/23/21 16:40 Chloride 95 mmol/L (98-107) L 02/23/21 16:40 Carbon Dioxide 24 mmol/L (22-29) 02/23/21 16:40 Anion Gap 16.8 (5-19) 02/23/21 16:40 BUN 45 mg/dL (6-20) H 02/23/21 16:40 Creatinine 2.5 mg/dL (0.7-1.2) H 02/23/21 16:40 GFR Calculation 26.7 mL/min (90-130) L 02/23/21 16:40 Glucose 123 mg/dL (65-115) H 02/23/21 16:40 POC Glucose 128 mg/dL (70-110) H 02/23/21 20:20 Calculated Osmolality 285 mOsm/kg (285-295) 02/23/21 16:40 Lactic Acid 3.8 mmol/L (0.5-2.2) H 02/14/21 10:55 Lactic Acid (Sepsis) 3.4 mmol/L (0.5-2.2) H 02/14/21 18:37 Lactate 1.8 mmol/L (0.5-2.2) 02/21/21 04:05 Calcium 8.0 mg/dL (8.5-10.5) L 02/23/21 16:40 Phosphorus 3.9 mg/dL (2.5-4.5) 02/23/21 16:40 Magnesium 2.2 mg/dL (1.7-2.3) 02/23/21 16:40 Total Bilirubin 0.6 mg/dL (0.15-1.2) 02/23/21 04:19 AST 85 U/L (0-40) H 02/23/21 04:19 ALT 124 U/L (0-41) H 02/23/21 04:19 Alkaline Phosphatase 82 IU/L (40-130) 02/23/21 04:19 Creatine Kinase 3969 U/L (39-308) H* 02/21/21 04:05 Troponin T Baseline 18 ng/L (0-15) H 02/14/21 10:55 Troponin T 120 Minute 27.90 ng/L (0-15) H 02/14/21 12:55 Delta Troponin T 9.90 ABS# (0-10) 02/14/21 12:55 Troponin T Hi Sens 6Hr 49.40 ng/L (0-15) H 02/14/21 16:30 Troponin T Hi Sens 6Hr Delta 31.40 ng/L (0-12) H* 02/14/21 16:30 C-Reactive Protein 229.5 mg/L (0.0-4.9) H 02/22/21 04:45 NT-Pro-B Natriuret Pep 1942 pg/mL (0-125) H 02/14/21 12:55 Total Protein 6.2 g/dL (6.6-8.7) L 02/23/21 04:19 Albumin 2.2 g/dL (3.5-5.2) L 02/23/21 04:19 Albumin 2.3 g/dL (3.5-5.2) L 02/23/21 04:19 Globulin 3.9 g/dL (1.3-4.6) 02/23/21 04:19 Interleukin 6 2895.00 pg/mL (<5.00) H 02/14/21 10:55 Procalcitonin 1.02 ng/mL (0-0.5) H 02/14/21 10:55 TSH 0.39 uIU/mL (0.27-4.20) 02/18/21 05:54 Urine Color Yellow (Yellow) 02/15/21 12:00 Urine Appearance Cloudy (CLEAR) 02/15/21 12:00 Urine pH 5 (5-7) 02/15/21 12:00 Ur Specific Shirley 1.015 (1.005-1.030) 02/15/21 12:00 Urine Protein 2+ (Negative) H 02/15/21 12:00 Urine Glucose (UA) Trace (Normal) H 02/15/21 12:00 Urine Ketones Negative (Negative) 02/15/21 12:00 Urine Blood 3+ (Negative) H 02/15/21 12:00 Urine Nitrate Negative (Negative) 02/15/21 12:00 Urine Bilirubin Neg (Negative) 02/15/21 12:00 Urine Urobilinogen Norm mg/dL (Negative) 02/15/21 12:00 Ur Leukocyte Esterase Negative (Negative) 02/15/21 12:00 Urine RBC 10-15 /hpf (0-2) H 02/15/21 12:00 Urine WBC 5-10 /hpf (0-5) H 02/15/21 12:00 Ur Squamous Epith Cells 0-4 /hpf (0-5) H 02/15/21 12:00 Calcium Oxalate Crystal 0-4 /hpf H 02/15/21 12:00 Amorphous Sediment Not Reportable 02/15/21 12:00 Urine Bacteria 2+ /hpf (NONE) H 02/15/21 12:00 Urine Sperm 3+ /hpf 02/15/21 12:00 Ur Random Sodium 120 mmol/L 02/15/21 12:00 Urine Creatinine 32 mg/dL (39-259) L 02/15/21 12:00 Random Vancomycin 14.6 ug/mL (20.0-40.0) L 02/20/21 05:45 Serum Ketones Negative (Negative) 02/20/21 16:30 Hep Bs Antigen Non-reactive (Nonreactive) 02/15/21 17:00 Hep Bs Antibody 3.5 (11.5-1000) L 02/15/21 17:00 Hepatitis C Antibody Non-reactive (Nonreactive) 02/15/21 17:00 Legionella Antibody <1:256 TITER 02/14/21 18:37 Impressions Pelvis X-Ray 02/18/21 12:06 IMPRESSION: No acute findings. Chest X-Ray 02/23/21 07:00 IMPRESSION: 1. There are low lung volumes with increase in bilateral pulmonary opacities. 2. Support tubes and lines are in good position. Micro: Microbiology 02/22/21 13:55 Blood Culture - Preliminary Blood NEGATIVE TO DATE 02/22/21 13:51 Blood Culture - Preliminary Blood NEGATIVE TO DATE A&P Assessment and plan (1) Septic shock due to streptococcal infection: Status: Acute (2) Pneumonia due to COVID-19 virus: Status: Acute (3) ARDS (adult respiratory distress syndrome): Status: Acute (4) Acute and chronic respiratory failure with hypoxia: Status: Acute (5) Multiorgan failure: Status: Acute (6) Ventilator associated pneumonia: Status: Acute (7) JACINTO (acute kidney injury): Status: Acute (8) Hyperkalemia: Status: Acute (9) Metabolic acidosis: Status: Acute (10) Acute renal failure: Status: Acute Qualifiers: Acute renal failure type: unspecified Qualified Code(s): N17.9 - Acute kidney failure, unspecified (11) Atrial fibrillation with RVR: Status: Acute (12) CAD (coronary artery disease): Status: Acute Qualifiers: Coronary Disease-Associated Artery/Lesion type: [place] artery [place] vs. 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 fib RVR-back on amiodarone drip -held as patient was bradycardic and seen bigeminy on secured entrance monitor #Off Levophed #JACINTO-due to prerenal leading to possible ATN #Right upper lobe pneumonia-TTE positive for Serratia -Tested positive on 02/05/2021; -Intubated on arrival in the ED 02/14/2021 -Sedated and connected to mechanical ventilator ; proned 3 sessions -FiO2 down to 70% -7.3 /72/22 on CMV 500/16/70 percent -Plan is to taper off sedation and do spontaneous awakening trial today -Patient is on amiodarone drip for A. fib RVR-currently heart rate in 50s to 60s with bigeminy noted on cardiac monitoring-DC'd amiodarone -Tolerating CRRT - Left gluteal hematoma-did not worsen -Chest [id number] bilateral pulmonary opacities -Completed 5-day protocol remdesivir and currently on dexamethasone 6 mg daily -Procalcitonin 1.02; -CRP 80; sputum and blood cultures positive for pansensitive strep pneumonia -- on ceftriaxone 1 g daily started 02/17/2021; but later sputum culture grew Serratia sensitive to imipenem and yeast-discontinued Rocephin and started on imipenem 02/21/2021 and on fluconazole -WBC increased to 26,000-repeated blood cultures-pending, added Linezolid -MRSA PCR and bacterial antigen panel, Legionella antigen-negative -Significantly elevated D-dimer and elevated troponin I- on heparin drip; noted small subcutaneous hematoma left gluteal buttock-no drop in hemoglobin noted-continue heparin drip and monitor CBC -Continue aspirin for underlying CAD -Overall patient LFTs are improving since his admission -Currently requiring Levophed to keep maps above 65 -Insulin scale coverage for diabetes; Lantus 28 twice daily -CK-improving -Nephrology recommendations appreciated -Continues tube feed & bowel regimen Colace and senna -DVT prophylaxis: Already on heparin drip -GI prophylaxis: PPI -Fluoxetine 20 mg daily -Full code -Prognosis: Poor -Family updated Spoke to patient's daughter Ms. Mcgraw and reported that patient's white count has been persistently increasing despite covering with broad-spectrum antibiotics and will attempt to do awakening trial, if no response and will obtain a CT head tomorrow. Overall she understands patient prognosis is very critical and wanted to make goals of care discussion tomorrow depending on his neurological status. Discussed with hospitalist, RN, RT covering the case Attestations Medical Necessity Statement*: Acute hypoxic respiratory failure secondary to ARDS due to COVID-19 pneumonia requiring mechanical ventilation with high FiO2, septic shock leading to prerenal JACINTO/ATN likely requires hemodialysis -overall needs close monitoring for multiorgan failure Time Spent in Patient Care: Greater than 35 minutes (>than 50% of time spent in counselling and/or direct pt care on unit). Critical Care Time: The high probability of a clinically significant, sudden or life threatening deterioration of the patient's [respiratory, renal, endocrine, cardiac, infectious] system(s) required my full and direct attention, intervention and personal management. The critical care time is as shown. 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[employer] Patient Type Established History Comprehensive Exam Comprehensive Medical Decision Making High Complexity Diagnoses Septic shock due to streptococcal infection A40.9; R65.21 Pneumonia due to COVID-19 virus U07.1; J12.82 ARDS (adult respiratory distress syndrome) J80 Acute and chronic respiratory failure with hypoxia J96.21 Multiorgan failure Ventilator associated pneumonia J95.851 JACINTO (acute kidney injury) N17.9 Hyperkalemia E87.5 Metabolic acidosis E87.2 Acute renal failure N17.9 Acute renal failure type: unspecified Atrial fibrillation with RVR I48.91 CAD (coronary artery disease) I25.10 Coronary Disease-Associated Artery/Lesion type: [place] artery [place] vs. 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
--- NOTE | 2021-02-23 22:18 | PC.NURSE ---
Gave pt 20mg hydralazine IVP. Pt's SBP dropped down to 160's for a short period of time before climbing back up into the 180s-200s. Pt is also starting to have runs of v-tach and the mottling in his lower extremities is progressively getting worse. Notified Dr. Roger. New orders to stop heparin gtt and give 2.5mg IV metoprol x's 1. I also notified Dr. Bundy for any further suggestions. Dr. Bundy gave orders to start a cardene gtt and 5mg/hr and increase by 2.5mg/hr q1 hours to keep SBP lower than 150. Will continue to monitor pt.
[2021-02-23] MEDS: nicardipine 20 MG/200 ML PREMIX 50 MG IV (22:39)
--- NOTE | 2021-02-23 22:40 | PC.NURSE ---
Called and notified Dr. Piper and pt's daughter of pt's declining condition and what changes were made. Pt's daughter denied any further questions or concerns at end of phone call. Will continue to monitor.
[2021-02-24] VITALS (29 sets, daily range): BP systolic 56–198; BP diastolic 31–110; PULSE 80–123; RESP 28–38; TEMP 37.5–38.6; O2SAT 84–96; BMI 41.2
[2021-02-24] MEDS: famotidine 20 mg/2 mL INJ IVP (00:02)
[2021-02-24 02:03] LABS: Basophils % 0.1 %; Eosinophils % 0.1 %; Hematocrit 37.8 % (42.0-52.0); Hemoglobin 12.3 g/dL (11.7-16.6); Lymphocytes # 0.4 10^3/uL (0.8-4.8); Lymphocytes % 1.4 %; Mean Corpuscular HGB Conc 32.5 g/dL (30.0-36.0); Mean Corpuscular Hemoglobin 28.6 pg (28.0-34.0); Mean Corpuscular Volume 87.9 fl (80-94); Mean Platelet Volume 10.8 fL (7.4-10.4); Monocytes # 1.1 10^3/uL (0.2-0.9); Monocytes % 3.5 %; Nucleated Red Blood Cells # 0.3 /100WBC; Platelet Count 440 10^3/cmm (130-400); Red Cell Distribution Width 15.5 % (12.1-15.1)
[2021-02-24 02:21] LABS: Magnesium 2.3 mg/dL (1.7-2.3); Phosphorus 4.5 mg/dL (2.5-4.5)
[2021-02-24 02:24] LABS: Anion Gap 17.7 (5-19); Blood Urea Nitrogen 44 mg/dL (6-20); Calcium 8.7 mg/dL (8.5-10.5); Carbon Dioxide 23 mmol/L (22-29); Chloride 95 mmol/L (98-107); Glomerular Filtration Rate 32.6 mL/min (90-130); Glucose 162 mg/dL (65-115); Osmolality Calculated 287 mOsm/kg (285-295); Potassium 4.7 mmol/L (3.5-5.1); Sodium 131 mmol/L (136-145)
[2021-02-24 02:59] LABS: Slide Review Slide Review Perform
[2021-02-24 03:00] LABS: White Blood Count 30.7 10^3/uL (4.0-10.0)
[2021-02-24] MEDS: ipratropium-albuterol 3 mL Neb INHALATION ×2 (03:31→08:12)
--- NOTE | 2021-02-24 03:45 | PC.NURSE ---
Pt's TMP went from 185 to greater than 400 in less than [address] Piper was notified and a new set was placed. Pt was on the new set for approx. 5-10 minutes before his TMP was greater than 400. Was able to return blood both times. Notified Dr. Bundy and was ordered to stop CRRT at this time. Shortly after stopping CRRT pt began to projectile vomit approx 400mL tube feed colored emesis and passed a small liquid bowel movement. Pt's eyes are starting to open. Pupils are reactive to light but does no respond to stimuli and deviated up and to the left. Dr. Piper was again notified. No new orders at this time. Bed in lowest and locked position, call light within reach, x's 2 rails up. Will continue to monitor pt.
[2021-02-24] MEDS: nicardipine 20 MG/200 ML PREMIX 50 MG IV ×2 (04:57→07:04)
[2021-02-24] MEDS: acetaminophen 650 mg Supp PR (07:07)
--- NOTE | 2021-02-24 07:26 | PC.NURSE ---
Mottled skin. Patient mottled from toes to neck, diaphoretic, RR 40s, HR 140, pupils nonreactive and dilated. Dr. Ulrich called and notified of condition, he is aware and will come down and talk to family. Family in room, explained condition and that patient has high chance of coding within next few hours. They are aware and understand.
[2021-02-24 07:40] LABS: Glucose Point of Care 109 mg/dL (70-110)
--- NOTE | 2021-02-24 08:21 | PC.NURSE ---
Code status Dr. Ulrich, Dr. De Guzman, and myself talked to family (3 siblings, Mariluz) in the patients room. All questions answered. Patient to be left on vent but NO CPR, NO SHOCK, NO resuscitation measures.
--- NOTE | 2021-02-24 08:52 | PM.PN ---
Subjective Subjective: Interval history: sedated, vent, tachycardic Medications: Reviewed: Yes Medication Review Details: Current Medications Acetaminophen (Acetaminophen 325 Mg Tablet) 650 mg PO Q6H PRN PRN Reason: MILD PAIN Acetaminophen (Acetaminophen 650 Mg Supp) 650 mg [place] Q6H PRN PRN Reason: temp > 100.5 Last Admin: 02/24/21 07:07 Dose: 650 mg Documented by: Albuterol/Ipratropium (Ipratropium-Albuterol 3 Ml Neb) 3 ml INHALATION Q6H.RESPIRATORY [facility] Last Admin: 02/24/21 08:12 Dose: 3 ml Documented by: Alteplase, Recombinant (Alteplase 1 Mg/Ml Sdv 2 Ml) 4 mg INTRACATH PRN PRN PRN Reason: DIALYSIS USE ONLY Last Admin: 02/19/21 08:20 Dose: 4 mg Documented by: Alteplase, Recombinant (Alteplase 1 Mg/Ml Sdv 2 Ml) 0 mg INTRACATH Q2H PRN; Protocol PRN Reason: Poor Catheter Flow/ Clotted Catheter Amiodarone HCl (Amiodarone 200 Mg Tablet) 200 mg PO BID [facility] Last Admin: 02/23/21 17:21 Dose: 200 mg Documented by: Aspirin (Aspirin 81 Mg Ec Tablet) 81 mg PO DAILY [facility] Last Admin: 02/23/21 08:23 Dose: 81 mg Documented by: Dexamethasone (Dexamethasone 10 Mg/Ml Inj) 6 mg IVP Q24H [facility] Last Admin: 02/23/21 17:21 Dose: 6 mg Documented by: Dextrose (Dextrose 50% Syringe 50 Ml) 25 ml IVP ONCE PRN; Protocol PRN Reason: hypoglycemia protocol Last Admin: 02/21/21 11:07 Dose: 25 ml Documented by: Dextrose (Dextrose 50% Syringe 50 Ml) 50 ml IVP PRN PRN; Protocol PRN Reason: hypoglycemia protocol Docusate Sodium (Docusate Sodium 10 Mg/Ml (5ml) Liq) 100 mg PO DAILY [facility] Last Admin: 02/23/21 08:25 Dose: 100 mg Documented by: Famotidine (Famotidine 20 Mg/2 Ml Inj) 20 mg IVP Q12H [facility] Last Admin: 02/24/21 00:02 Dose: 20 mg Documented by: Fluconazole (Fluconazole 100 Mg Tablet) 100 mg OG-TUBE DAILY [facility] Last Admin: 02/23/21 08:23 Dose: 100 mg Documented by: Fluoxetine HCl (Fluoxetine 20 Mg Capsule) 20 mg PO DAILY [facility] Last Admin: 02/23/21 08:23 Dose: 20 mg Documented by: Glucagon (Glucagon 1 Mg/Ml Inj 1 Ml) 1 mg IM ONCE PRN; Protocol PRN Reason: Adult Acute Hypoglycemia Prot. Heparin Sodium (Beef Lung) (Heparin Lock Flush 500 Unit/5 Ml Syringe) 500 unit IV PRN PRN PRN Reason: At CRRT disconnect Last Admin: 02/21/21 09:10 Dose: 500 unit Documented by: Hydralazine HCl (Hydralazine 20 Mg/Ml Inj 1 Ml) 20 mg IVP ONCE PRN PRN Reason: HYPERTENSION Last Admin: 02/23/21 21:01 Dose: 20 mg Documented by: Hydralazine HCl (Hydralazine 20 Mg/Ml Inj 1 Ml) 20 mg IVP Q6H PRN PRN Reason: HYPERTENSION Fentanyl 1,000 mcg/ Sodium (Chloride) 100 mls @ 0 mls/hr IV .Q0M [facility]; Protocol Last Titration: 02/24/21 07:19 Dose: 100 mcg/hr, 10 mls/hr Documented by: Propofol (Diprivan) 1,000 mg in 100 mls @ 0 mls/hr IV .Q0M [facility]; Protocol Last Titration: 02/23/21 15:35 Dose: 0 mcg/kg/min, 0 mls/hr Documented by: Norepinephrine Bitartrate 4 mg (/ Dextrose) 254 mls @ 0 mls/hr IV .Q0M [facility]; Protocol Last Titration: 02/23/21 18:17 Dose: Infused Documented by: Dextrose (D5w) 500 mls @ 100 mls/hr IV ONCE PRN; Protocol PRN Reason: Adult Acute Hypoglycemia Prot Midazolam HCl 100 mg/ Sodium (Chloride) 100 mls @ 0 mls/hr IV .Q0M [facility]; Protocol Last Titration: 02/23/21 10:13 Dose: 0 mg/hr, 0 mls/hr Documented by: Norepinephrine Bitartrate 8 mg (/ Dextrose) 508 mls @ 0 mls/hr IV .Q0M [facility]; Protocol Last Titration: 02/21/21 15:15 Dose: Infused Documented by: Cisatracurium Besylate 100 mg/ (Sodium Chloride) 100 mls @ 0 mls/hr IV .Q0M [facility]; Protocol Last Titration: 02/21/21 15:00 Dose: 0 mcg/kg/min, 0 mls/hr Documented by: Albumin Human (Albumin) 12.5 gm in 50 mls @ 60 mls/hr IV PRN PRN PRN Reason: Hypotension and/or symptomatic Imipenem/Cilastatin Sodium 250 (mg/ Sodium Chloride) 100 mls @ 200 mls/hr IV Q6H [facility]; Protocol Last Infusion: 02/24/21 05:35 Dose: Infused Documented by: Amiodarone HCl 900 mg/Dextrose/ IV Miscellaneous Supplies 518 mls @ 0 mls/hr IV .Q0M [facility]; Protocol Last Titration: 02/23/21 18:16 Dose: Infused Documented by: Linezolid (Zyvox Premix) 600 mg in 300 mls @ 300 mls/hr IV Q12H [facility]; Protocol Last Infusion: 02/23/21 21:34 Dose: Infused Documented by: Nicardipine/Sodium Chloride (Cardene) 20 mg in 200 mls @ 0 mls/hr IV .Q0M [facility]; Protocol Last Admin: 02/24/21 07:04 Dose: 5 mg/hr, 50 mls/hr Documented by: Insulin Aspart (Insulin Aspart 100 Unit/1 Ml) 0 unit SUBCUT WM&BEDTIME [facility]; Protocol Last Admin: 02/24/21 08:20 Dose: Not Given Documented by: Insulin Glargine (Insulin Glargine 100 Units/1 Ml) 28 unit SUBCUT BID [facility] Last Admin: 02/23/21 17:21 Dose: 28 unit Documented by: Lactulose (Lactulose Oral Liq 20 Gm/30 Ml Udc) 30 gm PO BID [facility] Last Admin: 02/23/21 17:21 Dose: 30 gm Documented by: Ondansetron HCl (Ondansetron 2 Mg/Ml Sdv 2 Ml) 4 mg IVP Q6H PRN PRN Reason: NAUSEA AND VOMITING Senna/Docusate Sodium (Sennosides-Docusate Tablet) 1 tab PO DAILY [facility] Last Admin: 02/23/21 08:23 Dose: 1 tab Documented by: Sevelamer Carbonate (Sevelamer 800 Mg Tablet) 1,600 mg PO TID [facility] Last Admin: 08/21/21 20:32 Dose: 1,600 mg Documented by: Sodium Chloride (Sodium Chloride 0.9% 1,000 Ml Bag) 1,000 - 7,000 ml CRRT PRN PRN PRN Reason: For priming CRRT Machine Vitals/I&O/Wt Last Vital Signs Temp 101.4 F H 02/24/21 06:00 Pulse 119 H 02/24/21 08:14 Resp 37 H 02/24/21 08:27 BP 149/91 02/24/21 06:00 Pulse Ox 86 L 02/24/21 08:27 02/23/21 02/24/21 02/24/21 22:59 06:59 14:59 Intake Total 512.244 / 1840.210 507.417 / 2347.627 323.916 / 323.916 Balance 512.244 / 1840.210 507.417 / 2347.627 323.916 / 323.916 Weight last 48 hrs Weight 126.581 kg Weight 132.052 kg Physical Exam Narrative: EXAM NARRATIVE: vent tv 500, peep 16, fio2=70%, off pressers heent- nc/at lungs ronchi and cracklesb/l heart -irreg irreg, + s1, s2 ext edema b/l rt femoral dialysis catheter neuro - sedated seen and examined w/ rN- telehealth visit Urinary Catheter Management^: Mckinnon: Cath Placed During This Visit: yes Reason for Continuing Indwelling Catheter: Accurate Measurement of Urinary Output in Critically Ill Patients Urinary Catheter Date of Insertion: 02/14/21 Urinary Catheter Time of Insertion: 11:05 Data : 02/24/21 01:36 02/24/21 01:36 Micro: Microbiology 02/22/21 13:55 Blood Culture - Preliminary Blood NEGATIVE TO DATE 02/22/21 13:51 Blood Culture - Preliminary Blood NEGATIVE TO DATE A&P Additional A&P Information 1. 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 He remains anuric -had difficulty w/ CRRT clotting overnight -currently family is considering comfort care -k 4.7, bun 44 - no emergent need for dialysis, unless Pulmonary wants to remove fluids -i discussed pts clinical condition w/ family in detail and they will discuss w/ Dr. Roger- they are leaning towards comfort care- given poor neurological status, and persistent fevers, and vent dep 2. Vent dependent respiratory failure Secondary to Covid pneumonitis, superimposed bacterial pneumonia Management per ICU team Continue coverage with combination antibiotic/antifungal therapy 3. Hemodynamics A. fib with RVR- 120- on amio per critical care= if HR improves, can even consider HD if family wants furtehr care Off Levophed now 4. leukocytosis and fevers Prognosis is guarded at this time, comfort care would be appropriate. Patient seen and examined via telemedicine, with the assistance of the bedside RN > 25 min spent in evaluation and mgmt of patient discussed in detail w/ pts children and Dr. Roger Attestations Medical Necessity Statement*: vdrf, [place], covid- pna Time Spent in Patient Care: 16 - 35 minutes Coding Level of Care Code Acute Well Treatment Offsider for [facility]in Tse
[2021-02-24] MEDS: morphine 4 mg/mL SDV 1 mL IVP (09:08)
--- NOTE | 2021-02-24 11:30 | PC.NURSE ---
TOD 1119, family at bedside. Verified by myself and RT, no pulse, no respirations, no BP. Dr. Ulrich, Datar, Dr. De Guzman and warehouse order filler (Wendy) notified. MTS to be called by [facility].
--- NOTE | 2021-02-24 11:49 | PC.NURSE ---
Addendum entered by Wendy Burnette RN 02/24/21 11:52: Pt is also not a candidate for saving site Original Note: MTS contacted at this time. Pt is not a candidate for donation. Waiting on family to make a decision on where the pt should go. ICU nurse aware.
--- NOTE | 2021-02-24 12:07 | PC.NURSE ---
[facility] chosen by family. Post mortem care provided.
--- NOTE | 2021-02-24 13:51 | PC.NURSE ---
[facility] home picked up patient at 1335. Patient declined by MTS.
--- NOTE | 2021-02-24 15:34 | PM.DDS ---
Discharge Providers DDS Date of Admission: 02/14/21 15:28 Date Summary Completed: 02/24/21 Attending Provider at Admission: Talib Olvera MD Attending Provider at Discharge: Alondra Ulrich MD Primary Care Provider: Juan Diego Gaona MD DS Diagnoses Hospital Diagnoses (1) Ventilator associated pneumonia: (2) Atrial fibrillation with RVR: (3) Septic shock due to streptococcal infection: (4) Transaminitis: (5) Multiorgan failure: (6) Acute renal failure: Qualifiers: Acute renal failure type: unspecified Qualified Code(s): N17.9 - Acute kidney failure, unspecified (7) DIC (disseminated intravascular coagulation): (8) JACINTO (acute kidney injury): (9) Diabetes mellitus: Qualifiers: Diabetes mellitus type: type 2 Diabetes mellitus 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 He had tested + February 05. His had also had similar symptoms. He was intubated and sedated in the ER. He JACINTO to meeting with qualify for monoclonal antibody. He was given IV steroids IV antibiotics. He was admitted to the ICU. During his hospitalization is complicated with multiorgan failure. He did require CRRT. Patient also noted to have right upper lobe pneumonia. Patient was placed on heparin drip for DVT prophylaxis. Cultures and serial inflammatory markers were monitored. Linette with ARDS. A. fib with RVR placed on amiodarone drip briefly. Diabetes was also managed. Despite multiple proning sessions pressors IV antibiotics steroids patient declined in status. His CRRT access also clotted. Discussed with family. CODE STATUS was changed from full code to DNR to comfort measures. He had passed due to his multiorgan failure. Family was present during course. Additional Data Confirmation of as documented by pronouncing clinician: no pulse Family: at bedside Additional persons at bedside: nursing staff Was code activated?: No Autopsy requested?: No Discharge Plan Discharge Patient Disposition: Condition: Probable Cause of Probable cause of : Cardiac arrest DS Attestations Time Spent in /Discharge Care*: greater than 30 min Quality - AMI: AMI present?: No Quality - Stroke: CVA present?: No Quality - VTE: VTE present?: No Deep Vein Thrombosis/Pulmonary Embolism Present on Admission: No Coding Level of Care Code Acute [facility] Diagnoses Ventilator associated pneumonia J95.851 Atrial fibrillation with RVR I48.91 Septic shock due to streptococcal infection A40.9; R65.21 Transaminitis R74.01 Multiorgan failure Acute renal failure N17.9 Acute renal failure type: unspecified DIC (disseminated intravascular coagulation) D65 JACINTO (acute kidney injury) N17.9 Diabetes mellitus E11.69 Diabetes mellitus type: type 2 Diabetes mellitus senior living insulin use: unspecified 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
--- NOTE | 2021-02-24 21:14 | PM.PN ---
Subjective Subjective: Interval history: -Patient persistently leukocytosis and spiking fever despite being on linezolid, imipenem and fluconazole -Yesterday overnight has issues with dialysis catheter clogging -Also patient was going into intermittent A. fib RVR -Despite taking off sedation patient does not have any meaningful mentation -Daughter Mariluz at bedside and understands the grave prognosis-and wanted comfort care Medications: Reviewed: Yes Vitals/I&O/Wt Last Vital Signs Temp 101.4 F H 02/24/21 06:00 Pulse 80 02/24/21 11:00 Resp 28 H 02/24/21 11:00 BP 56/31 02/24/21 11:00 Pulse Ox 84 L 02/24/21 10:30 02/24/21 02/24/21 02/24/21 06:59 14:59 22:59 Intake Total 507.417 / 2347.627 480.849 / 480.849 Balance 507.417 / 2347.627 480.849 / 480.849 Weight last 48 hrs Weight 279 lb 1 oz Weight 291 lb 2 oz Physical Exam Narrative: EXAM NARRATIVE: General: lying in bed, sedated and intubated. 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 SKIN: no rash; left gluteal subcutaneous hematoma LDA: # CVC: Right cutaneous IJ CVC 02/14/2021 # HD Cath : Right femoral HD catheter 02/15/2021 # Mckinnon: 02/14/2021 Urinary Catheter Management^: Mckinnon: Cath Placed During This Visit: yes Reason for Continuing Indwelling Catheter: Accurate Measurement of Urinary Output in Critically Ill Patients Urinary Catheter Date of Insertion: 02/14/21 Urinary Catheter Time of Insertion: 11:05 Data : 02/24/21 01:36 02/24/21 01:36 A&P Assessment and plan (1) Goals of care, counseling/discussion: Status: Acute -Patient persistently leukocytosis and spiking fever despite being on linezolid, imipenem and fluconazole -Yesterday overnight has issues with dialysis catheter clogging -Also patient was going into intermittent A. fib RVR -Despite taking off sedation patient does not have any meaningful mentation -Daughter Mariluz at bedside and understands the grave prognosis-and wanted comfort care -Patient was subsequently terminally extubated and disconnected from ventilator -Patient -time of 1119 today Attestations Medical Necessity Statement*: Patient secondary to sepsis due to bacterial pneumonia, Streptococcus bacteremia, COVID-19 leading to multiorgan failure-patient family opted for comfort care due to grim prognosis Time Spent in Patient Care: 16 - 35 minutes (>than 50% of time spent in counselling and/or direct pt care on unit). Coding Level of Care Code Established Pt Acute Greaser And Oiler for [facility]g Fwd Patient Type Established History Comprehensive Exam Comprehensive Medical Decision Making Moderate Complexity Diagnoses Goals of care, counseling/discussion Z71.89 Time Spent (min) 25
== END 2021-02-24 13:35 | disposition expired | DRG 207 ==
LOC: ER 12:16 → ICU 02-15 06:54
PROVIDERS: Family Medicine; Hospitalist; Internal Medicine; Internal Medicine Nephrology; Internal Medicine Pulmonary Disease; Student in an Organized Health Care Education/Training Program; Admitting Provider Internal Medicine; Emergency Provider Family Medicine; PCP Family Medicine; Visit Provider Internal Medicine
DX: U07.1 COVID-19 (principal); J12.82 Pneumonia due to coronavirus disease 2019; J80 Acute respiratory distress syndrome; N17.0 Acute kidney failure with tubular necrosis; D65 Disseminated intravascular coagulation [defibrination syndrome]; A40.3 Sepsis due to Streptococcus pneumoniae; R65.21 Severe sepsis with septic shock; K72.00 Acute and subacute hepatic failure without coma; Z68.41 Body mass index [BMI] 40.0-44.9, adult; M62.82 Rhabdomyolysis; E87.4 Mixed disorder of acid-base balance; E87.1 Hypo-osmolality and hyponatremia; I25.10 Atherosclerotic heart disease of native coronary artery without angina pectoris; E11.65 Type 2 diabetes mellitus with hyperglycemia; E78.5 Hyperlipidemia, unspecified; I10 Essential (primary) hypertension; I95.2 Hypotension due to drugs; E66.9 Obesity, unspecified; E87.5 Hyperkalemia; I46.9 Cardiac arrest, cause unspecified; Z66 Do not resuscitate; Z51.5 Encounter for palliative care; S30.0XXA Contusion of lower back and pelvis, initial encounter; X58.XXXA Exposure to other specified factors, initial encounter; I48.91 Unspecified atrial fibrillation
CPT/HCPCS: 31500; 36415; 36416; 36592; 36600; 51702; 51798; 71045; 72170; 80048; 80051; 80053; 80069; 80202; 81001; 82009; 82330; 82550; 82575; 82803; 82805; 82962; 83520; 83605; 83735; 83880; 84100; 84145; 84300; 84443; 84484; 85007; 85025; 85049; 85362; 85378; 85384; 85610; 85730; 86140; 86403; 86706; 86713; 86803; 87040; 87070; 87077; 87086; 87106; 87107; 87186; 87205; 87340; 87449; 87641; 90935; 93005; 93306; 94002; 94003; 94640; 94799; 96365; 96366; 96367; 96368; 96372; 96375; 99291; 99292; C1751; J0282; J0330; J0360; J0610; J0696; J0743; J1100; J1642; J1644; J1815 ×2; J1940; J2020; J2250; J2270; J2543; J2704; J2997; J3010; J3370; J3490; J7040; J7060; Q3014